=== PATIENT | female | born 1935 | race Caucasian/White ===

== ENCOUNTER 2019-07-23 00:21 | Emergency (ER) | payer OTHER, BC ==
[2019-07-23] MEDS ORDERED: propofoL 200 MG/20 ML VIAL IV ONE (01:04)
[2019-07-23] MEDS ORDERED: NA CHLORIDE 0.9% 1,000 ML ONE (01:12)
[2019-07-23 01:18] LABS: Absolute Lymphocytes (CBC) 1.3 K/uL (0.7-4.9); Basophils % 0.6 % (0-1.3); Hematocrit 33.4 % (36.0-45.0); Lymphocytes % 16.8 % (15.3-44.8); MPV 8.1 fL (7.6-11.3); RBC Red Blood Cell Count 3.34 M/uL (3.86-4.86)
[2019-07-23 01:28] LABS: Albumin 3.5 g/dL (3.4-5.0); Bilirubin Total 0.3 mg/dL (0.2-1.0); Potassium 3.5 mmol/L (3.5-5.1); Protein, Total 7.5 g/dL (6.4-8.2)
--- NOTE | 2019-07-23 01:45 | EDPHYS ---
Physician Documentation [facility] Name: Denia Leslie Age: 83 yrs Sex: Female : 1935 Arrival Date: 07/23/2019 Time: 00:24 Bed 5 Private MD: ED Physician Seymour Franco HPI: 07/22 01:57 This 83 yrs old Female presents to ER via EMS with complaints of Hip Pain. tw4 01:57 The patient or guardian reports decreased range of motion, deformity, an injury, pain, tw4 possible dislocation. that occurred at home, sustained from sitting down, the left lower extremity is shortened, left leg is externally rotated, The patient is not able to ambulate. Patient is not able to bear weight. There is no radiation of the patient's discomfort. The patient was discovered one hour after the incident. The complaints affect the left upper thigh. Onset: The symptoms/episode began/occurred today. Modifying factors: The symptoms are alleviated by remaining still, the symptoms are aggravated by any movement. Severity of symptoms: At their worst the symptoms were moderate. The patient has not experienced similar symptoms in the past. Historical: - Allergies: 00:35 hydrocodone; ea - Home Meds: 00:35 levothyroxine 50 mcg tab 1 tab once daily [Active]; pantoprazole 40 mg oral TbEC 1 tab ea once daily [Active]; lisinopril 10 mg Oral tab 1 tab once daily [Active]; diclofenac sodium 75 mg oral TbEC 1 tab 2 times per day [Active]; tramadol 50 mg Oral tab 1 tab as needed [Active]; - PMHx: 00:35 breast cancer; Hypertension; ea - PSHx: 00:35 Right lumpectomy; Neck surgery; Hysterectomy; ea - Immunization history:: Adult Immunizations up to date. - Social history:: Smoking status: unknown. ROS: 01:57 Constitutional: Negative for fever, chills, and weight loss, Eyes: Negative for injury, tw4 pain, redness, and discharge, Cardiovascular: Negative for chest pain, palpitations, and edema, Respiratory: Negative for shortness of breath, cough, wheezing, and pleuritic chest pain, Abdomen/GI: Negative for abdominal pain, nausea, vomiting, diarrhea, and constipation, Back: Negative for injury and pain, Skin: Negative for injury, rash, and discoloration, Neuro: Negative for headache, weakness, numbness, tingling, and seizure. 01:57 MS/extremity: Positive for injury or acute deformity, decreased range of motion, swelling, tenderness. Exam: 01:57 Constitutional: This is a well developed, well nourished patient who is awake, alert, tw4 and in no acute distress. Head/Face: Normocephalic, atraumatic. Chest/axilla: Normal chest wall appearance and motion. Nontender with no deformity. No lesions are appreciated. Cardiovascular: Regular rate and rhythm with a normal S1 and S2. No gallops, murmurs, or rubs. Normal PMI, no JVD. No pulse deficits. Respiratory: Lungs have equal breath sounds bilaterally, clear to auscultation and percussion. No rales, rhonchi or wheezes noted. No increased work of breathing, no retractions or nasal flaring. Abdomen/GI: Soft, non-tender, with normal bowel sounds. No distension or tympany. No guarding or rebound. No evidence of tenderness throughout. Skin: Warm, dry with normal turgor. Normal color with no rashes, no lesions, and no evidence of cellulitis. Neuro: Awake and alert, GCS 15, oriented to person, place, time, and situation. Cranial nerves II-XII grossly intact. Motor strength 5/5 in all extremities. Sensory grossly intact. Cerebellar exam normal. Normal gait. 01:57 Musculoskeletal/extremity: Extremities: noted in the left upper thigh: decreased ROM, deformity. Vital Signs: 00:26 BP 167 / 92; Pulse 76; Resp 20; Temp 97.8; Pulse Ox 98% ; ea 01:30 BP 112 / 83; Pulse 68; Resp 18; Pulse Ox 97% on R/A; ea 03:16 BP 142 / 70; Pulse 67; Resp 17 S; Pulse Ox 97% on R/A; jd3 Procedures: 03:14 Reduction: of the left hip, using traction, manipulation, flexion, Patient tolerated tw4 well. not successful . Joint Treatment:. Moderate sedation: Pre-procedure assessment: the patient has been NPO an unknown amount of time prior to arrival, ASA physical classification: I - healthy, no underlying organic disease, Airway assessment: able to hyperextend neck, able to maintain airway, can open mouth without difficulty, Mallampati classification of tongue size: I - faucial pillars, soft palate, and uvula can be fully visualized, Monitoring during procedure: desk monitor, continuous pulse oximetry, nurse at bedside at all times, Medications employed: propofol. MDM: 00:27 Patient medically screened. tw4 03:14 Differential diagnosis: hip fracture, intertrochanteric fracture, femoral neck tw4 fracture, femoral shaft fracture, strain, hip dislocation. Data reviewed: vital signs, nurses notes. Data interpreted: Pulse oximetry: Interpretation: normal. Counseling: I had a detailed discussion with the patient and/or guardian regarding: the historical points, exam findings, and any diagnostic results supporting the discharge/admit diagnosis, radiology results. Medication response: Fentanyl. Response to treatment: the patient's symptoms have markedly improved after treatment, and as a result, I will admit patient. ED course: D/W orthopedics at [facility] regarding patients condition and need for higher level of care. Dr Johnson agrees to accept patient for transfer. 07/22 00:47 Order name: CBC with Diff; Complete Time: 01:53 07/22 01:53 Interpretation: Normal except: RBC 3.34; HGB 11.2; HCT 33.4. 07/22 00:47 Order name: CMP; Complete Time: 01:54 07/22 01:54 Interpretation: Normal except: NA 131; CL 96; GFR 68. 07/22 00:28 Order name: Hip Left 1 View XRAY tw4 Administered Medications: 01:20 Drug: Propofol 100 mg Route: IVP; Site: left wrist; jd3 01:46 Follow up: Response: No adverse reaction ea 02:10 Drug: fentaNYL (PF) 50 mcg {Note: RASS 1.} Route: IVP; Site: left forearm; ea 02:50 Follow up: Response: No adverse reaction; Pain is decreased; RASS: Alert and Calm (0) ea 03:23 Drug: fentaNYL (PF) 25 mcg {Note: RASS 1.} Route: IVP; Site: left wrist; ea 03:26 Follow up: Response: Medication administered at discharge. ea Disposition: 07/23/19 01:45 Transfer ordered to [facility]. Diagnosis is Posterior dislocation of left hip. - Reason for transfer: Higher level of care. - Accepting physician is Dr Johnson. - Condition is Stable. - Problem is new. - Symptoms have improved. Signatures: Dispatcher [employer] EDBertrand John, RN Keena Cadet RN Davidson Everett ea, RN RN jd3 Wadley, Terrence, MD MD tw4 Corrections: (The following items were deleted from the chart) 01:57 01:45 07/23/2019 01:45 Transfer ordered to [facility]. tw4 Diagnosis is Posterior dislocation of left hip. Reason for transfer: Higher level of care. Accepting physician is Dr Major. Condition is Stable. Problem is new. Symptoms have improved. tw4 03:24 01:57 07/23/2019 01:45 Transfer ordered to [facility]. sg Diagnosis is Posterior dislocation of left hip. Reason for transfer: Higher level of care. Accepting physician is Dr Johnson. Condition is Stable. Problem is new. Symptoms have improved. tw4
--- NOTE | 2019-07-23 01:45 | ER ---
Nurse's Notes [facility] Name: Denia Leslie Age: 83 yrs Sex: Female : 1935 Arrival Date: 07/23/2019 Time: 00:24 Bed 5 Private MD: Diagnosis: Posterior dislocation of left hip Presentation: 07/22 00:26 Chief complaint: EMS states: Report pt was complaining of left leg pain that started ea this AM, reports the pain got worse throughout the day until she couldn't walk on it anymore. Pt and family denies trauma or fall, reports pt drank 6 beers. Coronavirus screen: Proceed with normal triage. Ebola Screen: No symptoms or risks identified at this time. Initial Sepsis Screen: Does the patient meet any 2 criteria? No. Patient's initial sepsis screen is negative. Does the patient have a suspected source of infection? No. Patient's initial sepsis screen is negative. Risk Assessment: Do you want to hurt yourself or someone else? Patient reports no desire to harm self or others. Onset of symptoms was July 23, 2019. 00:26 Method Of Arrival: EMS: [facility] ea 00:26 Acuity: EROS 3 ea Triage Assessment: 00:37 General: Appears in no apparent distress. Behavior is calm, cooperative, appropriate ea for age. Pain: Complains of pain in left hip. Historical: - Allergies: 00:35 hydrocodone; ea - Home Meds: 00:35 levothyroxine 50 mcg tab 1 tab once daily [Active]; pantoprazole 40 mg oral TbEC 1 tab ea once daily [Active]; lisinopril 10 mg Oral tab 1 tab once daily [Active]; diclofenac sodium 75 mg oral TbEC 1 tab 2 times per day [Active]; tramadol 50 mg Oral tab 1 tab as needed [Active]; - PMHx: 00:35 breast cancer; Hypertension; ea - PSHx: 00:35 Right lumpectomy; Neck surgery; Hysterectomy; ea - Immunization history:: Adult Immunizations up to date. - Social history:: Smoking status: unknown. Screenin:28 Abuse screen: Denies threats or abuse. Nutritional screening: No deficits noted. ea Tuberculosis screening: No symptoms or risk factors identified. Fall Risk None identified. Assessment: 00:35 General: Appears uncomfortable, Behavior is appropriate for age. Pain: Complains of ea pain in left hip. Neuro: Level of Consciousness is awake, alert, obeys commands, Oriented to person, place, time, situation. Cardiovascular: Patient's skin is warm and dry. Respiratory: Airway is patent Respiratory effort is even, unlabored, Respiratory pattern is regular, symmetrical. Derm: Skin is pink, warm \T\ dry. Musculoskeletal: Swelling present in left hip Reports pain in left hip. 00:38 Reassessment: , Son (Fidel) [phone]. ea 00:45 Reassessment: POA notified of conscious sedation for reduction, verbalized the ea understanding of information and agreed to conscious sedation and reduction. 01:43 Reassessment: POA notified of possible transfer. ea 02:53 Reassessment: Report given to Jayleen RN at [facility]. Reassessment: Patient ea and/or family updated on plan of care and expected duration. Pain level reassessed. Patient is alert, oriented x 3, equal unlabored respirations, skin warm/dry/pink. 03:03 Reassessment: (DIDI) notified of need for transfer. Verbalized the understanding ea and agreed of the need to transfer. 03:16 Reassessment: Patient and/or family updated on plan of care and expected duration. Pain jd3 level reassessed. Patient is alert, oriented x 3, equal unlabored respirations, skin warm/dry/pink. report given to EMS. 03:19 Reassessment: Patient and/or family updated on plan of care and expected duration. Pain ea level reassessed. Patient is alert, oriented x 3, equal unlabored respirations, skin warm/dry/pink. [facility] at facility for transfer, report given to EMS. Pt left ED via stretcher per EMS, tolerating well. Vital Signs: 00:26 BP 167 / 92; Pulse 76; Resp 20; Temp 97.8; Pulse Ox 98% ; ea 01:30 BP 112 / 83; Pulse 68; Resp 18; Pulse Ox 97% on R/A; ea 03:16 BP 142 / 70; Pulse 67; Resp 17 S; Pulse Ox 97% on R/A; jd3 ED Course: 00:24 Patient arrived in ED. cl3 00:26 Keena Holt, RN is Primary Nurse. ea 00:27 Seymour Franco MD is Attending Physician. tw4 00:28 Triage completed. ea 00:29 Patient has correct armband on for positive identification. Bed in low position. Call ea light in reach. Side rails up X2. 00:29 Arm band placed on right wrist. Patient placed in an exam room, on a stretcher, on ea pulse oximetry. 00:41 Maintain EMS IV. Dressing intact. Good blood return noted. Site clean \T\ dry. Gauge \T\ ea site: 20G to left AC. 00:50 Hip Left 1 View XRAY In Process Unspecified. EDMS 00:59 Initial lab(s) drawn, by me, sent to lab. jd3 01:39 Assist provider with reduction Set up for procedure. Performed by Seymour Franco MD, ea Patient tolerated well. Attempt in reduction to left hip using manipulation. 03:02 Patient transferred, IV remains in place. ea Administered Medications: 01:20 Drug: Propofol 100 mg Route: IVP; Site: left wrist; jd3 01:46 Follow up: Response: No adverse reaction ea 02:10 Drug: fentaNYL (PF) 50 mcg {Note: RASS 1.} Route: IVP; Site: left forearm; ea 02:50 Follow up: Response: No adverse reaction; Pain is decreased; RASS: Alert and Calm (0) ea 03:23 Drug: fentaNYL (PF) 25 mcg {Note: RASS 1.} Route: IVP; Site: left wrist; ea 03:26 Follow up: Response: Medication administered at discharge. ea Outcome: 01:45 ER care complete, transfer ordered by . tw4 02:56 Instructed on the need for transfer, Demonstrated understanding of instructions. ea 03:02 Transferred by ground EMS to [facility], Transfer form completed. ea 03:02 Condition: stable 03:24 Patient left the ED. sg Signatures: Dispatcher [employer] EDMS Bertrand Breen, Keena Cadet RN, RN Davidson Everett ea, RN RN jd3 Wadley, Terrence, MD MD tw Angela Martin cl3
[2019-07-23] MEDS ORDERED: FENTANYL CITR 100 MCG/2 ML ONE (02:14)
[2019-07-23 03:31] VITALS: TEMP 97.8
[2019-07-23 03:33] VITALS: O2SAT 97
[2019-07-23 03:34] VITALS: BP 142/70
--- NOTE | 2019-07-23 07:40 | RAD REPORT ---
EXAM DESCRIPTION: RAD - Hip Left 1 View - 07/23/2019 12:50 am CLINICAL HISTORY: PAIN, worsening left leg and hip pain COMPARISON: No comparisons FINDINGS: Patient has a left total hip prosthesis. The femoral component has been dislocated from th e acetabular cup and displaced superiorly. No fracture changes seen of the femur or partially imaged left hemipelvis. IMPRESSION: Dislocation of the patient's left hip prosthesis femoral component.
== END 2019-07-23 03:24 | disposition short-term general hospital (02) ==
LOC: ER 00:21
PROC: 0SSBXZZ Reposition Left Hip Joint, External Approach (ICD-10-PCS; principal; 2019-07-23)
DX: S73.015A Posterior dislocation of left hip, initial encounter (principal); X58.XXXA Exposure to other specified factors, initial encounter; Y93.9 Activity, unspecified; Y92.009 Unspecified place in unspecified non-institutional (private) residence as the place of occurrence of the external cause; Z88.6 Allergy status to analgesic agent; Z85.3 Personal history of malignant neoplasm of breast; I10 Essential (primary) hypertension
CPT/HCPCS: 85025; 36415; 80053; 73501; 99285; 27257; J2704; J3010; J7030

== ENCOUNTER 2019-12-12 20:31 | Inpatient (IN) | payer OTHER ==
--- OUTSIDE RECORDS SUMMARY | 2019-12-12 20:34 | XMS REPORT | Clinical Summary ---
:1935 Author Organization [facility] Address [address] [place] [address] Care Team Providers Name Role Phone Unavailable Primary Care Provider Unavailable Allergies Active Allergy Reactions Severity Noted Date Comments Hydrocodone-Acetaminophen Rash Low 07/23/2019 Medications Medication Sig Dispensed Refills Start Date End Date Status levothyroxine Take 50 mcg 0 Acti ve (SYNTHROID, by mouth LEVOTHROID) 50 MCG Every tabletIndications: morning on hypothyroidism an empty stomach. pantoprazole Take 40 mg 0 Active (PROTONIX) 40 MG by mouth tablet daily. lisinopriL Take 10 mg 0 Active (PRINIVIL,ZESTRIL) by mouth 10 MG tablet daily. DICLOFENAC SODIUM Take 75 mg 0 A ctive ORAL by mouth 2 (two) times daily. traMADoL (ULTRAM) Take 1 30 tablet 0 07/27/2019 A ctive 50 mg tablet (50 tabletIndications: mg total) by pain mouth every 8 (eight) hours as needed for Pain. Max Daily Amount: 150 mg traMADoL (ULTRAM) Take 50 mg 0 D iscontinued 50 mg by mouth 0 (Reorder) tabletIndications: every 8 pain (eight) hours as needed for Pain. polyethylene glycol Take 17 g by 170 g 0 07/28/2019 (GLYCOLAX) 17 gram mouth daily 0 packet for 10 days. thiamine 100 MG Take 1 30 tablet 0 07/28/2019 Exp ired tablet tablet (100 0 mg total) by mouth daily for 30 days. ferrous sulfate 325 Take 1 90 tablet 0 07/27/2019 Discontinued (65 FE) MG EC tablet (325 0 tablet mg total) by mouth 3 (three) times daily with meals for 30 days. ferrous sulfate 325 TAKE 1 90 tablet 0 08/25/2019 (65 FE) MG EC TABLET (325 0 tablet MG TOTAL) BY MOUTH 3 (THREE) TIMES DAILY WITH MEALS FOR 30 DAYS. Active Problems Problem Noted Date Posterior dislocation of hip, closed 07/23/2019 Hip dislocation, left 07/23/2019 Encounters Date Type Specialty Care Team Description 08/19/2019 Refill Cardiology Lucien Fitch MD 07/25/2019 Anesthesia Event Vasiliy Valencia MD Narayan, Rakesh, MD 07/25/2019 Surgery Halawi, Skyamamichael CLOSED REDUC TION,HIP Gregory, 07/23/2019 Anesthesia Event Yazan Batista MD 07/23/2019 Surgery Karistinos, CLOSED REDUCTIO N,HIP Anastassios, 07/23/2019 - Hospital Encounter General Internal Johnson, Close d posterior dislocation of left hip, initial encounter ([facility]); 07/27/2019 Medicine Lesly Opal, Hypothyroidism , unspecified type; Fall, initial encounter; Hernan, Alcohol abuse; Patsy Anemia, unspeci fied type; MD Armando Essential hypertension; Little, Iron deficiency anemia, unspecified iron deficiency anemia type; MD Lucien Hypokalemia; Hyponatremia 07/23/2019 Travel after 12/11/2018 Social History Tobacco Use Types Packs/Day Years Used Date Former Smoker 04 02 Smokeless Tobacco: Never Used Alcohol Use Drinks/Week oz/Week Comments Yes Alcohol Habits Answer Date Recorded How often do you have a drink containing 4 or more times a w false pass 07/23/2019 alcohol? How many drinks containing alcohol do you have 1 or 2 07/23/2019 on a typical day when you are drinking? How often do you have six or more drinks on one Not asked occasion? Sex Assigned at Date Recorded Not on file Last Filed Vital Signs Vital Sign Reading Time Taken Comments Blood Pressure 126/61 07/27/2019 12:21 PM CDT Pulse 74 07/27/2019 12:21 PM CDT Temperature 36.6 C (97.8 F) 07/27/2019 12:21 PM CDT Respiratory Rate 18 07/27/2019 12:21 PM CDT Oxygen Saturation 99% 07/27/2019 12:21 PM CDT Inhaled Oxygen Concentration - - Weight 73.5 kg (162 lb 0.6 oz) 07/27/2019 5:00 AM CDT Height 170.2 cm (5' 7") 07/23/2019 8:14 AM CDT Body Mass Index 25.38 07/23/2019 8:14 AM CDT Plan of Treatment Health Maintenance Due Date Last Done Comments PNEUMOCOCCAL 65+ YRS (1 of 1 - [id number]) 2002 MEDICARE ANNUAL WELLNESS (YEAR 2 or FIRST YEAR if no 12/04/2003 IPPE) INFLUENZA VACCINE (#1) 2019 Implants Implanted Type Area Golf Course Superintendent Device Identifier Shelf Model / Expiration Serial / Date Lot Liner G7 Dual Mobility 44mm F [id number] - [id number] TOTAL JOINT Left: BIOMET ORTHO [id number] 02/09/2029 [id number] / Implanted: Qty: 1 on 07/25/2019 by Leida Casper i, MD at [facility] CONSTRUCT Hip / [id number] Acetabular System Liner Left: Polina [id number] 09/01/2023 [id number] / Implanted: Qty: 1 on 07/25/2019 by Leida Casper i, MD at [facility] Hip / [id number] Biomet Femoral Head Type 1 Taper Left: BIOMET [id number] 03/17/2028 [id number] / Implanted: Qty: 1 on 07/25/2019 by Leida Casper i, MD at [facility] Hip / [id number] Explanted Type Area Golf Course Superintendent Device Identifier Shelf Model / Expiration Serial / Date Lot Scr Acet St Tril 6.5x40mm [id number] - [id number] TOTAL JOINT Left: POLINA:POLINA [id number] 02/19/[id number] / Explanted: Qty: 1 on 07/25/2019 by Leida Casper i, MD at [facility] CONSTRUCT Hip US / [id number] Procedures Procedure Name Priority Date/Time Associated Comments Diagnosis CBC (HEMOGRAM ONLY) Routine 07/27/2019 5:24 Resu lts for this AM CDT procedure are i n the results section. MAGNESIUM Routine 07/27/2019 5:24 Results for this AM CDT procedure are i n the results section. BASIC METABOLIC Routine 07/27/2019 5:24 Results for this PANEL (7) AM CDT procedure are i n the results section. CBC (HEMOGRAM ONLY) Routine 07/26/2019 4:13 Resu lts for this AM CDT procedure are i n the results section. MAGNESIUM Routine 07/26/2019 4:13 Results for this AM CDT procedure are i n the results section. BASIC METABOLIC Routine 07/26/2019 4:13 Results for this PANEL (7) AM CDT procedure are i n the results section. XR PELVIS 1 OR 2 STAT 07/25/2019 11:27 Results for this VIEWS AM CDT procedure are i n the results section. TISSUE EXAM AP Routine 07/25/2019 10:39 Results for this AM CDT procedure are i n the results section. SURGICALLY OBTAINED Routine 07/25/2019 9:26 Resu lts for this CULTURE + GRAM AM CDT procedure are in STAIN the results section. FUNGUS CULTURE + Routine 07/25/2019 9:26 Results for this SMEAR AM CDT procedure are i n the results section. ANAEROBIC CULTURE Routine 07/25/2019 9:26 Result s for this AM CDT procedure are i n the results section. AFB CULTURE + SMEAR Routine 07/25/2019 9:26 Resu lts for this (NON-SPUTUM) AM CDT procedure are i n the results section. SURGICALLY OBTAINED Routine 07/25/2019 9:19 Resu lts for this CULTURE + GRAM AM CDT procedure are in STAIN the results section. FUNGUS CULTURE + Routine 07/25/2019 9:19 Results for this SMEAR AM CDT procedure are i n the results section. ANAEROBIC CULTURE Routine 07/25/2019 9:19 Result s for this AM CDT procedure are i n the results section. AFB CULTURE + SMEAR Routine 07/25/2019 9:19 Resu lts for this (NON-SPUTUM) AM CDT procedure are i n the results section. SURGICALLY OBTAINED Routine 07/25/2019 9:16 Resu lts for this CULTURE + GRAM AM CDT procedure are in STAIN the results section. FUNGUS CULTURE + Routine 07/25/2019 9:16 Results for this SMEAR AM CDT procedure are i n the results section. ANAEROBIC CULTURE Routine 07/25/2019 9:16 Result s for this AM CDT procedure are i n the results section. AFB CULTURE + SMEAR Routine 07/25/2019 9:16 Resu lts for this (NON-SPUTUM) AM CDT procedure are i n the results section. PROCEDURE W/ C-ARM 07/25/2019 8:00 Dislocated hip, AM CDT left, sequela Special Needs (REQ:AEAP, PEG BOARD, DIVING BOARD) CLOSED REDUCTION,HIP 07/25/2019 8:00 AM CDT Dislocate d hip, left, sequela Special Needs (REQ:AEAP, PEG BOARD, DIVING BOARD) VITAMIN B12 AND Routine 07/25/2019 5:47 AM Resul ts for this FOLATE CDT procedure are i n the results section. FERRITIN Routine 07/25/2019 5:47 AM Results for this CDT procedure are i n the results section. IRON, TIBC, % SAT. Routine 07/25/2019 5:47 AM Re sults for this (WITHOUT FERRITIN) CDT procedure are in the results section. CBC (HEMOGRAM ONLY) Routine 07/25/2019 5:47 AM R esults for this CDT procedure are i n the results section. MAGNESIUM Routine 07/25/2019 5:47 AM Results for this CDT procedure are i n the results section. BASIC METABOLIC Routine 07/25/2019 5:47 AM Resul ts for this PANEL (7) CDT procedure are i n the results section. POCT-GLUCOSE METER Routine 07/24/2019 9:25 PM Re sults for this CDT procedure are i n the results section. TRANSFUSION SERVICE 07/24/2019 5:51 PM REPORT - SCAN CDT CBC (HEMOGRAM ONLY) Routine 07/24/2019 3:25 AM R esults for this CDT procedure are i n the results section. MAGNESIUM Routine 07/24/2019 3:25 AM Results for this CDT procedure are i n the results section. BASIC METABOLIC Routine 07/24/2019 3:25 AM Resul ts for this PANEL (7) CDT procedure are i n the results section. PREPARE NEEMA 07/23/2019 9:25 PM Results for this LEUKO-REDUCED RBC CDT procedure are in the results section. XR PELVIS 1 OR 2 STAT 07/23/2019 9:23 PM Resu lts for this VIEWS CDT procedure are i n the results section. ABORH, MANUAL STAT 07/23/2019 8:58 PM Results for this CDT procedure are i n the results section. C-REACTIVE PROTEIN NEEMA 07/23/2019 8:58 PM Re sults for this CDT procedure are i n the results section. APTT NEEMA 07/23/2019 8:58 PM Results for this CDT procedure are i n the results section. 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 BASIC METABOLIC Routine 07/23/2019 2:42 PM Resul ts for this PANEL (7) CDT procedure are i n the results section. CBC (HEMOGRAM ONLY) Routine 07/23/2019 2:42 PM R esults for this CDT procedure are i n the results section. XR HIP 2 VIEWS LEFT STAT 07/23/2019 1:15 PM R esults for this CDT procedure are i n the results section. POCT-GLUCOSE METER Routine 07/23/2019 12:29 PM Re sults for this CDT procedure are i n the results section. CT BRAIN WITHOUT IV Routine 07/23/2019 9:20 AM R esults for this CONTRAST CDT procedure are i n the results section. POCT-GLUCOSE METER Routine 07/23/2019 7:38 AM Re sults for this CDT procedure are i n the results section. SARS-COV2/RT-PCR Routine 07/23/2019 6:42 AM Resu lts for this ([facility]) CDT procedure are in the results section. TYPE AND SCREEN, STAT 07/23/2019 6:23 AM Resu lts for this AUTOMATED CDT procedure are i n the results section. T4, FREE Routine 07/23/2019 6:23 AM Results for this CDT procedure are i n the results section. TSH Routine 07/23/2019 6:23 AM Results for this CDT procedure are i n the results section. PROTHROMBIN TIME/INR STAT 07/23/2019 6:23 AM Results for this CDT procedure are i n the results section. after 12/11/2018 Results CBC (Hemogram only) (07/27/2019 5:24 AM CDT)Only the most recent of5 results within the time period is included. Pathologist Sig nature WBC 8.4 3.5 - 10.5 K/L [facility] RBC 2.49 (L) 3.93 - 5.22 M/L [facility] Hemoglobin 8.1 (L) 11.2 - 15.7 GM/DL [facility] Hematocrit 24.9 (L) 34.1 - 44.9 % [facility] MCV 100.0 (H) 79.4 - 94.8 fL [facility] MCH 32.5 (H) 25.6 - 32.2 pg [facility] MCHC 32.5 32.2 - 35.5 GM/DL [facility] RDW 12.8 11.7 - 14.4 % [facility] Platelets 277 150 - 450 K/CU MM [facility] MPV 9.9 9.4 - 12.3 fL [facility] nRBC 0 0 - 0 /100 WBC [facility] Specimen Blood Performing Organization Address City/[facility] Centercode Phone Number [address] [address] CENTER Magnesium (07/27/2019 5:24 AM CDT)Only the most recent of4 resultswithin the time period is included. Pathologist Sig nature Magnesium 1.6 1.6 - 2.6 mg/dL [facility] Specimen Blood Narrative Performed At Planetarium Technician ID - KODI M [facility] ICAL CENTER Performing Organization Address City/[facility]/Zipcode Phone Number [address] [address] CENTER Basic metabolic panel (07/27/2019 5:24 AM CDT)Only the most recent of5 results within the time period is included. Sodium 138 136 - 145 [facility] meq/L [facility] Potassium 3.6 3.5 - 5.1 [facility] meq/L [facility] Chloride 105 98 - 107 meq/L [facility] CO2 26 22 - 29 meq/L [facility] BUN 14 7 - 21 mg/dL [facility] Creatinine 0.80 0.57 - 1.25 [facility] mg/dL [facility] Glucose 102 70 - 105 mg/dL [facility] Calcium 9.2 8.4 - 10.2 [facility] mg/dL [facility] EGFR Comment: INSUFFICIENT [facility] CLINICAL DATA TO [facility] CALCULATE ESTIMATED CENTER GFR. Specimen Blood Narrative Performed At Planetarium Technician ID - KODI Paulson [facility] ICAL CENTER Performing Organization Address City/State/Zipcode Phone Number [place] [phone] [place] [address] CENTER XR pelvis 1 or 2 views (07/25/2019 11:27 AM CDT)Only the most recent of2 results within the time period is included. Specimen Narrative Performed At FINAL REPORT GE [facility] Radiograph of the pelvis Reason for exam: hip fx Comparison: July 23, 2019 Discussion: Status post reduction of previously seen dislocated left hip prosthesis. No acute fracture is identif ied. Soft tissue gas at the lateral aspect of the left hip likely re flects postsurgical change. Signed: Franci Dickson MD Report Verified Date/Time: 07/25/2019 12:00:43 Reading Location: [facility] C013X [facility] Reading Room Procedure Note Interface, External Ris In - 07/25/2019 12:03 PM CDT FINAL REPORT Radiograph of the pelvis Reason for exam: hip fx Comparison: July 23, 2019 Discussion: Status post reduction of previously seen dislocated left hip prosthesis. No acute fracture is identif ied. Soft tissue gas at the lateral aspect of the left hip likely re flects postsurgical change. Signed: Franci Dickson MD Report Verified Date/Time: 07/25/2019 1 2:00:43 Reading Location: [facility] C013X Ortho Con sult Reading Room Performing Organization Address City/State/Zipcode Phone Number GE RIS Tissue Exam (07/25/2019 10:39 AM CDT) Case Report Surgical Pathology Report Case: [id number] [facility] Authorizing Provider: Leida Holt MD Collected: 07/25/2019 10:39 AM [facility] Ordering Location: [facility] PERIOPERATIVE Received: 07/28/2019 08:26 AM [facility] SERVICES Pathologist: Adali Sahu MD Specimen: Explant DIAGNOSIS [facility] Electronically A. HARDWARE, REMOVAL, GROSS EXAMINATION ONLY: [facility] signed by Adelina, - HARDWARE IDENTIFIED (SEE GROSS DESCRIPTION). [facility] MD Adali on Signing Pathologist Direct Phone Line: 07/29/2019 at 1:28 PM CPT Code(s) 27005 [facility] CLINICAL HISTORY Dislocated hip, [facility] left, sequela [facility] [[id number]] MEDICAL CENTER SPECIMEN SOURCE Explant [facility] GROSS DESCRIPTION Received fresh labeled with the patient's name, accession number and "explant" are 2 metallic boyd to boyd-white pieces of orthopedic hardware, which are consistent with a [id number], ranging from [facility] 3.2 to 4.8 cm in greatest dimension. Th e following inscription is identified: [facility] [id number] B STD 40 mm [id number] A gross photograph is taken. No sections are submitted. This case is for gross examination only. RICKY Roberts (ASCP)cm Gross assessment [facility] was performed at [facility] Department of [facility] Pathology, [address] [place] [address], [place] [address], Technical component [facility] was performed at [facility] Department [facility] Pathology, [address] [place] [id number], Professional [facility] component was [facility] performed at Department [facility] Pathology, [address] [place] [id number], Specimen Tissue - Explant Performing Organization Address City/[facility] Centercode Phone Number [address] [address] [place] [employer] culture + smear (non-sputum) (07/25/2019 9:26 AM CDT)Only the most recent of3 resultswithin the time period is included. Pathologist Sig nature Result No acid-fast bacilli [facility] isolated in 42 days [facility] [employer] Smear No acid fast bacilli [facility] seen [facility] Specimen Tissue - Left hip region structure (body structure) Performing Organization Address [facility] Centercode Phone Number [address] [address] [place] Anaerobic culture (07/25/2019 9:26 AM CDT)Only the most recent of3 results within the time period is included. Pathologist Sig nature Result No anaerobes isolated [facility] Specimen Tissue - Left hip region structure (body structure) Performing Organization Address [facility] Centercode Phone Number [address] [address] CENTER Surgically obtained culture + gram stain (07/25/2019 9:26 AM CDT)Only the most recent of3 resultswithin the time period is included. Result No growth [facility] Gram Stain Result <1+ White blood [facility] cells seen [facility] Gram Stain Result No organisms seen [facility] Specimen Tissue - Left hip region structure (body structure) Performing Organization Address [facility] Centercode Phone Number [facility] [address] [place] [address] CENTER Fungus culture + smear (07/25/2019 9:26 AM CDT)Only the most recent of3 resultswithin the time period is included. Pathologist Sig nature Result No fungus isolated [facility] in 28 days [facility] Fungus Smear No fungal elements [facility] seen [facility] Specimen Tissue - Left hip region structure (body structure) Performing Organization Address City/[facility]/Zipcode Phone Number [address] [address] CENTER Vitamin B12 and Folate (07/25/2019 5:47 AM CDT) Pathologist Sig nature Vitamin B12 232 213 - 816 pg/mL [facility] Folate 14.60 >=7.00 ng/mL [facility] Specimen Blood Narrative Performed At Planetarium Technician ID - KODI M [facility] [place] Performing Organization Address [facility] Centercoma Phone Number [address] [address] CENTER Iron, TIBC, % sat. (without ferritin) (07/25/2019 5:47 AM CDT) Pathologist Sig nature Iron 12.0 (L) 40.0 - 160.0 [facility] ug/dL [facility] TIBC 348 250 - 450 ug/dL [facility] Iron % Saturation 3 (L) 20 - 55 % [facility] Specimen Blood Narrative Performed At Planetarium Technician ID - KODI M [facility] Performing Organization Address [facility]/Zipcode Phone Number [address] [address] CENTER Ferritin (07/25/2019 5:47 AM CDT) Pathologist Sig nature Ferritin 92.77 5.00 - 275.00 ng/mL [facility] Specimen Blood Narrative Performed At Planetarium Technician ID - KODI Paulson [facility]AL [facility] Performing Organization Address City/[facility]/Zipcode Phone Number [address] [phone] [place] POC-Glucose meter (07/24/2019 9:25 PM CDT)Only the most recent of3 results within the time period is included. POC-Glucose Meter 90Comment: : 70 - 110 mg/dL [facility] TESTED AT [address], [address]: Planetarium Technician/Technic marilu ID = [id number] for ALFREDO NOLASCO Specimen Blood Performing Organization Address [facility] Phone Number [address] [phone] [place] TRANSFUSION SERVICE REPORT - SCAN (07/24/2019 5:51 PM CDT) Narrative Performed At This result has an attachment that is no t available. Prepare Leuko-Red RBC (07/23/2019 9:25 PM CDT) Pathologist Sig nature CROSSMATCH COMPATIBLE SAFETRACE TX Unit ABO O Pos SAFETRACE TX UNIT NUMBER [id number] SAFETRACE TX Status READY SAFETRACE TX Blood Bank Product RED BLOOD CELLS SAFETRACE TX PRODUCT CODE [id number] SAFETRACE TX CROSSMATCH COMPATIBLE SAFETRACE TX Unit ABO O Pos SAFETRACE TX UNIT NUMBER [id number] SAFETRACE TX Status READY SAFETRACE TX Blood Bank Product RED BLOOD CELLS SAFETRACE TX PRODUCT CODE [id number] SAFETRACE TX Specimen Other Performing Organization Address City/[facility] Centercode Phone Number SAFETRACE TX ABORH, manual (07/23/2019 8:58 PM CDT) Pathologist Sig nature Rh Factor POS [facility] [place] ABO Grouping O [facility] [place] Specimen Blood Performing Organization Address City/[facility]/Zipcode Phone Number [address] [phone] C-Reactive Protein (07/23/2019 8:58 PM CDT) Pathologist Sig nature CRP 3.78 (H) 0.00 - 0.50 mg/dL [facility] Specimen Blood Narrative Performed At Planetarium Technician ID - BS [facility] Performing Organization Address City/[facility] Phone Number [facility] [address] [place] [address] CENTER aPTT (07/23/2019 8:58 PM CDT) Pathologist Sig nature PTT 31.6 22.5 - 36.0 seconds [facility] Specimen Blood Performing Organization Address [facility] Phone Number [address] [address] [place] ECG 12 lead (07/23/2019 2:49 PM CDT) Specimen Narrative Performed At Ventricular Rate 68 BPM GE MUSE Atrial Rate 68 BPM P-R Interval 172 ms QRS Duration 90 ms Q-T Interval 416 ms QTC Calculation(Bazett) 442 ms P Burton 50 degrees R Burton 47 degrees T Burton 65 degrees Normal sinus rhythm Normal ECG No previous ECGs available Confirmed by Rut BENITEZ MICHAEL ([id number]) on 0 7:34:14 AM Procedure Note Interface, External Ris In - 07/24/2019 7:34 AM CDT Ventricular Rate 68 BPM Atrial Rate 68 BPM P-R Interval 172 ms QRS Duration 90 ms Q-T Interval 416 ms QTC Calculation(Bazett) 442 ms P Burton 50 degrees R Burton 47 degrees T Burton 65 degrees Normal sinus rhythm Normal ECG No previous ECGs available Confirmed by Rut BENITEZ MICHAEL ([id number]) on 07/24/2019 7:34:14 AM Performing Organization Address City/[facility] Phone Number GE MUSE XR hip 2 views left (07/23/2019 1:15 PM CDT) Specimen Narrative Performed At FINAL REPORT GE RIS RAD, HIP, 2 VIEWS, LEFT INDICATION: fall, hip pain COMPARISON: None TECHNIQUE: Single AP view of the help FINDINGS/IMPRESSION: Status post total hip arthroplasty. The femoral component is dislocated from the acetabular component and is superiorly displaced. Signed: Ravinder Ramsey MD Report Verified Date/Time: 07/23/2019 13:22:40 Reading Location: [facility] Reading Room Procedure Note Interface, External Ris In - 07/23/2019 2:41 PM CDT FINAL REPORT RAD, HIP, 2 VIEWS, LEFT INDICATION: fall, hip pain COMPARISON: None TECHNIQUE: Single AP view of the help FINDINGS/IMPRESSION: Status post total hip arthroplasty. The femoral component is dislocated from the acetabular component and is superiorly displaced. Signed: Ravinder Ramsey MD Report Verified Date/Time: 07/23/2019 1 3:22:40 Reading Location: [facility] y Reading Room Performing Organization Address City/State/Zipcode Phone Number [email or web address] CT brain without IV contrast (07/23/2019 9:20 AM CDT) Specimen Narrative Performed At FINAL REPORT [email or web address] CT Head without contrast CLINICAL HISTORY: fall TECHNIQUE: Contiguous axial images throu gh the head without contrast. This exam was performed according to the departmental dose optimization program which includes auto mated exposure control, adjustment of the mA and/or kV according to the patient size, and/or use of an iterative reconstruction techn ique. COMPARISON: None FINDINGS: There is no evidence of skull fracture o r intracranial hemorrhage. There is periventricular and subcortical white matter hypodensity which is nonspecific but compatible with chronic microvascular ischemic change. There are atherosclerot ic calcifications of the intracranial circulation. There is gener alized parenchymal volume loss without hydrocephalus, midline shif t, or apparent mass effect. There are no extra-axial fluid collectio ns. The paranasal sinuses are well-aerated. IMPRESSION: No evidence of skull fracture or intracr anial hemorrhage. Signed: Xiomy Munoz MD Report Verified Date/Time: 07/23/2019 09:31:21 Reading Location: [facility] [id number] [facility] Room Procedure Note Interface, External Ris In - 07/23/2019 9:33 AM CDT FINAL REPORT CT Head without contrast CLINICAL HISTORY: fall TECHNIQUE: Contiguous axial images throu gh the head without contrast. This exam was performed according to the departmental dose optimization program which includes auto mated exposure control, adjustment of the mA and/or kV according to the patient size, and/or use of an iterative reconstruction techn ique. COMPARISON: None FINDINGS: There is no evidence of skull fracture o r intracranial hemorrhage. There is periventricular and subcortical white matter hypodensity which is nonspecific but compatible with chronic microvascular ischemic change. There are atherosclerot ic calcifications of the intracranial circulation. There is gener alized parenchymal volume loss without hydrocephalus, midline shif t, or apparent mass effect. There are no extra-axial fluid collectio ns. The paranasal sinuses are well-aerated. IMPRESSION: No evidence of skull fracture or intracr anial hemorrhage. Signed: Xiomy Munoz MD Report Verified Date/Time: 07/23/2019 0 9:31:21 Reading Location: [address] Performing Organization Address City/[facility]/Zipcode Phone Number GE RIS SARS-CoV2/RT-PCR (Asymptomatic ONLY) (07/23/2019 6:42 AM CDT) SARS-COV2/RT-PCR Negative Not Detected, [facility] Negative NON-INTERFACED REFERENCE LABS SARS-COV-2 CPL [facility] PERFORMING LAB NON-INTERFACED REFERENCE LABS Specimen Other - Nasopharyngeal wall structure (b sofy structure) Narrative Performed At This result has an attachment that is no t available. Performing Organization Address City/[facility]/Zipcode Phone Number [facility] NON-INTERFACED REFERENCE LABS Type and screen, automated (07/23/2019 6:23 AM CDT) Pathologist Sig nature ABO/RH AUTOMATED O POSITIVE PENDING SALE TO [facility] (BEAK[facility]) [facility] Ab Scrn NEGATIVE [facility] Specimen Blood - Entire left upper arm (body stru cture) Performing Organization Address City/[facility]/Zipcode Phone Number [address] [address] Prothrombin time/INR (07/23/2019 6:23 AM CDT) Pathologist Sig nature Protime 13.3 11.9 - 14.2 seconds [facility] INR 1.0 <=5.9 [facility] Specimen Blood - Entire left upper arm (body stru cture) Narrative Performed At Effective 07/30/2018: PT Reference Range [facility] Change New: 11.9-14.2 Previous: 11.7-14.7 RECOMMENDED COUMADIN/WARFARIN INR THERAPY RANGES STANDARD DOSE: 2.0-3.0 Includes: PROPHYLAXIS for venous thrombosis, systemic embolization; TREATMENT for venous thrombosis and/or pulmonary embolus. HIGH RISK: Target INR is 2.5-3.5 for patients wiht mechanical heart valves. Performing Organization Address City/State/Zipcode Phone Number [address] [address] CENTER TSH (07/23/2019 6:23 AM CDT) Pathologist Sig nature TSH 4.520 0.350 - 4.940 uIU/mL [facility] Specimen Blood - Entire left upper arm (body stru cture) Narrative Performed At Planetarium Technician ID - P[facility] L [facility] Performing Organization Address City/State/[facility] Phone Number [address] [address] CENTER T4, free (07/23/2019 6:23 AM CDT) Pathologist Sig nature Free T4 0.91 0.70 - 1.48 ng/dL [facility] Specimen Blood - Entire left upper arm (body stru cture) Narrative Performed At Planetarium Technician ID - PIAYA L [facility] Performing Organization Address City/State/Zipcode Phone Number [address] [address] CENTER after 12/11/2018 Insurance Payer Benefit Plan Subscriber ID Effective Phone Address Typ e / Group Dates MEDICARE MEDICARE A B [id number] 2002-Pres Medicare ent BLUE BCBS PPO POS [id number] 2016-Prese [phone] [address] PPO CROSS/BLUE EPO CHOICE nt 12 [id number] [place] [address] CDC REVIEW CDC REVIEW [id number] 2019-Pres [place] [address]
--- OUTSIDE RECORDS SUMMARY | 2019-12-12 20:36 | XMS REPORT | Summary of Care ---
:1935 Author Organization [facility] Address [address] [place] [address] Care Team Providers Name Role Phone Roby Huitron Primary Care Provider Reason for Referral (Routine) Status Reason Specialty Diagnoses / Referred By Referred To Procedures Contact Contact Pending Location Physical Diagnoses Dislocation of left hip, subsequent encounter Vladimir Marti Review Preference Therapy Procedures CONSULT/REFERRAL PHYSICAL THERAPY S, PAC [address] [place] [address] (Routine) Status Reason Specialty Diagnoses / Referred By Referred To Procedures Contact Contact New Request ORT-ORTHOPAEDIC Diagnoses Dislocation of left hip, subsequent encounter Vladimir Marti S, SURGERY Procedures Discharge Follow-Up: Specialty Service ORT-ORTHOPAEDIC SURGERY; 2 Weeks PAC [address] [place] [address] (Routine) Status Reason Specialty Diagnoses / Referred By Referred To Procedures Contact Contact New Request Diagnostic Diagnoses Dislocation of left hip, subsequent encounter Vu Peguero Radiology Procedures FL TIME OR (NON-REPORTABLE) MD Jas [address] [place] [address] Radiology Services (STAT) Status Reason Specialty Diagnoses / Referred By Referred To Procedures Contact Contact New Request Diagnostic Diagnoses Pain of left hip joint Mnaish, K Radiology Procedures XR HIPS 2 VW LEFT Courtney, PAC [address] [facility] [address] [place] [address] Reason for Visit Reason Comments Hip Pain Auth/Cert Status Reason Specialty Diagnoses / Referred By Referred To Procedures Contact Contact Emergency Medicine Diagnoses Left Hip Dislocation [facility] Emergency Dept [address] [place] [address] Fax: Encounter Details Date Type Department Care Team Description 09/14/2019 - Emergency [facility] Medicine Surgery Margo Hammond, PAC [address] [address] Hip dislocation, left 09/15/2019 Unit Vu Peguero MD [address] [place] [phone] [place] [address] Allergies No Known Allergiesdocumented as of this encounter (statuses as of 09/15/2019) Medications Medication Sig Dispensed Refills Start Date End Date Status anastrozole 1 mg Take 1 mg by 0 08/14/2017 Active tablet mouth daily. LISINOPRIL ORAL Take by 0 Acti ve mouth. levothyroxine sodium Take by 0 Active (LEVOTHYROXINE ORAL) mouth. acetaminophen-codein Take 1 tablet 40 tablet 0 09/15/2019 Active e (TYLENOL-CODEINE by mouth #3) 300-30 mg every 4 tabletIndications: (four) hours acute pain as needed for Pain (scale 4-6) or Pain (scale 7-10). Indications: acute pain acetaminophen-codein Take 1 tablet 40 tablet 0 09/10/201709/01 Discontinued e (TYLENOL-CODEINE by mouth #3) 300-30 mg tablet every 4 (four) hours as needed for Pain (scale 4-6) or Pain (scale 7-10). 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 20 years ago (199 8) Alcohol Use Drinks/Week oz/Week Comments Yes Social Drinker Sex Assigned at Date Recorded Not on file Job Start Date Occupation Industry Not on file Not on file Not on file Travel History Travel Start Travel End No recent travel history available. COVID-19 Exposure Response Date Recorded In the last month, have you been in contact with No / Unsure 09/14/2019 1:21 PM CDT someone who was confirmed or suspected to have Coronavirus / COVID-19? documented as of this encounter Last Filed Vital Signs Vital Sign Reading Time Taken Comments Blood Pressure 115/49 09/15/2019 4:13 PM CDT Pulse 72 09/15/2019 4:13 PM CDT Temperature 36.8 C (98.2 F) 09/15/2019 4:13 PM CDT Respiratory Rate 20 09/15/2019 4:13 PM CDT Oxygen Saturation 94% 09/15/2019 4:13 PM CDT Inhaled Oxygen Concentration - - Weight 69 kg (152 lb 1.6 oz) 09/15/2019 4:20 AM CDT Height 170.2 cm (5' 7") 09/14/2019 7:35 PM CDT Body Mass Index 23.82 09/14/2019 7:35 PM CDT documented in this encounter Discharge Instructions AttachmentsThe following attachments cannot be sent through Care Everywhere. Dislocation After Hip Replacement, Reduced (Maltese)RICE (Maltese)Managing Post- Op Pain at Home (Maltese)documented in this encounter Progress Notes Cece Bernal, PT - 09/15/2019 2:08 PM CDT09/15/2019 Physical Therapy Progress Note: Discharge Recommendations: Therapy Needs and Potential: decline in gait and/or balance, decreased strength and decreased range of motion Challenges to Home Transition: increased risk of falls Equipment recommendations: rolling walker PAIN: -Pain Description: aching -Pain Location: left leg -Pain rating before treatment: 4, After treatment: 4 -Pain Management: Patient denies need for pain meds PRECAUTIONS: Weight Bearing Precaution: WBAT, Left, LE General Precautions: PPE used:Gloves and Surgical mask, Fall Bracing/Cast present or required:MENG ordered hip abduction brace and waiting for brace prior to discharge. S: Patient agreeable to working with PT. Pt reports she is okay, she just left the restroom and is ready to go home. O: Patient met in bathroom. Pt using the restroom. . Patient seen for the following: Bed mobility: Scooting in supine: Modified independent Sit to supine: Modified independent Repositioned patient to head of bed: SBA/Setup Transfers: Sit to stand: SBA/Setup using Rolling Walker Stand to sit: SBA/Setup using Rolling Walker Static/dynamic standing balance: Good Verbal cueing provided for correct hand placement and correct use of AD Gait: Assisted patient with ambulation as follows: 150 feet using Rolling Walker and SBA/Setup. Therapeutic exercise: instructed patient in the following: quad sets, glut sets After session, patient Semi reclined in bed, SCD sleeves on and machine turned on and call kaur provided. RN made aware of status A: Patient tolerated session well. Pt performing functional tasks safely and with good balance. Pt progressing well. . P: PT will - advance as able to tolerate. Total Timed Tx Codes in Minutes: 15 Min Total Treatment Time in Minutes: 15 Min Cece Pressley, PT [place] PT License [id number] [facility] Rehabilitation Services Department (phone) (fax) Shon Singer RN - 09/15/2019 11:37 AM CDTClinicals faxed over to Luis Fernando [facility] P: [phone], F: [phone], awaiting signed hip abduction DME order. Shon Singer RN, BSN [facility] Java Developer Analyst O [phone] Shreya Baron LBSW - 09/15/2019 11:32 AM CDTSubjective Patient ID: Denia Leslie is a 83 year old female. Care Management Social Functional Assessment Patient Name: Denia Leslie Age: [age] year old Sex: female Patient's Previous Admission Date at [facility]: 09/09/2017 Current diagnosis and co-morbidities: Left Hip Dislocation Readmission Questions: Was patient discharged from any acute care hospital within the last 30 days: No Social Functional Assessment: Primary language spoken/preferred: Maltese Mental Status: Alert & Oriented to Person,Place & Time Information given by: Self Patient's support system: Spouse;Child Name and number of support system: Kolton Leslie, and Adriano Davis, son [phone] 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 MPOA: No Living Arrangement: Home Address of living arrangement : [address] [place] [address] Persons living in home: Self;Spouse Barriers to returning home: None Baseline functional status- ambulation: Independent Functional status-baseline personal care: Independent Baseline functional status- driving: Independent Baseline functional status- grocery shopping: Independent Functional status-baseline housekeeping: Independent Functional status-baseline meal prep: Independent Current functional status same as prior: Yes Do you have a PCP?: Yes Name of PCP: Roby Huitron [facility] Agency: No Provider Services: No DME Company: No Equipment: None Hemodialysis: No Community resources utilized: None Funding Resources: Medicare A & B;Supplement/Secondary Prescription coverage plan: Medicare Part D Pharmacy where meds are filled: Other Other pharmacy: [facility] Anticipated services prior to disharge: Continue Medical Eval Expected mode of discharge transportation: Same as support system Additional Recommendations for DC: Medical clearance; will arrange for left hip abduction brace through [employer] DME Additional info required for discharge planning: Pending medical evaluation Recommended discharge plan: Home;DME Referral SFA Complete: Social Functional Assessment complete: Yes Alcohol Use Screening (AUDIT-C) How often do you have a drink containing alcohol?: Never SCORE: 0 Did patient elect to have resources provided: No Role of Care Management explained. Any issues or concerns with obtaining/affording your medications at home: no. 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 Review of Systems Objective Physical Exam Assessment/Plan Home with . Will arrange for left hip abduction brace. NAIMA Fan Diversional Therapist - Care Management [facility] [phone] [email or web address] Vladimir Jolley PAC - 09/15/2019 10:55 AM CDT Orthopedic Surgery Post Operative Note Date of Service: 09/15/2019 Procedure: Patient Active Problem List Diagnosis '[id number]-vxj-jptww' with signs of malnutrition Arthritis of left hip Hip dislocation, left Failure of left total hip arthroplasty with dislocation of hip, subsequent encounter Post-operative Day: 1 Patient is pain is well controlled. Patient ambulates with Standard Walker, Rolling Walker . Range of motion is unchanged. Vitals: BP (!) 146/63 | Pulse 68 | Temp 36.2 C (97.2 F) (Temporal Artery) | Resp 18 | Ht 1.702 m (5'7") | Wt 69 kg (152 lb 1.6 oz) | SpO2 98% | BMI 23.82 kg/m Wound status: clean, dry and intact Neovascular status: neurovascularly intact Labs: CBC BMP PT/INR WBC (10*3/L) Date Value 09/14/2019 9.60 NA (mmol/L) Date Value 09/14/2019 127 (L) No results found for: PT RBC (10*6/L) Date Value 09/14/2019 3.40 (L) K (mmol/L) Date Value 09/14/2019 4.2 INR (no units) Date Value 09/02/2017 0.9 PLT (10*3/L) Date Value 09/14/2019 380 (H) CALCIUM (mg/dL) Date Value 09/14/2019 10.3 HGB (g/dL) Date Value 09/14/2019 11.2 (L) CL (mmol/L) Date Value 09/14/2019 93 (L) aPTT HCT (%) Date Value 09/14/2019 32.7 (L) BUN (mg/dL) Date Value 09/14/2019 7 APTT Patient (Seconds) Date Value 09/02/2017 26 CREATININE (mg/dL) Date Value 09/14/2019 0.65 Assessment and Plan: Denia Leslie is a 83 year old female with PMH as listed above, admitted to the hospital on 09/14/2019 with: Active Problems: Hip dislocation, left (09/14/2019) POA: Yes Assessment: Post-closed reduction left hip postop day one doing well ambulates with PT without difficulty Plan: Once she has a hip abduction brace she can have her drain discontinued her dressings changed and discharged home. She will need to wear the hip abduction brace continuously documented in this encounter Plan of Treatment Health Maintenance Due Date Last Done Comments DTaP,Tdap,and Td Vaccines (1 - Tdap) 1946 Depression Screening 1949 Zoster Recombinant Vaccine (SHINGRIX) (1 of 2) 12/10/1987 Medicare Wellness Visit 2002 Osteoporosis Screening 2002 PNEUMOCOCCAL VACCINES 65+ (1 of 2 - PCV13) 2002 INFLUENZA VACCINE (#1) 2019 documented as of this encounter Implants Implanted Type Area Paving Supervisor Device Shelf Model / Identifier Expiration Serial / Lot Date Acetabular Shell Cementless 3 Hole 56mm Miguelina Porocoat Plasma Coated G7 Biomet Ref#[id number] HIP Left: Hip Biomet 06/18/2027 [id number] / Implanted: Qty: 1 on 09/09/2017 by Vu Burr MD at [facility] [id number] / [id number] Acetabular Liner Neutral Size F 40mm Miguelina Arcomxl High Wall G7 Biomet Ref#[id number] HIP Left: Hip Biomet 02/12/2021 [id number] / Implanted: Qty: 1 on 09/09/2017 by Vu Burr MD at [facility] [id number] / [id number] Femoral Head Cementless 40mm Miguelina Standar 0mml Neck [place] Chromium Biomet Ref#[id number] Head Left: Hip Biomet 03/28/2027 [id number] / Implanted: Qty: 1 on 09/09/2017 by Vu Burr MD at [facility] [id number] / [id number] Screw, Garima Bone 6.5x25 Self-Tap #[id number] - [id number] S CREW Left: Hip Garima 07/02/2027 [id number] / Implanted: Qty: 1 on 09/09/2017 by Vu Burr MD at [facility] [id number] / [id number] Screw, Garima Bone 6.5x20 Self-Tap #[id number] [00-6250- 065-20] SCREW Left: Hip Garima 07/02/2027 / Implanted: Qty: 1 on 09/09/2017 by Vu Burr MD at [facility] [id number] / [id number] Acetabular Shell Cementless 3 Hole 56mm Miguelina Porocoat Plasma Coated G7 Biomet Ref#[id number] SCREW Left: Hip Garima 07/02/2027 [id number] / Implanted: Qty: 1 on 09/09/2017 by Vu Burr MD at [facility] 0 / [id number] Screw, Garima Bone 6.5x20 Self-Tap #[id number] [00-6250- 065-20] SCREW Left: Hip Garima 07/02/2027 / Implanted: Qty: 1 on 09/09/2017 by Vu Burr MD at [facility] 0 / [id number] Stem Femoral Cementless Porous Plasma Coated Stem Biomet Ref #[id number] Stem Left: Hip Biomet 07/27/2027 [id number] / Implanted: Qty: 1 on 09/09/2017 by Vu Burr MD at [facility] [id number] / [id number] documented as of this encounter Procedures Procedure Name Priority Date/Time Associated Comments Diagnosis FL TIME OR Routine 09/14/2019 6:22 Dislocation of Results f or this (NON-REPORTABLE) PM CDT left hip, procedure a re in subsequent the results encounter section. OPEN REDUCTION HIP Level 1 A 09/14/2019 4:44 same, see (within 2 PM CDT providers post op hours) note COVID-19 (ID NOW STAT 09/14/2019 3:05 Dislocation of Resul ts for this RAPID TESTING) PM CDT left hip, initial procedur e are in encounter the results section. CBC WITH STAT 09/14/2019 2:01 Pain of left hip Results for this DIFFERENTIAL PM CDT joint procedure are i n the results section. CBC WITH Routine 09/14/2019 2:01 Pain of left hip Results for this DIFFERENTIAL PM CDT joint procedure are i n the results section. COMP. METABOLIC STAT 09/14/2019 2:01 Pain of left hip Resu lts for this PANEL (49228) PM CDT joint procedure are in the results section. XR HIPS 2 VW LEFT STAT 09/14/2019 1:38 Pain of left hip Re sults for this PM CDT joint procedure are i n the results section. documented in this encounter Results FL TIME OR (NON-REPORTABLE) (09/14/2019 6:22 PM CDT) Specimen Narrative Performed At These images do not require a Radiology diagnostic rep ort. PACS Performing Organization Address [facility] Phone Number PACS COVID-19 (ID NOW RAPID TESTING) (09/14/2019 3:05 PM CDT) SARS-CoV-2 Rapid ID Not Detected Not Detected [facility] Specimen Swab - NASOPHARYNGEAL SWAB Narrative Performed At ID NOW COVID-19 Assay is an isothermal nucleic [facility] acid amplification test intended for the qualitative detection of nucleic acid from SARS-CoV-2 viral RNA in nasopharyngeal (USED EQUIPMENT SALES REPRESENTATIVE) specimens. It is used under Emergency Use Authorization (EUA) by FDA. The limit of detection (LOD) of the assay is 125 Genome Equivalents/mL. A positive result is indicative of the presence of SARS-CoV-2 RNA. Clinical correlation with patient history and other diagnostic information is necessary to determine patient infection status. A negative (Not Detected) result does not preclude SARS-CoV-2 infection. In patients with clinical symptoms and other tests that are consistent with SARS-CoV-2 infection, negative results should be treated as presumptive negative and a new specimen should be tested with alternative PCR molecular test. Invalid: Please collect a new specimen for repeat patient testing if clinically indicated. Performing Organization Address City/[facility]/Zipcode Phone Number [facility] CLIA: [id number], [address] [place], [place] [address] CBC WITH DIFFERENTIAL (09/14/2019 2:01 PM CDT) Pathologist Sig nature WBC 9.60 4.30 - 11.10 [facility] 10*3/L [facility] RBC 3.40 (L) 3.93 - 5.25 [facility] 10*6/L [facility]ITAL [facility] HGB 11.2 (L) 11.6 - 15.0 [facility] g/dL [facility] HCT 32.7 (L) 35.7 - 45.2 % [facility] MCV 96.2 (H) 80.6 - 95.5 fL [facility] MCH 32.9 (H) 25.9 - 32.8 pg [facility] MCHC 34.3 31.6 - 35.1 [facility] g/dL [facility] RDW-SD 47.2 39.0 - 49.9 fL [facility] RDW-CV 13.2 12.0 - 15.5 % [facility] PLT 380 (H) 166 - 358 [facility] 10*3/L [facility] MPV 9.2 (L) 9.5 - 12.9 fL [facility] NRBC/100 WBC 0.0 0.0 - 10.0 /100 [facility] WBCs [facility] NRBC x10^3 <0.01 10*3/L [facility] GRAN MAT (NEUT) % 78.2 % [facility] IMM GRAN % 0.50 % [facility] LYMPH % 12.0 % [facility] MONO % 8.3 % [facility] EOS % 0.5 % [facility] BASO % 0.5 % [facility] GRAN MAT x10^3(ANC) 7.50 (H) 1.88 - 7.09 [facility] 10*3/uL HOSPITAL [facility] IMM GRAN x10^3 0.05 0.00 - 0.06 [facility] 10*3/uL [facility]ITAL [facility] LYMPH x10^3 1.15 (L) 1.32 - 3.29 [facility] 10*3/uL [facility] MONO x10^3 0.80 0.33 - 0.92 [facility] 10*3/uL H[facility]ITAL [facility] EOS x10^3 0.05 0.03 - 0.39 [facility] 10*3/uL [facility] BASO x10^3 0.05 0.01 - 0.07 [facility] 10*3/uL [facility] Specimen Blood - VENOUS Performing Organization Address City/State/Zipcode Phone Number [facility] CLIA: [id number], [address] [place] [address] COMP. METABOLIC PANEL ([id number]) (09/14/2019 2:01 PM CDT) [facility] NA 127 (L) 135 - 145 [facility] mmol/L [facility] K 4.2 3.5 - 5.0 [facility] mmol/L [facility] CL 93 (L) 98 - 108 mmol/L [facility] CO2 TOTAL 21 (L) 23 - 31 mmol/L [facility] AGAP 13 2 - 16 [facility] BUN 7 7 - 23 mg/dL [facility] GLUCOSE 94 70 - 110 mg/dL [facility] CREATININE 0.65 0.50 - 1.04 [facility] mg/dL [facility] TOTAL BILI 0.4 0.1 - 1.1 mg/dL [facility] CALCIUM 10.3 8.6 - 10.6 [facility] mg/dL [facility] T PROTEIN 8.0 6.3 - 8.2 g/dL [facility] ALBUMIN 4.8 3.5 - 5.0 g/dL [facility] ALK PHOS 96 34 - 122 U/L [facility] ALTv 14 5 - 35 U/L [facility] AST(SGOT) 31 13 - 40 U/L [facility] eGFR Calculation 87.5 mL/min/1.73m2 [facility] (Non-[facility] LABORATORY Liberian) eGFR Calculation 106.0 mL/min/1.73m2 [facility] () [facility] Specimen Blood - VENOUS Narrative Performed At Association of Glomerular Filtration Rate (GFR) [facility] and Staging of Kidney Disease* + + +- + | GFR (mL/min/1.73 m2) | With Kidney Damage | Without Kidney Damage + + +- + | >90 | Stage one | Normal + + +- + | 60-89 | Stage two | Decreased GFR + + +- + | 30-59 | Stage three | Stage three + + +- + | 15-29 | Stage four | Stage four + + +- + | <15 (or dialysis) | Stage five | Stage five + + +- + *Each stage assumes the associated GFR level has been in effect for at least three months. Stages 1 to 5, with or without kidney disease, indicate chronic kidney disease. Notes: Determination of stages one and two (with eGFR >59mL/min/1.73 m2) requires estimation of kidney damage for at least three months as defined by structural or functional abnormalities of the kidney, manifested by either: Pathological abnormalities or Markers of kidney damage (including abnormalities in the composition of the blood or urine or abnormalities in imaging tests). Performing Organization Address City/State/Zipcode Phone Number [facility] CLIA: [id number], [address] [place], [place] [address] XR HIPS 2 VW LEFT (09/14/2019 1:38 PM CDT) Specimen Impressions Performed At PACS/VR/DOSE Dislocation of the left hip arthroplasty . Narrative Performed At EXAM: PACS/VR/DOSE XR HIPS 2 VW LEFT HISTORY: pain, deformity COMPARISON: 08/10/2019 FINDINGS: Dislocation of the left hip arthroplasty is seen with superolateral displacement of the femur. Soft tissue swelling is pre sent about the hip. Procedure Note [facility], Radiant Results Inft User - 2019 1:43 PM CDT EXAM: XR HIPS 2 VW LEFT HISTORY: pain, deformity COMPARISON: 08/10/2019 FINDINGS: Dislocation of the left hip arthroplasty is seen with superolateral displacement of the femur. Soft tissue s welling is present about the hip. IMPRESSION Dislocation of the left hip arthroplasty . Performing Organization Address City/State/Zipcode Phone Number PACS/VR/DOSE documented in this encounter Visit Diagnoses Diagnosis Dislocation of left hip, initial encount er - Primary Pain of left hip joint Dislocation of left hip, subsequent enco unter Failure of left total hip arthroplasty w ith dislocation of hip, subsequent encounter documented in this encounter Administered Medications Medication Order MAR Action Action Date Dose Rate Site docusate (COLACE) capsule 100 mg Given 09/15/2019 8:14 AM CDT 100 mg 100 mg, Oral, Q12H, First dose on Sat09/14/19 at 2000, Until Discontinued, Routine Given 09/14/2019 8:55 PM CDT 100 mg enoxaparin (LOVENOX) injection 30 mg Given 09/15/2019 5:22 PM CDT 30 mg Abdo men-SC 30 mg, Subcutaneous, Q12H, First dose on Sat09/15/19 at 1400, Until Discontinued, Routine HYDROcodone-acetaminophen (NORCO) 10-325 Given 09/15/2019 5 :22 PM CDT 1 tablet mg tablet 1 tablet 1 tablet, Oral, Q4HPRN, Starting Sat09/14/19 at 2024, Until Discontinued, Routine, Pain (scale 4-6) Given 09/14/2019 8:55 PM CDT 1 tablet lisinopril (PRINIVIL,ZESTRIL) tablet 10 mg Given 09/15/2019 8:13 AM CDT 10 mg 10 mg, Oral, DAILY, First dose on Sat09/15/19 at 0900, Until Discontinued Medication Order MAR Action Action Date Dose Rate Site ceFAZolin (ANCEF) 1 g in NaCl 0.9% Given 09/15/2019 12:46 AM CDT 1 g (NS) 50 mL MINI-BAG 1 g, IV Piggyback, Q8H ABX, 2 doses, First dose on Sat09/14/19 at 1715, Last dose on Sat09/15/19 at 0115, 50 mL, Reason for Anti-Infective: Surgical Prophylaxis, Surgical Prophylaxis: Orthopaedic, Duration of therapy: within 24 hours of surgery HYDROmorphone (DILAUDID) injection 0.2 m g Given 09/14/2019 7:08 PM CDT 0.2 mg 0.2 mg, Slow IV Push, Q5MIN PRN, 10 doses, Starting Sat09/14/19 at 1858, Until Sat09/14/19 at 1938, Routine, Pain (scale 7-10), PACU, Use approved by (Faculty): PACU USE -ANESTHESIA SERVICE-HYDROMORPHONE INJECTIONS Given 09/14/2019 7:03 PM CDT 0.2 mg morpHINE injection 4 mg Given 09/14/2019 2:02 PM CDT 4 mg 4 mg, Slow IV Push, ONCE, 1 dose, Sat09/14/19 at 1430, STAT ondansetron (ZOFRAN (PF)) injection 4 mg Given 09/14/2019 2:02 PM CDT 4 mg 4 mg, Slow IV Push, ONCE, 1 dose, 09/14/19 at 1430, NEEMA documented in this encounter Additional Health Concerns Infection Onset Date Last Indicated Resolved Time COVID-19 Rule Out 09/14/2019 09/14/2019 09/14/2019 3: 44 PM CDT documented as of this encounter Insurance Payer Benefit Plan / Subscriber ID Effective Phone Address T ype Group Dates MEDICARE MEDICARE PART A xxxxxxxxxxx 2002-Pre [phone] [address] X Medicare & B sent [id number] RICKY KIMBLE [phone] BCBS OF BCBS [id number] 2016-Pres [phone] [facility] ent [phone] [place] [address] documented as of this encounter
--- OUTSIDE RECORDS SUMMARY | 2019-12-12 20:36 | XMS REPORT | Summary of Care ---
:1935 Author Organization [facility] Address [address] [place] [id number] Care Team Providers Name Role Phone Roby Huitron Primary Care Provider Reason for Visit Reason Comments Notification The patient's wanted to notify Dr. Peguero that the patient has been taken to [facility] by ambula nce for a fall. Last time he stated he should have been notified be fore they took her all the way to [place]. Encounter Details Date Type Department Care Team Description 09/14/2019 Telephone [facility] Orthopaedic Vu Peguero otification (The Surgery- Radha Mark MD patient's wanted [address], [address] to notify Dr[address] Peguero [address] [place] the [place] [address] [place], [place] been taken to [facility] by [phone] ambulance for a fall. [phone] Last time he stated he [phone] should have bee n (Fax) notified before they took her all th e way to [place]. ) Allergies No Known Allergiesdocumented as of this encounter (statuses as of 09/14/2019) Medications Medication Sig Dispensed Refills Start Date End Date Status anastrozole 1 mg tablet Take 1 mg by 0 08/14/2017 Active mouth daily. LISINOPRIL ORAL Take by mouth. 0 Active levothyroxine sodium Take by mouth. 0 Active (LEVOTHYROXINE ORAL) acetaminophen-codeine Take 1 tablet by 40 tablet 0 09/10/2017 Active (TYLENOL-CODEINE #3) mouth every 4 300-30 mg tablet (four) hours as needed for Pain (scale 4-6) or Pain (scale 7-10). documented as of this encounter (statuses as of 09/14/2019) Active Problems Problem Noted Date 'mnunx-fdd-alnmu' infant with signs of malnutrit ion 09/09/2017 Arthritis of left hip 09/09/2017 documented as of this encounter (statuses as of 09/14/2019) Social History Tobacco Use Types Packs/Day Years [...] of this encounter Last Filed Vital Signs Not on filedocumented in this encounter Plan of Treatment Health Maintenance Due Date Last Done Comments DTaP,Tdap,and Td Vaccines (1 - Tdap) 1946 Depression Screening 1949 Zoster Recombinant Vaccine (SHINGRIX) (1 of 2) 12/10/1987 Medicare Wellness Visit 2002 Osteoporosis Screening 2002 PNEUMOCOCCAL VACCINES 65+ (1 of 2 - PCV13) 2002 INFLUENZA VACCINE (#1) 2019 documented as of this encounter Implants Implanted Type Area Diagnostic Assistant Device Shelf Model / Identifier Expiration Serial / Lot Date Acetabular Shell Cementless 3 Hole 56mm Miguelina Porocoat Plasma Coated G7 Biomet Ref#[id number] HIP Left: Hip Biomet 06/18/2027 [id number] / Implanted: Qty: 1 on 09/09/2017 by Vu Burr MD at [facility] 6 [id number] / [id number] Acetabular Liner Neutral Size F 40mm Miguelina Arcomxl High Wall G7 [employer]omet Ref#[id number] HIP Left: Hip Biomet 02/12/2021 [id number] / Implanted: Qty: 1 on 09/09/2017 by Vu Burr MD at [facility] 3 [id number] / [id number] Femoral Head Cementless 40mm Miguelina Standar 0mml Neck [place] [employer] Ref#[id number] Head Left: Hip Biomet 03/28/2027 [id number] / Implanted: Qty: 1 on 09/09/2017 by Vu Burr MD at [facility] 9 [id number] / [id number] Screw, Garima Bone 6.5x25 Self-Tap #[phone] - [id number] S CREW Left: Hip Garima 07/02/[id number]- / Implanted: Qty: 1 on 09/09/2017 by Vu Burr MD at [facility] 6 [id number] / [id number] Screw, Garima Bone 6.5x20 Self-Tap #[phone] [] SCREW Left: Hip Garima 07/02/2027 / Implanted: Qty: 1 on 09/09/2017 by Vu Burr MD at [facility] 6 [id number] / [id number] Acetabular Shell Cementless 3 Hole 56mm Miguelina Porocoat Plasma Coated G7 Biomet Ref#[id number] SCREW Left: Hip Garima 07/02/2027 [id number] / Implanted: Qty: 1 on 09/09/2017 by Vu Burr MD at [facility] 0 [id number] Screw, Garima Bone 6.5x20 Self-Tap #[phone] [] SCREW Left: Hip Garima 07/02/2027 / Implanted: Qty: 1 on 09/09/2017 by Vu Burr MD at [facility] 0 / [id number] Stem Femoral Cementless Porous Plasma Coated Stem Biomet Ref #[id number] Stem Left: Hip Biomet 07/27/2027 [id number] / Implanted: Qty: 1 on 09/09/2017 by Vu Burr MD at [facility] 6 [id number] / [id number] documented as of this encounter Results Not on filedocumented in this encounter Insurance Payer Benefit Plan / Subscriber ID Effective Phone Address T e Group Dates MEDICARE MEDICARE PART A xxxxxxxxxxx 2002-Pre [phone] [address] [place] X Medicare & B sent [phone] [id number] [place] KIMBLE [phone] BCBS OF BCBS [id number] 2016-Pres [phone] [facility] [employer] ent [phone] [place] [address] documented as of this encounter
--- OUTSIDE RECORDS SUMMARY | 2019-12-12 20:36 | XMS REPORT | Continuity of Care Document ---
:1935 Author Organization [facility] t Address [address] [place] [address] Care Team Providers Name Role Phone Zane Stone Attending Clinician Little MCKENZIE Attending Clinician KAYLA JOHNSON Attending Clinician Unavailable Alex MCKENZIE, Kayla Attending Clinician Hernan MCKENZIE, Armando Attending Clinician Annie MCKENZIE, [facility] Attending Clinician Irwin MCKENZIE Attending Clinician Sami MCKENZIE, Gregory Attending Clinician Lynne MCKENZIE Attending Clinician Albert MCKENZIE Attending Clinician KAYLA JOHNSON Admitting Clinician Unavailable Payers Payer Name Policy Type Policy Effective Date Expiration Date Sour ce Number MEDICAREMEDICARE A [id number] TAINA Bermudez [id number] 2002- 00:00:00 - Medical PresentMedicare Center BLUE CROSS/BLUE [id number] 2016 TAINA Vergara SHIELDBCBS PPO POS EPO 0 00:00:00 - Medical [id number]/ nter [id number], [place] [address]MXF [facility] REVIEWCDC [id number] [address] [facility] [id number] 00:00:00 - [place] [address] Problems Condition Condition Condition Status Onset Resolution Last Treating Co mments Source Name Details Category Date Date Treatment Clinician Date 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[facility]loc[facility] 07-22 Camilla kes - n of hip, n of hip, 00:00: Medi brunilda closed closed 00 Center Hip Hip Disease Active [facility] disloc[facility] 07-22 Camilla kes - n, left n, left 00:00: Medical 00 Center Allergies, Adverse Reactions, Alerts Allergy Allergy Status Severity Reaction(s) Onset Inactive Treating Comm ents Source Name Type Date Date Clinician Hydrocod Drug Active Rash [facility] one-Acet Allergy 07-22 [facility] - aminophe 00:00: Medical n 00 Center Social History Social Habit Start Date Stop Date Quantity Comments Source History [facility] - Alcohol Binge Medical Lucy [facility] Sex Assigned At [facility] Cigarettes smoked 2019-07-28 2019-07-[address] [facility] - current (pack per 00:00:00 00:00:00 Medical Center day) - Reported Cigarette 2019-07-28 2019-07-[address] [facility] - pack-years 00:00:00 00:00:00 [facility] Tobacco use and 2019-07-28 2019-07-28 Never used [facility] kes - exposure 00:00:00 00:00:00 [facility] Alcohol intake 2019-07-28 2019-07-28 [facility]er [facility] - 00:[facility]00 00:00:00 of alcohol [facility] (finding) History [facility] 2019-07-23 2019-07-[address] [facility] - Alcohol Frequency 00:00:00 00:00:00 Medical Center History [facility] 2019-07-23 2019-07-[address] [facility] - Alcohol Std Drinks 00:00:00 00:00:00 Medica l [place] Smoking Status Start Date Stop Date Source Former smoker 2019-07-28 00:00:00 2019-07-28 00:00:[address] [facility] Medications Ordered Filled Start Stop Current Ordering Indication Dosage Frequency Signature Comments Components Source Medication Medication Date Date Medication? Clinician (SIG) Name Name ferrous 2019-2019- No 325mg TAKE [address] [facility] sulfate 325 08-24- TABLET [facility] - (65 FE) MG 00:00: 23:59 (325 MG Med ical EC tablet 00 :00 TOTAL) BY Cente r MOUTH 3 (THREE) TIMES DAILY WITH MEALS FOR 30 DAYS. thiamine 2019-2019- No 100mg QD Take 1 [facility] 100 MG - 06-25 tablet [facility] - tablet 00:00: 23:59 (100 mg Medical 00 :00 total) by Center mouth daily for 30 days. polyethylen 2019-2019- No 17g QD Take [address] e glycol - 06-05 by mouth [facility] - (GLYCOLAX) 00:00: 23:59 daily for M edical 17 gram 00 :00 10 days. Center packet levothyroxi 0 Yes hypothyroid 50ug Take [address] [facility] ne 5-25 ism mcg by [facility] - (SYNTHROID, 14:10: mouth Medic al LEVOTHROID) 05 Every Center 50 MCG morning on tablet an empty stomach. pantoprazol 2019-0 Yes 40mg QD Take [address] e 5-25 by mouth [facility] - (PROTONIX) 14:10: daily. Medic al 40 MG 05 Center tablet lisinopriL 2019-0 Yes 10mg QD Take [address] (PRINIVIL,Z 5-25 by mouth Luke s - ESTRIL) 10 14:10: daily. Medic al MG tablet 05 Center DICLOFENAC 2019-0 Yes 75mg Q.5D Take [address] SODIUM ORAL 5-25 by mouth 2 Camilla kes - 14:10: (two) Medical 05 times Center daily. traMADoL 2020- No pain 50mg Take [address] (ULTRAM) 50 5-25 05-25 by mouth Little es - mg tablet 13:23: 00:00 every 8 Medi brunilda 54 :00 (eight) Center hours as needed for Pain. traMADoL 2019-0 Yes pain 50mg Take [address] [facility] (ULTRAM) 50 5-25 tablet (50 Camilla kes - mg tablet 00:00: mg total) Med ical 00 by mouth Center every 8 (eight) hours as needed for Pain. Max Daily Amount: 150 mg ferrous 325mg Take 1 [facility] sulfate 325 07-26 tablet [facility] - (65 FE) MG 00:00: 00:00 (325 mg Med ical EC tablet 00 :00 total) by Cente r mouth 3 (three) times daily with meals for 30 days. Vital Signs Vital Name Observation Time Observation Value Comments Source Systolic blood 2019-07-27 12:21:00 126 mm[Hg] [facility] Diastolic blood 2019-07-27 12:21:00 61 mm[Hg] [facility] Heart rate 2019-07-27 12:21:00 74 /min [facility] Body temperature 2019-07-27 12:21:00 36.56 Meagan [facility] Respiratory rate 2019-07-27 12:21:00 18 /min [facility] Oxygen saturation in 2019-07-27 12:21:00 99 /min [facility] Arterial blood by Medical Ce nter Pulse oximetry Body weight 2019-07-27 05:00:00 73.5 kg [facility] BMI 2019-07-27 05:00:00 25.38 kg/m2 [facility] Body height 2019-07-23 08:14:00 170.2 cm [facility] Procedures Procedure Date / Time Performed Performing Clinician [facility] kota BASIC METABOLIC PANEL 2019-07-27 05:24:00 Kailash Carbone [address] MAGNESIUM 2019-07-27 05:24:00 Kailash Carbone [facility] CBC (HEMOGRAM ONLY) 2019-07-27 05:24:00 Kailash Carbone [facility] BASIC METABOLIC PANEL 2019-07-26 04:13:00 Kailash Carbone [place] [phone]) [facility] MAGNESIUM 2019-07-26 04:13:00 Kailash Carbone [facility] CBC (HEMOGRAM ONLY) 2019-07-26 04:13:00 Kailash Carbone [facility] XR PELVIS 1 OR 2 VIEWS 2019-07-25 11:27:00 [facility] 2019-07-25 10:39:00 [facility] AFB CULTURE + SMEAR 2019-07-25 09:26:[address] [facility] (NON-SPUTUM) [facility] ANAEROBIC CULTURE 2019-07-25 09:26:22 [facility] FUNGUS [facility] + SMEAR 2019-07-25 09:26:22 Leida Gallardo [facility] SURGICALLY OBTAINED 2019-07-25 09:26:22 Leida Gallardo [facility] - CULTURE + GRAM STAIN Medical Lucy ter AFB CULTURE + SMEAR 2019-07-25 09:19:[address] [facility] (NON-SPUTUM) [facility] ANAEROBIC CULTURE 2019-07-25 09:19:42 [facility] FUNGUS CULTURE + SMEAR 2019-07-25 09:19:42 Leida Gallardo [facility] SURGICALLY OBTAINED 2019-07-25 09:19:42 Leida Gallardo [facility] - CULTURE + GRAM STAIN Medical [facility] ter AFB CULTURE + SMEAR 2019-07-25 09:16:[address] [facility] (NON-SPUTUM) [facility] ANAEROBIC CULTURE 2019-07-25 09:16:36 [facility] FUN[facility]US [facility] + SMEAR 2019-07-25 09:16:36 Leida Gallardo [facility] SURGICALLY OBTAINED 2019-07-25 09:16:36 Leida Gallardo [facility] - CULTURE + GRAM STAIN Medical Lucy ter CLOSED REDUCTION,HIP 2019-07-25 08:00:00 Leida Gallardo [facility] PROCEDURE W/ C-ARM 2019-07-25 08:00:00 Leida Gallardo [facility] BASIC METABOLIC PANEL 2019-07-25 05:47:00 Kailash Carbone [facility] (7) [facility] MAGNESIUM 2019-07-25 05:47:00 Kailash Carbone [facility] CBC (HEMOGRAM ONLY) 2019-07-25 05:47:00 Kailash Carbone [facility] IRON, TIBC, % SAT. 2019-07-25 05:47:00 [facility]WITHOUT FERRITIN[facility] 2019-07-25 05:47:00 [facility] VITAMIN B12 AND FOLATE 2019-07-25 05:47:00 [facility] POCT-GLUCOSE METER 2019-07-24 21:25:00 [facility] TRANSFUSION SERVICE 2019-07-24 17:51:01 ProviderKeisha [facility] REPORT - SCAN Scanning [facility] BASIC METABOLIC PANEL 2019-07-24 03:25:00 Kailash Carbone [facility] (7) [facility] MAGNESIUM 2019-07-24 03:25:00 Kailash Carbone [facility] CBC (HEMOGRAM ONLY) 2019-07-24 03:25:00 Kailash Carbone [facility] PREPARE LEUKO-REDUCED 2019-07-23 21:25:00 Jerad Mercado [facility] RBC [facility] XR PELVIS 1 OR 2 VIEWS 2019-07-23 21:23:00 Jerad Mercado [facility] APTT 2019-07-23 20:58:00 Jerad Mercado [facility] C-REACTIVE PROTEIN 2019-07-23 20:58:00 Jerad Mercado [facility] ABORH, MANUAL 2019-07-23 20:58:00 Esme Ramey [facility] CLOSED REDUCTION,HIP 2019-07-23 17:49:00 Shantelle Price [facility] ECG 12-LEAD 2019-07-23 14:49:30 Patsy Becerra [facility] CBC (HEMOGRAM ONLY) 2019-07-23 14:42:00 [facility]OLIC PANEL 2019-07-23 14:42:00 [facility] ([facility] XR HIP 2 VIEWS LEFT 2019-07-23 13:15:00 Shantelle Price [facility] POCT-GLUCOSE METER 2019-07-23 12:29:[address] HernanJimbodustin [facility] BRAIN WITHOUT IV 2019-07-23 09:20:00 Lesly Johnson [facility] POCT-GLUCOSE METER 2019-07-23 07:38:00 Lesly Johnson [facility] SARS-COV2/RT-PCR ([facility] 2019-07-23 06:42:[address] [facility] - & REF LABS) [facility] PROTHROMBIN TIME/INR 2019-07-23 06:23:00 Kailash Carbone [facility] TSH 2019-07-23 06:23:00 Kailash Carbone [facility] T4, FREE 2019-07-23 06:23:00 Kailash Carbone [facility] TYPE AND SCREEN, 2019-07-23 06:23:[address] [facility] Plan of Care Planned Activity Planned Date Details Comments Source Future Scheduled 2019-11-03 INFLUENZA VACCINE (#1) [facility] - Test 00:00:00 [code = INFLUENZA Medical Ce nter VACCINE (#1)] Future Scheduled 2003-12-04 MEDICARE ANNUAL [facility] - Test 00:00:00 WELLNESS (YEAR 2 or Medical Center FIRST YEAR if no IPPE) [code = MEDICARE ANNUAL WELLNESS (YEAR 2 or FIRST YEAR if no IPPE)] Future Scheduled 2002 PNEUMOCOCCAL 65+ YRS [facility] - Test 00:00:00 (1 of 1 - Medical [place] [id number] PCV13) [code = PNEUMOCOCCAL 65+ YRS (1 of 1 - [id number] PCV13)] Encounters Start End Encounter Admission Attending Care Care Encounter Source Date/Time Date/Time Type Type Clinicians Facility Department ID 2019-10-20 2019-10-20 Office IDALIA Marti [id number] 19 13:07:51 14:06:26 Visit [facility] [id number] Surgical [id number] Specialti [id number] [address] Results Test Description Test Time Test Comments Results Result Comments Source AFB culture + smear (non-sputum) 2019-09-08 08:30:00 Test Item Value Reference Range Interpretation Comme nts Result (test code = 6463-4) No acid-fast bacilli isolated in 42 day s AFB Smear (test code = 63954-2) No acid fast bacilli seen [facility]-SPUTUM)2019-09-08 08:30:00 Test Item Value Reference Range Interpretation Comments CULTURE (BEAKER) (test No acid-fast bacilli code = 1095) isolated in 42 days AFB SMEAR (BEAKER) No acid fast bacilli (test code = 994) seen AFB CULTURE + SMEAR (NON-SPUTUM)2019-09-08 08:30:00 Test Item Value Reference Range Interpretation Comments CULTURE (BEAKER) (test No acid-fast bacilli code = 1095) isolated in 42 days AFB SMEAR (BEAKER) No acid fast bacilli (test code = 994) seen AFB CULTURE + SMEAR (NON-SPUTUM)2019-09-08 08:30:00 Test Item Value Reference Range Interpretation Comments CULTURE (BEAKER) (test No acid-fast bacilli code = 1095) isolated in 42 days AFB SMEAR (BEAKER) No acid fast bacilli (test code = 994) seen Fungus culture + [id number] 16:37:00 Test Item Value Reference Range Interpretation Comments Result (test code = No fungus isolated in 6463-4) 28 days Fungus Smear (test No fungal elements seen code = 1406) [facility] [id number] 16:37:00 Test Item Value Reference Range Interpretation Comments CULTURE (BEAKER) (test No fungus isolated in code = 1095) 28 days FUNGUS SMEAR (BEAKER) No fungal elements seen (test code = 1406) FUNGUS CULTURE + [id number] 16:37:00 Test Item Value Reference Range Interpretation Comments CULTURE (BEAKER) (test No fungus isolated in code = 1095) 28 days FUNGUS SMEAR (BEAKER) No fungal elements seen (test code = 1406) FUNGUS CULTURE + [id number] 16:37:00 Test Item Value Reference Range Interpretation Comments CULTURE (BEAKER) (test No fungus isolated in code = 1095) 28 days FUNGUS SMEAR (BEAKER) No fungal elements seen (test code = 1406) Anaerobic [id number] 17:20:00 Test Item Value Reference Range Interpretation Comments Result (test code = No anaerobes isolated 6463-4) [facility] [id number] 17:20:00 Test Item Value Reference Range Interpretation Comments CULTURE (BEAKER) (test No anaerobes isolated code = 1095) ANAEROBIC [id number] 17:20:00 Test Item Value Reference Range Interpretation Comments CULTURE (BEAKER) (test No anaerobes isolated code = 1095) ANAEROBIC [id number] 17:20:00 Test Item Value Reference Range Interpretation Comments CULTURE (BEAKER) (test No anaerobes isolated code = 1095) Tissue [id number] 13:28:00 Test Item Value Reference Range Interpretation Comments Case Report (test code Surgical Pathology = 104) Report Case: [id number] Authorizing Provider: Leida Gallardo MD Collected: 07/25/2019 10:39 AM Ordering Location: [facility] Received: 07/28/2019 08:26 AM SERVICES Pathologist: Adali Sahu MD Specimen: Explant DIAGNOSIS (test code = t9medZNoDPHgp4ncTDWyrIH 3220) uZzEwMzNcZnRuYmpcdWMxIH fgmmPfYLyzr2GmP8RqPhPzS FxhbnNpXGRlZmxhbmcxMDMz IFD0bbHzULJtWTfjLNCbQBw eVw7juJQvdXgwDpZgPGEjt4 ejvcYUquetgDf6l1dlLSVzY iA6xNEbDGdhS2ejulPwnMTl LKShYTl1zF24BFWfbB0jdTL sIDtccmVkMFxncmVlbjBcYm g1GWKqB1tiXLKzZBScO4VqG M3rEREaDeh9LZZ3HMN7dFew b6W7aYRhbKGriAyhGhScRrR fXEIFt8GlEGm6hPkxL4PuGA DnFoL3rPFuEKSxPWftMEMkM OSrcvE0dD17HBjzfuD0bRCz p6Kzn09fi872cT3etMDqXNL 8GUViWUQlnSQtUCSlGZE9LD YenIYzY9l0PsVzaDFyA0P0Q dRseGCnS1S7RlXwpHUiO4J2 XdPqaEHxDXLmtUFyKi8kzEL qdKUezc5cof99JNV3f7KhsL ezVHB8RLT3MgSsEq2elXAzL WIpGO4xSjUfgKKfKBUvgn90 hKjwKWjpvfQklF0qCxXjBCO zwNCiUGBrQC2sxFJzGDWhbL 5ucmxjXHBnYnJkcmhlYWRcc ErbflDbKq7lkZzcAUY0DErz C8ngmN8lSeV2DFyjX6sssF4 ePRx4JKlywCD4NLFskS6oDV 9afriax3dzWqQlSM9hmsttl 7xhZwAzLC9dfpq7h8msMtMq VS1fdgehl7cqAqLrCWcsKYT ophyoHRZcp8VdorrhZWSoy7 VrN2HreSajG40erXkuV69vY SDjfPlwoQ4gsLwsuY5eKvVn ZnMyMFxxbFxwbGFpblxmMFx mczIwXHBsYWluXGYwXGZzMj EweJSvTOVcbxThgKbhkX1gU jBcZnMyMFxwbGFpblxmMVxm czIwIEEuIEhBUkRXQVJFLCB FUU3RPxZPGYFFBx6GPyYTJF OYJF9FIYiTAaFSJywPWhpdF OTlnMfaoJerdV5hOcNuIzSz MFxwbGFpblxmMVxmczIwICA wJO9pSLCYNGdYPtNrHLXNTf ONJfkDVKUzZ8JVTIzQG4UAO EIVD1CVRTYTPY8PWD6grCgt bW3oWuChInErKBhoUTA2j4a ydGYxXHNzdGUxODAwMFxhbn EtSTYiWayjmjvaAHClIII7l fVpUBVgIIwuPWMmPDugZb8k hFOdhZouEfPtTZDxl1emllY CobreiDf9t4ggSTJdSuR3pT CuBNtxB1bbhbHvbEOaYXVkF Wv1iJ54HFEwfL4goUOfLJez rhCoOfB0MBmkJNOfVyS3ZTF vbWLkZLBrG7yeBQZlCLwmBI FoONoytGMcOIM8jGzgf3W5j GVzaGVldHtcZjBcZnMyMiBO j0QlLNo9iTvcV8EwTTDsWkY 1bHQgUGFyYWdyYXBoIEZvbn O4jD20FApggnX7qCPwb1Wli 38uk019hK0scJRvJJR8XGAf NYUpfLSyAZFoZQW7IHTvhQG zU2vnNQTvFH5crzjuNChwUW riWKObhOB6TRLoaKHcC7KyW XZcUQbaDNTwrxv8XyUiMt7o qIFfbRtsZBllr4yuk4mvdIZ fLli3IPKjBqNqGdqdDOwml2 Enn4eoAJGjnv7yFER9dMYqc Vlyp7I4rEJaVZUxoMBjOUEz UZ9jgNGrPCWyjU4bcesxXDC nYnJkcmhlYWRccGdicmRyZm 0jeDivGSZ8IBgxP6ovbP3dP mN2BIcfS7cnpB2uULk7BKfy SQTdeKK5ynT1QITqoYRzF9A jsG1dPTUcHL2ibut2p7unQT I1BRvmLEXkTaA4paO8ZGYco JEtQSDtzDmsXNitf860RBK0 NmCkAXKau5BrK0CizVfdM78 hwWlbV70cEFYsnZlqfZ5kwB bncZ7oShKsUmBlLIgneGryI N1aXAJwU0ptvPSoLFDvKBVw S2nuUhTzuL7jnDynTEwegcB aDRYnKyp3FHKwaGVgLACzCt o9OBHmYUWlI93owaqhCIY6f F3yf9gqi9SuHJamHVG4FOCr a76yIVggvjV5WTxuSh40NXh qTHQ8EKpbABC2tD== CPT Code(s) (test code v7hzsIWzCFCehZMqCmPfQBY = 3357) tTIHii3dkQDYnxTRrYbLeQt NcZnRuYmpcdWMxXGRlZmYwe 2uhe905uZJiv8bkLNZvFoK2 nLVeHDWoyPWcT741m4vre4u zuwPjqWW9HUMoGCI0DAqppe ChswV2QEzvaUTyHzA5OUzme bWyDDpfsvAkzvNiJah5WJUl K790TQX1fPyua5thKPO2CWT rUBTiLwFaVn4veWZxM591DT QdYMEIOFVjwFt3BKMcykYxg gYjkDGUq513P907y3brJSOd paGoiYaNyfirk3acI823HWL hcGVydzEyMjQwXHBhcGVyaD Z3TRIfAV8pboamVqPxXV9iy bfjYsBbCA8mcmv9HlDvIF0u cmdiNzIwXGhlYWRlcnkwXGZ ej7RyqrnmIF0yK0Sfk6Y8yM 9maXRcZGVmdGFiNzIwXGZvc g8rsQKhDOxdq1RcMHE4tiZ3 eADhgUEmUFKjNB40Vtatj7E oCzkgBLM8VBUtuaOcn8Pab7 laZrDrtxDbY2cdR5NdWFZnF SLmSFRqFhPixdHnl9Pfm2Pd bYVvrSe9l4ybYGSbLGTrgIc dy2byRQC3OTXvN2D9qKByd2 zwEWzwKUKeoXO3akmwRNsdV TMrohT0fteeKQvmONTnmYH1 gflbWDtrEJKyXqF3dbqpSQz mJOFnTTY1NHsuw343GBW0WG xzYmtwYWdlXHBnbmNvbnRcc GduZGVjXHBsYWluXHBsYWlu XGYwXGZzMjRccWxccGxhaW5 xPwMrJoErRBkrEX8oMXCwH8 cncVPkZHHeNQEdC3zaOaIqd B0xjSssKKmsorWhSTt1YvOt XHBhcn0= CLINICAL HISTORY (test e5vraTTtMFInbNQiPbAnONA code = 3356) kXKKey2kaFTYjgRAwIpWuOx NcZnRuYmpcdWMxXGRlZmYwe 0pwv650jRHbc9ajNMGlFlR9 aMAwXCYgkZPrG955TUFxATz rw2wnf4DzMPVsfHXkh5O2KV BAbwnblHh8tOylZ41dd5T6Q gyvD0fdVWCxBOGiB2WgQE7d LDBqOix7SSZ3LQO7XOHdFPD hP1EdYF0rEDZqsJIzNCr8x0 jysYfeBEZnHVY8v8joYMkfp hOkHJ4pfa5mwWx4l6sxzmYa YRGlTZPdvDSZKDUbS7ShaCy kRt1giFu5fFkdAklnLLU1Dn u4RU9ysk77kpw1bBrkLQKxs jgdSqF9SSxxCCHkjsaeVJz3 MFxtYXJnbDcyMFxtYXJncjc yMFxtYXJndDcyMFxtYXJnYj lcZVlsUUGwSOK6PAnsq676W DX6BOvci2nju1pzoREfMyk1 TICfBjYiOlhiZVmsl1Wdx6d aNGXfhv4pYKS1eHLdnOpxd4 T1pYJqWHMqaDOuipOoNPPkQ jJ6YZyvVW6kdg65YXNnFNN8 dq9fxKBgzNbwftRwkWBtEBo sL7GfBMXyg205NYHpF9GcGE Gfm3C3zpDvGyChYEXoqYR3n kG2REIfCEi9rPPzxhB6kpOh oTZdW6lthD33UsBnkYYvF3B nsR87BpSrrQQmS6QinJ10No MzmKHxP1MabC06MpKzpSMdY EXivKDjBr2ogKWatNQxm5Hi iDRuFAsvF69cs033IJQhusC uB1sbfSUiamwkfJGcjytlIQ ggdmR3QNe0pfEbxdnpqZghr GFpblxmMVxmczIwXGxhbmcx FJBtFSgzO1pmNjQbBLBpiSo pOZtky5BsSJAcHGToCsXcCW yhkJ8qFQMtTDPjvWIuQTvmW pWlHVUzeWXvwPClY7Z1Iw8e MDVTXVxwYXJ9 SPECIMEN SOURCE (test h5oqkITpUPPdsSWvEnSjKXH code = 3377) qTVKkh5dcLVFavGGdKbIdQw NcZnRuYmpcdWMxXGRlZmYwe 3yno015rZPxr8unMTUhMlJ7 eDZjCCEvyGEkF012w9yss7k jjsCdcYY8IWUwGZQ6SIjgvp MmtxF4PPjyuNMwGgO0UEspl tTlVWxbapQrhsVkLff5QSWp Y970BZY1wOqjb0jfKVZ0HZS vSUEyWqObZd4efXNrO105LH TuWWWTQRSqeZa5FOSftaIyt nObsSXCk603K335z9zrSWKh jjShpGsMjpxym2tkL031KLB hcGVydzEyMjQwXHBhcGVyaD T9YJQjYG5crispPbKlIO7xv ixsEfZhVW5ppzt7ZoJnWG1s cmdiNzIwXGhlYWRlcnkwXGZ ir0TfxpfkJT7sW9Jzw1E3iJ 9maXRcZGVmdGFiNzIwXGZvc j1uqLRxXCsit3VlLWO3cnV9 wDLfaFHrNPMoHU28Wkkwc2I dJwyaQPR2MLYrjqTvq5Ixw5 bhCrYiwnNqX0xwA4WmFLOdF AUcXATpJtVpxwDxi4Vrb3Gl lAGnjYi8y7ybKZBzHSStaIp gl6xmCUE3BWWtP5T1vWUdk5 xzRMorXZBfnWS4lgbtVYzmA HFavpM8rvtoURtqVNIdyTY6 olqtMHvlSXVyYbH7aiubSOq qWOYiSSP2JKrcm360IMO7DH xzYmtwYWdlXHBnbmNvbnRcc GduZGVjXHBsYWluXHBsYWlu XGYwXGZzMjRccWxccGxhaW5 qYbOmOoXgYCnwUE7tRHIlR4 apkGMoHEXxPZGdX9ymRgBbr Y0ouRrsEVuqexUfZZT3bXlp bnRccGFyfQ== GROSS DESCRIPTION v6ytoRDgPHAuaLLeXrOfXTD (test code = 3366) bLCAeb3xeNTQouPFpEwMnUd NcZnRuYmpcdWMxXGRlZmYwe 4ogu425fIXvz6xaPGCbUvT7 gJRtWEWbkBDmX939t1dwg9b kqtRzxZS8MKWeNOT1SOscbg EhthU3YYzowIKxQsU4FIudk lVkSGdcwbTacrFkFms7OJWl O937JGR8oJevv5prDYZ8BIM rOBDbNfHdNq7ggFYhI442GW ByPNERBSSjuHd4VUTpahNmz qGwwKDLv628N804r2ehBZMg qcOutJkQkqiwu4ooP993HAX hcGVydzEyMjQwXHBhcGVyaD U1SQTuUT3kqjgiRzYmPV5kk lwoNzUsVL1bcrk7KzZrZP3l cmdiNzIwXGhlYWRlcnkwXGZ gn3HdbtdaPK2iX8Nyq1A9vM 9maXRcZGVmdGFiNzIwXGZvc v5brLJhVRhnk1XkARO2wjJ8 zWMavRHhEMSqDE24Cqmzq6O fEjyzZJS9ZLFiicIot2Aso2 nnMvVffiOdP7neK0BmTOZoL WZkDJZhItKlvnOru6Buu2Dh uGVxnPt4k2tgEGDyYBWalVi sg3bsGFH7ZYBqR2L4jHOag2 gvABcqSRParKU5yoagUNuzO SSnrnF2nlyjVXagMXKgnLZ4 tqqiMSaeNTRiDsB1lfuwHLj bVGPxDRI0WFdci016ZAS1QO xzYmtwYWdlXHBnbmNvbnRcc GduZGVjXHBsYWluXHBsYWlu XGYwXGZzMjRccWxccGxhaW5 lNkSdMiJwFDbfRP3yTKJkU7 qqoOUkJXViCQWrN8jhZjHfi S8tlCyjQCzdmiOqMFVyH6Si dmVkIGZyZXNoIGxhYmVsZWQ eo1f3iEN7oDDelNL1fAEliW ymFU0olFVoARQlH9Yhe1acz hWghI5qMWZiXI9wLYPfsZHx VS57PsGrseHmRoSdKITssJq yLlTptuQ0GZGmXXnqFDmwt3 uulRNdzDmdS6BcSR4nTZ4yg GhvcGVkaWMgaGFyZHdhcmUs UYsigPWaINSqMSHuv26lhQA 5RA15PXzndLazPMYgPCyoFE EfMN3do0ZsNJEgFEKfmkela btmZsCtvRTrEfHrrZ8pXP17 FHJiBKkwBKecVDL4HDH2OFT tyAHoi7kavn3qYAQjWGLhi2 ztc5mzakjczQ3wO3XlxGDve 24gaXMgaWRlbnRpZmllZDpc tCByRZTphpOHRhc2PFA3C5i sCMCiRzJZMMChKNEzjF6mJB IzMDMwXHBhclxwYXIgQSBnc p5wudTodV03g5ypCNUjKAqq MBEah9QpOpOkQf4jm5JzwSc rraAcOBFkCBM6Se1ooCJgVP 8vXJHmqJBqZ1ZzPTMkyoLlo 1SiH0Xru7XpZKnyvRbdONWd k44bs92qsC4qhTDyLRHtfpG ImBmarhUEccp2BXbbUQSvYM NTYNtLV5VOJTVqHQVmpp6= Gross assessment was [facility] performed at ([facility], code = 2777) Department of Pathology, [address] [place] [id number], Technical component [facility] was performed at ([facility], code = 2778) Department of Pathology, [address] [place] [id number], Professional component [facility] was performed at ([facility], code = 2779) Department of Pathology, [address] [place] [id number], [facility] [id number] 13:28:00Surgical Pathology Report Case: [id number] Authorizing Provider: Leida Gallardo MD Collected: 07/25/2019 10:39 AM Ordering Location: [facility] Received: 07/28/2019 08:26 AM SERVICES Pathologist: Adali Sahu MD Specimen: Explant A. HARDWARE, REMOVAL, GROSS EXAMINATION ONLY: - HARDWARE IDENTIFIED (SEE GROSS DESCRIPTION). Signing Pathologist Direct Phone Line: [phone] signed by Adali Sahu MD on 07/29/2019 at 1:28 [id number] hip, left, sequela [[id number]]ExplantReceived fresh labeled with the patient's name, accession number and "explant" are 2 metallic boyd to boyd-white pieces of orthopedic hardware, which are consistent with a oizy-qie-vjsmqy, ranging from 3.2 to 4.8 cm in greatest dimension. The following inscription is identified:[id number] STD 40 mm [id number] gross photograph is taken. No sections are submitted. This case is for gross examination only.RICKY Roberts ([facility], Department of Pathology, [address] [place] [id number], [facility], [facility] of Pathology, [address] [place] [id number], [facility], [facility], [address] [place] [address], Ozzpcumfjx obtained culture + gram [id number] 13:35:00 Test Item Value Reference Range Interpretation Comments Result (test code = 6463-4) No growth Gram Stain Result (test No organisms seen code = 1123) [facility] GRAM [id number] 13:35:00 Test Item Value Reference Range Interpretation Comments CULTURE (BEAKER) (test No growth code = 1095) GRAM STAIN RESULT <1+ White blood cells (BEAKER) (test code = seen 1123) GRAM STAIN RESULT No organisms seen (BEAKER) (test code = 98935) SURGICALLY OBTAINED CULTURE + GRAM [id number] 11:36:00 Test Item Value Reference Range Interpretation Comments CULTURE (BEAKER) (test code No growth = 1095) GRAM STAIN RESULT (BEAKER) 1+ WBCs (test code = 1123) GRAM STAIN RESULT (BEAKER) No organisms seen (test code = 24129) SURGICALLY OBTAINED CULTURE + GRAM [id number] 11:36:00 Test Item Value Reference Range Interpretation Comments CULTURE (BEAKER) (test code No growth = 1095) GRAM STAIN RESULT (BEAKER) 3+ WBCs (test code = 1123) GRAM STAIN RESULT (BEAKER) No organisms seen (test code = 49765) Basic metabolic [id number] 07:22:00 Test Item Value Reference Range Interpretation Comments Sodium (test code 138 meq/L 136-145 = 2951-2) Potassium (test 3.6 meq/L 3.5-5.1 code = 2823-3) Chloride (test 105 meq/L 98-107 code = 2075-0) CO2 (test code = 26 meq/L -2027-) BUN (test code = 14 mg/dL 7- 3094-0) Creatinine (test 0.80 mg/dL 0.57-1.25 code = 2160-0) Glucose (test code 102 mg/dL 70-105 = 2345-7) Calcium (test code 9.2 mg/dL 8.4-10.2 = 99055-6) EGFR (test code = [place] [address]-8) CLINICAL DATA T O CALCULATE ESTIM ATED GFR. OREN (test code = Envelope Adjuster ID - OREN) KODI Paulson [facility] [id number] 07:22:00 Test Item Value Reference Range Interpretation Comments SODIUM (BEAKER) (test 138 meq/L 136-145 code = 381) POTASSIUM (BEAKER) 3.6 meq/L 3.5-5.1 (test code = 379) CHLORIDE (BEAKER) 105 meq/L 98-107 (test code = 382) CO2 (BEAKER) (test 26 meq/L 22-29 code = 355) BLOOD UREA NITROGEN 14 mg/dL 7-21 (BEAKER) (test code = 354) CREATININE (BEAKER) 0.80 mg/dL 0.57-1.25 (test code = 358) GLUCOSE RANDOM 102 mg/dL 70-105 (BEAKER) (test code = 652) CALCIUM (BEAKER) 9.2 mg/dL 8.4-10.2 (test code = 697) EGFR (BEAKER) (test INSUFFIC IENT CLINICAL code = 1092) DATA TO CALCULA TE ESTIMATED GFR. Envelope Adjuster ID - KODI [id number] 06:54:00 Test Item Value Reference Range Interpretation Comments Magnesium (test code = 1.6 mg/dL 1.6-2.6 41672-9) OREN (test code = OREN) Envelope Adjuster ID - KODI M Lab Interpretation (test Normal code = 06232-3) [facility] 06:54:00 Test Item Value Reference Range Interpretation Comments MAGNESIUM (BEAKER) (test code = 1.6 mg/dL 1.6-2.6 627) Envelope Adjuster ID - KODI MCBC (Hemogram only)2019-07-27 06:22:00 Test Item Value Reference Range Interpretation Comments WBC (test code = 6690-2) 8.4 3.5- 10.5 K/L RBC (test code = 789-8) 2.49 3.93- 5.22 M/L L MCHC (test code = 786-4) 32.5 32.2- 35.5 GM/DL L Hematocrit (test code = 4544-3) 24.9 % 34.1-44.9 L MCV (test code = 787-2) 100.0 fL 79.4-94.8 H MCH (test code = 785-6) 32.5 pg 25.6-32.2 H RDW (test code = 788-0) 12.8 % 11.7-14.4 Platelets (test code = 777-3) 277 150- 450 K/CU MM MPV (test code = 55828-0) 9.9 fL 9.4-12.3 nRBC (test code = 413) 0 0- 0 /100 WBC Lab Interpretation (test code = Abnormal 67485-9) [facility] (HEMOGRAM ONLY)2019-07-27 06:22:00 Test Item Value Reference Range Interpretation Comments WHITE BLOOD CELL COUNT (BEAKER) 8.4 K/ L 3.5-10.5 (test code = 775) RED BLOOD CELL COUNT (BEAKER) 2.49 M/ L 3.93-5.22 L (test code = 761) HEMOGLOBIN (BEAKER) (test code = 8.1 GM/DL 11.2-15.7 L 410) HEMATOCRIT (BEAKER) (test code = 24.9 % 34.1-44.9 L 411) MEAN CORPUSCULAR VOLUME (BEAKER) 100.0 fL 79.4-94.8 H (test code = 753) MEAN CORPUSCULAR HEMOGLOBIN 32.5 pg 25.6-32.2 H (BEAKER) (test code = 751) MEAN CORPUSCULAR HEMOGLOBIN CONC 32.5 GM/DL 32.2-35.5 (BEAKER) (test code = 752) RED CELL DISTRIBUTION WIDTH 12.8 % 11.7-14.4 (BEAKER) (test code = 412) PLATELET COUNT (BEAKER) (test 277 K/CU MM 150-450 code = 756) MEAN PLATELET VOLUME (BEAKER) 9.9 fL 9.4-12.3 (test code = 754) NUCLEATED RED BLOOD CELLS 0 /100 WBC 0-0 (BEAKER) (test code = 413) BASIC METABOLIC [id number] 05:47:00 Test Item Value Reference Range Interpretation Comments SODIUM (BEAKER) (test 132 meq/L 136-145 L code = 381) POTASSIUM (BEAKER) 4.6 meq/L 3.5-5.1 (test code = 379) CHLORIDE (BEAKER) 101 meq/L 98-107 (test code = 382) CO2 (BEAKER) (test 24 meq/L 22-29 code = 355) BLOOD UREA NITROGEN 17 mg/dL 7-21 (BEAKER) (test code = 354) CREATININE (BEAKER) 0.94 mg/dL 0.57-1.25 (test code = 358) GLUCOSE RANDOM 123 mg/dL 70-105 H (BEAKER) (test code = 652) CALCIUM (BEAKER) 9.3 mg/dL 8.4-10.2 (test code = 697) EGFR (BEAKER) (test INSUFFIC IENT CLINICAL code = 1092) DATA TO CALCULA TE ESTIMATED GFR. Envelope Adjuster ID - KODI [id number] 05:42:00 Test Item Value Reference Range Interpretation Comments MAGNESIUM (BEAKER) (test code = 1.7 mg/dL 1.6-2.6 627) Envelope Adjuster ID - KODI [facility] (HEMOGRAM ONLY)2019-07-26 05:16:00 Test Item Value Reference Range Interpretation Comments WHITE BLOOD CELL COUNT (BEAKER) 13.6 K/ L 3.5-10.5 H (test code = 775) RED BLOOD CELL COUNT (BEAKER) 2.64 M/ L 3.93-5.22 L (test code = 761) HEMOGLOBIN (BEAKER) (test code = 8.9 GM/DL 11.2-15.7 L 410) HEMATOCRIT (BEAKER) (test code = 27.0 % 34.1-44.9 L 411) MEAN CORPUSCULAR VOLUME (BEAKER) 102.3 fL 79.4-94.8 H (test code = 753) MEAN CORPUSCULAR HEMOGLOBIN 33.7 pg 25.6-32.2 H (BEAKER) (test code = 751) MEAN CORPUSCULAR HEMOGLOBIN CONC 33.0 GM/DL 32.2-35.5 (BEAKER) (test code = 752) RED CELL DISTRIBUTION WIDTH 13.0 % 11.7-14.4 (BEAKER) (test code = 412) PLATELET COUNT (BEAKER) (test 235 K/CU MM 150-450 code = 756) MEAN PLATELET VOLUME (BEAKER) 10.5 fL 9.4-12.3 (test code = 754) NUCLEATED RED BLOOD CELLS 0 /100 WBC 0-0 (BEAKER) (test code = 413) RAD, PELVIS, 1 OR 2 [id number] 12:00:00Reason for exam:->hip fxFINAL REPORT Radiograph of the pelvis Reason for exam: hip fx Comparison: July 23, 2019 Discussion: Status post reduction of previously seen dislocated left hip prosthesis. No acute fracture is identified. Soft tissue gas at the lateral aspect of the left hip likely reflects postsurgical change. Signed: Franci Dickson Verified Date/Time: 07/25/2019 12:00:43 Reading Location: [facility] C013X Ortho Consult Reading Room XR pelvis 1 or 2 [id number] 12:00:00Interface, External Ris In - 07/25/2019 12:03 PM CDTFINAL REPORT Radiograph of the pelvis Reason for exam: hip fx Comparison: July 23, 2019 Discussion: Status post reduction ofpreviously seen dislocated left hip prosthesis. No acute fracture is identified. Soft tissue gas at the lateral aspect of the left hip likely reflects postsurgical change. Signed: Franci Dickson Verified Date/Time: 07/25/2019 12:00:43 Reading Location: [facility] C013X Ortho Consult Reading Room [facility] HospitalFerritin2020-05-23 07:26:00 Test Item Value Reference Range Interpretation Comments Ferritin (test code = 92.77 ng/mL 5-275 2276-4) OREN (test code = OREN) Envelope Adjuster ID - KODI M Lab Interpretation (test Normal code = 03182-9) [facility] HospitalVitamin B12 and [id number] 07:26:00 Test Item Value Reference Range Interpretation Comments Vitamin B12 (test code = 232 pg/mL 292-314 5449-9) Folate (test code = 14.60 ng/mL >=7.00 2284-8) OREN (test code = OREN) Envelope Adjuster ID - KODI M Lab Interpretation (test Normal code = 84080-9) [facility] HospitalFERRITIN2020-05-23 07:26:00 Test Item Value Reference Range Interpretation Comments FERRITIN (BEAKER) (test code = 92.77 ng/mL 5.00-275.00 361) Envelope Adjuster ID - KODI MVITAMIN B12 AND [id number] 07:26:00 Test Item Value Reference Range Interpretation Comments VITAMIN B12 (BEAKER) (test code = 232 pg/mL 213-816 774) FOLATE (BEAKER) (test code = 362) 14.60 ng/mL >=7.00 Envelope Adjuster ID - KODI MBASIC METABOLIC [id number] 07:08:00 Test Item Value Reference Range Interpretation Comments SODIUM (BEAKER) (test 134 meq/L 136-145 L code = 381) POTASSIUM (BEAKER) 3.4 meq/L 3.5-5.1 L (test code = 379) CHLORIDE (BEAKER) 105 meq/L 98-107 (test code = 382) CO2 (BEAKER) (test 21 meq/L 22-29 L code = 355) BLOOD UREA NITROGEN 8 mg/dL 7-21 (BEAKER) (test code = 354) CREATININE (BEAKER) 0.68 mg/dL 0.57-1.25 (test code = 358) GLUCOSE RANDOM 86 mg/dL 70-105 (BEAKER) (test code = 652) CALCIUM (BEAKER) 8.2 mg/dL 8.4-10.2 L (test code = 697) EGFR (BEAKER) (test INSUFFIC IENT CLINICAL code = 1092) DATA TO CALCULA TE ESTIMATED GFR. Envelope Adjuster ID - KODI [id number] 07:07:00 Test Item Value Reference Range Interpretation Comments MAGNESIUM (BEAKER) (test code = 1.5 mg/dL 1.6-2.6 L 627) Envelope Adjuster ID Rico KODI Ida, TIBC, % sat. (without ferritin)2019-07-25 06:50:00 Test Item Value Reference Range Interpretation Comments Iron (test code = 2498-4) 12.0 ug/dL 40-160 L TIBC (test code = 2500-7) 348 ug/dL 250-450 Iron % Saturation (test 3 % 20-55 L code = 2502-3) OREN (test code = OREN) Envelope Adjuster ID - KODI M Lab Interpretation (test Abnormal code = 92846-9) [facility], TIBC, % SAT. (WITHOUT FERRITIN)2019-07-25 06:50:00 Test Item Value Reference Range Interpretation Comments IRON (BEAKER) (test code = 547) 12.0 ug/dL 40.0-160.0 L TOTAL IRON BINDING CAPACITY 348 ug/dL 250-450 (BEAKER) (test code = 769) IRON % SATURATION (2) (BEAKER) 3 % 20-55 L (test code = 2590) Envelope Adjuster ID - KODI [facility] (HEMOGRAM ONLY)2019-07-25 06:29:00 Test Item Value Reference Range Interpretation Comments WHITE BLOOD CELL COUNT (BEAKER) 10.0 K/ L 3.5-10.5 (test code = 775) RED BLOOD CELL COUNT (BEAKER) 2.72 M/ L 3.93-5.22 L (test code = 761) HEMOGLOBIN (BEAKER) (test code = 9.0 GM/DL 11.2-15.7 L 410) HEMATOCRIT (BEAKER) (test code = 27.4 % 34.1-44.9 L 411) MEAN CORPUSCULAR VOLUME (BEAKER) 100.7 fL 79.4-94.8 H (test code = 753) MEAN CORPUSCULAR HEMOGLOBIN 33.1 pg 25.6-32.2 H (BEAKER) (test code = 751) MEAN CORPUSCULAR HEMOGLOBIN CONC 32.8 GM/DL 32.2-35.5 (BEAKER) (test code = 752) RED CELL DISTRIBUTION WIDTH 13.0 % 11.7-14.4 (BEAKER) (test code = 412) PLATELET COUNT (BEAKER) (test 215 K/CU MM 150-450 code = 756) MEAN PLATELET VOLUME (BEAKER) 10.2 fL 9.4-12.3 (test code = 754) NUCLEATED RED BLOOD CELLS 0 /100 WBC 0-0 (BEAKER) (test code = 413) POC-Glucose [id number] 21:36:00 Test Item Value Reference Range Interpretation Comments POC-Glucose Meter (test 90 mg/dL 70-110 : TE STED AT [facility] code = 1538) [address] [facility], [address] 30: Envelope Adjuster/Techni mona ID = [id number] for NOLASCO, ALFREDO Lab Interpretation (test Normal code = 68665-2) [facility] HospitalPOCT[facility]GLUCOSE [id number] 21:36:00 Test Item Value Reference Range Interpretation Comments POC-GLUCOSE METER 90 mg/dL 70-110 : TESTED A T [facility] [address] (BEAKER) (test code = [facility], 1538) [address]: Envelope Adjuster/Techni mona ID = [id number] for ALFREDO GAONA SARS-CoV2/RT-PCR (Asymptomatic ONLY)2019-07-24 08:01:00 Test Item Value Reference Range Interpretation Comments SARS-COV2/RT-PCR (test code = Negative Not Detected, Negative 67888-1) SARS-COV-2 PERFORMING LAB CPL (test code = 48466-2) [facility] HospitalECG 12 [id number] 07:34:16Interface, External Ris In - 07/24/2019 7:34 AM CDTVentricular Rate 68 BPMAtrial Rate 68 BPMP-R Interval 172 msQRS Duration 90 msQ-T Interval 416 msQTC Calculation(Bazett) 442 msP [place] 50 degreesR [place] 47 degreesT [place] 65 degreesNormal sinus rhythmNormal ECGNo previous ECGs availableConfirmed by Rut BENITEZ MICHAEL (150) on 07/24/2019 7:34:14 [facility] [id number] 04:09:00 Test Item Value Reference Range Interpretation Comments SODIUM (BEAKER) (test 130 meq/L 136-145 L code = 381) POTASSIUM (BEAKER) 4.0 meq/L 3.5-5.1 (test code = 379) CHLORIDE (BEAKER) 98 meq/L 98-107 (test code = 382) CO2 (BEAKER) (test 26 meq/L 22-29 code = 355) BLOOD UREA NITROGEN 10 mg/dL 7-21 (BEAKER) (test code = 354) CREATININE (BEAKER) 0.79 mg/dL 0.57-1.25 (test code = 358) GLUCOSE RANDOM 107 mg/dL 70-105 H (BEAKER) (test code = 652) CALCIUM (BEAKER) 9.1 mg/dL 8.4-10.2 (test code = 697) EGFR (BEAKER) (test INSUFFIC IENT CLINICAL code = 1092) DATA TO CALCULA TE ESTIMATED GFR. Envelope Adjuster MARLINE MARIEE [id number] 04:03:00 Test Item Value Reference Range Interpretation Comments MAGNESIUM (BEAKER) (test code = 1.7 mg/dL 1.6-2.6 627) Envelope Adjuster MARLINE MARIEE [facility] (HEMOGRAM ONLY)2019-07-24 03:46:00 Test Item Value Reference Range Interpretation Comments WHITE BLOOD CELL COUNT (BEAKER) 9.1 K/ L 3.5-10.5 (test code = 775) RED BLOOD CELL COUNT (BEAKER) 2.86 M/ L 3.93-5.22 L (test code = 761) HEMOGLOBIN (BEAKER) (test code = 9.6 GM/DL 11.2-15.7 L 410) HEMATOCRIT (BEAKER) (test code = 28.1 % 34.1-44.9 L 411) MEAN CORPUSCULAR VOLUME (BEAKER) 98.3 fL 79.4-94.8 H (test code = 753) MEAN CORPUSCULAR HEMOGLOBIN 33.6 pg 25.6-32.2 H (BEAKER) (test code = 751) MEAN CORPUSCULAR HEMOGLOBIN CONC 34.2 GM/DL 32.2-35.5 (BEAKER) (test code = 752) RED CELL DISTRIBUTION WIDTH 12.8 % 11.7-14.4 (BEAKER) (test code = 412) PLATELET COUNT (BEAKER) (test 221 K/CU MM 150-450 code = 756) MEAN PLATELET VOLUME (BEAKER) 9.8 fL 9.4-12.3 (test code = 754) NUCLEATED RED BLOOD CELLS 0 /100 WBC 0-0 (BEAKER) (test code = 413) RAD, PELVIS, 1 OR 2 [id number] 22:22:00Reason for exam:->Please repeat AP pelvis and perform cross table lateral of left hip (previous lateral was not sufficient)FINAL REPORT TECHNIQUE: Frontal and lateral views of the pelvis. INDICATION: Please repeat AP pelvis and perform cross table lateral of left hip (previous lateral was not sufficient). COMPARISON: None. IMPRESSION:Suboptimal crosstable lateral view limits examination. Within this constraint, there is dislocation of the left hip arthroplasty with the femoral component displaced superiorly and likely slightly posteriorly relative to the acetabular component. Otherwise, no acute osseous fracture. Soft tissues are unremarkable. Signed: Kathryn Grace MDReport Verified Date/Time: 07/23/2019 22:22:26 C-Reactive [id number] 21:33:00 Test Item Value Reference Range Interpretation Comments CRP (test code = 676) 3.78 mg/dL 0-0.5 H OREN (test code = OREN) Envelope Adjuster ID - BS Lab Interpretation (test Abnormal code = 45331-2) [facility] HospitalC-REACTIVE [id number] 21:33:00 Test Item Value Reference Range Interpretation Comments C-REACTIVE PROTEIN (BEAKER) (test 3.78 mg/dL 0.00-0.50 H code = 676) Envelope Adjuster ID - [id number] 21:28:00 Test Item Value Reference Range Interpretation Comments PTT (test code = 24694-8) 31.6 22.5- 36.0 seconds Lab Interpretation (test code = Normal 01217-1) [facility] HospitalAPTT2020-05-21 21:28:00 Test Item Value Reference Range Interpretation Comments PARTIAL THROMBOPLASTIN TIME 31.6 seconds 22.5-36.0 (BEAKER) (test code = 760) Prepare Leuko-Red [id number] 21:25:00 Test Item Value Reference Range Interpretation Comments CROSSMATCH (test code = 2264) COMPATIBLE Unit ABO (test code = O Pos 2158940) UNIT NUMBER (test code = [id number] 934-0) Status (test code = 5280866) READY Blood Bank Product (test code RED BLOOD CELLS = 2263) PRODUCT CODE (test code = X3768S43 933-2) [facility] HospitalABORH, [id number] 21:22:00 Test Item Value Reference Range Interpretation Comments Rh Factor (test code = 2589) POS ABO Grouping (test code = 2588) O [facility] HospitalBASIC METABOLIC [id number] 15:26:00 Test Item Value Reference Range Interpretation Comments SODIUM (BEAKER) (test 127 meq/L 136-145 L code = 381) POTASSIUM (BEAKER) 3.9 meq/L 3.5-5.1 (test code = 379) CHLORIDE (BEAKER) 95 meq/L 98-107 L (test code = 382) CO2 (BEAKER) (test 25 meq/L 22-29 code = 355) BLOOD UREA NITROGEN 8 mg/dL 7-21 (BEAKER) (test code = 354) CREATININE (BEAKER) 0.73 mg/dL 0.57-1.25 (test code = 358) GLUCOSE RANDOM 104 mg/dL 70-105 (BEAKER) (test code = 652) CALCIUM (BEAKER) 8.9 mg/dL 8.4-10.2 (test code = 697) EGFR (BEAKER) (test INSUFFIC IENT CLINICAL code = 1092) DATA TO CALCULA TE ESTIMATED GFR. Envelope Adjuster ID - NTPCBC (HEMOGRAM ONLY)2019-07-23 14:56:00 Test Item Value Reference Range Interpretation Comments WHITE BLOOD CELL COUNT (BEAKER) 8.9 K/ L 3.5-10.5 (test code = 775) RED BLOOD CELL COUNT (BEAKER) 3.06 M/ L 3.93-5.22 L (test code = 761) HEMOGLOBIN (BEAKER) (test code = 10.3 GM/DL 11.2-15.7 L 410) HEMATOCRIT (BEAKER) (test code = 29.5 % 34.1-44.9 L 411) MEAN CORPUSCULAR VOLUME (BEAKER) 96.4 fL 79.4-94.8 H (test code = 753) MEAN CORPUSCULAR HEMOGLOBIN 33.7 pg 25.6-32.2 H (BEAKER) (test code = 751) MEAN CORPUSCULAR HEMOGLOBIN CONC 34.9 GM/DL 32.2-35.5 (BEAKER) (test code = 752) RED CELL DISTRIBUTION WIDTH 12.6 % 11.7-14.4 (BEAKER) (test code = 412) PLATELET COUNT (BEAKER) (test 223 K/CU MM 150-450 code = 756) MEAN PLATELET VOLUME (BEAKER) 9.6 fL 9.4-12.3 (test code = 754) NUCLEATED RED BLOOD CELLS 0 /100 WBC 0-0 (BEAKER) (test code = 413) RAD, HIP, 2 VIEWS, [id number] 13:22:00Reason for exam:->fall, hip pain FINAL REPORT RAD, HIP, 2 VIEWS, LEFT INDICATION: fall, hip pain COMPARISON: None TECHNIQUE: Single AP view of the help FINDINGS/IMPRESSION:Status post total hip arthroplasty. Thefemoral component is dislocated from the acetabular component and is superiorly displaced. Signed: Ravinder Phillips Verified Date/Time: 07/23/2019 13:22:40 Reading Location: [facility] Radiology Reading Room XR hip 2 views [id number] 13:22:00Interface, External Ris In - 07/23/2019 2:41 PM CDTFINAL REPORT RAD, HIP, 2 VIEWS, LEFT INDICATION: fall, hip pain COMPARISON: None TECHNIQUE: Single AP view of the help FINDINGS/IMPRESSION:Status post total hip arthroplasty. The femoral component is dislocated from the acetabular component and is superiorly displaced. Signed: Ravinder Ramsey Verified Date/Time: 07/23/2019 13:22:40 Reading Location: [facility] Radiology Reading Room [facility] [id number] 12:40:00 Test Item Value Reference Range Interpretation Comments POC-GLUCOSE METER 117 mg/dL 70-110 H : TESTED A T [facility] [address] ([facility]) (test code = [facility], 1538) [address]: Envelope Adjuster/Techni mona ID = [id number] for JUSTICE ROPER CT, BRAIN, WITHOUT [id number] 09:31:00FINAL REPORT CT Head without contrast CLINICAL HISTORY: fall TECHNIQUE: Contiguous axial images through the head without contrast. This exam was performed according to the departmental dose optimization program which includes automated exposure control, adjustment of the mA and/or kV according to the patient size, and/or use of an iterative reconstruction technique. COMPARISON:None FINDINGS: There is no evidence of skull fracture or intracranial hemorrhage. There is periventricular and subcortical white matter hypodensity which is nonspecific but compatible with chronic microvascular ischemic change. There are atherosclerotic calcifications of the intracranial circulation. There is generalized parenchymal volume loss without hydrocephalus, midline shift, or apparent mass effect. There are no extra-axial fluid collections. The paranasal sinuses are well-aerated. IMPRESSION: No evidence of skull fracture or intracranial hemorrhage. Signed: Xiomy Munoz Verified Date/Time: 07/23/2019 09:31:21 Reading Location: [address] Neuro Reading Room [facility] brain without IV [id number] 09:31:00Interface, External Ris In - 07/23/2019 9:[address] Head without contrast CLINICAL HISTORY: fall TECHNIQUE: Contiguous axial images through the head without contrast. This exam was performed according to the departmental dose optimization program which includes automated exposure control, adjustment of the mA and/or kV according to the patient size, and/or use of an iterative reconstruction technique. COMPARISON: None FINDINGS: There is no evidence of skull fracture or intracranial hemorrhage. There is periventricular and subcortical white matter hypodensity which is nonspecific but compatible with chronic microvascular ischemic change. There are atherosclerotic calcifications of the intracranial circulation. There is generalized parenchymal volume loss without hydrocephalus, midline shift, or apparent mass effect. There are no extra-axial fluid collections. The paranasal sinuses are well-aerated. IMPRESSION: No evidence of skull fracture or intracranial hemorrhage. Signed: Xiomy Munoz MDReport Verified Date/Time: 07/23/2019 09:31:21 Reading Location: [address] Neuro Reading [facility]PO[facility] [id number] 07:48:00 Test Item Value Reference Range Interpretation Comments POC-GLUCOSE METER 102 mg/dL 70-110 : TESTED A T [facility] [address] (BEAKER) (test code = [facility], 1538) [address]: Envelope Adjuster/Techni mona ID = [id number] for JUSTICE ROPER T4, [id number] 07:43:00 Test Item Value Reference Range Interpretation Comments Free T4 (test code = 0.91 ng/dL 0.7-1.48 3024-7) OREN (test code = OREN) Envelope Adjuster ID - PIAYA L Lab Interpretation (test Normal code = 32574-5) [facility] HospitalTSH2020-[facility] 07:43:00 Test Item Value Reference Range Interpretation Comments TSH (test code = 4.520 0.350- 4.940 uIU/mL 96489-2) OREN (test code = OREN) Envelope Adjuster ID Rico VASQUEZ L Lab Interpretation (test Normal code = 52222-5) [facility] HospitalT4, [id number] 07:43:00 Test Item Value Reference Range Interpretation Comments FREE T4 (BEAKER) (test code = 655) 0.91 ng/dL 0.70-1.48 Envelope Adjuster ID Rico VASQUEZ [id number] 07:43:00 Test Item Value Reference Range Interpretation Comments THYROID STIMULATING HORMONE 4.520 uIU/mL 0.350-4.940 (BEAKER) (test code = 772) Envelope Adjuster ID Rico VASQUEZ LType and screen, [id number] 07:13:00 Test Item Value Reference Range Interpretation Comments ABO/RH AUTOMATED (BEAKER) (test O POSITIVE code = 2260) Ab Scrn (test code = 890-4) NEGATIVE [facility] HospitalProthrombin time/[id number] 07:06:00 Test Item Value Reference Range Interpretation Comments Protime (test code = 13.3 11.9- 14.2 5902-2) seconds INR (test code = 1.0 <=5.9 6301-6) OREN (test code = OREN) Effective 07/30/2018: PT Reference Range ChangeNew: 11.9-14.2 Previous: 11.7-14.7 RECOMMENDED COUMADIN/WARFARIN INR THERAPY RANGESSTANDARD DOSE: 2.0-3.0 Includes: PROPHYLAXIS for venous thrombosis, systemic embolization; TREATMENT for venous thrombosis and/or pulmonary embolus.HIGH RISK: Target INR is 2.5-3.5 for patients wiht mechanical heart valves. Lab Interpretation Normal (test code = 67536-1) [facility] HospitalPROTHROMBIN TIME/[id number] 07:06:00 Test Item Value Reference Range Interpretation Comments PROTIME (BEAKER) (test code = 13.3 seconds 11.9-14.2 759) INR (BEAKER) (test code = 370) 1.0 <=5.9 Effective 07/30/2018: PT Reference Range ChangeNew: 11.9-14.2 Previous: 11.7- 14.7RECOMMENDED COUMADIN/WARFARIN INR THERAPY RANGESSTANDARD DOSE: 2.0-3.0 Includes: PROPHYLAXIS for venous thrombosis, systemic embolization; TREATMENT for venous thrombosis and/or pulmonary embolus.HIGH RISK: Target INR is2.5-3.5 for patients wiht mechanical heart valves.
--- OUTSIDE RECORDS SUMMARY | 2019-12-12 20:37 | XMS REPORT | Summary of Care ---
:1935 Author Organization [facility] - Health Address [address] [place] [address] Care Team Providers Name Role Phone Pcp, Patient Does Not Have A Primary Care Provider +[id number] 0-0000 Encounter Details Date Type Department Care Team Description 09/28/2019 Orders Only [facility] Doctor Unassigned, No [address] [facility] Name [address] [phone] [place] [address] Allergies No Known Allergiesdocumented as of this encounter (statuses as of 09/28/2019) Medications Medication Sig Dispensed Refills Start Date End Date Status anastrozole 1 mg tablet Take 1 mg by 0 08/14/2017 Active mouth daily. LISINOPRIL ORAL Take by mouth. 0 Active levothyroxine sodium Take by mouth. 0 Active (LEVOTHYROXINE ORAL) acetaminophen-codeine Take 1 tablet by 40 tablet 0 09/15/2019 Active (TYLENOL-CODEINE #3) mouth every 4 300-30 mg (four) hours as tabletIndications: acute needed for Pain pain (scale 4-6) or Pain (scale 7-10). 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, subsequent 09/14/2019 encounter 'tbpql-atw-kurpy' with signs of malnutrit ion 09/09/2017 Arthritis of left hip 09/09/2017 documented as of this encounter (statuses as of 09/28/2019) Social History Tobacco Use Types Packs/Day Years [...] filedocumented in this encounter Plan of Treatment Date Type Specialty Care Team Description 09/28/2019 Office Visit Orthopedic Surgery Vladimir Marti, MUNIR [address] [phone] 09/28/2019 Appointment Radiology Vu Peguero MD [address], [place] [phone] Health Maintenance Due Date Last Done Comments DTaP,Tdap,and Td Vaccines (1 - Tdap) 1946 Depression Screening 1949 Zoster Recombinant Vaccine (SHINGRIX) (1 of 2) 12/10/1987 Medicare Wellness Visit 2002 Osteoporosis Screening 2002 PNEUMOCOCCAL VACCINES 65+ (1 of 2 - PCV13) 2002 INFLUENZA VACCINE (#1) 2019 documented as of this encounter Implants Implanted Type Area 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 [employer] Device Shelf Model / Identifier Expiration Serial / Lot Date Acetabular Shell Cementless 3 Hole 56mm Miguelina Porocoat Plasma Coated G7 Biomet Ref#[id number] HIP Left: Hip Biomet 06/18/2027 [id number] / Implanted: Qty: 1 on 09/09/2017 by Vu Burr MD at [facility] 6 [id number] / [id number] Acetabular Liner Neutral Size F 40mm Miguelina Arcomxl High Wall G7 Biomet Ref#[id number] HIP Left: Hip Biomet 02/12/2021 [id number] / Implanted: Qty: 1 on 09/09/2017 by Vu Burr MD at [facility] 3 [id number] / [id number] Femoral Head Cementless 40mm Miguelina Standar 0mml Neck [place] Chromium Biomet Ref#[id number] Head Left: Hip Biomet 03/28/2027 [id number] / Implanted: Qty: 1 on 09/09/2017 by Vu Burr MD at [facility] 9 [id number] / [id number] Screw, Garima Bone 6.5x25 Self-Tap #[phone] - [id number] S CREW Left: Hip Garima 07/02/202731-0250-808-25 / Implanted: Qty: 1 on 09/09/2017 by Vu Burr MD at [facility] 6 [id number] / [id number] Screw, Garima Bone 6.5x20 Self-Tap #[phone] [] SCREW Left: Hip Garima 07/02/2027 / Implanted: Qty: 1 on 09/09/2017 by Vu Burr MD at [facility] 6 [id number] / [id number] Acetabular Shell Cementless 3 Hole 56mm Miguelina Porocoat Plasma Coated G7 Biomet Ref#[id number] SCREW Left: Hip Garima 07/02/2027 [id number] / Implanted: Qty: 1 on 09/09/2017 by Vu Burr MD at [facility] 0 / [id number] Screw, Garima Bone 6.5x20 Self-Tap #[phone] [625 0607-21] SCREW Left: Hip Garima 07/02/2027 / Implanted: Qty: 1 on 09/09/2017 by Vu Burr MD at [facility] 0 / [id number] Stem Femoral Cementless Porous Plasma Coated Stem Biomet Ref #[id number] Stem Left: Hip Biomet 07/27/2027 [id number] / Implanted: Qty: 1 on 09/09/2017 by Vu Burr MD at [facility] 6 [id number] / [id number] documented as of this encounter Procedures Procedure Name Priority Date/Time Associated Diagnosis Comme nts ASSIGNMENT OF BENEFITS Routine 09/28/2019 3:30 PM CDT documented in this encounter Results Not on filedocumented in this encounter Insurance Payer Benefit Plan / Subscriber ID Effective Phone Address T e Group Dates MEDICARE MEDICARE PART A xxxxxxxxxxx 2002-Pre [phone] P. O. DELIA X Medicare & B sent [phone] [place] [phone] BCBS OF BCBS [id number] 2016-Pres [phone] O [facility] [employer] ent [phone] [place] [address] documented as of this encounter
--- OUTSIDE RECORDS SUMMARY | 2019-12-12 20:37 | XMS REPORT | Summary of Care ---
:1935 Author Organization [facility] - [address] [address] Care Team Providers Name Role Phone Roby Huitron Primary Care Provider Reason for Visit Reason Comments Transition Of Care Encounter Details Date Type Department Care Team Description 09/16/2019 Transition of Care [facility] Laura Abraham RN Transition Of Care [facility]- [address] [place] [phone] Allergies No Known Allergiesdocumented as of this encounter (statuses as of 09/16/2019) Medications Medication Sig Dispensed Refills Start Date [...] as of this encounter (statuses as of 09/16/2019) Active Problems Problem Noted Date Hip dislocation, left 09/14/2019 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, subsequent 09/14/2019 encounter 'uiyfd-erj-vrvyw' infant with signs of malnutrit ion 09/09/2017 Arthritis of left hip 09/09/2017 documented as of this encounter (statuses as of 09/16/2019) Social History Tobacco Use Types Packs/Day Years [...] of this encounter Implants Implanted Type Area Inductor Tester Device Shelf Model / Identifier Expiration Serial / Lot Date Acetabular Shell Cementless 3 Hole 56mm Miguelina Porocoat Plasma Coated G7 Biomet Ref#[id number] HIP Left: Hip Biomet 06/18/2027 [id number] / Implanted: Qty: 1 on 09/09/2017 by Vu Burr MD at [facility] 6 [id number] / [id number] Acetabular Liner Neutral Size F 40mm Miguelina Arcomxl High Wall G7 Biomet Ref#[id number] HIP Left: Hip Biomet 02/12/2021 [id number] / Implanted: Qty: 1 on 09/09/2017 by Vu Burr MD at [facility] 3 [id number] / [id number] Femoral Head Cementless 40mm Miguelina Standar 0mml Neck [place] Chromium Biomet Ref#[id number] Head Left: Hip Biomet 03/28/2027 [id number] / Implanted: Qty: 1 on 09/09/2017 by Vu Burr MD at [facility] 9 [id number] / [id number] Screw, Garima Bone 6.5x25 Self-Tap #[phone] - [id number] S CREW Left: Hip Garima 07/02/202734-3387-160-25 / Implanted: Qty: 1 on 09/09/2017 by Vu Burr MD at [facility] 6 [id number] / [id number] Screw, Garima Bone 6.5x20 Self-Tap #[phone] [] SCREW Left: Hip Garima 07/02/2027 / Implanted: Qty: 1 on 09/09/2017 by Vu Burr MD at [facility] 6 [id number] / [id number] Acetabular Shell Cementless 3 Hole 56mm Miguelina Porocoat Plasma Coated G7 Biomet Ref#[id number] SCREW Left: Hip Garima 07/02/2027 [id number] / Implanted: Qty: 1 on 09/09/2017 by Vu Burr MD at [facility] 0 / [id number] Screw, Garima Bone 6.5x20 Self-Tap #[phone] [ [phone]] SCREW Left: Hip Garima 07/02/2027 / Implanted: Qty: 1 on 09/09/2017 by Vu Burr MD at [facility] 0 / [id number] Stem Femoral Cementless Porous Plasma Coated Stem Biomet Ref #[id number] Stem Left: Hip Biomet 07/27/2027 [id number] / Implanted: Qty: 1 on 09/09/2017 by Vu Burr MD at [facility] 6 [id number] / [id number] documented as of this encounter Results Not on filedocumented in this encounter Insurance Payer Benefit Plan / Subscriber ID Effective Phone Address T [facility] Group Dates MEDICARE MEDICARE PART A xxxxxxxxxxx 2002-Pre [phone] P. [address]. DELIA X Medicare & B sent [id number] [place] [id number] BCBS OF BCBS [id number] 2016-Pres [phone] [facility] ent [phone] [place] [address] documented as of this encounter
--- OUTSIDE RECORDS SUMMARY | 2019-12-12 20:37 | XMS REPORT | Summary of Care ---
:1935 Author Organization [facility] - [facility] Address [address] [place] [address] Care Team Providers Name Role Phone Pcp, Patient Does Not Have A Primary Care Provider +1-000-00 0-0000 Reason for Visit Reason Comments POST-OP Hip Pain 07/11 Auth/Cert Status Reason Specialty Diagnoses / Procedures Referred By C ontact Referred To Contact Radiology Ad[facility] X-Ray [address] [place] [address] Phone: Fax: Encounter Details Date Type Department Care Team Description 09/28/[address] [facility] Orthopaedic Vladimir Marti D islocation of left Surgery- [place] PAC hip, subsequent [facility], [address] encounter (Primary Dx) [address] [place] [address] [place], [place] [phone] Allergies No Known Allergiesdocumented as of this [...] dislocatio n of hip, subsequent 09/14/2019 encounter 'stgnc-wlf-qdtiy' infant with signs of malnutrit ion 09/09/2017 [...] been in contact with No / Unsure 09/28/2019 4:08 PM CDT someone who was confirmed or suspected to have Coronavirus / COVID-19? documented as of this encounter Last Filed Vital Signs Vital Sign Reading Time Taken Comments Blood Pressure 158/68 09/28/2019 4:10 PM CDT Pulse 72 09/28/2019 4:10 PM CDT Temperature - - Respiratory Rate 18 09/28/2019 4:10 PM CDT Oxygen Saturation - - Inhaled Oxygen Concentration - - Weight - - Height - - Body Mass Index - - documented in this encounter Progress Notes Vladimir Marti S, PAC - 09/28/2019 4:00 PM CDT Cc: Chief Complaint Patient presents with POST-OP Hip Pain 07/11 Denia Leslie is a 83 year old female. Status post open reduction of left total hip replacement 2 weeks postop today, he does have an abduction brace it was quite difficult for her to wear she is not wearing it today At the time of surgery her hip was quite stable and difficult to reduce. Allergies Denia has No Known Allergies. Medications Outpatient Medications Prior to Visit Medication Sig Dispense Refill acetaminophen-codeine (TYLENOL-CODEINE #3) 300-30 mg tablet Take 1 tablet by mouth every 4 (four) hours as needed for Pain (scale 4-6) or Pain (scale 7-10). Indications: acute pain 40 tablet 0 levothyroxine sodium (LEVOTHYROXINE ORAL) Take by mouth. LISINOPRIL ORAL Take by mouth. anastrozole 1 mg tablet Take 1 mg by mouth daily. No facility-administered medications prior to visit. Histories Past Medical History: Diagnosis Date History of breast cancer Hypertension H/O Past Surgical History: Procedure Laterality Date BREAST SURGERY Bilateral Breast biopsies, lumpectomy HYSTERECTOMY OPEN REDUCTION HIP (SHX) Left 09/14/2019 Surgeon: Vu Peguero MD; Location: [facility] [place] SPINE SURGERY Back surgery TOTAL HIP ARTHROPLASTY Left 09/09/2017 Surgeon: Vu Peguero MD; Location: [facility] Social History Socioeconomic History Marital status: Spouse name: Not on file Number of children: Not on file Years of education: Not on file Highest education level: Not on file Occupational History Not on file Social Needs Financial resource strain: Not on file Food insecurity: Worry: Not on file Inability: Not on file Transportation needs: Medical: Not on file Non-medical: Not on file Tobacco Use Smoking status: Former Smoker Packs/day: 0.50 Years: 30.00 Pack years: 15.00 Smokeless tobacco: Never Used Tobacco comment: Quit approx. 20 years ago (1997) Substance and Sexual Activity Alcohol use: Yes Comment: Social Drinker Drug use: No Sexual activity: Not on file Lifestyle Physical activity: Days per week: Not on file Minutes per session: Not on file Stress: Not on file Relationships Social connections: Talks on phone: Not on file Gets together: Not on file Attends voodoo service: Not on file Active member of club or organization: Not on file Attends meetings of clubs or organizations: Not on file Relationship status: Not on file Intimate partner violence: Fear of current or ex partner: Not on file Emotionally abused: Not on file Physically abused: Not on file Forced sexual activity: Not on file Other Topics Concern Not on file Social History Narrative Not on file Family History Problem Relation Age of Onset Cancer Mother Cancer Father Cancer Sister Review of Systems Constitutional: Negative. HENT: Negative. Eyes: Negative. Respiratory: Negative. Breasts: Negative. Cardiovascular: Negative. Gastrointestinal: Negative. Genitourinary: Negative. Musculoskeletal: Negative. Skin: Negative. Neurological: Negative. Psychiatric/Behavioral: Negative. Endocrine: Endocrine negative Vital Signs There were no vitals taken for this visit. Physical Exam Wound is well approximated there is no erythema edema or ecchymosis there is no drainage X-rays reviewed status post total hip replacement implants in good alignment Assessment/Plan 1. Dislocation of left hip, subsequent encounter 2 weeks status post left hip dislocation of open reduction she was given a hip abduction brace it was difficult for her to wear she made it about 3 days with the brace on. When she dislocated her hip she had tripped over her little dog. We do recommend that she wear the hip abduction brace for the next 3 months day and night. Follow-up as needed. documented in this encounter Plan of Treatment Health Maintenance Due Date Last Done Comments DTaP,Tdap,and Td Vaccines (1 - Tdap) 1948 Depression Screening 1949 Zoster Recombinant Vaccine (SHINGRIX) (1 of 2) 12/10/1987 Medicare Wellness Visit 2002 Osteoporosis Screening 2002 PNEUMOCOCCAL VACCINES 65+ (1 of 2 - PCV13) 2002 INFLUENZA VACCINE (#1) 2019 documented as of this encounter Implants Implanted Type Area Lean Sensei Device Shelf Model / Identifier Expiration Serial / Lot Date Acetabular Shell Cementless 3 Hole 56mm Miguelina Porocoat Plasma Coated G7 Biomet Ref#[id number] HIP Left: Hip Biomet 06/18/2027 [id number] / Implanted: Qty: 1 on 09/09/2017 by Vu Burr MD at [facility] 6 [id number] / [id number] Acetabular Liner Neutral Size F 40mm Miguelina Arcomxl High Wall G7 Biomet Ref#[id number] HIP Left: Hip Biomet 02/12/2021 [id number] / Implanted: Qty: 1 on 09/09/2017 by Vu Burr MD at [facility] 3 [id number] / [id number] Femoral Head Cementless 40mm Miguelina Standar 0mml Neck [place] Chromium Biomet Ref#[id number] Head Left: Hip Biomet 03/28/2027 [id number] / Implanted: Qty: 1 on 09/09/2017 by Vu Burr MD at [facility] 9 [id number] / [id number] Screw, Garima Bone 6.5x25 Self-Tap #[phone] - [id number] S CREW Left: Hip Garima 07/02/202710-2254-539-25 / Implanted: Qty: 1 on 09/09/2017 by Vu Burr MD at [facility] 6 [id number] / [id number] Screw, Garima Bone 6.5x20 Self-Tap #[phone] [625- 0620] SCREW Left: Hip Garima 07/02/2027 / Implanted: Qty: 1 on 09/09/2017 by Vu Burr MD at [facility] 6 [id number] / [id number] Acetabular Shell Cementless 3 Hole 56mm Miguelina Porocoat Plasma Coated G7 Biomet Ref#[id number] SCREW Left: Hip Garima 07/02/2027 [id number] / Implanted: Qty: 1 on 09/09/2017 by Vu Burr MD at [facility] 0 / [id number] Screw, Garima Bone 6.5x20 Self-Tap #[phone] [625- [phone]] SCREW Left: Hip Garima 07/02/2027 / Implanted: Qty: 1 on 09/09/2017 by Vu Burr MD at [facility] 0 / [id number] Stem Femoral Cementless Porous Plasma Coated Stem Biomet Ref #[id number] Stem Left: Hip Biomet 07/27/2027 [id number] / Implanted: Qty: 1 on 09/09/2017 by Vu Burr MD at [facility] 6 [id number] / [id number] documented as of this encounter Results Not on filedocumented in this encounter Visit Diagnoses Diagnosis Dislocation of left hip, subsequent enco unter - Primary documented in this encounter Insurance Payer Benefit Plan / Subscriber ID Effective Phone Address T ype Group Dates MEDICARE MEDICARE PART A xxxxxxxxxxx 2002-Pre [phone] [address]. [address]. DEL[place] X Medicare & B sent [phone] [id number] [place] [phone] BCBS OF BCBS [id number] 2016-Pres [phone] [address] [facility] ent [phone] [place] [address] documented as of this encounter
--- OUTSIDE RECORDS SUMMARY | 2019-12-12 20:37 | XMS REPORT | Summary of Care ---
:1935 Author Organization [facility] Address [address] [place] [address] Care Team Providers Name Role Phone Pcp, Patient Does Not Have A Primary Care Provider +1-000-00 0-0000 Reason for Visit Reason Comments POST-OP Hip Pain 07/11 Auth/Cert Status Reason Specialty Diagnoses / Procedures Referred By C ontact Referred To Contact Radiology [facility] X-Ray [address] [place] [address] Phone: Fax: Encounter Details Date Type Department Care Team Description 09/28/2019 Office Visit [facility] Orthopaedic Vladimir Marti D islocation of left Surgery- [place] PAC hip, subsequent [facility], [address] encounter (Primary Dx) [address] [place] [address] [place], [place] [phone] Allergies No Known Allergiesdocumented as of this [...] dislocatio n of hip, subsequent 09/14/2019 encounter 'ocigk-cfx-pwjae' infant with signs of malnutrit ion 09/09/2017 [...] Left 09/14/2019 Surgeon: Vu Peguero MD; Location: [facility] SPINE SURGERY Back surgery TOTAL HIP ARTHROPLASTY Left 09/09/2017 Surgeon: Vu Peguero MD; Location: [facility] Social History Socioeconomic History Marital status: Spouse [...] file Gets together: Not on file Attends christian service: Not on file Active member of [...] of this encounter Implants Implanted Type Area Customer Service Representative Teller Device Shelf Model / Identifier Expiration Serial / Lot Date Acetabular Shell Cementless 3 Hole 56mm Miguelina Porocoat Plasma Coated G7 Biomet Ref#[id number] HIP Left: Hip Biomet 06/18/2027 [id number] / Implanted: Qty: 1 on 09/09/2017 by Vu Burr MD at [facility] 6 [id number] / [id number] Acetabular Liner Neutral Size F 40mm Miguelina Arcomxl High Wall G7 Biomet Ref#[id number] HIP Left: Hip Biomet 02/12/2021 [id number] / Implanted: Qty: 1 on 09/09/2017 by Vu Burr MD at [facility] 3 [id number] / [id number] Femoral Head Cementless 40mm Miguelina Standar 0mml Neck [place] Chromium Biomet Ref#[id number] Head Left: Hip Biomet 03/28/2027 [id number] / Implanted: Qty: 1 on 09/09/2017 by Vu Burr MD at [facility] 9 [id number] / [id number] Screw, Garima Bone 6.5x25 Self-Tap #[phone] - [id number] S CREW Left: Hip Garima 07/02/202752-3153-295-25 / Implanted: Qty: 1 on 09/09/2017 by Vu Burr MD at [facility] 6 [id number] / [id number] Screw, Garima Bone 6.5x20 Self-Tap #[phone] [625- 0620] SCREW Left: Hip Garima 07/02/2027 / Implanted: Qty: 1 on 09/09/2017 by Vu Burr MD at [facility] 6 [id number] / [id number] Acetabular Shell Cementless 3 Hole 56mm Miguelina Porocoat Plasma Coated G7 Biomet Ref#[id number] SCREW Left: Hip Garima 07/02/2027 [id number] / Implanted: Qty: 1 on 09/09/2017 by Vu Burr MD at [facility] 0 / [id number] Screw, Garima Bone 6.5x20 Self-Tap #[phone] [625- 06520] SCREW Left: Hip Garima 07/02/2027 / Implanted: Qty: 1 on 09/09/2017 by Vu Burr MD at [facility] 0 / [id number] Stem Femoral Cementless Porous Plasma Coated Stem Biomet Ref #[id number] Stem Left: Hip Biomet 07/27/2027 [id number] / Implanted: Qty: 1 on 09/09/2017 by Vu Burr MD at [facility] 6 [id number] / [id number] documented as of this encounter Results Not on filedocumented in this encounter Visit Diagnoses Diagnosis Dislocation of left hip, subsequent enco unter - Primary documented in this encounter Insurance Payer Benefit Plan / Subscriber ID Effective Phone Address T ype Group Dates MEDICARE MEDICARE PART A xxxxxxxxxxx 2002-Pre [phone] P. O. DELIA X Medicare & B sent [phone] [id number] [place] [phone] BCBS OF BCBS [id number] 2016-Pres [phone] [address] [facility] ent [phone] [place] [address] documented as of this encounter
--- OUTSIDE RECORDS SUMMARY | 2019-12-12 20:37 | XMS REPORT | Summary of Care ---
:1935 Author Organization [facility] Address [address] [place] [address] Care Team Providers Name Role Phone Roby Huitron Primary Care Provider Reason for Referral Radiology Services (Routine) Status Reason Specialty Diagnoses / Referred By Referred To Procedures Contact Contact New Request Diagnostic Diagnoses Primary osteoarthritis of left hip Sudhir, Radiology Procedures XR HIPS 2 VW LEFT Vu Mark MD [address] [place] [address] Reason for Visit Reason Comments Orders Left Hip XRay order Encounter Details Date Type Department Care Team Description 09/28/2019 Telephone [facility] Orthopaedic Vu Peguero (Left Hip XRay Surgery- Radha Mark MD order) [address] [facility], [address] [place] [address] [place] [address] [place], [place] [phone] Allergies No Known Allergiesdocumented as of this [...] dislocatio n of hip, subsequent 09/14/2019 encounter 'ytvcj-qvm-ckmdl' with signs of malnutrit ion 09/09/2017 Arthritis [...] Description 09/28/2019 Office Visit Orthopedic Surgery Vladimir Marti S, PAC [address] [place] [address] [phone] Name Type Priority Associated Diagnoses Order S chedule XR HIPS 2 VW LEFT IMAGING Routine Primary osteoarthritis of Expected: 09/28/2019, left hip Expires: 2020 Health Maintenance Due Date Last Done Comments DTaP,Tdap,and Td Vaccines (1 - Tdap) 1948 Depression Screening 1949 Zoster Recombinant Vaccine (SHINGRIX) (1 of 2) 12/10/1987 Medicare Wellness Visit 2002 Osteoporosis Screening 2002 PNEUMOCOCCAL VACCINES 65+ (1 of 2 - PCV13) 2002 INFLUENZA VACCINE (#1) 2019 documented as of this encounter Implants Implanted Type Area Corporate Development Intern Device Shelf Model / Identifier Expiration Serial / Lot Date Acetabular Shell Cementless 3 Hole 56mm Miguelina Porocoat Plasma Coated G7 Biomet Ref#[id number] HIP Left: Hip Biomet 06/18/2027 [id number] / Implanted: Qty: 1 on 09/09/2017 by Vu Burr MD at [facility] 6 [id number] / [id number] Acetabular Liner Neutral Size F 40mm Miguelina Arcomxl High Wall G7 Biomet Ref#[id number] HIP Left: Hip Biomet 02/12/2021 [id number] / Implanted: Qty: 1 on 09/09/2017 by Vu Burr MD at [facility] 3 [id number] / [id number] Femoral Head Cementless 40mm Miguelina Standar 0mml Neck [place] Chromium Biomet Ref#[id number] Head Left: Hip Biomet 03/28/2027 [id number] / Implanted: Qty: 1 on 09/09/2017 by Vu Burr MD at [facility] 9 [id number] / [id number] Screw, Garima Bone 6.5x25 Self-Tap #[phone] - [id number] S CREW Left: Hip Garima 07/02/202766-5529-393-25 / Implanted: Qty: 1 on 09/09/2017 by Vu Burr MD at [facility] 6 [id number] / [id number] Screw, Garima Bone 6.5x20 Self-Tap #[phone] [00-6250- 065-20] SCREW Left: Hip Garima 07/02/2027 / Implanted: Qty: 1 on 09/09/2017 by Vu Burr MD at [facility] 6 [id number] / [id number] Acetabular Shell Cementless 3 Hole 56mm Miguelina Porocoat Plasma Coated G7 Biomet Ref#[id number] SCREW Left: Hip Garima 07/02/2027 [id number] / Implanted: Qty: 1 on 09/09/2017 by Vu Burr MD at [facility] 0 / [id number] Screw, Garima Bone 6.5x20 Self-Tap #[phone] [00-6250- 065-20] SCREW Left: Hip Garima 07/02/2027 / Implanted: Qty: 1 on 09/09/2017 by Vu Burr MD at [facility] 0 / [id number] Stem Femoral Cementless Porous Plasma Coated Stem Biomet Ref #[id number] Stem Left: Hip Biomet 07/27/2027 [id number] / Implanted: Qty: 1 on 09/09/2017 by Vu Burr MD at [facility] 6 [id number] / [id number] documented as of this encounter Results Not on filedocumented in this encounter Visit Diagnoses Diagnosis Primary osteoarthritis of left hip - Arlet valentine Primary localized osteoarthrosis, pelvic region and thigh documented in this encounter Insurance Payer Benefit Plan / Subscriber ID Effective Phone Address T [facility] Group Dates MEDICARE MEDICARE PART A xxxxxxxxxxx 2002-Pre [phone] [address] DELIA X Medicare & B sent [phone] [place] [address] BCBS OF BCBS [id number] 2016-Pres [phone] [address] [facility] ent [phone] [place] [address] documented as of this encounter
--- OUTSIDE RECORDS SUMMARY | 2019-12-12 20:38 | XMS REPORT | Summary of Care ---
:1935 Author Organization [facility] Address [address] [place] [address] Care Team Providers Name Role Phone Pcp, Patient Does Not Have A Primary Care Provider +1-000-00 0-0000 Reason for Referral Radiology Services (Routine) Status Reason Specialty Diagnoses / Referred By Referred To Procedures Contact Contact New Request Diagnostic Diagnoses Primary osteoarthritis of left hip Sudhir, Radiology Procedures XR HIPS 2 VW LEFT Vu Mark MD [address] [place] [address] [place] [address] Reason for Visit Auth/Cert Status Reason Specialty Diagnoses / Procedures Referred By Evangelist baez Referred To Contact Radiology Ad[facility] X-Ray [address] [place] [address] Phone: Fax: Encounter Details Date Type Department Care Team Description 09/28/2019 Hospital Encounter [facility] Peugero Arrived [place] [facility] [address] [facility] [address] [place] [address] [address] [phone] [place] [address] Allergies No Known Allergiesdocumented as of this encounter (statuses as of 09/29/2019) Medications Medication Sig Dispensed Refills Start Date [...] as of this encounter (statuses as of 09/29/2019) Active Problems Problem Noted Date Hip dislocation, left 09/14/2019 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, subsequent 09/14/2019 encounter 'sburp-wjg-avwva' with signs of malnutrit ion 09/09/2017 Arthritis of left hip 09/09/2017 documented as of this encounter (statuses as of 09/29/2019) Social History Tobacco Use Types Packs/Day Years [...] filedocumented in this encounter Plan of Treatment Name Type Priority Associated Diagnoses Date/Ti me XR HIPS 2 VW LEFT IMAGING Routine Primary osteoarthritis of 09/28/2019 3:53 PM left hip CDT Name Type Priority Associated Diagnoses Order S chedule XR HIPS 2 VW LEFT IMAGING Routine Primary osteoarthritis of 1 Occurrences starting left hip 09/28/2019 unti l 09/28/2019 Health Maintenance Due Date Last Done Comments DTaP,Tdap,and Td Vaccines (1 - Tdap) 1948 Depression Screening 1949 Zoster Recombinant Vaccine (SHINGRIX) (1 of 2) 12/10/1987 Medicare Wellness Visit 2002 Osteoporosis Screening 2002 PNEUMOCOCCAL VACCINES 65+ (1 of 2 - PCV13) 2002 INFLUENZA VACCINE (#1) 2019 documented as of this encounter Implants Implanted Type Area Virtual Assistant For Advertisers Device Shelf Model / Identifier Expiration Serial / Lot Date Acetabular Shell Cementless 3 Hole 56mm Miguelina Porocoat Plasma Coated G7 Biomet Ref#[id number] HIP Left: Hip Biomet 06/18/2027 [id number] / Implanted: Qty: 1 on 09/09/2017 by Vu Burr MD at [facility] 6 [id number] / [id number] Acetabular Liner Neutral Size F 40mm Miguelina Arcomxl High Wall G7 Biomet Ref#[id number] HIP Left: Hip Biomet 02/12/2021 [id number] / Implanted: Qty: 1 on 09/09/2017 by Vu Burr MD at [facility] 3 [id number] / [id number] Femoral Head Cementless 40mm Miguelina Standar 0mml Neck [place] Chromium Biomet Ref#[id number] Head Left: Hip Biomet 03/28/2027 [id number] / Implanted: Qty: 1 on 09/09/2017 by Vu Burr MD at [facility] 9 [id number] / [id number] Screw, Garima Bone 6.5x25 Self-Tap #[phone] - [id number] S CREW Left: Hip Garima 07/02/202735-9625-118-25 / Implanted: Qty: 1 on 09/09/2017 by Vu Burr MD at [facility] 6 [id number] / [id number] Screw, Garima Bone 6.5x20 Self-Tap #[phone] [00-6250- 065-20] SCREW Left: Hip Garima 07/02/2027 / Implanted: Qty: 1 on 09/09/2017 by Vu Burr MD at [facility] 6 [id number] / [id number] Acetabular Shell Cementless 3 Hole 56mm Miguelina Porocoat Plasma Coated G7 Biomet Ref#[id number] SCREW Left: Hip Garima 07/02/2027 [id number] / Implanted: Qty: 1 on 09/09/2017 by Vu Burr MD at [facility] 0 / [id number] Screw, Garima Bone 6.5x20 Self-Tap #[phone] [00-6250- 065-20] SCREW Left: Hip Garima 07/02/2027 / Implanted: Qty: 1 on 09/09/2017 by Vu Burr MD at [facility] 0 / [id number] Stem Femoral Cementless Porous Plasma Coated Stem Biomet Ref #[id number] Stem Left: Hip Biomet 07/27/2027 [id number] / Implanted: Qty: 1 on 09/09/2017 by Vu Burr MD at [facility] 6 [id number] / [id number] documented as of this encounter Results Not on filedocumented in this encounter Visit Diagnoses Diagnosis Primary osteoarthritis of left hip Primary localized osteoarthrosis, pelvic region and thigh documented in this encounter Insurance Payer Benefit Plan / Subscriber ID Effective Phone Address T ype Group Dates MEDICARE MEDICARE PART A xxxxxxxxxxx 2002-Pre [phone] [address] DELIA X Medicare & B sent [phone] [place] K[place] [address] BCBS OF BCBS [id number] 2016-Pres [phone] [address] [facility] ent [phone] [place] [address] documented as of this encounter
--- OUTSIDE RECORDS SUMMARY | 2019-12-12 20:38 | XMS REPORT | Summary of Care ---
:1935 Author Organization [facility] Address [address] [place] [address] Care Team Providers Name Role Phone Pcp, Patient Does Not Have A Primary Care Provider +1-000-00 0-0000 Reason for Visit Reason Comments Follow-up Left Hip Dislocation - Wound Draining Encounter Details Date Type Department Care Team Description 10/20/2019 Office Visit [facility] Orthopaedic Vladimir Marti D islocation of left Surgery- [place] PAC hip, subsequent 7 [facility], [address] encounter (Primary Dx) [address] [place] [address] [place], [place] [phone] Allergies No Known Allergiesdocumented as of this encounter (statuses as of 10/22/2019) Medications Medication Sig Dispensed Refills Start Date [...] as of this encounter (statuses as of 10/22/2019) Active Problems Problem Noted Date Hip dislocation, left 09/14/2019 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 20 years ago (199 8) Alcohol Use Drinks/Week oz/Week Comments Yes Social Drinker Sex Assigned at Date Recorded Not on file COVID-19 Exposure Response Date Recorded In the last month, have you been in contact with No / Unsure 10/20/2019 1:08 PM CDT someone who was confirmed or suspected to have Coronavirus / COVID-19? documented as of this encounter Last Filed Vital Signs Vital Sign Reading Time Taken Comments Blood Pressure 158/79 10/20/2019 1:17 PM CDT Pulse 85 10/20/2019 1:17 PM CDT Temperature - - Respiratory Rate - - Oxygen Saturation - - Inhaled Oxygen Concentration - - Weight 63.5 kg (140 lb) 10/20/2019 1:17 PM CDT Height 170.2 cm (5' 7") 10/20/2019 1:17 PM CDT Body Mass Index 21.93 10/20/2019 1:17 PM CDT documented in this encounter Progress Notes Vladimir Marti, PAC - 10/20/2019 1:00 PM CDT Cc: Chief Complaint Patient presents with Follow-up Left Hip Dislocation - Wound Draining Denia Leslie is a 83 year old female. Follow-up status post open reduction of left hip dislocation they noticed a small drainage on the distal portion of the wound and wanted to get that checked. Allergies Denia has No Known Allergies. Medications [...] Left 09/14/2019 Surgeon: Vu Peguero MD; [place] [facility] [place] Back surgery TOTAL HIP ARTHROPLASTY Left 09/09/2017 Surgeon: Vu Peguero MD; [place] [facility] [place] Social History Socioeconomic History Marital status: Spouse name: Not on file Number of children: Not on file Years of education: Not on file Highest education level: Not on file Occupational History Not on file Social Needs Financial resource strain: Not on file Food insecurity Worry: Not on file Inability: Not on file Transportation needs Medical: Not on file Non-medical: Not on file Tobacco Use Smoking status: Former Smoker Packs/day: 0.50 Years: 30.00 Pack years: 15.00 Smokeless tobacco: Never Used Tobacco comment: Quit approx. 20 years ago (1997) Substance and Sexual Activity Alcohol use: Yes Comment: Social Drinker Drug use: No Sexual activity: Not on file Lifestyle Physical activity Days per week: Not on file Minutes per session: Not on file Stress: Not on file Relationships Social connections Talks on phone: Not on file Gets together: Not on file Attends roman catholic service: Not on file Active member of club or organization: Not on file Attends meetings of clubs or organizations: Not on file Relationship status: Not on file Intimate partner violence Fear of current or ex partner: Not [...] Cardiovascular: Negative. Gastrointestinal: Negative. Genitourinary: Negative. Musculoskeletal: Positive for gait problem. Skin: Positive for wound. Psychiatric/Behavioral: Negative. Endocrine: Endocrine negative Vital Signs BP (!) 158/79 | Pulse 85 | Ht 67" (170.2 cm) | Wt 63.5 kg (140 lb) | BMI 21.93 kg/m Physical Exam Musculoskeletal: Comments: Physical Exam Constitutional: oriented to person, place, and time. appears well-developed and well-nourished. HENT: Head: Normocephalic and atraumatic. Right Ear: External ear normal. Left Ear: External ear normal. Eyes: Conjunctivae are normal. Neck: Normal range of motion. No strabismus Neck supple. Cardiovascular: Normal rate and regular rhythm. Pulmonary/Chest: Normal respiratory rate equal chest rise and fall in no apparent distress Abdominal: Abdomen nondistended nontender Neurological: alert and oriented to person, place, and time. No asymmetry Skin: Skin is warm and dry. Psychiatric: normal mood and affect. behavior is normal. Judgment and thought content normal. Nursing note and vitals reviewed. Left hip at the distal tip of her wound there is a small 1-2 mm opening there is no drainage visiblecurrently but she has some drainage on her pants and they've noticed some clear drainage. Assessment/Plan Status post left hip dislocation open reduction She has a very small opening on the distal portion of her wound with a clear drainage they should wash this with plain soap and water and keep it covered with a bandage until it no longer drains if this is continuing to drain and 2 weeks she will follow-up for reevaluation. documented in this encounter Plan of Treatment Health Maintenance Due Date Last Done Comments DTaP,Tdap,and Td Vaccines (1 - Tdap) 1956 Zoster Recombinant Vaccine (SHINGRIX) (1 of 2) 12/10/1987 Medicare Wellness Visit 2002 Osteoporosis Screening 2002 PNEUMOCOCCAL VACCINES 65+ (1 of 1 - PPSV23) 2002 INFLUENZA VACCINE (#1) 2019 Depression Screening 10/19/2020 10/20/2019 documented as of this encounter Implants Implanted Type Area Health Insurance Agent Device Shelf Model / Identifier Expiration Serial / Lot Date Acetabular Shell Cementless 3 Hole 56mm Miguelina Porocoat Plasma Coated G7 Biomet Ref#[id number] HIP Left: Hip Biomet 06/18/2027 [id number] / Implanted: Qty: 1 on 09/09/2017 by Vu Burr MD at [facility] 6 [id number] / [id number] Acetabular Liner Neutral Size F 40mm Miguelina Arcomxl High Wall G7 Biomet Ref#[id number] HIP Left: Hip Biomet 02/12/2021 [id number] / Implanted: Qty: 1 on 09/09/2017 by Vu Burr MD at [facility] 3 [id number] / [id number] Femoral Head Cementless 40mm Miguelina Standar 0mml Neck [place] Chromium Biomet Ref#[id number] Head Left: Hip Biomet 03/28/2027 [id number] / Implanted: Qty: 1 on 09/09/2017 by Vu Burr MD at [facility] 9 [id number] / [id number] Screw, Garima Bone 6.5x25 Self-Tap #[phone] - [id number] S CREW Left: Hip Garima 07/02/202710-6690-499-25 / Implanted: Qty: 1 on 09/09/2017 by Vu Burr MD at [facility] 6 [id number] / [id number] Screw, Garima Bone 6.5x20 Self-Tap #[phone] [] SCREW Left: Hip Garima 07/02/2027 / Implanted: Qty: 1 on 09/09/2017 by Vu Burr MD at [facility] 6 [id number] / [id number] Acetabular Shell Cementless 3 Hole 56mm Miguelina Porocoat Plasma Coated G7 Biomet Ref#[id number] SCREW Left: Hip Garima 07/02/2027 [id number] / Implanted: Qty: 1 on 09/09/2017 by Vu Burr MD at [facility] 0 [id number] Screw, Garima Bone 6.5x20 Self-Tap #[phone] [] SCREW Left: Hip Garima 07/02/2027 / Implanted: Qty: 1 on 09/09/2017 by Vu Burr MD at [facility] 0 [id number] Stem Femoral Cementless Porous Plasma Coated Stem Biomet Ref #[id number] Stem Left: Hip Biomet 07/27/2027 [id number] / Implanted: Qty: 1 on 09/09/2017 by Vu Burr MD at [facility] 6 [id number] / [id number] documented as of this encounter Results Not on filedocumented in this encounter Visit Diagnoses Diagnosis Dislocation of left hip, subsequent enco unter - Primary documented in this encounter Insurance Payer Benefit Plan / Subscriber ID Effective Phone Address T ype Group Dates MEDICARE MEDICARE PART A [id number] 2002-Pre [phone] [address] DELIA X Medicare & B sent [id number] RICKY KIMBLE [phone] BCBS OF BCBS [id number] 2016-Pres [phone] [address] [facility] TRADITIONAL ent [phone] [place] [address] documented as of this encounter
--- OUTSIDE RECORDS SUMMARY | 2019-12-12 20:38 | XMS REPORT | Summary of Care ---
:1935 Author Organization [facility] Address [address] [place] [address] Care Team Providers Name Role Phone Pcp, Patient Does Not Have A Primary Care Provider +1-000-00 0-0000 Reason for Visit Reason Comments Follow-up Left Hip Dislocation - Wound Draining Encounter Details Date Type Department Care Team Description 10/20/2019 Office Visit [facility] Orthopaedic Vladimir Marti D islocation of left Surgery- [place] PAC hip, subsequent 7 [facility], [address] encounter (Primary Dx) [place] [address] [place], [place] [phone] Allergies No Known Allergiesdocumented as of this [...] dislocatio n of hip, subsequent 09/14/2019 encounter 'vpvub-lal-lhaaq' infant with signs of malnutrit ion 09/09/2017 [...] Left 09/14/2019 Surgeon: Vu Peguero MD; Location: [facility] SPINE SURGERY Back surgery TOTAL HIP ARTHROPLASTY Left 09/09/2017 Surgeon: Vu Peguero MD; Location: [facility] Social History Socioeconomic History Marital status: Spouse [...] of this encounter Implants Implanted Type Area Engraver Tire Mold Device Shelf Model / Identifier Expiration Serial / Lot Date Acetabular Shell Cementless 3 Hole 56mm Miguelina Porocoat Plasma Coated G7 Biomet Ref#[id number] HIP Left: Hip Biomet 06/18/2027 [id number] / Implanted: Qty: 1 on 09/09/2017 by Vu Burr MD at [facility] 6 [id number] / [id number] Acetabular Liner Neutral Size F 40mm Miguelina Arcomxl High Wall G7 Biomet Ref#[id number] HIP Left: Hip Biomet 02/12/2021 [id number] / Implanted: Qty: 1 on 09/09/2017 by Vu Burr MD at [facility] 3 [id number] / [id number] Femoral Head Cementless 40mm Miguelina Standar 0mml Neck [place] Chromium Biomet Ref#[id number] Head Left: Hip Biomet 03/28/2027 [id number] / Implanted: Qty: 1 on 09/09/2017 by Vu Burr MD at [facility] 9 [id number] / [id number] Screw, Garima Bone 6.5x25 Self-Tap #[phone] - [id number] S CREW Left: Hip Garima 07/02/202747-8383-458-25 / Implanted: Qty: 1 on 09/09/2017 by Vu Burr MD at [facility] 6 [id number] / [id number] Screw, Garima Bone 6.5x20 Self-Tap #[phone] [] SCREW Left: Hip Garima 07/02/2027 / Implanted: Qty: 1 on 09/09/2017 by Vu Burr MD at [facility] 6 [id number] / [id number] Acetabular Shell Cementless 3 Hole 56mm Miguelina Porocoat Plasma Coated G7 Biomet Ref#[id number] SCREW Left: Hip Garima 07/02/2027 [id number] / Implanted: Qty: 1 on 09/09/2017 by Vu Burr MD at [facility] 0 [id number] Screw, Garima Bone 6.5x20 Self-Tap #[phone] [] SCREW Left: Hip Garima 07/02/2027 / Implanted: Qty: 1 on 09/09/2017 by Vu Burr MD at [facility] 0 [id number] Stem Femoral Cementless Porous Plasma Coated Stem Biomet Ref #[id number] Stem Left: Hip Biomet 07/27/2027 [id number] / Implanted: Qty: 1 on 09/09/2017 by Vu Burr MD at [facility] 6 [id number] / [id number] documented as of this encounter Results Not on filedocumented in this encounter Visit Diagnoses Diagnosis Dislocation of left hip, subsequent enco unter - Primary documented in this encounter Insurance Payer Benefit Plan / Subscriber ID Effective Phone Address T ype Group Dates MEDICARE MEDICARE PART A [id number] 2002-Pre [phone] [address] DELIA X Medicare & B sent [phone] [place] [phone] BCBS OF BCBS [id number] 2016-Pres [phone] [address] [facility] TRADITIONAL ent [phone] [place] [address] documented as of this encounter
[2019-12-12 20:59] LABS: Absolute Lymphocytes (CBC) 1.7 K/uL (0.7-4.9); Basophils % 0.8 % (0-1.3); Lymphocytes % 18.9 % (15.3-44.8); RBC Red Blood Cell Count 2.93 M/uL (3.86-4.86)
[2019-12-12 21:11] LABS: ALT/SGPT 15 U/L (12-78); AST/SGOT 15 U/L (15-37); Albumin 2.6 g/dL (3.4-5.0); Alkaline Phosphatase 83 U/L (45-117); BUN Blood Urea Nitrogen 5 mg/dL (7-18); Bicarbonate 23 mmol/L (21-32); Bilirubin Direct < 0.1 mg/dL (0-0.2); Bilirubin Total 0.2 mg/dL (0.2-1.0); Glucose Level 90 mg/dL (74-106); Lipase 235 U/L (73-393); Potassium 3.6 mmol/L (3.5-5.1); Protein, Total 7.6 g/dL (6.4-8.2); Sodium Level 130 mmol/L (136-145)
[2019-12-12] MEDS ORDERED: NA CHLORIDE 0.9% 1,000 ML ONE (21:33)
--- NOTE | 2019-12-12 21:51 | ER ---
Nurse's Notes [facility] Name: Denia Leslie Age: 84 yrs Sex: Female : 1935 Arrival Date: 12/12/2019 Time: 20:32 Bed 4 Private MD: Diagnosis: Dislocation of internal left hip prosthesis Presentation: 12/11 20:36 Chief complaint: EMS states: PT was at home and went to sit down on her couch, when she jb4 did, she spontaneously dislocated her left hip. It has happened 3 times before. Coronavirus screen: Client denies travel out of the [place] in the last 14 days. At this time, the client does not indicate any symptoms associated with coronavirus-19. Ebola Screen: No symptoms or risks identified at this time. Initial Sepsis Screen: Does the patient meet any 2 criteria? No. Patient's initial sepsis screen is negative. Does the patient have a suspected source of infection? No. Patient's initial sepsis screen is negative. Risk Assessment: Do you want to hurt yourself or someone else? Patient reports no desire to harm self or others. Onset of symptoms was December 12, 2019. Transition of care: patient was not received from another setting of care. 20:36 Method Of Arrival: EMS: [facility] jb4 20:36 Acuity: EROS 3 jb4 Historical: - Allergies: 20:30 HYDROCODONE; jb4 - Home Meds: 20:30 diclofenac sodium 75 mg Oral TbEC 1 tab 2 times per day [Active]; levothyroxine 50 mcg jb4 tab 1 tab once daily [Active]; lisinopril 10 mg Oral tab 1 tab once daily [Active]; pantoprazole 40 mg Oral TbEC 1 tab once daily [Active]; tramadol 50 mg Oral tab 1 tab as needed [Active]; - PMHx: 20:30 Hypertension; breast cancer; jb4 - PSHx: 20:30 Right lumpectomy; Neck surgery; Hysterectomy; jb4 - Immunization history:: Adult Immunizations up to date. - Social history:: Smoking status: Patient denies any tobacco usage or history of. Patient uses alcohol, patient/guardian reports recent binge of alcohol consumption. Patient/guardian denies using street drugs. Screenin:30 Abuse screen: Denies threats or abuse. Nutritional screening: No deficits noted. jb4 Tuberculosis screening: No symptoms or risk factors identified. Fall Risk IV access (20 points). Mental Status- Oriented to own ability (0 pts). Total Ruth Fall Scale indicates No Risk (0-24 pts). Assessment: 20:30 General: Appears in no apparent distress. comfortable, Behavior is calm, cooperative, jb4 appropriate for age. Pain: Denies pain. Neuro: Level of Consciousness is awake, alert, obeys commands, Oriented to person, place, time, situation. Cardiovascular: Patient's skin is warm and dry. Respiratory: Airway is patent Respiratory effort is even, unlabored, Respiratory pattern is regular, symmetrical. GI: No signs and/or symptoms were reported involving the gastrointestinal system. : No signs and/or symptoms were reported regarding the genitourinary system. EENT: No signs and/or symptoms were reported regarding the EENT system. Derm: Skin is intact, Skin is pink, warm \T\ dry. Musculoskeletal: Circulation, motion, and sensation intact. Range of motion:. 21:30 Reassessment: Patient appears in no apparent distress at this time. Patient and/or jb4 family updated on plan of care and expected duration. Pain level reassessed. Patient is alert, oriented x 3, equal unlabored respirations, skin warm/dry/pink. Patient denies pain at this time. 22:39 Reassessment: Patient appears in no apparent distress at this time. Patient and/or jb4 family updated on plan of care and expected duration. Pain level reassessed. Patient is alert, oriented x 3, equal unlabored respirations, skin warm/dry/pink. Received verbal order from Admitting provider to run EKG prior to admission. 23:30 Reassessment: Patient appears in no apparent distress at this time. Patient and/or jb4 family updated on plan of care and expected duration. Pain level reassessed. Patient is alert, oriented x 3, equal unlabored respirations, skin warm/dry/pink. 23:55 Reassessment: Attempted to call report. Asked to wait for call back as nurse is in Pt's jb4 room. 12/12 00:00 Reassessment: Patient appears in no apparent distress at this time. Patient and/or jb4 family updated on plan of care and expected duration. Pain level reassessed. Patient is alert, oriented x 3, equal unlabored respirations, skin warm/dry/pink. report called to SUPRIYA Carlos. Vital Signs: 12/11 20:36 BP 110 / 49; Pulse 98; Resp 18; Temp 98.6(TE); Pulse Ox 98% on R/A; Weight 63.5 kg (R); jb4 Height 5 ft. 7 in. (170.18 cm); Pain 0/10; 22:00 BP 119 / 72; Pulse 78; Resp 16; Pulse Ox 100% on R/A; Pain 0/10; jb4 23:00 BP 128 / 58; Pulse 79; Resp 16; Pulse Ox 99% on R/A; jb4 12/12 00:00 BP 110 / 96; Pulse 83; Resp 16; Pulse Ox 100% on R/A; jb4 12/11 20:36 Body Mass Index 21.93 (63.50 kg, 170.18 cm) jb4 ED Course: 12/11 20:30 Arm band placed on right wrist. jb4 20:30 Patient has correct armband on for positive identification. Bed in low position. Call jb4 light in reach. Side rails up X 1. gambling monitor on. Pulse ox on. NIBP on. 20:30 Maintain EMS IV. Dressing intact. Good blood return noted. Site clean \T\ dry. Gauge \T\ georg[place] 4 site: 20g R wrist. 20:32 Patient arrived in ED. ag3 20:32 Seymour Franco MD is Attending Physician. tw4 20:36 Cody Salinas, SUPRIYA is Primary Nurse. jb4 20:40 Triage completed. jb4 21:08 Hip Left 2 View XRAY In Process Unspecified. EDMS 21:50 Clarence Daily MD is Hospitalizing Provider. tw4 12/12 00:15 Chavez cath inserted, using sterile technique, 16 Fr., by wa, balloon inflated, to tl1 gravity drainage. 00:16 No provider procedures requiring assistance completed. Patient admitted, IV remains in jb4 place. Administered Medications: No medications were administered Outcome: 12/11 21:50 Decision to Hospitalize by Provider. tw4 12/12 00:16 Admitted to Med/surg accompanied by nurse, via stretcher, room 201, with chart, Report jb4 called to SUPRIYA Carlos Condition: stable Discharge instructions given to patient, Instructed on the need for admit, Demonstrated understanding of instructions. 00:21 Patient left the ED. jb4 Signatures: Dispatcher [employer] EDMS Rajani Lincoln RN RN tl1 Cody Salinas RN RN jb4 Seymour Franco MD MD tw4 Starla Singer ag3 Corrections: (The following items were deleted from the chart) 12/11 22:12 21:30 BP 119 / 72; Pulse 78bpm; Resp 16bpm; Pulse Ox 100% RA; Pain 0/10; jb4 jb4 12/12 00:19 12/11 22:39 Reassessment: Patient appears in no apparent distress at this time. Patient jb4 and/or family updated on plan of care and expected duration. Pain level reassessed. Patient is alert, oriented x 3, equal unlabored respirations, skin warm/dry/pink. jb4 12/12 00:19 12/11 23:30 Reassessment: Patient appears in no apparent distress at this time. Patient jb4 and/or family updated on plan of care and expected duration. Pain level reassessed. Patient is alert, oriented x 3, equal unlabored respirations, skin warm/dry/pink. received verbal order from admitting physician to run and EKG prior to transfer to new room. jb4
--- NOTE | 2019-12-12 21:51 | EDPHYS ---
Physician Documentation [facility] Name: Denia Leslie Age: 84 yrs Sex: Female : 1935 Arrival Date: 12/12/2019 Time: 20:32 Bed 4 Private MD: ED Physician Seymour Franco HPI: 12/11 20:37 This 84 yrs old Female presents to ER via Unassigned with complaints of Hip tw4 Pain. 20:37 The patient or guardian reports decreased range of motion, deformity, pain, possible tw4 dislocation. that occurred at home. The complaints affect the left hip. Onset: The symptoms/episode began/occurred today. Modifying factors: The symptoms are alleviated by remaining still, the symptoms are aggravated by any movement. Associated signs and symptoms: Loss of consciousness: the patient experienced no loss of consciousness, Pertinent positives: None. Pertinent negatives: None. Severity of symptoms: At their worst the symptoms were moderate, in the emergency department the symptoms are unchanged. The patient has experienced similar episodes in the past, a few times. The patient has not recently seen a physician. pt admits to moderate alcohol use tonight [employer]. Historical: - Allergies: 20:30 HYDROCODONE; jb4 - Home Meds: 20:30 diclofenac sodium 75 mg Oral TbEC 1 tab 2 times per day [Active]; levothyroxine 50 mcg jb4 tab 1 tab once daily [Active]; lisinopril 10 mg Oral tab 1 tab once daily [Active]; pantoprazole 40 mg Oral TbEC 1 tab once daily [Active]; tramadol 50 mg Oral tab 1 tab as needed [Active]; - PMHx: 20:30 Hypertension; breast cancer; jb4 - PSHx: 20:30 Right lumpectomy; Neck surgery; Hysterectomy; jb4 - Immunization history:: Adult Immunizations up to date. - Social history:: Smoking status: Patient denies any tobacco usage or history of. Patient uses alcohol, patient/guardian reports recent binge of alcohol consumption. Patient/guardian denies using street drugs. ROS: 12/12 00:26 Constitutional: Negative for fever, chills, and weight loss, Eyes: Negative for injury, tw4 pain, redness, and discharge, Cardiovascular: Negative for chest pain, palpitations, and edema, Respiratory: Negative for shortness of breath, cough, wheezing, and pleuritic chest pain, Abdomen/GI: Negative for abdominal pain, nausea, vomiting, diarrhea, and constipation, Back: Negative for injury and pain, Skin: Negative for injury, rash, and discoloration, Neuro: Negative for headache, weakness, numbness, tingling, and seizure, Psych: Negative for depression, anxiety, suicide ideation, homicidal ideation, and hallucinations. MS/extremity: Positive for injury or acute deformity, decreased range of motion, deformity, pain. Exam: 12/11 20:56 Constitutional: This is a well developed, well nourished patient who is awake, alert, tw4 and in no acute distress. Head/Face: Normocephalic, atraumatic. Chest/axilla: Normal chest wall appearance and motion. Nontender with no deformity. No lesions are appreciated. Cardiovascular: Regular rate and rhythm with a normal S1 and S2. No gallops, murmurs, or rubs. Normal PMI, no JVD. No pulse deficits. Respiratory: Lungs have equal breath sounds bilaterally, clear to auscultation and percussion. No rales, rhonchi or wheezes noted. No increased work of breathing, no retractions or nasal flaring. Abdomen/GI: Soft, non-tender, with normal bowel sounds. No distension or tympany. No guarding or rebound. No evidence of tenderness throughout. Vital Signs: 20:36 BP 110 / 49; Pulse 98; Resp 18; Temp 98.6(TE); Pulse Ox 98% on R/A; Weight 63.5 kg (R); jb4 Height 5 ft. 7 in. (170.18 cm); Pain 0/10; 22:00 BP 119 / 72; Pulse 78; Resp 16; Pulse Ox 100% on R/A; Pain 0/10; jb4 23:00 BP 128 / 58; Pulse 79; Resp 16; Pulse Ox 99% on R/A; jb4 12/12 00:00 BP 110 / 96; Pulse 83; Resp 16; Pulse Ox 100% on R/A; jb4 12/11 20:36 Body Mass Index 21.93 (63.50 kg, 170.18 cm) jb4 MDM: 12/11 20:32 Patient medically screened. tw4 21:49 Data reviewed: vital signs, nurses notes, lab test result(s), CBC, electrolytes, tw4 hepatic panel, radiologic studies, plain films. Data interpreted: Pulse oximetry: Interpretation: normal. Physician consultation: Clarence Daily MD was contacted at 21:45, regarding admission, to the medical/surgical unit. and will see patient in inpatient room, would like consultation with D/W Dr Giordano will take pt to the ED in the am. 12/12 00:26 Differential diagnosis: hip fracture, intertrochanteric fracture, femoral neck tw4 fracture, femoral shaft fracture. Test interpretation: by ED physician or midlevel provider: plain radiologic studies. Counseling: I had a detailed discussion with the patient and/or guardian regarding: the historical points, exam findings, and any diagnostic results supporting the discharge/admit diagnosis, radiology results, the need for further work-up and treatment in the hospital. 12/11 20:33 Order name: Basic Metabolic Panel; Complete Time: 21:48 tw4 12/11 21:48 Interpretation: Normal except: NA 130; CL 97; BUN 5. tw4 12/11 20:33 Order name: CBC with Diff; Complete Time: 21:48 tw4 12/11 21:48 Interpretation: Normal except: RBC 2.93; HGB 9.3; HCT 27.0; MCV 92.3; PLT 589. tw4 12/11 20:33 Order name: Hepatic Function; Complete Time: 21:48 tw4 12/11 21:48 Interpretation: Normal except: ALB 2.6; A/G 0.5; GLOB 5.0. tw4 12/11 20:33 Order name: Lipase; Complete Time: 21:48 tw4 12/11 21:48 Interpretation: Within normal limits: LIP 235. 12/11 20:33 Order name: PT-INR; Complete Time: 21:48 tw4 12/11 21:48 Interpretation: Normal except: PT 11.8. 4 12/11 20:33 Order name: Ptt, Activated; Complete Time: 21:48 tw4 12/11 21:48 Interpretation: Within normal limits: PTT 30.3. tw4 12/11 20:33 Order name: Hip Left 2 View XRAY; Complete Time: 23:29 tw4 12/11 23:29 Interpretation: Abnormal. 12/11 22:03 Order name: CONS Pharmacy Consult EDWY 12/11 22:03 Order name: CONS Physician Consult EDMS 12/11 22:03 Order name: CONS Physician Consult EDMS 12/11 22:03 Order name: CBC with Automated Diff EDMS 12/11 22:03 Order name: CBC with Automated Diff EDMS 12/11 22:03 Order name: Comprehensive Metabolic Panel EDMS 12/11 22:03 Order name: Comprehensive Metabolic Panel EDW[place] 12/11 20:33 Order name: IV Saline Lock; Complete Time: 20:46 tw4 12/11 20:33 Order name: Labs collected and sent; Complete Time: 20:48 tw4 12/11 22:03 Order name: Physical Therapy Consult EDMS 12/11 22:03 Order name: NPO EDMS 12/12 00:14 Order name: Chavez; Complete Time: 00:15 tl1 EC:28 Rate is 76 beats/min. Rhythm is regular. QRS [place] is Normal. HI interval is normal. QRS tw4 interval is normal. QT interval is normal. No Q waves. T waves are Flattened in lead aVL. No ST changes noted. Clinical impression: NSR w/ Non-specific ST/T Changes. Interpreted by me. Reviewed by me. Administered Medications: No medications were administered Disposition: 12/12/19 21:50 Hospitalization ordered by Clarence Daily for Inpatient Admission. Preliminary diagnosis is Dislocation of internal left hip prosthesis. - Bed requested for Telemetry/MedSurg (Inpatient). - Status is Inpatient Admission. jb4 - Condition is Stable. - Problem is new. - Symptoms are unchanged. Signatures: Dispatcher [employer] [facility] Rajani Lincoln RN RN tl1 Cody Salinas RN RN jb4 Seymour Franco MD MD tw4 Corrections: (The following items were deleted from the chart) 12/11 22:37 21:50 Hospitalization Ordered by Clarence Daily MD for Inpatient Admission. Preliminary tl1 diagnosis is Dislocation of internal left hip prosthesis. Bed requested for Telemetry/MedSurg (Inpatient). Status is Inpatient Admission. Condition is Stable. Problem is new. Symptoms are unchanged. tw4 12/12 00:21 12/11 22:37 12/12/2019 21:50 Hospitalization Ordered by Clarence Daily MD for Inpatient jb4 Admission. Preliminary diagnosis is Dislocation of internal left hip prosthesis. Bed requested for Telemetry/MedSurg (Inpatient). Status is Inpatient Admission. Condition is Stable. Problem is new. Symptoms are unchanged. tl1
[2019-12-12] MEDS ORDERED: ALBUTEROL 2.5 MG/3 ML NEB SOL NEB PRN (21:55)
[2019-12-12] MEDS ORDERED: ONDANSETRON 4 MG/2 ML VIAL IV PRN (21:55)
[2019-12-12] MEDS ORDERED: LORazepam 2 MG/ML VIAL IV PRN (21:55)
[2019-12-12] MEDS ORDERED: FLUMAZENIL 0.1 MG/ML (5 mL VIAL) IV PRN (21:55)
[2019-12-12] MEDS ORDERED: ACETAMINOPHEN 500 MG TAB PO PRN (21:55)
--- NOTE | 2019-12-12 22:09 | P.HP ---
Certification for Inpatient With expected LOS: >2 Midnights Patient will require the following post-hospital care: Home Health Services Practitioner: I am a practitioner with admitting privileges, knowledge of patient current condition, hospital course, and medical plan of care. Services: Services provided to patient in accordance with Admission requirements found in Title 42 Section 412.3 of the Code of Federal Regulations Patient History Date of Service: 12/12/19 Reason for admission: fall with right hip pain History of Present Illness: 84-year-old female past medical history of hypertension on lisinopril, chronic hyponatremia typically ranged 131-133 sodium, chronic alcohol use, previous hip replacement s/p left hip ORIF x2 ,; admitted post fall with left hip pain after an episdoe of hevay drinking today . She is unable to tell volume of alcohol consumed but spouse at bedside describe patient have been drinking from 12noon to 6 pm and had slipped on the floor before getting up and ambulating then later complaining of hip pain . on arrival at ER, Noted on imaging to have dislocation of the right hip prosthesis. Patient also noted to have heavy alcohol intoxication. She is currently awake and oriendted . Orthopedic evaluation has been done and planned for surgery in a.m.. Internal Medicine/hospitalist core consulted for admission. Allergies hydrocodone Allergy (Mild, Verified 02/16/17 04:59) Itching No Known Allergies Allergy (Uncoded 02/16/17 05:26) Unknown Home Medications: Multivitamin [Daily Multivitamin] 1 each PO DAILY 02/18/13 Pantoprazole [Protonix Tab*] 40 mg PO BID #60 tab 02/19/13 traMADol HCL [Ultram*] 50 mg PO TID PRN #90 tab 02/19/13 Diclofenac Na [Voltaren D.r*] 75 mg PO DAILY 09/06/16 Levothyroxine [Synthroid*] 50 mcg PO [id number] 09/06/16 lisinopriL [Prinivil*] 10 mg PO [id number] 09/06/16 Ascorbate Calcium [Vitamin C] 500 mg PO DAILY 02/16/17 Vitamin E 1 pill PO DAILY 02/16/17 levoFLOXacin [Levaquin] 750 mg PO DAILY #14 tab 02/19/17 - Past Medical/Surgical History Diabetic: No -: COPD -: History of Tobacco abuse -: GERD -: Cristóbal's Esophagus -: Murmur -: History of Gallstones -: Post surgical Menopause -: Breast Cancer -: Hypertention -: tonsillectomy -: hysterectomy -: back sx -: Right Lumpectomy Psychosocial/ Personal History: Not obtained. - Family History Father -: Cancer Mother -: Lung disease - Social History Alcohol use: Yes CD- Drugs: No Caffeine use: Yes Review of Systems General: Unremarkable Eyes: Unremarkable ENT: Unremarkable Respiratory: Unremarkable Cardiovascular: Unremarkable Gastrointestinal: Unremarkable Genitourinary: Unremarkable Musculoskeletal: Leg Pain Integumentary: Unremarkable Neurological: Other (poor memory recall ) Physical Examination - Physical Exam General: Alert, Oriented x3, Cooperative, Other (poor recall ) HEENT: Atraumatic, Normocephalic, PERRLA Neck: Supple, 2+ carotid pulse no bruit, JVD not distended Respiratory: Clear to auscultation bilaterally, Normal air movement Cardiovascular: No edema, Normal pulses, Regular rate/rhythm, Normal S1 S2 Gastrointestinal: Normal bowel sounds, Soft and benign, Non-distended Musculoskeletal: Erythema, Tenderness (over left hip scar area ) Neurological: Normal speech, Normal strength at 5/5 x4 extr, Normal tone - Studies Laboratory Data (last 24 hrs) 12/12/19 20:47: PT 11.8, INR 1.00, APTT 30.3 12/12/19 20:47: WBC 8.8, Hgb 9.3 L, Hct 27.0 L, Plt Count 589 H 12/12/19 20:47: Sodium 130 L, Potassium 3.6, BUN 5 L, Creatinine 0.58, Glucose 90, Total Bilirubin 0.2, AST 15, ALT 15, Alkaline Phosphatase 83, Lipase 235 Imagings Data: Hip Xray - left hip dislocation EKG-pending Assessment and Plan - Problems (Diagnosis) (1) Hyponatremia Onset Date: 02/18/17 Current Visit: No Status: Acute (2) Atrial fibrillation Current Visit: No Status: Chronic Qualifiers: (3) Breast cancer Onset Date: 02/18/17 Current Visit: No Status: Chronic Qualifiers: (4) Hypertension Onset Date: 02/18/17 Current Visit: No Status: Chronic Qualifiers: (5) Hypothyroidism Onset Date: 02/18/17 Current Visit: No Status: Chronic Qualifiers: - Advance Directives Does patient have a Living Will: Yes Does patient have a Durable POA for Healthcare: Yes Physician Review: Patient Assessed, Agree with Above Assessment and Plan Physician Review Additional Text: # Right hip dislocation-follow up plan for surgery in a.m. -keep NPO tonight -will do gentle IV hydration -place Chavez catheter. -surgical/orthopedic consult with Dr. thierry marie done S the -follow EKG- if normal , will clear for surgery - no need for CXR now #Hyponatremia-may be due to heavy alcohol intake -will do renal consult -start isotonic fluid with D5 NS #Hypertension-controlled, hold lisinopril for now given hyponatremia #DVT prophylaxis-hold systemic heparin for now since plan for surgery in a.m. -do SCDs -Can resume anticoagulation post surgery # Anemia - may be due to iron def /alcohol use -monitor post surgery -may need PRBC post surgery if < 8 #Advanced directive-place full code for now #Disposition-may need SNF, consult PT next NS hypothyroidism-resume Synthroid, follow tsh Time Spent Managing Pts Care (In Minutes): 65
--- NOTE | 2019-12-12 22:23 | RAD REPORT ---
EXAM DESCRIPTION: RAD - Hip Left 2 View - 12/12/2019 9:08 pm CLINICAL HISTORY: Left hip pain FINDINGS: Left femoral prosthesis is dislocated superolaterally No fracture is seen
[2019-12-13] MEDS: D5 0.9 NS 1,000 ML IV SCH ×4 (00:55→21:32)
[2019-12-13 01:16] VITALS: BMI 20.7
[2019-12-13] MEDS: MORPHINE 2 MG/ML SYR IV PRN ×2 (01:41→05:52)
[2019-12-13 05:58] LABS: Basophils % 0.5 % (0-1.3); Hematocrit 27.8 % (36.0-45.0); Lymphocytes % 11.2 % (15.3-44.8); MPV 7.2 fL (7.6-11.3); RBC Red Blood Cell Count 2.98 M/uL (3.86-4.86)
[2019-12-13 06:25] LABS: ALT/SGPT 13 U/L (12-78); Albumin 2.5 g/dL (3.4-5.0); Alkaline Phosphatase 87 U/L (45-117); BUN Blood Urea Nitrogen 5 mg/dL (7-18); Bicarbonate 26 mmol/L (21-32); Bilirubin Total 0.1 mg/dL (0.2-1.0); Glucose Level 99 mg/dL (74-106); Protein, Total 7.8 g/dL (6.4-8.2); Sodium Level 137 mmol/L (136-145)
[2019-12-13 06:47] LABS: AST/SGOT 17 U/L (15-37); Potassium 4.1 mmol/L (3.5-5.1)
[2019-12-13] MEDS ORDERED: FOLIC ACID 1 MG, MULTIVITAMINS INJ 10 ML, THIAMINE HCL 100 MG in NA CHLORIDE 0.9% 1,000 ML IV SCH (09:00)
[2019-12-13] MEDS ORDERED: INFLUENZA VACCINE (for 3y+) 0.5 ML DOSE IMVAC ONE (10:00)
[2019-12-13] MEDS ORDERED: Ringers Lactate 1,000 ML IV ONE (11:08)
[2019-12-13] MEDS ORDERED: CEFAZOLIN/SWI 1gm 0 GM/0 ML SYR ONE (11:32)
[2019-12-13] MEDS ORDERED: FENTANYL CITR 100 MCG/2 ML ONE (11:40)
[2019-12-13] MEDS ORDERED: ROCURONIUM 50 MG/5 ML VIAL IV ONE (11:40)
[2019-12-13] MEDS ORDERED: propofoL 200 MG/20 ML VIAL IV ONE (11:40)
[2019-12-13] MEDS ORDERED: TRANEXAMIC ACID 1,000 MG in NA CHLORIDE 0.9% 50 ML IV ONE ×4 (12:00)
--- NOTE | 2019-12-13 12:38 | RAD REPORT ---
EXAM DESCRIPTION: RAD - Hip Left 1 View - 12/13/2019 12:20 pm CLINICAL HISTORY: post opleft hip femoral component dislocation with closed reduction COMPARISON: Hip Left 2 View dated 12/12/2019 FINDINGS: Single supine view is obtained following closed reduction maneuvers. The femoral head has been reduced back to the acetabular component. Alignment and position are now normal. No fracture of the bony pelvis. Femoral component and proximal femur show no suspicious finding. IMPRESSION: Successful closed reduction of femoral component dislocation. Implant is in good position.
--- NOTE | 2019-12-13 13:12 | P.PN ---
Subjective Date of Service: 12/13/19 Patient was taken to the operating room. Injury was able to get reduced. Will get physical therapy or nursing staff and will try to ambulate patient. Patient is weight-bearing as tolerated at this time. Hopefully patient can do well with this and we can set up outpatient follow with Orthopedic. Anticipate discharge home tomorrow morning. Review of Systems 10-point ROS is otherwise unremarkable Physical Examination - Vital Signs Temperature: 96.4 F Blood Pressure: 137/58 Pulse: 82 Respirations: 16 Pulse Ox (%): 97 - Physical Exam General: Alert, In no apparent distress, Oriented x3 Respiratory: Clear to auscultation bilaterally, Normal air movement Cardiovascular: Regular rate/rhythm, Normal S1 S2, No murmurs Gastrointestinal: Normal bowel sounds, Soft and benign, Non-distended, No tende rness Musculoskeletal: No clubbing, Tenderness Neurological: Normal speech, Normal tone, Normal affect Lymphatics: No axilla or inguinal lymphadenopathy - Studies Laboratory Data (last 24 hrs) 12/12/19 20:47: PT 11.8, INR 1.00, APTT 30.3 12/12/19 20:47: WBC 8.8, Hgb 9.3 L, Hct 27.0 L, Plt Count 589 H 12/12/19 20:47: Sodium 130 L, Potassium 3.6, BUN 5 L, Creatinine 0.58, Glucose 90, Total Bilirubin 0.2, AST 15, ALT 15, Alkaline Phosphatase 83, Lipase 235 Medications List Reviewed: Yes Assessment & Plan - Problems (Diagnosis) (1) Posterior dislocation of hip, closed Current Visit: Yes Status: Acute (2) Atrial fibrillation Current Visit: No Status: Chronic Qualifiers: (3) Breast cancer Onset Date: 02/18/17 Current Visit: No Status: Chronic Qualifiers: (4) COPD (chronic obstructive pulmonary disease) Onset Date: 02/18/17 Current Visit: No Status: Chronic Qualifiers: COPD type: chronic bronchitis (5) GERD (gastroesophageal reflux disease) Onset Date: 02/18/17 Current Visit: No Status: Chronic Qualifiers: Esophagitis presence: esophagitis presence not specified Qualified Code(s): K21.9 - Gastro-esophageal reflux disease without esophagitis (6) Hypertension Onset Date: 02/18/17 Current Visit: No Status: Chronic Qualifiers: (7) Hypothyroidism Onset Date: 02/18/17 Current Visit: No Status: Chronic Qualifiers: - Plan Patient is clinically doing well with no new complaints. Spoke with orthopedic and patient is weightbearing as tolerated. Will get nurse's medical records assistant ambulating as physical therapy has left. If unable to and will get physical therapy in the morning. Anticipate discharge home in the morning. Patient has history of alcohol use and will monitor her for withdrawal symptoms as well. Discharge Plan: Home Plan to discharge in: Greater than 2 days - Advance Directives Does patient have a Living Will: No Does patient have a Durable POA for Healthcare: Yes - Code Status/Comfort Care Code Status Assessed: Yes Code Status: Full Code Physician Review: Patient Assessed, Agree with Above Assessment and Plan Critical Care: No Time Spent Managing PTS Care (In Minutes): 35
--- NOTE | 2019-12-13 13:14 | OP ---
Date of Procedure: 12/13/2019 Surgeon: Bertrand Giordano MD Preoperative Diagnosis: Dislocated left hip arthroplasty. Postoperative Diagnosis: Dislocated left hip arthroplasty. Procedure: Left hip arthroplasty, closed reduction under anesthesia. Estimated Blood Loss: 0 cc. Complications: No complications. Indications For Operation: Ms. Leslie is an 84-year-old female who is a patient of Dr. Vu beatty, who is unfortunately out of town, who arrived yesterday evening with a dislocated left hip arth roplasty. I discussed her care with Dr. Peguero as well as the patient and family. At this time, t he plan is for an open or closed reduction of the left total hip arthroplasty. Risks, benefits, and alternatives were discussed with the patient. They state they understand things as presented and agr eed to proceed. Description Of Procedure: The patient was taken to the operating room and placed in supine position. General anesthesia was obtained by staff. Following this, C-arm was brought in and x-ray was done, which demonstrated a dislocated total hip. It is unsure whether or not this is anterior or posterio r actually because of the more or less direct superior presentation. She is held in internal rotatio n, however, which is a little more indicative of posterior dislocation and it is fairly far lateral, which also supports this. Direct actual distraction along with gentle internal, external rotation al lows this to purge, however, does not elicit a reduction. Following this, pressure was placed on the left pelvis while traction was pulled approximately 45-60 degrees with gentle internal, external rot ation with a very satisfying field. C-arm was brought in and AP as well as 45 degree views demonstra saud concentric location of the hip. The patient was then awakened and taken to recovery room in good condition. There were no complications. SE/MODL Voice ID: [id number] Report ID: [id number]
--- NOTE | 2019-12-13 13:50 | RAD REPORT ---
EXAM DESCRIPTION: RAD - Hip In Or - 12/13/2019 1:34 pm FINDINGS: There were 9 portable C-arm views obtained during a fluoroscopic assisted left hip implant adduction. No suspicious or unexpected findings. Fluoro time was 0.3 minutes with a 2.47 mGy cumulative dose.
--- NOTE | 2019-12-13 13:52 | CON ---
Date of Consultation: 12/13/2019 History Of Present Illness: This is my first time seeing this patient to my knowledge. She is an 84 -year-old female who has had a left total hip arthroplasty done by Dr. Vu Peguero. Speaking with the family, they said this was done earlier this year. She unfortunately had a dislocation, which s he says was treated at an outside facility via an open reduction. She then had another dislocation, which she says was treated Hospital and she believes it was Dr. Peguero. Now she has a t hird dislocation and I see her now. I have also spoken with Dr. Peguero regarding this. He is out of town and unable to make it back here for her care. I am on-call and discussed with him the possib le plans. He says that this will be extremely difficult to reduce closed and most likely would requi re an open reduction. I asked him whether or not a revision to a different set of implants would be helpful. He said that he is very likely to plan on that. However, does not think it needs to be don e at this time, simply needs to be relocated. If it does appear to hold its position for some months and would be able to revisit that if needed with under more controlled circumstances. This was defi nitely understood. On physical examination, she does have some redness around her incision. However , there is no fluctuance. She does not have a fever, any sign of infection. There is definitely no open wound or drainage. Her white count is normal. Family says that it has been red like this for s ome time, definitely not indurated and no sign of overt infection other than some rather well demarca saud redness, I have not seen in the past. Did not know her baseline. She is quite fair. Physical Examination: Musculoskeletal: All of her long bones and joints are palpated without pain or crepitation with the exception of her left hip, which is painful with any movement or manipulation. Assessment: The patient is now with a third dislocation. Plan is for operative closed reduction tiffany soo open reduction simple reduction. I am going to have the equipment company here with i mplants in case there is some problem with the implants themselves. After opening it and going for t he open reduction, we would definitely not like to see any damage to the liner. If there was, we cou ld replace that with a new fresh liner but we will definitely prefer that. This was discu ssed with the patient and she states she understands things as presented and Dr. Peguero knows these plans as well. CRISTIAN Voice ID: [id number] Report ID: [id number]
[2019-12-13 14:51] LABS: Urine Appearance CLEAR; Urine Bilirubin NEGATIVE (NEG); Urine Blood NEGATIVE (NEG); Urine Color YELLOW; Urine Glucose NEGATIVE (NEG); Urine Protein NEGATIVE (NEG); Urine Specific Gravity <=1.005 (1.005-1.030); Urine Urobilinogen 0.2 mg/dL (0.2-1.0)
[2019-12-13 14:54] LABS: UR PROTEIN 5 mg/dL (<11.9)
[2019-12-13 15:28] LABS: Urine Microscopic Reflex ORDER UMIC
[2019-12-13 15:35] LABS: UR CREAT < 13.0 mg/dL (20-320)
[2019-12-13 15:42] LABS: Urine Bacteria <20 /HPF (<20); Urine Culture Reflex Order NOT NEEDED; Urine RBC <5 /HPF (NONE SEEN)
[2019-12-14 04:49] LABS: Albumin 2.2 g/dL (3.4-5.0); BUN Blood Urea Nitrogen 5 mg/dL (7-18); Bicarbonate 27 mmol/L (21-32); Glucose Level 118 mg/dL (74-106); Phosphorus 3.3 mg/dL (2.5-4.9); Potassium 3.9 mmol/L (3.5-5.1); Sodium Level 135 mmol/L (136-145)
--- NOTE | 2019-12-14 06:55 | P.DS ---
Admission Date: 12/12/19 Discharge Date: 12/14/19 Primary Care Provider: none Disposition: ROUTINE DISCHARGE Discharge Condition: GOOD Reason for Admission: fall with right hip pain Consultations: Orthopedics-Dr. Giordano Procedures: Xray: CLINICAL HISTORY: Left hip pain FINDINGS: Left femoral prosthesis is dislocated superolaterally No fracture is seen Surgery: Date of Procedure: 12/13/2019 Surgeon: Bertrand Giordano MD Preoperative Diagnosis: Dislocated left hip arthroplasty. Postoperative Diagnosis: Dislocated left hip arthroplasty. Procedure: Left hip arthroplasty, closed reduction under anesthesia. Estimated Blood Loss: 0 cc. Complications: No complications. Follow up Xray: COMPARISON: Hip Left 2 View dated 12/12/2019 FINDINGS: Single supine view is obtained following closed reduction maneuvers. The femoral head has been reduced back to the acetabular component. Alignment and position are now normal. No fracture of the bony pelvis. Femoral component and proximal femur show no suspicious finding. IMPRESSION: Successful closed reduction of femoral component dislocation. Implant is in good position. Medical Problem List: Fall leading to left posterior dislocation of hip status post left hip arthroplasty, close reduction under anesthesia Hyponatremia related to alcohol use Hypertension Hypothyroidism Anemia of chronic disease GERD Alcohol use Brief History of Present Illness: 84-year-old female past medical history of hypertension on lisinopril, chronic hyponatremia typically ranged 131-133 sodium, chronic alcohol use, previous hip replacement s/p left hip ORIF x2 admitted post fall with left hip pain after an episode of heavy alcohol drinking. She apparently slipped on the floor before getting out. She reported pain to the left hip upon ambulating. Patient was sent to the ER. Patient found to have dislocation of the left hip prosthesis. Patient admitted for further evaluation and treatment. Hospital Course: Patient presented after a fall with left hip pain. Patient found to have left posterior dislocation of the hip. Patient was seen and evaluated by orthopedics. Orthopedics recommended intervention for close reduction. Intervention was performed. No evidence of fracture. Left hip was reduced. Patient tolerated procedure well. Patient now with knee immobilizer. Patient able to bear weight as tolerated. At discharge patient will continue with knee immobilizer. Patient will continue with physical therapy recommendations. At discharge patient will follow up with orthopedics within 1 week to follow up this hospitalization and to further her care. Patient was found to be hyponatremic. This is likely related to her alcohol use. Patient admits to alcohol use. Alcohol cessation education provided. Patient given IV fluids. Sodium back to her baseline. At discharge she will continue with alcohol cessation. The patient will continue with thiamine 100 mg daily. Patient with hypertension. Patient may continue with lisinopril 10 mg daily. At discharge recommend to maintain blood pressure less 150/80. Further adjustment can be done by her PCP. Patient may also continue with aspirin 81 mg daily. Patient with GERD. At discharge patient will continue with Protonix 40 mg daily. Patient may follow up with GI as an outpatient to further address. Patient with hypothyroidism. Tsh within normal range. At discharge patient will continue with Synthroid 50 mcg daily. This can be further monitored and addressed by her PCP. Patient with anemia of chronic disease. Iron and B12 levels obtain. At discharge patient will continue with multi vitamin and thiamine daily. Recommend to recheck CBC in 4 weeks to monitor progress. Patient would benefit with GI evaluation for endoscopy and colonoscopy as an outpatient to further address. Vital Signs/Physical Exam: Temp Pulse Resp BP Pulse Ox 97.9 F 84 16 140/66 98 12/14/19 04:00 12/14/19 04:00 12/14/19 04:00 12/14/19 04:00 12/14/19 04:00 General: Alert, In no apparent distress, Oriented x3, Cooperative HEENT: Atraumatic Neck: Supple Respiratory: Clear to auscultation bilaterally, Normal air movement Cardiovascular: Normal pulses, Regular rate/rhythm Gastrointestinal: Normal bowel sounds, Soft and benign, Non-distended, No tenderness, No masses, No rebound, No guarding Musculoskeletal: No erythema, No tenderness, No warmth, Other (Left lower extremity with knee immobilizer.) Neurological: Normal speech, Normal strength at 5/5 x4 extr, Normal tone, Normal affect Laboratory Data at Discharge: WBC 8.7 K/uL (4.3-10.9) 12/13/19 05:38 Hgb 9.5 g/dL (12.0-15.0) L 12/13/19 05:38 Hct 27.8 % (36.0-45.0) L 12/13/19 05:38 Plt Count 584 K/uL (152-406) H 12/13/19 05:38 PT 11.8 SECONDS (9.5-12.5) 12/12/19 20:47 INR 1.00 12/12/19 20:47 APTT 30.3 SECONDS (24.3-36.9) 12/12/19 20:47 Sodium 135 mmol/L (136-145) L 12/14/19 04:09 Potassium 3.9 mmol/L (3.5-5.1) 12/14/19 04:09 BUN 5 mg/dL (7-18) L 12/14/19 04:09 Creatinine 0.59 mg/dL (0.55-1.3) 12/14/19 04:09 Glucose 118 mg/dL (74-106) H 12/14/19 04:09 Phosphorus 3.3 mg/dL (2.5-4.9) 12/14/19 04:09 Total Bilirubin 0.1 mg/dL (0.2-1.0) L 12/13/19 05:38 AST 17 U/L (15-37) 12/13/19 05:38 ALT 13 U/L (12-78) 12/13/19 05:38 Alkaline Phosphatase 87 U/L (45-117) 12/13/19 05:38 Lipase 235 U/L (73-393) 12/12/19 20:47 Home Medications: Multivitamin [Daily Multivitamin] 1 each PO DAILY 02/18/13 Levothyroxine [Synthroid*] 50 mcg PO [id number] 09/06/16 lisinopriL [Prinivil*] 10 mg PO [id number] 09/06/16 Ascorbate Calcium [Vitamin C] 500 mg PO DAILY 02/16/17 Vitamin E 1 pill PO DAILY 02/16/17 Pantoprazole [Protonix Tab*] 40 mg PO DAILY 12/13/19 Aspirin [Aspirin EC 81 MG] 81 mg PO DAILY #90 tablet. 12/14/19 Thiamine HCl 100 mg PO DAILY #90 tablet 12/14/19 New Medications: Aspirin [Aspirin EC 81 MG] 81 mg PO DAILY #90 tablet. Thiamine HCl 100 mg PO DAILY #90 tablet Patient Discharge Instructions: 1. Patient be given a list of PCPs in the area to establish care and to follow this hospitalization. 2. Patient presented after a fall with left hip pain. Patient found to have left posterior dislocation of the hip. Patient was seen and evaluated by orthopedics. Orthopedics recommended intervention for close reduction. Intervention was performed. No evidence of fracture. Left hip was reduced. Patient tolerated procedure well. Patient now with knee immobilizer. Patient able to bear weight as tolerated. At discharge patient will continue with knee immobilizer. Patient will continue with physical therapy recommendations. At discharge patient will follow up with orthopedics within 1 week to follow up this hospitalization and to further her care. 3. Patient was found to be hyponatremic. This is likely related to her alcohol use. Patient admits to alcohol use. Alcohol cessation education provided. Patient given IV fluids. Sodium back to her baseline. At discharge she will continue with alcohol cessation. The patient will continue with thiamine 100 mg daily. 4. Patient with hypertension. Patient may continue with lisinopril 10 mg daily. At discharge recommend to maintain blood pressure less 150/80. Further adjustment can be done by her PCP. Patient may also continue with aspirin 81 mg daily. 5. Patient with GERD. At discharge patient will continue with Protonix 40 mg daily. Patient may follow up with GI as an outpatient to further address. 6. Patient with hypothyroidism. Tsh within normal range. At discharge patient will continue with Synthroid 50 mcg daily. This can be further monitored and addressed by her PCP. 7. Patient with anemia of chronic disease. Iron and B12 levels obtain. At discharge patient will continue with multi vitamin and thiamine daily. Recommend to recheck CBC in 4 weeks to monitor progress. Patient would benefit with GI evaluation for endoscopy and colonoscopy as an outpatient to further address. Diet: AHA Activity: Fall precautions Time spent managing pt's care (in minutes): 55
--- NOTE | 2019-12-14 07:44 | EKG ---
Test Date: 2019-12-12 Test Time: 23:25:12 Grain Inspector: TRISTIAN MEASUREMENT RESULTS: Intervals: Rate: 76 GA: 142 QRSD: 88 QT: 370 QTc: 416 [place]: P: 10 GA: 142 QRS: 9 T: 55 INTERPRETIVE STATEMENTS: Normal sinus rhythm Possible Anterior infarct, age undetermined Abnormal ECG Compared to ECG 02/17/2017 10:18:27 Myocardial infarct finding now present Electronically Signed On 12-14-19 07:43:03 CDT by Steve Pritchett
[2019-12-14] MEDS ORDERED: VITAMIN E 400 IU CAP PO SCH (09:00)
[2019-12-14] MEDS ORDERED: MULTIVITAMIN TAB PO SCH (09:00)
[2019-12-14] MEDS ORDERED: PANTOPRAZOLE 40MG TABLET PO SCH (09:00)
[2019-12-14] MEDS ORDERED: ASCORBIC ACID 500 MG TABLET PO SCH (09:00)
[2019-12-14] MEDS ORDERED: MULTIVIT W/ MINERAL TAB ONE (09:06)
[2019-12-14] MEDS ORDERED: VITAMIN E 400 IU CAP ONE (09:07)
[2019-12-14] MEDS ORDERED: PANTOPRAZOLE 40MG TABLET PO ONE (09:07)
[2019-12-14] MEDS ORDERED: ASCORBIC ACID 500 MG TABLET ONE (09:07)
[2019-12-14 09:37] VITALS: O2SAT 97
[2019-12-14] MEDS ORDERED: MULTIVITAMIN TAB PO ONE (09:56)
[2019-12-14 12:08] VITALS: BP 148/67; TEMP 98.7
--- NOTE | 2019-12-14 22:14 | CON ---
History Of Present Illness: The patient is an 84-year-old female with past medical history of hypertension, on lisinopril; chronic hyponatremia, sodium level is usually over 130, ranging from 131 to 133. The patient has chronic alcoholism, previous history of replacement, status post ORIF. The patient was admitted on December 11 for status post fall and Orthopedic consult is requested. On arrival to emergency room, the patient had workup done, which showed dislocation of the right hip pr osthesis. The patient also noted to have heavy alcohol intoxication at that time. Nephrology consul tation was requested for hyponatremia. The patient was taking Voltaren prior to this admission as we ll as levofloxacin, lisinopril, multivitamin, Protonix, and vitamin C. Review of Systems: General: The patient denies fever or chills. Eyes: Denies vision changes. Ears, Nose, Mouth, and Throat: Denies sore throat or earache. Respiratory: Denies PND or orthopnea. Cardiovascular: Denies chest pain or palpitation. GI: Denies nausea or vomiting. : Denies dysuria or hematuria. All other systems reviewed and all are negative. Past Medical History: COPD, history of tobacco abuse, GERD, Tello's esophagus, heart murmur, histo ry of gallstones, breast cancer, hypertension, tonsillectomy, back surgery, lumpectomy. Social History: Alcohol use. Denies tobacco or drugs. Physical Examination: General: The patient is lethargic. Eyes: Anicteric sclerae. EOMI. Ears, Nose, Mouth, and Throat: Oral mucosa moist. No pallor. Neck: Supple. No bruits. Lungs: Diminished breath sounds at bases. Heart: S1, S2. Abdomen: Soft, benign. Extremities: Minimal edema in both ankles. Laboratory Data: Sodium 130, potassium 3.6, BUN 5, creatinine 0.5, glucose 98, bilirubin 0.2, lipase 235. Impression And Plan: 1.Hyponatremia, hypoosmolar. The patient will continue p.o. fluid restriction. The patient may alexsander efit from sodium chloride tablets. Re-evaluate sodium level. Check TSH. 2.The patient has history of hypothyroidism. Adjust replacement as needed. 3.Hypertension. Avoid HCTZ due to the fact that it may accelerate hyponatremia. 4.Hypertension. Continue blood pressure medication. EB/MODL Voice ID: [id number] Report ID: [id number]
[2019-12-15] MEDS ORDERED: lisinopriL 10 MG TAB PO SCH (06:00)
[2019-12-15] MEDS ORDERED: LEVOTHYROXINE SOD 0.05 MG TABLET PO SCH (06:00)
== END 2019-12-14 13:41 | disposition home or self-care (01) | DRG 560 ==
LOC: ER 20:31 → ERHOLD 23:20 → 2ND 23:58
PROVIDERS: ADMIT Internal Medicine; ATTEND Family Medicine
PROC: 0SWBXJZ Revision of Synthetic Substitute in Left Hip Joint, External Approach (ICD-10-PCS; principal; 2019-12-13 11:00)
DX: T84.021A Dislocation of internal left hip prosthesis, initial encounter (principal); E87.1 Hypo-osmolality and hyponatremia; I48.20 Chronic atrial fibrillation, unspecified; E03.9 Hypothyroidism, unspecified; K21.9 Gastro-esophageal reflux disease without esophagitis; J42 Unspecified chronic bronchitis; F10.129 Alcohol abuse with intoxication, unspecified; D63.8 Anemia in other chronic diseases classified elsewhere; I10 Essential (primary) hypertension; W01.0XXA Fall on same level from slipping, tripping and stumbling without subsequent striking against object, initial encounter; Z88.5 Allergy status to narcotic agent; Z79.890 Hormone replacement therapy; Z85.3 Personal history of malignant neoplasm of breast; Z79.899 Other long term (current) drug therapy; Z90.710 Acquired absence of both cervix and uterus; Z20.828 Contact with and (suspected) exposure to other viral communicable diseases
CPT/HCPCS: 36415; 51702; 73530; 80048; 80053; 80069; 80076; 81003; 81015; 82533; 82570; 82607; 82728; 83540; 83690; 83930; 83935; 84132; 84156; 84300; 84443; 84466; 85025; 85610; 85730; 90471; 93005; 97110; 97116; 97161; 97530; 99285; J0690; J2270; J2704; J3010; J3411; J7030; J7042; J7120; Q2035; U0003

== ENCOUNTER 2021-05-16 13:46 | Inpatient (IN) | payer OTHER ==
--- OUTSIDE RECORDS SUMMARY | 2021-05-16 13:57 | XMS REPORT | Continuity of Care Document ---
:1935 Author Organization [facility] t Address [facility] [address] [place] [address] Care Team Providers Name Role Phone Evangelist BRADLEY Primary Care Physician Unavailable Jas ROLAND Attending Clinician Unavailable KAYLA LOERA Attending Clinician Unavailable Lucio AMARAL S Attending Clinician Zane VALDES Attending Clinician Unavailable Lorene MOORE Attending Clinician Unavailable Pob, Lab Main Attending Clinician Unavailable Asuncion MCKENZIE, L Attending Clinician Doctor Unassigned, Name Attending Clinician Unavailable Maximino DUNLAP Attending Clinician Margo Rivas MD Attending Clinician Only, Test Attending Clinician Unavailable Glenny EPPS Attending Clinician Unavailable Courtney Prater Attending Clinician Jas ROLAND Admitting Clinician Unavailable KAYLA LOERA Admitting Clinician Unavailable Jas Roland MD Admitting Clinician Payers Payer Name Policy Type Policy Number Effective Date Expiration Date S divya MEDICARE PART A \\T\\ [id number] 2002 B 00:00:00 BCBS TRADITIONAL [id number] 2016 00:00:00 MEDICARE A B [id number] 2002 00:00:00 BCBS PPO POS EPO [id number] 2016 CHOICE 00:00:00 Problems Condition Condition Condition Status Onset Resolution Last Treating Co mments Source Name Details Category Date Date Treatment Clinician Date S/P S/P Disease Active Univers revision revision 2-22 ity of of total of total 00:00: [place] hip hip 00 Medical Branch Dislocatio Dislocatio Disease Active Overview : Univers n of left n of left 2-04 Formattin i ty of hip, hip, 00:00: g of this [place] subsequent subsequent 00 note Me dical encounter encounter might be Br anch different from the original. Added automatic ally from request for surgery [id number] Postoperat Postoperat Disease Active 2019-03 U nivers shira wound shira wound 03-12 ity of abscess abscess 00:00: [place] 00 Medical Branch Dislocatio Dislocatio Disease Active 2019-03 Overview : Univers n of left n of left 0-21 Formattin i ty of hip, hip, 00:00: g of this [place] sequela sequela 00 note Medical might be Branch different from the original. 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 00 Me dical ty with ty with Branch dislocatio dislocatio n of hip, n of hip, subsequent subsequent encounter encounter 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[facility] - n of hip, n of hip, 00:00: Medi brunilda closed closed 00 Center Hip Hip Disease Active [facility]loc[facility] - n, left n, left 00:00: Medical 00 Center 'light-for 'light-for Disease Active U nivers -dates' -dates' 09-09 ity of infant 00:00: [place] with signs with signs 00 Me dical of of Branch malnutriti malnutriti on on Arthritis Arthritis Disease Active Uni vers of left of left 09-09 ity of hip hip 00:00: [place] 00 Medical Branch Allergies, Adverse Reactions, Alerts Allergy Allergy Status Severity Reaction(s) Onset Inactive Treating Comm ents Source Name Type Date Date Clinician HYDROCOD Allergy Active Low Rash 2020-[address] [facility] 5[facility] AMINOPHE 00:00: Medical N 00 [place] Hydrocod Drug Active Rash 2020-[address] [facility] [address] one-Acet Allergy 5-21 [facility] - aminophe 00:00: Medical n 00 Center HYDROCOD DRUG Active Low Rash 2020-0 Univers ONE-ACET 5-21 ity of AMINOPHE 00:00: [address] NO KNOWN Drug Active Univers ALLERGIE Class ity of S [facility] Social History Social Habit Start Date Stop Date Quantity Comments Source Exposure to Not sure University of SARS-CoV-2 (event) [facility] History SDOH [facility] - Alcohol Binge Medical [facility] History SDOH [facility] - Alcohol Comment Medical C enter Alcohol intake 2019-07-28 2019-07-28 [facility]00 of alcohol [facility] (finding) Cigarettes smoked 2019-07-23 2019-07-[address] [facility] - current (pack per 00:00:00 00:00:00 Medical Center day) - Reported Cigarette 2019-07-23 2019-07-[address] [facility] - pack-years 00:00:00 00:00:00 [facility] Center Tobacco use and 2019-07-23 2019-07-[address] [facility] - exposure 00:00:00 00:00:00 Medical Center History SDOH 2019-07-23 2019-07-[address] [facility] - Alcohol Frequency 00:00:00 00:00:00 Medical Center History SDOH 2019-07-23 2019-07-[address] [facility] - Alcohol Std Drinks 00:00[facility]00 [facility] Tobacco Comment 2017-09-06 2017-09-06 Quit approx. 20 Univ ersity of 00:00:00 00:00:00 years ago (1997) [facility] Sex Assigned At [address] [facility] - 00:00:00 00:[facility]:00 [facility] Center Smoking Status Start Date Stop Date Source Former smoker 2017-09-06 00:00:00 2017-09-06 00:00:00 [facility] [place] [facility] Medications Ordered Filled Start Stop Current Ordering Indication Dosage Frequency Signature Comments Components Source Medication Medication Date Date Medication? Clinician (SIG) Name Name DOXYCYCLINE 2020-1 Yes [id number] 100mg TAKE 1 Univers HYCLATE 100 0-20 CAPSULE BY it y of mg capsule 00:00: MOUTH [place] 00 EVERY 12 Medical (TWELVE) Branch HOURS. doxycycline 2020-0 Yes [id number] 100mg Take 1 Univers hyclate 100 6-16 capsule by it y of mg capsule 00:00: mouth [place] 00 every 12 Medical (twelve) Branch hours. doxycycline 2020-0 Yes [id number] 100mg Take 1 Univers hyclate 100 6-16 capsule by it y of mg capsule 00:00: mouth [place] 00 every 12 Medical (twelve) Branch hours. doxycycline 2020-0 Yes [id number] 100mg Take 1 Univers hyclate 100 6-16 capsule by it y of mg capsule 00:00: mouth [place] 00 every 12 Medical (twelve) Branch hours. doxycycline 2020-0 Yes [id number] 100mg Take 1 Univers hyclate 100 6-16 capsule by it y of mg capsule 00:00: mouth [place] 00 every 12 Medical (twelve) Branch hours. doxycycline 2020-0 Yes [id number] 100mg Take 1 Univers hyclate 100 6-16 capsule by it y of mg capsule 00:00: mouth [place] 00 every 12 Medical (twelve) Branch hours. doxycycline 2020-0 Yes [id number] 100mg Take 1 Univers hyclate 100 6-16 capsule by it y of mg capsule 00:00: mouth [place] 00 every 12 Medical (twelve) Branch hours. doxycycline 2020-2020- No [id number] 100mg Take 1 Univers hyclate 100 6-16 10-20 capsule by i ty of mg capsule 00:00: 00:00 mouth [place] 00 :00 every 12 Medical (twelve) Branch hours. clindamycin 2020-2020- No [id number] 300mg Take 2 Univers 150 mg 4-27 05-08 6 capsules ity of capsule 00:00: 04:59 by mouth 4 [place] as 00 :00 (four) Medical times Branch daily for 10 days. clindamycin 2020-2020- No [id number] 300mg Take 2 Univers 150 mg 4-27 05-08 6 capsules ity of capsule 00:00: 04:59 by mouth 4 [place] 00 :00 (four) Medical times Branch daily for 10 days. clindamycin 2020- No [id number] 300mg Take 2 Univers 150 mg 06-13-23 6 capsules ity of capsule 00:00: 04:59 by mouth 4 [place] 00 :00 (four) Medical times Branch daily for 10 days. clindamycin 2020- No [id number] 300mg Take 2 Univers 150 mg 06-13-23 6 capsules ity of capsule 00:00: 04:59 by mouth 4 [place] as 00 :00 (four) Medical times Branch daily for 10 days. clindamycin 2020- No [id number] 300mg Take 2 Univers 150 mg 06-13-23 6 capsules ity of capsule 00:00: 04:59 by mouth 4 [place] 00 :00 (four) Medical times Branch daily for 10 days. clindamycin 2020- No [id number] 300mg Take 2 Univers 150 mg 06-13-23 6 capsules ity of capsule 00:00: 04:59 by mouth 4 [place] 00 :00 (four) Medical times Branch daily for 10 days. clindamycin 2020- No [id number] 300mg Take 2 Univers 150 mg 4-08 05-17 capsules ity of capsule 00:00: 04:59 by mouth 4 [place] 00 :00 (four) Medical times Branch daily for 10 days. clindamycin 2020- No [id number] 300mg Take 2 Univers 150 mg 06-07-17 capsules ity of capsule 00:00: 04:59 by mouth 4 [place] 00 :00 (four) Medical times Branch daily for 10 days. clindamycin 2020- No [id number] 300mg Take 2 Univers 150 mg - 04-17 capsules ity of capsule 00:00: 04:59 by mouth 4 [place] as 00 :00 (four) Medical times Branch daily for 10 days. clindamycin 2020- No [id number] 300mg Take 2 Univers 150 mg 4- 04-17 capsules ity of capsule 00:00: 04:59 by mouth 4 [place] as 00 :00 (four) Medical times Branch daily for 10 days. clindamycin 2020- No [id number] 300mg Take 2 Univers 150 mg 4- 04-17 capsules ity of capsule 00:00: 04:59 by mouth 4 [place] as 00 :00 (four) Medical times Branch daily for 10 days. clindamycin 2020- No [id number] 300mg Take 2 Univers 150 mg 4- 04-17 capsules ity of capsule 00:00: 04:59 by mouth 4 [place] as 00 :00 (four) Medical times Branch daily for 10 days. clindamycin 2020- No [id number] 300mg Take 2 Univers 150 mg 06-07 04-17 capsules ity of capsule 00:00: 04:59 by mouth 4 [place] as 00 :00 (four) Medical times Branch daily for 10 days. levothyroxi Yes Take by Un gris ne sodium 2-23 mouth. ity of (LEVOTHYROX 20:09: [place] INE ORAL) [address] [place] [id number] pantoprazol Yes 40mg Take 40 mg Univers e 40 mg EC 2-23 by mouth. ity of tablet 20:09: [address] LISINOPRIL Yes Take by Uni vers ORAL 2-23 mouth. ity of 20:09: [address] levothyroxi Yes Take by Un gris ne sodium 2-23 mouth. ity of (LEVOTHYROX 20:09: [place] INE ORAL) [address] [place] [id number] pantoprazol Yes 40mg Take 40 mg Univers e 40 mg EC 2-23 by mouth. ity of tablet 20:09: [address] LISINOPRIL Yes Take by Uni vers ORAL 2-23 mouth. ity of 20:09: [address] levothyroxi Yes Take by Un gris ne sodium 2-23 mouth. ity of (LEVOTHYROX 20:09: [place] INE ORAL) [address] [place] [id number] pantoprazol 0 Yes 40mg Take 40 mg Univers e 40 mg EC 2-23 by mouth. ity of tablet 20:09: [address] LISINOPRIL Yes Take by Uni vers ORAL 2-23 mouth. ity of 20:09: [address] levothyroxi Yes Take by Un gris ne sodium 2-23 mouth. ity of (LEVOTHYROX 20:09: [place] INE ORAL) Medical Branch pantoprazol Yes 40mg Take 40 mg Univers e 40 mg EC 2-23 by mouth. ity of tablet 20:09: [address] Branch LISINOPRIL Yes Take by Uni vers ORAL 2-23 mouth. ity of 20:09: [address] Branch levothyroxi Yes Take by Un gris ne sodium 2-23 mouth. ity of (LEVOTHYROX 20:09: [place] INE ORAL) Medical Branch pantoprazol Yes 40mg Take 40 mg Univers e 40 mg EC 2-23 by mouth. ity of tablet 20:09: [address] Branch LISINOPRIL Yes Take by Uni vers ORAL 2-23 mouth. ity of 20:09: [address] levothyroxi Yes Take by Un gris ne sodium 2-23 mouth. ity of (LEVOTHYROX 20:09: [place] INE ORAL) Medical Branch pantoprazol Yes 40mg Take 40 mg Univers e 40 mg EC 2-23 by mouth. ity of tablet 20:09: [address] Branch LISINOPRIL Yes Take by Uni vers ORAL 2-23 mouth. ity of 20:09: [address] levothyroxi Yes Take by Un gris ne sodium 2-23 mouth. ity of (LEVOTHYROX 20:09: [place] INE ORAL) Medical Branch pantoprazol Yes 40mg Take 40 mg Univers e 40 mg EC 2-23 by mouth. ity of tablet 20:09: [address] Branch LISINOPRIL Yes Take by Uni vers ORAL 2-23 mouth. ity of 20:09: [address] Branch levothyroxi Yes Take by Un gris ne sodium 2-23 mouth. ity of (LEVOTHYROX 20:09: [place] INE ORAL) Medical Branch pantoprazol Yes 40mg Take 40 mg Univers e 40 mg EC 2-23 by mouth. ity of tablet 20:09: [address] Branch LISINOPRIL Yes Take by Uni vers ORAL 2-23 mouth. ity of 20:09: [place] 49 Medical Branch levothyroxi 0 Yes Take by Un gris ne sodium 2-23 mouth. ity of (LEVOTHYROX 20:09: [place] INE ORAL) Medical Branch pantoprazol 0 Yes 40mg Take 40 mg Univers e 40 mg EC 2-23 by mouth. ity of tablet 20:09: [address] Branch LISINOPRIL Yes Take by Uni vers ORAL 2-23 mouth. ity of 20:09: [place] [address] Medical Branch levothyroxi 0 Yes Take by Un gris ne sodium 2-23 mouth. ity of (LEVOTHYROX 20:09: [place] INE ORAL) Medical Branch pantoprazol Yes 40mg Take 40 mg Univers e 40 mg EC 2-23 by mouth. ity of tablet 20:09: [address] Branch LISINOPRIL Yes Take by Uni vers ORAL 2-23 mouth. ity of 20:09: [address] levothyroxi Yes Take by Un gris ne sodium 2-23 mouth. ity of (LEVOTHYROX 20:09: [place] INE ORAL) Medical Branch pantoprazol Yes 40mg Take 40 mg Univers e 40 mg EC 2-23 by mouth. ity of tablet 20:09: [place] [address] Medical Branch LISINOPRIL Yes Take by Uni vers ORAL 2-23 mouth. ity of 20:09: [address] Branch levothyroxi 0 Yes Take by Un gris ne sodium 2-23 mouth. ity of (LEVOTHYROX 20:09: [place] INE ORAL) Medical Branch pantoprazol Yes 40mg Take 40 mg Univers e 40 mg EC 2-23 by mouth. ity of tablet 20:09: [place] [address] Medical Branch LISINOPRIL 0 Yes Take by Uni vers ORAL 2-23 mouth. ity of 20:09: [place] [address] Medical Branch levothyroxi 0 Yes Take by Un gris ne sodium 2-23 mouth. ity of (LEVOTHYROX 20:09: [place] INE ORAL) Medical Branch pantoprazol 0 Yes 40mg Take 40 mg Univers e 40 mg EC 2-23 by mouth. ity of tablet 20:09: [address] Branch LISINOPRIL Yes Take by Uni vers ORAL 2-23 mouth. ity of 20:09: [place] [address] Medical Branch levothyroxi Yes Take by Un gris ne sodium 2-23 mouth. ity of (LEVOTHYROX 20:09: [place] INE ORAL) Medical Branch pantoprazol Yes 40mg Take 40 mg Univers e 40 mg EC 2-23 by mouth. ity of tablet 20:09: [place] [address] Medical Branch LISINOPRIL Yes Take by Uni vers ORAL 2-23 mouth. ity of 20:09: [place] [address] Medical Branch levothyroxi Yes Take by Un gris ne sodium 2-23 mouth. ity of (LEVOTHYROX 20:09: [place] INE ORAL) Medical Branch pantoprazol Yes 40mg Take 40 mg Univers e 40 mg EC 2-23 by mouth. ity of tablet 20:09: [address] Branch LISINOPRIL Yes Take by Uni vers ORAL 2-23 mouth. ity of 20:09: [place] [address] Medical Branch levothyroxi Yes Take by Un gris ne sodium 2-23 mouth. ity of (LEVOTHYROX 20:09: [place] INE ORAL) Medical Branch pantoprazol Yes 40mg Take 40 mg Univers e 40 mg EC 2-23 by mouth. ity of tablet 20:09: [place] [address] Medical Branch LISINOPRIL Yes Take by Uni vers ORAL 2-23 mouth. ity of 20:09: [place] [address] Medical Branch levothyroxi Yes Take by Un gris ne sodium 2-23 mouth. ity of (LEVOTHYROX 20:09: [place] INE ORAL) Medical Branch pantoprazol Yes 40mg Take 40 mg Univers e 40 mg EC 2-23 by mouth. ity of tablet 20:09: [place] [address] Medical Branch LISINOPRIL Yes Take by Uni vers ORAL 2-23 mouth. ity of 20:09: [place] [address] Medical Branch levothyroxi Yes Take by Un gris ne sodium 2-23 mouth. ity of (LEVOTHYROX 20:09: [place] INE ORAL) Medical Branch pantoprazol Yes 40mg Take 40 mg Univers e 40 mg EC 2-23 by mouth. ity of tablet 20:09: [address] Branch LISINOPRIL Yes Take by Uni vers ORAL 2-23 mouth. ity of 20:09: [address] Branch levothyroxi Yes Take by Un gris ne sodium 2-23 mouth. ity of (LEVOTHYROX 20:09: [place] INE ORAL) [address] [place] [address] Branch pantoprazol Yes 40mg Take 40 mg Univers e 40 mg EC 2-23 by mouth. ity of tablet 20:09: [address] Branch LISINOPRIL Yes Take by Uni vers ORAL 2-23 mouth. ity of 20:09: [address] levothyroxi Yes Take by Un gris ne sodium 2-23 mouth. ity of (LEVOTHYROX 20:09: [place] INE ORAL) [address] [place] [address] Branch pantoprazol Yes 40mg Take 40 mg Univers e 40 mg EC 2-23 by mouth. ity of tablet 20:09: [address] LISINOPRIL Yes Take by Uni vers ORAL 2-23 mouth. ity of 20:09: [address] levothyroxi Yes Take by Un gris ne sodium 2-23 mouth. ity of (LEVOTHYROX 20:09: [place] INE ORAL) [address] [place] [address] Branch pantoprazol Yes 40mg Take 40 mg Univers e 40 mg EC 2-23 by mouth. ity of tablet 20:09: [address] LISINOPRIL Yes Take by Uni vers ORAL 2-23 mouth. ity of 20:09: [address] levothyroxi Yes Take by Un gris ne sodium 2-23 mouth. ity of (LEVOTHYROX 20:09: [place] INE ORAL) Medical Branch pantoprazol Yes 40mg Take 40 mg Univers e 40 mg EC 2-23 by mouth. ity of tablet 20:09: [address] LISINOPRIL Yes Take by Uni vers ORAL 2-23 mouth. ity of 20:09: [address] levothyroxi Yes Take by Un gris ne sodium 2-23 mouth. ity of (LEVOTHYROX 20:09: [place] INE ORAL) [address] [place] [address] Branch pantoprazol Yes 40mg Take 40 mg Univers e 40 mg EC -23 by mouth. ity of tablet 20:09: [address] Branch LISINOPRIL Yes Take by Uni vers ORAL -23 mouth. ity of 20:09: [address] Branch levothyroxi Yes Take by Un gris ne sodium 04-26 mouth. ity of (LEVOTHYROX 20:09: [place] INE ORAL) [address] [place] [address] Branch pantoprazol Yes 40mg Take 40 mg Univers e 40 mg EC 23 by mouth. ity of tablet 20:09: [address] LISINOPRIL Yes Take by Uni vers ORAL 04-26 mouth. ity of 20:09: [address] levothyroxi Yes Take by Un gris ne sodium - mouth. ity of (LEVOTHYROX 20:09: [place] INE ORAL) [address] [place] [address] pantoprazol Yes 40mg Take 40 mg Univers e 40 mg EC - by mouth. ity of tablet 20:09: [address] LISINOPRIL Yes Take by Uni vers ORAL - mouth. ity of 20:09: [address] DICLOFENAC 2020- No 75mg Take 75 mg Univers SODIUM ORAL 04-26 by mouth. it y of 18:19: 00:00 [place] 26 :00 [facility] Branch LISINOPRIL Yes Take by Uni vers ORAL 04-26 mouth. ity of 14:09: [address] levothyroxi Yes Take by Un gris ne sodium - mouth. ity of (LEVOTHYROX 14:09: [place] INE ORAL) [address] [place] [address] Branch pantoprazol Yes 40mg Take 40 mg Univers e 40 mg EC -23 by mouth. ity of tablet 14:09: [address] enoxaparin 2020- No 30mg 30 mg, Univ ers (LOVENOX) 04-26 Subcutaneo ity of injection 14:00: 13:59 [place], Q12H, [place] 30 mg 00 :00 4 doses, Medical First dose Branch on Sat04/26/20 at 0800, Last dose on Sat04/27/20 at 2000, Routine vancomycin 2020- No 1000mg 1,000 mg, Univers (VANCOCIN) 04-26 IV ity of 1,000 mg in 02:00: 02:31 [place]gy[place], [place] NaCl 0.9% 00 :00 ONCE, 1 Medical (NS) 250 mL dose, Mon [facility] VIAL-MATE 04/25/20 at IV 2000, 250 piggyback mL
Reas on for Anti-Infec tive: Surgical Prophylaxi s
Surgi brunilda Prophylaxi s: Orthopaedi c
Durat ion of therapy: within 24 hours of surgery acetaminoph Yes 4647 1{tbl} Take 1 Un gris en-codeine 2-23 tablet by ity of (TYLENOL-CO 00:00: mouth [place] DEINE #3) 00 every 4 Medical 300-30 mg (four) Branch tablet hours as needed for Pain (scale 4-6) or Pain (scale 7-10). Indication s: acute pain acetaminoph Yes 4647 1{tbl} Take 1 Un gris en-codeine 2-23 tablet by ity of (TYLENOL-CO 00:00: mouth [place] DEINE #3) 00 every 4 Medical 300-30 mg (four) Branch tablet hours as needed for Pain (scale 4-6) or Pain (scale 7-10). Indication s: acute pain acetaminoph 0 Yes 4647 1{tbl} Take 1 Un gris en-codeine 2-23 tablet by ity of (TYLENOL-CO 00:00: mouth [place] DEINE #3) 00 every 4 Medical 300-30 mg (four) Branch tablet hours as needed for Pain (scale 4-6) or Pain (scale 7-10). Indication s: acute pain acetaminoph 0 Yes 4647 1{tbl} Take 1 Un gris en-codeine 2-23 tablet by ity of (TYLENOL-CO 00:00: mouth [place] DEINE #3) 00 every 4 Medical 300-30 mg (four) Branch tablet hours as needed for Pain (scale 4-6) or Pain (scale 7-10). Indication s: acute pain acetaminoph 2021-0 Yes 4647 1{tbl} Take 1 Un gris en-codeine 2-23 tablet by ity of (TYLENOL-CO 00:00: mouth [place] DEINE #3) 00 every 4 Medical 300-30 mg (four) Branch tablet hours as needed for Pain (scale 4-6) or Pain (scale 7-10). Indication s: acute pain acetaminoph 2021-0 Yes 4647 1{tbl} Take 1 Un gris en-codeine 2-23 tablet by ity of (TYLENOL-CO 00:00: mouth [place] DEINE #3) 00 every 4 Medical 300-30 mg (four) Branch tablet hours as needed for Pain (scale 4-6) or Pain (scale 7-10). Indication s: acute pain acetaminoph 2021-0 Yes 4647 1{tbl} Take 1 Un gris en-codeine 2-23 tablet by ity of (TYLENOL-CO 00:00: mouth [place] DEINE #3) 00 every 4 Medical 300-30 mg (four) Branch tablet hours as needed for Pain (scale 4-6) or Pain (scale 7-10). Indication s: acute pain acetaminoph 2021-0 Yes 4647 1{tbl} Take 1 Un gris en-codeine 2-23 tablet by ity of (TYLENOL-CO 00:00: mouth [place] DEINE #3) 00 every 4 Medical 300-30 mg (four) Branch tablet hours as needed for Pain (scale 4-6) or Pain (scale 7-10). Indication s: acute pain acetaminoph 2021-0 Yes 4647 1{tbl} Take 1 Un gris en-codeine 2-23 tablet by ity of (TYLENOL-CO 00:00: mouth [place] DEINE #3) 00 every 4 Medical 300-30 mg (four) Branch tablet hours as needed for Pain (scale 4-6) or Pain (scale 7-10). Indication s: acute pain acetaminoph 2021-0 Yes 4647 1{tbl} Take 1 Un gris en-codeine 2-23 tablet by ity of (TYLENOL-CO 00:00: mouth [place] DEINE #3) 00 every 4 Medical 300-30 mg (four) Branch tablet hours as needed for Pain (scale 4-6) or Pain (scale 7-10). Indication s: acute pain acetaminoph 2021-0 Yes 4647 1{tbl} Take 1 Un gris en-codeine 2-23 tablet by ity of (TYLENOL-CO 00:00: mouth [place] DEINE #3) 00 every 4 Medical 300-30 mg (four) Branch tablet hours as needed for Pain (scale 4-6) or Pain (scale 7-10). Indication s: acute pain acetaminoph 2021-0 Yes 4647 1{tbl} Take 1 Un gris en-codeine 2-23 tablet by ity of (TYLENOL-CO 00:00: mouth [place] DEINE #3) 00 every 4 Medical 300-30 mg (four) Branch tablet hours as needed for Pain (scale 4-6) or Pain (scale 7-10). Indication s: acute pain acetaminoph 2021-0 Yes 4647 1{tbl} Take 1 Un gris en-codeine 2-23 tablet by ity of (TYLENOL-CO 00:00: mouth [place] DEINE #3) 00 every 4 Medical 300-30 mg (four) Branch tablet hours as needed for Pain (scale 4-6) or Pain (scale 7-10). Indication s: acute pain acetaminoph 2021-0 Yes 4647 1{tbl} Take 1 Un gris en-codeine 2-23 tablet by ity of (TYLENOL-CO 00:00: mouth [place] DEINE #3) 00 every 4 Medical 300-30 mg (four) Branch tablet hours as needed for Pain (scale 4-6) or Pain (scale 7-10). Indication s: acute pain acetaminoph 2021-0 Yes 4647 1{tbl} Take 1 Un gris en-codeine 2-23 tablet by ity of (TYLENOL-CO 00:00: mouth [place] DEINE #3) 00 every 4 Medical 300-30 mg (four) Branch tablet hours as needed for Pain (scale 4-6) or Pain (scale 7-10). Indication s: acute pain acetaminoph 2021-0 Yes 4647 1{tbl} Take 1 Un gris en-codeine 2-23 tablet by ity of (TYLENOL-CO 00:00: mouth [place] DEINE #3) 00 every 4 Medical 300-30 mg (four) Branch tablet hours as needed for Pain (scale 4-6) or Pain (scale 7-10). Indication s: acute pain acetaminoph 2021-0 Yes 4647 1{tbl} Take 1 Un gris en-codeine 2-23 tablet by ity of (TYLENOL-CO 00:00: mouth [place] DEINE #3) 00 every 4 Medical 300-30 mg (four) Branch tablet hours as needed for Pain (scale 4-6) or Pain (scale 7-10). Indication s: acute pain acetaminoph 2021-0 Yes 4647 1{tbl} Take 1 Un gris en-codeine 2-23 tablet by ity of (TYLENOL-CO 00:00: mouth [place] DEINE #3) 00 every 4 Medical 300-30 mg (four) Branch tablet hours as needed for Pain (scale 4-6) or Pain (scale 7-10). Indication s: acute pain acetaminoph 2021-0 Yes 4647 1{tbl} Take 1 Un gris en-codeine 2-23 tablet by ity of (TYLENOL-CO 00:00: mouth [place] DEINE #3) 00 every 4 Medical 300-30 mg (four) Branch tablet hours as needed for Pain (scale 4-6) or Pain (scale 7-10). Indication s: acute pain acetaminoph 2021-0 Yes 4647 1{tbl} Take 1 Un gris en-codeine 2-23 tablet by ity of (TYLENOL-CO 00:00: mouth [place] DEINE #3) 00 every 4 Medical 300-30 mg (four) Branch tablet hours as needed for Pain (scale 4-6) or Pain (scale 7-10). Indication s: acute pain acetaminoph 2021-0 Yes 4647 1{tbl} Take 1 Un gris en-codeine 2-23 tablet by ity of (TYLENOL-CO 00:00: mouth [place] DEINE #3) 00 every 4 Medical 300-30 mg (four) Branch tablet hours as needed for Pain (scale 4-6) or Pain (scale 7-10). Indication s: acute pain acetaminoph 2021-0 Yes 4647 1{tbl} Take 1 Un gris en-codeine 2-23 tablet by ity of (TYLENOL-CO 00:00: mouth [place] DEINE #3) 00 every 4 Medical 300-30 mg (four) Branch tablet hours as needed for Pain (scale 4-6) or Pain (scale 7-10). Indication s: acute pain acetaminoph 2020-0 Yes 4647 1{tbl} Take 1 Un gris en-codeine 2-23 tablet by ity of (TYLENOL-CO 00:00: mouth [place] DEINE #3) 00 every 4 Medical 300-30 mg (four) Branch tablet hours as needed for Pain (scale 4-6) or Pain (scale 7-10). Indication s: acute pain acetaminoph 2020-0 Yes 4647 1{tbl} Take 1 Un gris en-codeine 2-23 tablet by ity of (TYLENOL-CO 00:00: mouth [place] DEINE #3) 00 every 4 Medical 300-30 mg (four) Branch tablet hours as needed for Pain (scale 4-6) or Pain (scale 7-10). Indication s: acute pain acetaminoph 2020-0 Yes 4647 1{tbl} Take 1 Un gris en-codeine 2-23 tablet by ity of (TYLENOL-CO 00:00: mouth [place] DEINE #3) 00 every 4 Medical 300-30 mg (four) Branch tablet hours as needed for Pain (scale 4-6) or Pain (scale 7-10). Indication s: acute pain acetaminoph 2020-0 Yes 4647 1{tbl} Take 1 Un gris en-codeine 2-23 tablet by ity of (TYLENOL-CO 00:00: mouth [place] DEINE #3) 00 every 4 Medical 300-30 mg (four) Branch tablet hours as needed for Pain (scale 4-6) or Pain (scale 7-10). Indication s: acute pain rivaroxaban 2020-0 2020- No 1480 10mg Take 1 Uni vers (XARELTO) 2-23 03-24 tablet by ity of tablet 00:00: 04:59 mouth [place] 00 :00 daily for Medical 28 days. Branch Indication s: deep vein thrombosis prevention in hip surgery rivaroxaban 2020-2020- No 1480 10mg Take 1 Uni vers (XARELTO) 2-23 03-24 tablet by ity of tablet 00:00: 04:59 mouth [place] 00 :00 daily for Medical 28 days. Branch Indication s: deep vein thrombosis prevention in hip surgery rivaroxaban 2020- No 1480 10mg Take 1 Uni vers (XARELTO) 04-26 tablet by ity of tablet 00:00: 04:59 mouth [place] 00 :00 daily for Medical 28 days. Branch Indication s: deep vein thrombosis prevention in hip surgery rivaroxaban 2020- No 1480 10mg Take 1 Uni vers (XARELTO) 04-26 tablet by ity of tablet 00:00: 04:59 mouth [place] 00 :00 daily for Medical 28 days. Branch Indication s: deep vein thrombosis prevention in hip surgery rivaroxaban 2020- No 1480 10mg Take 1 Uni vers (XARELTO) 04-26 tablet by ity of tablet 00:00: 04:59 mouth [place] 00 :00 daily for Medical 28 days. Branch Indication s: deep vein thrombosis prevention in hip surgery rivaroxaban 2020- No 1480 10mg Take 1 Uni vers (XARELTO) 04-26 tablet by ity of tablet 00:00: 04:59 mouth [place] 00 :00 daily for Medical 28 days. Branch Indication s: deep vein thrombosis prevention in hip surgery naloxone Yes .2mg 0.2 mg, Univer s (NARCAN) 04-25 Intramuscu ity o f injection 18:10: lar, [place] 0.2 mg 04 Q3HPRN, Medical Starting Branch [facility] 04/25/20 at 1210, Until Discontinu ed, Routine, Itching diphenhydrA Yes 25mg 25 mg, Univ ers MINE 04-25 Oral, ity of (BENADRYL) 18:10: Q4HPRN, [place] tablet 25 04 Starting Medica l mg [facility] 04/25/20 at 1210, Until Discontinu ed, Routine, Itching naloxone No .4mg 0.4 mg, Unive rs (NARCAN) 04-25 Slow IV ity of injection 18:10: 16:02 [place], PRN [place] 0.4 mg 04 :22 - SEE Medical INSTRUCTIO Branch , Starting [facility] 04/25/20 at 1210, Until Sat04/27/20 at 1002, Routine, Analgesia Recovery lactated Yes 1000mL at 75 Univer s ringers IV 2-22 mL/hr, ity of infusion 16:00: 1,000 mL, [place] 1,000 mL 00 IV Medical Infusion, Branch CONTINUOUS , Starting Sat04/25/20 at 1000, Until Discontinu ed, Routine, PACU thiamine Yes 100mg 100 mg, Unive rs (VITAMIN - Oral, ity of B1) tablet 15:00: DAILY, [place] 100 mg 00 First dose Medical on Sat [place] 04/25/20 at 0900, Until Discontinu ed, Routine pantoprazol Yes 40mg 40 mg, Univ ers e 04-25 Oral, ity of (PROTONIX) 15:00: DAILY, [place] EC tablet 00 First dose Medi brunilda 40 mg on [facility] 04/25/20 at 0900, Until Discontinu ed, Routine lisinopriL Yes 10mg 10 mg, Unive rs (PRINIVIL,Z 04-25 Oral, ity of ESTRIL) 15:00: DAILY, [place] tablet 10 00 First dose Medi brunilda mg on [facility] 04/25/20 at 0900, Until Discontinu ed anastrozole Yes 1mg 1 mg, Unive rs (ARIMIDEX) 04-25 Oral, ity of tablet 1 mg 15:00: DAILY, [place] 00 First dose Medical on [facility] 04/25/20 at 0900, Until Discontinu ed, Routine sugammadex 0 2020- No ONCE INTRA Univers (BRIDION) 04-25 PROCEDURE, ity of injection 14:56: 15:14 Starting [place] 00 :23 [facility] 04/25/20 at Branch 0856, Until Sat04/25/20 at 0914, Routine, Intra-op sugammadex 2020-0 2020- No ONCE INTRA Univers (BRIDION) 04-25 PROCEDURE, ity of injection 14:56: 15:14 Starting [place] 00 :23 [facility] 04/25/20 at Branch 0856, Until Sat04/25/20 at 0914, Routine, Intra-op morpHINE 30 2020-0 Yes Univer s mg/30 mL 04-25 ity of (fixed 14:53: [place] dose) PHY THERAPIST 22 Medical injection Branch ondansetron 2020- No ONCE INTRA Univers (ZOFRAN 04-25 PROCEDURE, ity o f (PF)) 14:43: 15:14 Starting [place] injection 00 :23 Mon Medical 04/25/20 at Branch 0843, Until Sat04/25/20 at 0914, Routine, Intra-op ondansetron 2020- No ONCE INTRA Univers (ZOFRAN 04-25 PROCEDURE, ity o f (PF)) 14:43: 15:14 Starting [place] injection 00 :23 Mon Medical 04/25/20 at Branch 0843, Until Sat04/25/20 at 0914, Routine, Intra-op PHENYLephri 2020- No ONCE INTRA Univers ne 1000 04-25 PROCEDURE, ity o f mcg/10 mL 14:08: 15:14 Starting [place] in 0.9% 00 :23 Mon Medical NaCl 04/25/20 at Branch syringe 0808, Until Sat04/25/20 at 0914, Routine, Intra-op PHENYLephri 2020- No ONCE INTRA Univers ne 1000 04-25 PROCEDURE, ity o f mcg/10 mL 14:08: 15:14 Starting [place] in 0.9% 00 :23 Mon Medical NaCl 04/25/20 at Branch syringe 0808, Until Sat04/25/20 at 0914, Routine, Intra-op docusate Yes 100mg 100 mg, Unive rs (COLACE) 04-25 Oral, ity of capsule 100 14:00: Q12H, [place] mg 00 First dose Medical on Sat [place] 04/25/20 at 0800, Until Discontinu ed, Routine vancomycin 2020- No 1000mg 1,000 mg, Univers 1000 mg in 04-25 IV ity of NS 200 mL 14:00: 13:59 [place]gyback, [place] RTU IV 00 :00 Q12H ABX, Medical Piggyback 2 doses, Branch 1,000 mg First dose on Sat04/25/20 at 0800, Last dose on Sat04/25/20 at 2000
Re ason for Anti-Infec tive: Surgical Prophylaxi s
Surgi brunilda Prophylaxi s: Orthopaedi c
Durat ion of therapy: within 24 hours of surgery vancomycin 1000mg 1,000 mg, Univers 1000 mg in 04-25 IV ity of NS 200 mL 14:00: 13:59 [place], [place] RTU IV 00 :00 Q12H ABX, Medical Piggyback 2 doses, Branch 1,000 mg First dose on Sat04/25/20 at 0800, Last dose on Sat04/25/20 at 2000
Re ason for Anti-Infec tive: Surgical Prophylaxi s
Surgi brunilda Prophylaxi s: Orthopaedi c
Durat ion of therapy: within 24 hours of surgery LISINOPRIL Yes Take by Uni vers ORAL - mouth. ity of 13:55: [address] levothyroxi Yes Take by Un gris ne sodium 04-25 mouth. ity of (LEVOTHYROX 13:55: [place] INE ORAL) [address] [place] [id number] DICLOFENAC Yes 75mg Take 75 mg U nivers SODIUM ORAL 04-25 by mouth. ity of 13:55: [address] pantoprazol Yes 40mg Take 40 mg Univers e 40 mg EC 04-25 by mouth. ity of tablet 13:55: [address] LISINOPRIL Yes Take by Uni vers ORAL - mouth. ity of 13:55: [address] levothyroxi Yes Take by Un gris ne sodium - mouth. ity of (LEVOTHYROX 13:55: [place] INE ORAL) [address] [place] [id number] DICLOFENAC Yes 75mg Take 75 mg U nivers SODIUM ORAL 04-25 by mouth. ity of 13:55: [address] pantoprazol Yes 40mg Take 40 mg Univers e 40 mg EC 04-25 by mouth. ity of tablet 13:55: [address] naloxone Yes .4mg 0.4 mg, Univer s (NARCAN) 04-25 Slow IV ity of injection 13:53: Push, [place] 0.4 mg 19 SEE-INSTRU Medical CTIONS, Branch Starting Sat21 at 0753, Until Discontinu ed, Routine FENTanyl PF 2020- No ONCE INTRA Univers (SUBLIMAZE 04-25 PROCEDURE, it y of (PF)) 13:47: 15:14 Starting [place] injection 00 :23 [facility] 04/25/20 at Branch [facility], Until Sat04/25/20 at 0914, Routine, Intra-op FENTanyl PF 2020- No ONCE INTRA Univers (SUBLIMAZE 04-25 PROCEDURE, it y of (PF)) 13:47: 15:14 Starting [place] injection 00 :23 [facility] Medical 04/25/20 at Branch [facility], Until Sat04/25/20 at 0914, Routine, Intra-op rocuronium 2020- No ONCE INTRA Univers (ZEMURON) 04-25 PROCEDURE, ity of injection 13:44: 15:14 Starting [place] 00 :23 [facility] 04/25/20 at [place] [address], Until Sat04/25/20 at 0914, Routine, Intra-op rocuronium 2020- No ONCE INTRA Univers (ZEMURON) 04-25 PROCEDURE, ity of injection 13:44: 15:14 Starting [place] 00 :23 [facility] 04/25/20 at Branch [facility], Until Sat04/25/20 at 0914, Routine, Intra-op propofoL IV 2020- No ONCE INTRA Univers infusion 04-25 PROCEDURE, ity of 13:43: 15:14 Starting [place] 00 :23 [facility] 04/25/20 at [place] [address], Until Sat04/25/20 at 0914, Routine, Intra-op lidocaine 2020- No ONCE INTRA U nivers 1% 04-25 PROCEDURE, ity of (XYLOCAINE) 13:43: 15:14 Starting [place] 100 mg/10 00 :23 [facility] Medical mL (1 %) 04/25/20 at [facility] injection 0743, Until Sat04/25/20 at 0914, Routine, Intra-op propofoL IV 2020- No ONCE INTRA Univers infusion 04-25 PROCEDURE, ity of 13:43: 15:14 Starting [place] 00 :23 [facility] 04/25/20 at Branch 0743, Until Sat04/25/20 at 0914, Routine, Intra-op lidocaine 2020- No ONCE INTRA U nivers 1% 04-25 PROCEDURE, ity of (XYLOCAINE) 13:43: 15:14 Starting [place] 100 mg/10 00 :23 Mon Medical mL (1 %) 04/25/20 at [facility] injection 0743, Until Sat04/25/20 at 0914, Routine, Intra-op morpHINE PF 2020- No ONCE INTRA Univers (DURAMORPH- 04-25 PROCEDURE, i ty of PF) 13:34: 15:14 Starting [place] injection 00 :23 Mon Medical 04/25/20 at Branch 0734, Until Sat04/25/20 at 0914, Routine, Intra-op morpHINE PF 2020- No ONCE INTRA Univers (DURAMORPH- 04-25 PROCEDURE, i ty of PF) 13:34: 15:14 Starting [place] injection 00 :23 Mon Medical 04/25/20 at Branch 0734, Until 04/25/20 at 0914, Routine, Intra-op bupivacaine 2020- No ONCE INTRA Univers -dextrose-w 04-25 PROCEDURE, i ty of ater-pf 13:24: 16:09 Starting [place] (MARCAINE 00 :27 Mon Medical SPINAL 04/25/20 at Branch (PF)) 0.75 0724, % (7.5 Until Mon mg/mL) 04/25/20 at injection 1009, Routine, Intra-op bupivacaine 2020- No ONCE INTRA Univers -dextrose-w 04-25 PROCEDURE, i ty of ater-pf 13:24: 16:09 Starting [place] (MARCAINE 00 :27 Mon Medical SPINAL 04/25/20 at [place] (PF)) 0.75 0724, % (7.5 Until Mon mg/mL) 04/25/20 at injection 1009, Routine, Intra-op lactated 2020- No CONTINUOUS Un gris ringers IV 04-25 PRN, ity of infusion 13:13: 15:19 [place] 00 :05 Mon Medical 04/25/20 at Branch 0713, Until 04/25/20 at 0919, Routine, Intra-op lactated 2020- No CONTINUOUS Un gris ringers IV 04-25 PRN, ity of infusion 13:13: 15:19 [place] 00 :05 [facility] Medical 04/25/20 at Branch 0713, Until 04/25/20 at 0919, Routine, Intra-op tranexamic Yes 635mg 635 mg, IV Univers acid 04-25 Piggyback, ity of (CYKLOKAPRO 13:09: INTRA-PROC [place] N) 635 mg 16 EDURE Medical in NaCl ONCE, Branch 0.9% (NS) Starting 250 mL Mon piggyback 04/25/20 at 0709, Until Discontinu ed, 250 mL, Intra-op tranexamic Yes 635mg 635 mg, IV Univers acid 04-25 Piggyback, ity of (CYKLOKAPRO 13:09: INTRA-PROC [place] N) 635 mg 16 EDURE Medical in NaCl ONCE, Branch 0.9% (NS) Starting 250 mL Mon piggyback 04/25/20 at 0709, Until Discontinu ed, 250 mL, Intra-op ceFAZolin 2020- No 2000mg 2 g (2,000 Univers in dextrose 04-25 mg), IV ity of (iso-os) 12:45: 13:55 [place], [place] (ANCEF) 2 00 :00 ONCE, 1 Medical gram/100 mL dose, [facility] Piggyback 2 04/25/20 at g 0645, 100 mL, DSU Pre-op
Reason for Anti-Infec tive: Surgical Prophylaxi s
Surgi brunilda Prophylaxi s: Orthopaedi c
Durat ion of therapy: within 24 hours of surgery ceFAZolin 2020- No 2000mg 2 g (2,000 Univers in dextrose 04-25-22 mg), IV ity of (iso-os) 12:45: 13:55 [place] (ANCEF) 2 00 :00 ONCE, 1 Medical gram/100 mL dose, [facility] Piggyback 2 04/25/20 at g 0645, 100 mL, DSU Pre-op
Reason for Anti-Infec tive: Surgical Prophylaxi s
Surgi brunilda Prophylaxi s: Orthopaedi c
Durat ion of therapy: within 24 hours of surgery gabapentin No 300mg 300 mg, Un gris (NEURONTIN) 04-25 Oral, ity of capsule 300 12:45: 13:18 ONCE, 1 [place] mg 00 :00 dose, Mon Medical 04/25/20 at Branch [facility], Routine, DSU Pre-op celecoxib 2020- No 400mg 400 mg, Uni vers (CELEBREX) 04-25 Oral, ity of capsule 400 12:45: 13:18 ONCE, 1 [place] mg 00 :00 dose, [facility] Medical 04/25/20 at Branch [facility], Routine, DSU Pre-op lactated No 1000mL at 42 Unive rs ringers IV 04-25 mL/hr, ity of infusion 12:45: 13:07 1,000 mL, [place] 1,000 mL 00 :00 IV Medical Infusion, [place] ONCE, 1 dose, 04/25/20 at [facility], Routine, DSU Pre-op LISINOPRIL Yes Take by Uni vers ORAL 2-19 mouth. ity of 23:59: [address] levothyroxi Yes Take by Un gris ne sodium -19 mouth. ity of (LEVOTHYROX 23:59: [address] DICLOFENAC Yes 75mg Take 75 mg U nivers SODIUM ORAL - by mouth. ity of 23:59: [address] pantoprazol Yes 40mg Take 40 mg Univers e 40 mg EC 04-22 by mouth. ity of tablet 23:59: [address] clindamycin 2019-03- No [id number] 300mg Take 2 Univers 150 mg 03-22-30 capsules ity of capsule 00:00: 05:59 by mouth 4 [place] 00 :00 (four) Medical times [place] daily for 10 days. clindamycin 2019-03- No [id number] 300mg Take 2 Univers 150 mg 03-22-30 capsules ity of capsule 00:00: 05:59 by mouth 4 [place] 00 :00 (four) Medical times Branch daily for 10 days. LISINOPRIL 2019-03 Yes Take by Uni vers ORAL 1-12 mouth. ity of 22:21: [place] [facility] Branch levothyroxi 2019-03 Yes Take by Un gris ne sodium 1-12 mouth. ity of (LEVOTHYROX 22:21: [place] INE ORAL) [facility] Branch DICLOFENAC 2019-03 Yes 75mg Take 75 mg U nivers SODIUM ORAL 1-12 by mouth. ity of 22:21: [address] Branch pantoprazol 2019-03 Yes 40mg Take 40 mg Univers e 40 mg EC 1-12 by mouth. ity of tablet 22:21: [address] Branch LISINOPRIL 2019-03 Yes Take by Uni vers ORAL 1-12 mouth. ity of 22:21: [place] [facility] Branch levothyroxi 2019-03 Yes Take by Un gris ne sodium 1-12 mouth. ity of (LEVOTHYROX 22:21: [place] INE ORAL) [facility] Branch DICLOFENAC 2019-03 Yes 75mg Take 75 mg U nivers SODIUM ORAL 1-12 by mouth. ity of 22:21: [address] Branch pantoprazol 2019-03 Yes 40mg Take 40 mg Univers e 40 mg EC 1-12 by mouth. ity of tablet 22:21: [address] Branch LISINOPRIL 2019-03 Yes Take by Uni vers ORAL 1-12 mouth. ity of 22:21: [address] Branch levothyroxi 2019-03 Yes Take by Un gris ne sodium 1-12 mouth. ity of (LEVOTHYROX 22:21: [place] INE ORAL) [facility] Branch DICLOFENAC 2019-03 Yes 75mg Take 75 mg U nivers SODIUM ORAL 1-12 by mouth. ity of 22:21: [address] Branch pantoprazol 2019-03 Yes 40mg Take 40 mg Univers e 40 mg EC 1-12 by mouth. ity of tablet 22:21: [address] Branch LISINOPRIL 2019-03 Yes Take by Uni vers ORAL 1-12 mouth. ity of 22:21: [address] Branch levothyroxi 2019-03 Yes Take by Un gris ne sodium 1-12 mouth. ity of (LEVOTHYROX 22:21: [place] INE ORAL) [facility] Branch DICLOFENAC 2019-03 Yes 75mg Take 75 mg U nivers SODIUM ORAL 1-12 by mouth. ity of 22:21: [place] [facility] Branch pantoprazol 2019-03 Yes 40mg Take 40 mg Univers e 40 mg EC 1-12 by mouth. ity of tablet 22:21: [place] [facility] Branch LISINOPRIL 2019-03 Yes Take by Uni vers ORAL 1-12 mouth. ity of 22:21: [place] [facility] Branch levothyroxi 2019-03 Yes Take by Un gris ne sodium 1-12 mouth. ity of (LEVOTHYROX 22:21: [place] INE ORAL) [facility] Branch DICLOFENAC 2019-03 Yes 75mg Take 75 mg U nivers SODIUM ORAL 1-12 by mouth. ity of 22:: [place] [facility] pantoprazol 2019-03 Yes 40mg Take 40 mg Univers e 40 mg EC 1-12 by mouth. ity of tablet 22:21: [place] [facility] LISINOPRIL 2019-03 Yes Take by Uni vers ORAL 1-12 mouth. ity of 22:: [address] levothyroxi 2019-03 Yes Take by Un gris ne sodium 1-12 mouth. ity of (LEVOTHYROX 22:21: [place] INE ORAL) [facility] Branch DICLOFENAC 2019-03 Yes 75mg Take 75 mg U nivers SODIUM ORAL 1-12 by mouth. ity of 22:: [address] pantoprazol 2019-03 Yes 40mg Take 40 mg Univers e 40 mg EC 1-12 by mouth. ity of tablet 22:21: [place] [facility] LISINOPRIL 2019-03 Yes Take by Uni vers ORAL 1-12 mouth. ity of 22:: [address] levothyroxi 2019-03 Yes Take by Un gris ne sodium 1-12 mouth. ity of (LEVOTHYROX 22:21: [place] INE ORAL) [facility] Branch DICLOFENAC 2019-03 Yes 75mg Take 75 mg U nivers SODIUM ORAL 1-12 by mouth. ity of 22:: [address] pantoprazol 2019-03 Yes 40mg Take 40 mg Univers e 40 mg EC 1-12 by mouth. ity of tablet 22:21: [address] LISINOPRIL 2019-03 Yes Take by Uni vers ORAL 1-12 mouth. ity of 22:21: [address] levothyroxi 2020-1 Yes Take by Un gris ne sodium 1-12 mouth. ity of (LEVOTHYROX 22:21: [place] INE ORAL) [facility] DICLOFENAC 2019-03 Yes 75mg Take 75 mg U nivers SODIUM ORAL 1-12 by mouth. ity of 22:21: [place] [facility] pantoprazol 2019-03 Yes 40mg Take 40 mg Univers e 40 mg EC 1-12 by mouth. ity of tablet 22:21: [place] [facility] LISINOPRIL 2019-03 Yes Take by Uni vers ORAL 1-12 mouth. ity of 22:21: [place] [facility] levothyroxi 2019-03 Yes Take by Un gris ne sodium 1-12 mouth. ity of (LEVOTHYROX 22:21: [place] INE ORAL) [facility] DICLOFENAC 2019-03 Yes 75mg Take 75 mg U nivers SODIUM ORAL 1-12 by mouth. ity of 22:: [place] [facility] pantoprazol 2019-03 Yes 40mg Take 40 mg Univers e 40 mg EC 1-12 by mouth. ity of tablet 22:21: [place] [facility] LISINOPRIL 2019-03 Yes Take by Uni vers ORAL 1-12 mouth. ity of 22:21: [place] [facility] levothyroxi 2019-03 Yes Take by Un gris ne sodium 1-12 mouth. ity of (LEVOTHYROX 22:21: [place] INE ORAL) [facility] DICLOFENAC 2019-03 Yes 75mg Take 75 mg U nivers SODIUM ORAL 1-12 by mouth. ity of 22:: [place] [facility] pantoprazol 2019-03 Yes 40mg Take 40 mg Univers e 40 mg EC 1-12 by mouth. ity of tablet 22:21: [place] [facility] LISINOPRIL 2019-03 Yes Take by Uni vers ORAL 1-12 mouth. ity of 22:: [address] levothyroxi 2019-03 Yes Take by Un gris ne sodium 1-12 mouth. ity of (LEVOTHYROX 22:21: [place] INE ORAL) [facility] DICLOFENAC 2019-03 Yes 75mg Take 75 mg U nivers SODIUM ORAL 1-12 by mouth. ity of 22:21: [address] pantoprazol 2019-03 Yes 40mg Take 40 mg Univers e 40 mg EC 1-12 by mouth. ity of tablet 22:21: [address] LISINOPRIL 2019-03 Yes Take by Uni vers ORAL 1-12 mouth. ity of 22:21: [place] [facility] Branch levothyroxi 2019-03 Yes Take by Un gris ne sodium 1-12 mouth. ity of (LEVOTHYROX 22:21: [place] INE ORAL) [facility] Branch DICLOFENAC 2019-03 Yes 75mg Take 75 mg U nivers SODIUM ORAL 1-12 by mouth. ity of 22:21: [place] [facility] Branch pantoprazol 2019-03 Yes 40mg Take 40 mg Univers e 40 mg EC 1-12 by mouth. ity of tablet 22:21: [place] [facility] Branch LISINOPRIL 2019-03 Yes Take by Uni vers ORAL 1-12 mouth. ity of 22:21: [place] [facility] Branch levothyroxi 2019-03 Yes Take by Un gris ne sodium 1-12 mouth. ity of (LEVOTHYROX 22:21: [place] INE ORAL) [facility] Branch DICLOFENAC 2019-03 Yes 75mg Take 75 mg U nivers SODIUM ORAL 1-12 by mouth. ity of 22:21: [address] pantoprazol 2019-03 Yes 40mg Take 40 mg Univers e 40 mg EC 1-12 by mouth. ity of tablet 22:21: [place] [facility] LISINOPRIL 2019-03 Yes Take by Uni vers ORAL 1-12 mouth. ity of 22:21: [address] levothyroxi 2019-03 Yes Take by Un gris ne sodium 1-12 mouth. ity of (LEVOTHYROX 22:21: [place] INE ORAL) [facility] Branch DICLOFENAC 2019-03 Yes 75mg Take 75 mg U nivers SODIUM ORAL 1-12 by mouth. ity of 22:21: [address] pantoprazol 2019-03 Yes 40mg Take 40 mg Univers e 40 mg EC 1-12 by mouth. ity of tablet 22:21: [place] [facility] LISINOPRIL 2019-03 Yes Take by Uni vers ORAL 1-12 mouth. ity of 22:21: [address] levothyroxi 2019-03 Yes Take by Un gris ne sodium 1-12 mouth. ity of (LEVOTHYROX 22:21: [place] INE ORAL) [facility] Branch DICLOFENAC 2019-03 Yes 75mg Take 75 mg U nivers SODIUM ORAL 1-12 by mouth. ity of 22:21: [place] 01 Medical Branch pantoprazol 2019-03 Yes 40mg Take 40 mg Univers e 40 mg EC 1-12 by mouth. ity of tablet 22:21: [place] [facility] Branch LISINOPRIL 2019-03 Yes Take by Uni vers ORAL 1-12 mouth. ity of 22:: [place] [facility] levothyroxi 2019-03 Yes Take by Un gris ne sodium 1-12 mouth. ity of (LEVOTHYROX 22:21: [place] INE ORAL) [facility] DICLOFENAC 2019-03 Yes 75mg Take 75 mg U nivers SODIUM ORAL 1-12 by mouth. ity of 22:: [place] [facility] pantoprazol 2019-03 Yes 40mg Take 40 mg Univers e 40 mg EC 1-12 by mouth. ity of tablet 22:21: [place] [facility] LISINOPRIL 2019-03 Yes Take by Uni vers ORAL 1-12 mouth. ity of 22:: [place] [facility] levothyroxi 2019-03 Yes Take by Un gris ne sodium 1-12 mouth. ity of (LEVOTHYROX 22:21: [place] INE ORAL) [facility] DICLOFENAC 2019-03 Yes 75mg Take 75 mg U nivers SODIUM ORAL 1-12 by mouth. ity of 22:: [place] [facility] pantoprazol 2019-03 Yes 40mg Take 40 mg Univers e 40 mg EC 1-12 by mouth. ity of tablet 22:21: [place] [facility] LISINOPRIL 2019-03 Yes Take by Uni vers ORAL 1-12 mouth. ity of 22:: [place] [facility] levothyroxi 2019-03 Yes Take by Un gris ne sodium 1-12 mouth. ity of (LEVOTHYROX 22:21: [place] INE ORAL) [facility] DICLOFENAC 2019-03 Yes 75mg Take 75 mg U nivers SODIUM ORAL 1-12 by mouth. ity of 22:: [place] [facility] pantoprazol 2019-03 Yes 40mg Take 40 mg Univers e 40 mg EC 1-12 by mouth. ity of tablet 22:21: [place] [facility] LISINOPRIL 2019-03 Yes Take by Uni vers ORAL 1-12 mouth. ity of 22:: [place] [facility] levothyroxi 2019-03 Yes Take by Un gris ne sodium 1-12 mouth. ity of (LEVOTHYROX 22:21: [place] INE ORAL) [address] [place] [address] DICLOFENAC 2019-03 Yes 75mg Take 75 mg U nivers SODIUM ORAL 1-12 by mouth. ity of 22:21: [address] Branch pantoprazol 2019-03 Yes 40mg Take 40 mg Univers e 40 mg EC 12 by mouth. ity of tablet 22:21: [address] LISINOPRIL 2019-03 Yes Take by Uni vers ORAL -12 mouth. ity of 22:: [address] Branch levothyroxi 2019-03 Yes Take by Un gris ne sodium -12 mouth. ity of (LEVOTHYROX 22:21: [place] INE ORAL) [facility] DICLOFENAC 2019-03 Yes 75mg Take 75 mg U nivers SODIUM ORAL 1-12 by mouth. ity of 22:: [address] pantoprazol 2019-03 Yes 40mg Take 40 mg Univers e 40 mg EC 12 by mouth. ity of tablet 22:21: [address] sulfamethox 2019-03 Yes 1{tbl} 1 tablet, Univers azole-trime 12 Oral, BID, it y of thoprim 17:15: [place] (BACTRIM 00 on [facility] Medical DS) [id number] 01/14/20 Bran ch mg per at 1115, tablet 1 Until tablet Discontinu ed, NEEMA
Re ason for Anti-Infec tive: Empiric Therapy for Suspected Infection< br>Empiric Therapy Site: Skin / Soft tissue
Duration of therapy: 72 hours aspirin 2019-03- No 325mg 325 mg, Unive rs E.C. 03-15 Oral, ity of (ECOTRIN) 15:00: 14:59 DAILY, [place] tablet 325 00 :00 doses, Medical mg First dose Branch (after last modificati on) on [place] 01/14/20 at 0900, Last dose on Sat03/04/20 at 0900, Routine traMADoL 2019-03 Yes 50mg 50 mg, Univers (ULTRAM) 12 Oral, ity of tablet 50 01:07: Q8HPRN, [place] mg 39 Starting Medical Wed Branch 01/13/20 at 1907, Until Discontinu ed, Routine, Pain (scale 1-3) clindamycin 2019-03 2020- No [id number] 300mg Take 2 Univers 150 mg 1-12 11-12 capsules ity of capsule 00:00: 00:00 by mouth 4 [place] 00 :00 (four) Medical times Branch daily for 10 days. lactated 2019-03 2020- No 1000mL at 75 Un[facility] rs ringers IV 1-11 11-12 mL/hr, ity of infusion 22:45: 17:00 1,000 mL, Antoine as 1,000 mL 00 :17 IV Medical Infusion, Branch CONTINUOUS , Starting 01/13/20 at 1645, Until [place]ie 01/14/20 at 1100, Routine, PACU melatonin 2019-03 Yes 3mg 3 mg, [facility] (MELATIN) 1-11 Oral, ity of tablet 3 mg 05:58: QHSPRN, [place] as 41 Starting Medical Tue Branch 01/12/20 at 2358, Until Discontinu ed, Routine, Insomnia acidophilus 2019-03 Yes [id number] 1g Take 1 [facility] 100 million 1-11 tablet by ity of cell tablet 00:00: mouth 2 [place] 00 (two) Medical times Branch daily. acidophilus 2019-03 Yes [id number] 1g Take 1 [facility] 100 million 1-11 tablet by ity of cell tablet 00:00: mouth 2 [place] 00 (two) Medical times Branch daily. acidophilus 2019-03 Yes [id number] 1g Take 1 [facility] 100 million 1-11 tablet by ity of cell tablet 00:00: mouth 2 [place] 00 (two) Medical times Branch daily. acidophilus 2019-03 Yes [id number] 1g Take 1 [facility] 100 million 1-11 tablet by ity of cell tablet 00:00: mouth 2 [place] 00 (two) Medical times Branch daily. acidophilus 2019-03 Yes [id number] 1g Take 1 [facility] 100 million 1-11 tablet by ity of cell tablet 00:00: mouth 2 [place] 00 (two) Medical times Branch daily. acidophilus 2019- Yes [id number] 1g Take 1 [facility] 100 million 1-11 tablet by ity of cell tablet 00:00: mouth 2 [place] 00 (two) Medical times Branch daily. acidophilus 2019- Yes [id number] 1g Take 1 [facility] 100 million 1-11 tablet by ity of cell tablet 00:00: mouth 2 [place] 00 (two) Medical times Branch daily. acidophilus 2019- Yes [id number] 1g Take 1 [facility] 100 million 1-11 tablet by ity of cell tablet 00:00: mouth 2 [place] 00 (two) Medical times Branch daily. acidophilus 2019- Yes [id number] 1g Take 1 [facility] 100 million 1-11 tablet by ity of cell tablet 00:00: mouth 2 [place] 00 (two) Medical times Branch daily. acidophilus 2019- Yes [id number] 1g Take 1 [facility] 100 million 1-11 tablet by ity of cell tablet 00:00: mouth 2 [place] 00 (two) Medical times Branch daily. acidophilus 2019- Yes [id number] 1g Take 1 [facility] 100 million 1-11 tablet by ity of cell tablet 00:00: mouth 2 [place] 00 (two) Medical times Branch daily. acidophilus 2019- Yes [id number] 1g Take 1 [facility] 100 million 1-11 tablet by ity of cell tablet 00:00: mouth 2 [place] 00 (two) Medical times Branch daily. acidophilus 2019- Yes [id number] 1g Take 1 [facility] 100 million 1-11 tablet by ity of cell tablet 00:00: mouth 2 [place] 00 (two) Medical times Branch daily. acidophilus 2019- Yes [id number] 1g Take 1 [facility] 100 million 1-11 tablet by ity of cell tablet 00:00: mouth 2 [place] 00 (two) Medical times Branch daily. acidophilus 2019- Yes [id number] 1g Take 1 [facility] 100 million 1-11 tablet by ity of cell tablet 00:00: mouth 2 [place] 00 (two) Medical times Branch daily. acidophilus 2019- Yes [id number] 1g Take 1 [facility] 100 million 1-11 tablet by ity of cell tablet 00:00: mouth 2 [place] 00 (two) Medical times Branch daily. acidophilus 2019- Yes [id number] 1g Take 1 [facility] 100 million 1-11 tablet by ity of cell tablet 00:00: mouth 2 [place] 00 (two) Medical times Branch daily. acidophilus 2020-1 Yes [id number] 1g Take 1 [facility] 100 million 1-11 tablet by ity of cell tablet 00:00: mouth 2 [place] 00 (two) Medical times Branch daily. acidophilus 2019-1 Yes [id number] 1g Take 1 [facility] 100 million 1-11 tablet by ity of cell tablet 00:00: mouth 2 [place] 00 (two) Medical times Branch daily. acidophilus 2019-1 Yes [id number] 1g Take 1 [facility] 100 million 1-11 tablet by ity of cell tablet 00:00: mouth 2 [place] 00 (two) Medical times Branch daily. acidophilus 2020- Yes [id number] 1g Take 1 [facility] 100 million 1-11 tablet by ity of cell tablet 00:00: mouth 2 [place] 00 (two) Medical times Branch daily. acidophilus 2020-1 Yes [id number] 1g Take 1 [facility] 100 million 1-11 tablet by ity of cell tablet 00:00: mouth 2 [place] 00 (two) Medical times Branch daily. acidophilus 2019- Yes [id number] 1g Take 1 [facility] 100 million 1-11 tablet by ity of cell tablet 00:00: mouth 2 [place] 00 (two) Medical times Branch daily. acidophilus 2019-1 Yes [id number] 1g Take 1 [facility] 100 million 1-11 tablet by ity of cell tablet 00:00: mouth 2 [place] 00 (two) Medical times Branch daily. acidophilus 2019- Yes [id number] 1g Take 1 [facility] 100 million 1-11 tablet by ity of cell tablet 00:00: mouth 2 [place] 00 (two) Medical times Branch daily. acidophilus 2019-1 Yes [id number] 1g Take 1 [facility] 100 million 1-11 tablet by ity of cell tablet 00:00: mouth 2 [place] 00 (two) Medical times Branch daily. acidophilus 2019-1 Yes [id number] 1g Take 1 [facility] 100 million 1-11 tablet by ity of cell tablet 00:00: mouth 2 [place] 00 (two) Medical times Branch daily. acidophilus 2019-1 Yes [id number] 1g Take 1 [facility] 100 million 1-11 tablet by ity of cell tablet 00:00: mouth 2 [place] 00 (two) Medical times Branch daily. acidophilus 2020-1 Yes [id number] 1g Take 1 [facility] 100 million 1-11 tablet by ity of cell tablet 00:00: mouth 2 [place] 00 (two) Medical times Branch daily. acidophilus 2020-1 Yes [id number] 1g Take 1 [facility] 100 million 1-11 tablet by ity of cell tablet 00:00: mouth 2 [place] 00 (two) Medical times Branch daily. acidophilus 2020-1 Yes [id number] 1g Take 1 [facility] 100 million 1-11 tablet by ity of cell tablet 00:00: mouth 2 [place] 00 (two) Medical times Branch daily. acidophilus 2020-1 Yes [id number] 1g Take 1 [facility] 100 million 1-11 tablet by ity of cell tablet 00:00: mouth 2 [place] 00 (two) Medical times Branch daily. acidophilus 2020-1 Yes [id number] 1g Take 1 [facility] 100 million 1-11 tablet by ity of cell tablet 00:00: mouth 2 [place] 00 (two) Medical times Branch daily. acidophilus 2020-1 Yes [id number] 1g Take 1 [facility] 100 million 1-11 tablet by ity of cell tablet 00:00: mouth 2 [place] 00 (two) Medical times Branch daily. acidophilus 2020-1 Yes [id number] 1g Take 1 [facility] 100 million 1-11 tablet by ity of cell tablet 00:00: mouth 2 [place] 00 (two) Medical times Branch daily. acidophilus 2020-1 Yes [id number] 1g Take 1 [facility] 100 million 1-11 tablet by ity of cell tablet 00:00: mouth 2 [place] 00 (two) Medical times Branch daily. acidophilus 2020-1 Yes [id number] 1g Take 1 [facility] 100 million 1-11 tablet by ity of cell tablet 00:00: mouth 2 [place] 00 (two) Medical times Branch daily. acidophilus 2020-1 Yes [id number] 1g Take 1 [facility] 100 million 1-11 tablet by ity of cell tablet 00:00: mouth 2 [place] 00 (two) Medical times Branch daily. acidophilus 2020-1 Yes [id number] 1g Take 1 [facility] 100 million 1-11 tablet by ity of cell tablet 00:00: mouth 2 [place] 00 (two) Medical times Branch daily. acidophilus 2020-1 Yes [id number] 1g Take 1 [facility] 100 million 1-11 tablet by ity of cell tablet 00:00: mouth 2 [place] 00 (two) Medical times Branch daily. acidophilus 2020-1 Yes [id number] 1g Take 1 [facility] 100 million 1-11 tablet by ity of cell tablet 00:00: mouth 2 [place] 00 (two) Medical times Branch daily. acidophilus 2020-1 Yes [id number] 1g Take 1 [facility] 100 million 1-11 tablet by ity of cell tablet 00:00: mouth 2 [place] 00 (two) Medical times Branch daily. acidophilus 2020-1 Yes [id number] 1g Take 1 [facility] 100 million 1-11 tablet by ity of cell tablet 00:00: mouth 2 [place] 00 (two) Medical times Branch daily. acidophilus 2020-1 Yes [id number] 1g Take 1 [facility] 100 million 1-11 tablet by ity of cell tablet 00:00: mouth 2 [place] 00 (two) Medical times Branch daily. acidophilus 2019- Yes [id number] 1g Take 1 [facility] 100 million 1-11 tablet by ity of cell tablet 00:00: mouth 2 [place] 00 (two) Medical times Branch daily. acidophilus 2019- Yes [id number] 1g Take 1 [facility] 100 million 1-11 tablet by ity of cell tablet 00:00: mouth 2 [place] 00 (two) Medical times Branch daily. acidophilus 2019- Yes [id number] 1g Take 1 [facility] 100 million 1-11 tablet by ity of cell tablet 00:00: mouth 2 [place] 00 (two) Medical times Branch daily. acidophilus 2019- Yes [id number] 1g Take 1 [facility] 100 million 1-11 tablet by ity of cell tablet 00:00: mouth 2 [place] 00 (two) Medical times Branch daily. acidophilus 2019- Yes [id number] 1g Take 1 [facility] 100 million 1-11 tablet by ity of cell tablet 00:00: mouth 2 [place] 00 (two) Medical times Branch daily. acidophilus 2019- Yes [id number] 1g Take 1 [facility] 100 million 1-11 tablet by ity of cell tablet 00:00: mouth 2 [place] 00 (two) Medical times Branch daily. sulfamethox 2019-03 2020- No [id number] 1{tbl} Take 1 [facility] azole-trime 1-11 11-19 tablet by it y of thoprim 00:00: 05:59 mouth 2 [place] 800-160 mg 00 :00 (two) Medical per tablet times Branch daily for 7 days. sulfamethox 2019-03 2020- No [id number] 1{tbl} Take 1 [facility] azole-trime 1-11 11-19 tablet by it y of thoprim 00:00: 05:59 mouth 2 [place] 800-160 mg 00 :00 (two) Medical per tablet times Branch daily for 7 days. sulfamethox 2019-03 2020- No [id number] 1{tbl} Take 1 [facility] azole-trime 1-11 11-19 tablet by it y of thoprim 00:00: 05:59 mouth 2 [place] 800-160 mg 00 :00 (two) Medical per tablet times Branch daily for 7 days. sulfamethox 2019-03- No [id number] 1{tbl} Take 1 [facility] azole-trime 03-14 tablet by it y of thoprim 00:00: 05:59 mouth 2 [place] 800-160 mg 00 :00 (two) Medical per tablet times Branch daily for 7 days. sulfamethox 2019-03 2020- No [id number] 1{tbl} Take 1 [facility] azole-trime 03-14 tablet by it y of thoprim 00:00: 05:59 mouth 2 [place] 800-160 mg 00 :00 (two) Medical per tablet times Branch daily for 7 days. vancomycin 2019-03- No 15mg/kg 1,000 mg Univers (VANCOCIN) 03-13 (rounded ity of 1,000 mg in 18:15: 02:58 from 967.5 [place] NaCl 0.9% 00 :54 mg = 15 Medical (NS) 250 mL mg/kg Branch VIAL-MATE ?64.5 kg), IV IV piggyback Piggyback, Q24H ABX, First dose on 01/12/20 at 1215, Until Discontinu ed, 250 mL
Reas on for Anti-Infec tive: Documented Infection< br>Documen saud Infection Site: Skin / Soft Tissue
Duration of Therapy: 7 days thiamine 2019-03 Yes 100mg 100 mg, Unive rs (VITAMIN 1-10 Oral, ity of B1) tablet 15:00: DAILY, [place] 100 mg 00 First dose Medical on [facility] 01/12/20 at 0900, Until Discontinu ed, Routine pantoprazol 2019-03 Yes 40mg 40 mg, Univ ers e 1-10 Oral, ity of (PROTONIX) 15:00: DAILY, [place] EC tablet 00 First dose Medi brunilda 40 mg on [facility] 01/12/20 at 0900, Until Discontinu ed, Routine anastrozole 2019-03 Yes 1mg 1 mg, Unive rs (ARIMIDEX) 1-10 Oral, ity of tablet 1 mg 15:00: DAILY, [place] 00 First dose Medical on [facility] 01/12/20 at 0900, Until Discontinu ed, Routine levothyroxi 2019-03 Yes 50ug 50 mcg, Uni vers ne 1-10 Oral, ity of (SYNTHROID) 12:00: QAM-0600, [place] tablet 50 00 First dose Medi brunilda mcg on Tu Branch 01/12/20 at 0600, Until Discontinu ed, Routine docusate 2019-03 Yes 100mg 100 mg, Unive rs (COLACE) 110 Oral, ity of capsule 100 02:00: Q12H, [place] mg 00 First dose Medical on [facility] Branch 01/11/20 at 2000, Until Discontinu ed, Routine aspirin 2019-03- No 325mg 325 mg, Unive rs E.C. 03-12 Oral, BID ity of (ECOTRIN) 23:00: 02:58 [place]ALS, 56 [place] tablet 325 00 :57 doses, Medical mg First dose Branch on Sat01/11/20 at 1700, Last dose on Sat02/08/20 at 0800, Routine levothyroxi 2019-03 Yes Take by Un gris ne sodium 03-12 mouth. ity of (LEVOTHYROX 16:58: [place] INE ORAL) [address] [place] [id number] DICLOFENAC 2019-03 Yes 75mg Take 75 mg U nivers SODIUM ORAL 03-12 by mouth. ity of 16:58: [address] LISINOPRIL 2019-03 Yes Take by Uni vers ORAL 03-12 mouth. ity of 15:51: [address] pantoprazol 2019-03 Yes 40mg Take 40 mg Univers e 40 mg EC 03-12 by mouth. ity of tablet 15:51: [address] ondansetron 2019-03 Yes 4mg 4 mg, Slow Univers (ZOFRAN 03-12 IV Push, ity of (PF)) 15:50: Q6HPRN, [place] injection 4 06 Starting Medi brunilda mg [facility] 01/11/20 at 0950, Until Discontinu ed, Routine, Nausea and Vomiting (N/V) oxyCODONE-a 2019-03 2020- No 2{tbl} 2 tablet, Univers cetaminophe 03-12 Oral, ity of n 15:45: 16:03 ONCE, 1 [place] (PERCOCET) 00 :00 dose, Mon Medi brunilda 5-325 mg 01/11/20 at Branc h per tablet 0945, 2 tablet Routine, DSU Pre-op gabapentin 2019-03 2020- No 300mg 300 mg, Un gris (NEURONTIN) 1-09 11-09 Oral, ity of capsule 300 15:45: 16:03 ONCE, 1 [place] mg 00 :00 dose, [facility] Medical 01/11/20 at Branch 0945, Routine, DSU Pre-op celecoxib 2019-03 2020- No 400mg 400 mg, Uni vers (CELEBREX) 03-12 Oral, ity of capsule 400 15:45: 16:03 ONCE, 1 [place] mg 00 :00 dose, [facility] Medical 01/11/20 at Branch 0945, Routine, DSU Pre-op lactated 2019-03 2020- No 1000mL at 42 [facility] [place] rs ringers IV 03-12 mL/hr, ity of infusion 15:45: 15:57 1,000 mL, [place] as 1,000 mL 00 :00 IV Medical Infusion, [place] ONCE, 1 dose, [facility] 01/11/20 at 09, Routine, DSU Pre-op LISINOPRIL 2019-03 Yes Take by Uni vers ORAL 1-05 mouth. ity of 16:36: [address] pantoprazol 2019-03 Yes 40mg Take 40 mg Univers e 40 mg EC 1-05 by mouth. ity of tablet 16:36: [address] LISINOPRIL 2019-03 Yes Take by Uni vers ORAL 1-05 mouth. ity of 16:36: [address] pantoprazol 2019-03 Yes 40mg Take 40 mg Univers e 40 mg EC 1-05 by mouth. ity of tablet 16:36: [address] LISINOPRIL 2019-03 Yes Take by Uni vers ORAL 1-05 mouth. ity of 16:36: [address] pantoprazol 2019-03 Yes 40mg Take 40 mg Univers e 40 mg EC 1-05 by mouth. ity of tablet 16:36: [address] DICLOFENAC 2019-03 Yes 75mg Take 75 mg U nivers SODIUM ORAL 0-20 by mouth. ity of 18:16: [address] pantoprazol 2019-03 Yes 40mg Take 40 mg Univers e 40 mg EC 0-20 by mouth. ity of tablet 18:16: [address] DICLOFENAC 2019-03 Yes 75mg Take 75 mg U nivers SODIUM ORAL 0-20 by mouth. ity of 18:16: [address] pantoprazol 2019-03 Yes 40mg Take 40 mg Univers e 40 mg EC 0-20 by mouth. ity of tablet 18:16: [place] [address] Medical Branch DICLOFENAC 2019-03 Yes 75mg Take 75 mg U nivers SODIUM ORAL 0-20 by mouth. ity of 18:16: [place] [address] Medical Branch pantoprazol 2019-03 Yes 40mg Take 40 mg Univers e 40 mg EC 0-20 by mouth. ity of tablet 18:16: [place] [address] Medical Branch DICLOFENAC 2019-03 Yes 75mg Take 75 mg U nivers SODIUM ORAL 0-20 by mouth. ity of 18:16: [place] [address] Medical Branch pantoprazol 2019-03 Yes 40mg Take 40 mg Univers e 40 mg EC 0-20 by mouth. ity of tablet 18:16: [place] [address] Medical Branch DICLOFENAC 2019-03 Yes 75mg Take 75 mg U nivers SODIUM ORAL 0-20 by mouth. ity of 18:16: [place] [address] Medical Branch DICLOFENAC 2019-03 Yes 75mg Take 75 mg U nivers SODIUM ORAL 0-20 by mouth. ity of 18:16: [place] [address] Medical Branch DICLOFENAC 2019-03 Yes 75mg Take 75 mg U nivers SODIUM ORAL 0-20 by mouth. ity of 18:16: [place] [address] Medical Branch thiamine 2019-03 Yes 100mg Take 100 Univ ers 100 mg 0-12 mg by ity of tablet 00:00: mouth daily. Medical Branch aspirin 81 2019-03 Yes 81mg Take 81 mg U nivers mg EC 0-12 by mouth ity of tablet 00:00: daily. [place] Medical Branch thiamine 2019- Yes 100mg Take 100 Univ ers 100 mg 0-12 mg by ity of tablet 00:00: mouth daily. Medical Branch aspirin 81 2019-03 Yes 81mg Take 81 mg U nivers mg EC 0-12 by mouth ity of tablet 00:00: daily. Medical Branch thiamine 2020- Yes 100mg Take 100 Univ ers 100 mg 0-12 mg by ity of tablet 00:00: mouth daily. Medical Branch aspirin 81 2019- Yes 81mg Take 81 mg U nivers mg EC 0-12 by mouth ity of tablet 00:00: daily. Medical Branch thiamine 2020- Yes 100mg Take 100 Univ ers 100 mg 0-12 mg by ity of tablet 00:00: mouth daily. Medical Branch aspirin 81 2019- Yes 81mg Take 81 mg U nivers mg EC 0-12 by mouth ity of tablet 00:00: daily. Medical Branch thiamine 2020- Yes 100mg Take 100 Univ ers 100 mg 0-12 mg by ity of tablet 00:00: mouth [place] 00 daily. Medical Branch aspirin 81 2020- Yes 81mg Take 81 mg U nivers mg EC 0-12 by mouth ity of tablet 00:00: daily. Medical Branch thiamine 2020- Yes 100mg Take 100 Univ ers 100 mg 0-12 mg by ity of tablet 00:00: mouth [place] 00 daily. Medical Branch aspirin 81 2019- Yes 81mg Take 81 mg U nivers mg EC 0-12 by mouth ity of tablet 00:00: daily. Medical Branch thiamine 2020- Yes 100mg Take 100 Univ ers 100 mg 0-12 mg by ity of tablet 00:00: mouth [place] 00 daily. Medical Branch aspirin 81 2019- Yes 81mg Take 81 mg U nivers mg EC 0-12 by mouth ity of tablet 00:00: daily. Medical Branch thiamine 2020- Yes 100mg Take 100 Univ ers 100 mg 0-12 mg by ity of tablet 00:00: mouth [place] 00 daily. Medical Branch aspirin 81 2019- Yes 81mg Take 81 mg U nivers mg EC 0-12 by mouth ity of tablet 00:00: daily. Medical Branch thiamine 2020- Yes 100mg Take 100 Univ ers 100 mg 0-12 mg by ity of tablet 00:00: mouth [place] 00 daily. Medical Branch aspirin 81 2019- Yes 81mg Take 81 mg U nivers mg EC 0-12 by mouth ity of tablet 00:00: daily. Medical Branch thiamine 2020-1 Yes 100mg Take 100 Univ ers 100 mg 0-12 mg by ity of tablet 00:00: mouth [place] 00 daily. Medical Branch aspirin 81 2020- Yes 81mg Take 81 mg U nivers mg EC 0-12 by mouth ity of tablet 00:00: daily. Medical Branch thiamine 2020-1 Yes 100mg Take 100 Univ ers 100 mg 0-12 mg by ity of tablet 00:00: mouth [place] 00 daily. Medical Branch aspirin 81 2020- Yes 81mg Take 81 mg U nivers mg EC 0-12 by mouth ity of tablet 00:00: daily. Medical Branch thiamine 2020-1 Yes 100mg Take 100 Univ ers 100 mg 0-12 mg by ity of tablet 00:00: mouth [place] 00 daily. Medical Branch aspirin 81 2020- Yes 81mg Take 81 mg U nivers mg EC 0-12 by mouth ity of tablet 00:00: daily. Medical Branch thiamine 2020-1 Yes 100mg Take 100 Univ ers 100 mg 0-12 mg by ity of tablet 00:00: mouth [place] 00 daily. Medical Branch aspirin 81 2020- Yes 81mg Take 81 mg U nivers mg EC 0-12 by mouth ity of tablet 00:00: daily. Medical Branch thiamine 2020- Yes 100mg Take 100 Univ ers 100 mg 0-12 mg by ity of tablet 00:00: mouth [place] 00 daily. Medical Branch aspirin 81 2019- Yes 81mg Take 81 mg U nivers mg EC 0-12 by mouth ity of tablet 00:00: daily. Medical Branch thiamine 2020- Yes 100mg Take 100 Univ ers 100 mg 0-12 mg by ity of tablet 00:00: mouth 00 daily. Medical Branch aspirin 81 2019- Yes 81mg Take 81 mg U nivers mg EC 0-12 by mouth ity of tablet 00:00: daily. Medical Branch thiamine 2020- Yes 100mg Take 100 Univ ers 100 mg 0-12 mg by ity of tablet 00:00: mouth 00 daily. Medical Branch aspirin 81 2020-1 Yes 81mg Take 81 mg U nivers mg EC 0-12 by mouth ity of tablet 00:00: daily. Medical Branch thiamine 2020-1 Yes 100mg Take 100 Univ ers 100 mg 0-12 mg by ity of tablet 00:00: mouth 00 daily. Medical Branch aspirin 81 2020- Yes 81mg Take 81 mg U nivers mg EC 0-12 by mouth ity of tablet 00:00: daily. Medical Branch thiamine 2020-1 Yes 100mg Take 100 Univ ers 100 mg 0-12 mg by ity of tablet 00:00: mouth [place] 00 daily. Medical Branch aspirin 81 2020-1 Yes 81mg Take 81 mg U nivers mg EC 0-12 by mouth ity of tablet 00:00: daily. Medical Branch thiamine 2020-1 Yes 100mg Take 100 Univ ers 100 mg 0-12 mg by ity of tablet 00:00: mouth [place] 00 daily. Medical Branch aspirin 81 2020- Yes 81mg Take 81 mg U nivers mg EC 0-12 by mouth ity of tablet 00:00: daily. Medical Branch thiamine 2020-1 Yes 100mg Take 100 Univ ers 100 mg 0-12 mg by ity of tablet 00:00: mouth [place] 00 daily. Medical Branch aspirin 81 2020- Yes 81mg Take 81 mg U nivers mg EC 0-12 by mouth ity of tablet 00:00: daily. Medical Branch thiamine 2020-1 Yes 100mg Take 100 Univ ers 100 mg 0-12 mg by ity of tablet 00:00: mouth [place] 00 daily. Medical Branch aspirin 81 2020- Yes 81mg Take 81 mg U nivers mg EC 0-12 by mouth ity of tablet 00:00: daily. Medical Branch thiamine 2020-1 Yes 100mg Take 100 Univ ers 100 mg 0-12 mg by ity of tablet 00:00: mouth [place] 00 daily. Medical Branch aspirin 81 2020- Yes 81mg Take 81 mg U nivers mg EC 0-12 by mouth ity of tablet 00:00: daily. Medical Branch thiamine 2020-1 Yes 100mg Take 100 Univ ers 100 mg 0-12 mg by ity of tablet 00:00: mouth [place] daily. Medical Branch aspirin 81 2020-1 Yes 81mg Take 81 mg U nivers mg EC 0-12 by mouth ity of tablet 00:00: daily. Medical Branch thiamine 2020-1 Yes 100mg Take 100 Univ ers 100 mg 0-12 mg by ity of tablet 00:00: mouth daily. Medical Branch aspirin 81 2020- Yes 81mg Take 81 mg U nivers mg EC 0-12 by mouth ity of tablet 00:00: daily. Medical Branch thiamine 2020-1 Yes 100mg Take 100 Univ ers 100 mg 0-12 mg by ity of tablet 00:00: mouth [place] 00 daily. Medical Branch aspirin 81 2020-1 Yes 81mg Take 81 mg U nivers mg EC 0-12 by mouth ity of tablet 00:00: daily. Medical Branch thiamine 2020-1 Yes 100mg Take 100 Univ ers 100 mg 0-12 mg by ity of tablet 00:00: mouth [place] 00 daily. Medical Branch aspirin 81 2020-1 Yes 81mg Take 81 mg U nivers mg EC 0-12 by mouth ity of tablet 00:00: daily. Medical Branch thiamine 2020-1 Yes 100mg Take 100 Univ ers 100 mg 0-12 mg by ity of tablet 00:00: mouth [place] 00 daily. Medical Branch aspirin 81 2020- Yes 81mg Take 81 mg U nivers mg EC 0-12 by mouth ity of tablet 00:00: daily. Medical Branch thiamine 2020- Yes 100mg Take 100 Univ ers 100 mg 0-12 mg by ity of tablet 00:00: mouth [place] 00 daily. Medical Branch aspirin 81 2020- Yes 81mg Take 81 mg U nivers mg EC 0-12 by mouth ity of tablet 00:00: daily. Medical Branch thiamine 2020- Yes 100mg Take 100 Univ ers 100 mg 0-12 mg by ity of tablet 00:00: mouth [place] 00 daily. Medical Branch aspirin 81 2020- Yes 81mg Take 81 mg U nivers mg EC 0-12 by mouth ity of tablet 00:00: daily. Medical Branch thiamine 2020- Yes 100mg Take 100 Univ ers 100 mg 0-12 mg by ity of tablet 00:00: mouth [place] 00 daily. Medical Branch aspirin 81 2020-1 Yes 81mg Take 81 mg U nivers mg EC 0-12 by mouth ity of tablet 00:00: daily. Medical Branch thiamine 2020-1 Yes 100mg Take 100 Univ ers 100 mg 0-12 mg by ity of tablet 00:00: mouth [place] daily. Medical Branch aspirin 81 2020-1 Yes 81mg Take 81 mg U nivers mg EC 0-12 by mouth ity of tablet 00:00: daily. Medical Branch thiamine 2020-1 Yes 100mg Take 100 Univ ers 100 mg 0-12 mg by ity of tablet 00:00: mouth [place] 00 daily. Medical Branch aspirin 81 2020-1 Yes 81mg Take 81 mg U nivers mg EC 0-12 by mouth ity of tablet 00:00: daily. Medical Branch thiamine 2020-1 Yes 100mg Take 100 Univ ers 100 mg 0-12 mg by ity of tablet 00:00: mouth [place] 00 daily. Medical Branch aspirin 81 2020-1 Yes 81mg Take 81 mg U nivers mg EC 0-12 by mouth ity of tablet 00:00: daily. Medical Branch thiamine 2020-1 Yes 100mg Take 100 Univ ers 100 mg 0-12 mg by ity of tablet 00:00: mouth [place] 00 daily. Medical Branch aspirin 81 2020- Yes 81mg Take 81 mg U nivers mg EC 0-12 by mouth ity of tablet 00:00: daily. Medical Branch thiamine 2020- Yes 100mg Take 100 Univ ers 100 mg 0-12 mg by ity of tablet 00:00: mouth [place] 00 daily. Medical Branch aspirin 81 2019- Yes 81mg Take 81 mg U nivers mg EC 0-12 by mouth ity of tablet 00:00: daily. Medical Branch thiamine 2020- Yes 100mg Take 100 Univ ers 100 mg 0-12 mg by ity of tablet 00:00: mouth [place] 00 daily. Medical Branch aspirin 81 2019- Yes 81mg Take 81 mg U nivers mg EC 0-12 by mouth ity of tablet 00:00: daily. Medical Branch thiamine 2020- Yes 100mg Take 100 Univ ers 100 mg 0-12 mg by ity of tablet 00:00: mouth 00 daily. Medical Branch aspirin 81 2019- Yes 81mg Take 81 mg U nivers mg EC 0-12 by mouth ity of tablet 00:00: daily. Medical Branch thiamine 2020- Yes 100mg Take 100 Univ ers 100 mg 0-12 mg by ity of tablet 00:00: mouth [place] 00 daily. Medical Branch aspirin 81 2019- Yes 81mg Take 81 mg U nivers mg EC 0-12 by mouth ity of tablet 00:00: daily. Medical Branch thiamine 2020- Yes 100mg Take 100 Univ ers 100 mg 0-12 mg by ity of tablet 00:00: mouth [place] 00 daily. Medical Branch aspirin 81 2020- Yes 81mg Take 81 mg U nivers mg EC 0-12 by mouth ity of tablet 00:00: daily. Medical Branch thiamine 2020- Yes 100mg Take 100 Univ ers 100 mg 0-12 mg by ity of tablet 00:00: mouth [place] 00 daily. Medical Branch aspirin 81 2020-1 Yes 81mg Take 81 mg U nivers mg EC 0-12 by mouth ity of tablet 00:00: daily. Medical Branch thiamine 2020- Yes 100mg Take 100 Univ ers 100 mg 0-12 mg by ity of tablet 00:00: mouth [place] 00 daily. Medical Branch aspirin 81 2019- Yes 81mg Take 81 mg U nivers mg EC 0-12 by mouth ity of tablet 00:00: daily. [facility] thiamine 2020- Yes 100mg Take 100 [facility] 100 mg 0-12 mg by ity of tablet 00:00: mouth [place] 00 daily. [facility] aspirin 81 2020- Yes 81mg Take 81 mg [facility] nivers mg EC 0-12 by mouth ity of tablet 00:00: daily. [facility] thiamine 2020- Yes 100mg Take 100 [facility] 100 mg 0-12 mg by ity of tablet 00:00: mouth [place] 00 daily. [facility] aspirin 81 2020- Yes 81mg Take 81 mg [facility] nivers mg EC 0-12 by mouth ity of tablet 00:00: daily. [facility] thiamine 2020- Yes 100mg Take 100 [facility] 100 mg 0-12 mg by ity of tablet 00:00: mouth [place] 00 daily. [facility] aspirin 81 2020- Yes 81mg Take 81 mg [facility] nivers mg EC 0-12 by mouth ity of tablet 00:00: daily. [facility] thiamine 2020-1 Yes 100mg Take 100 [facility] 100 mg 0-12 mg by ity of tablet 00:00: mouth [place] 00 daily. [facility] aspirin 81 2020- Yes 81mg Take 81 mg [facility] n[facility] mg EC 0-12 by mouth ity of tablet 00:00: daily. [facility] thiamine 2020-1 Yes 100mg Take 100 [facility] 100 mg 0-12 mg by ity of tablet 00:00: mouth [place] 00 daily. [facility] aspirin 81 2020- Yes 81mg Take 81 mg [facility] nivers mg EC 0-12 by mouth ity of tablet 00:00: daily. [facility] thiamine 2020-1 Yes 100mg Take 100 [facility] 100 mg 0-12 mg by ity of tablet 00:00: mouth [place] 00 daily. [facility] aspirin 81 2020-1 Yes 81mg Take 81 mg [facility] nivers mg EC 0-12 by mouth ity of tablet 00:00: daily. [facility] thiamine 2020-1 Yes 100mg Take 100 [facility] 100 mg 0-12 mg by ity of tablet 00:00: mouth [place] 00 daily. [facility] aspirin 81 2020-1 Yes 81mg Take 81 mg [facility] mg EC 0-12 by mouth ity of tablet 00:00: daily. [facility] thiamine 2020- Yes 100mg Take 100 [facility] 100 mg 0-12 mg by ity of tablet 00:00: mouth [place] 00 daily. [facility] aspirin 81 2020- Yes 81mg Take 81 mg [facility] mg EC 0-12 by mouth ity of tablet 00:00: daily. [facility] thiamine 2020- Yes 100mg Take 100 [facility] 100 mg 0-12 mg by ity of tablet 00:00: mouth [place] 00 daily. [facility] aspirin 81 2020- Yes 81mg Take 81 mg [facility]ivers mg EC 0-12 by mouth ity of tablet 00:00: daily. [facility] thiamine 2020- Yes 100mg Take 100 [facility] 100 mg 0-12 mg by ity of tablet 00:00: mouth [place] 00 daily. [facility] aspirin 81 2020-1 Yes 81mg Take 81 mg [facility] mg EC 0-12 by mouth ity of tablet 00:00: daily. [facility] thiamine 2020- Yes 100mg Take 100 [facility] 100 mg 0-12 mg by ity of tablet 00:00: mouth [place] 00 daily. [facility] aspirin 81 2020- Yes 81mg Take 81 mg [facility] mg EC 0-12 by mouth ity of tablet 00:00: daily. [facility] thiamine 2020-1 Yes 100mg Take 100 [facility] 100 mg 0-12 mg by ity of tablet 00:00: mouth [place] 00 daily. [facility] aspirin 81 2020-1 Yes 81mg Take 81 mg [facility] mg EC 0-12 by mouth ity of tablet 00:00: daily. [facility] thiamine 2020-1 Yes 100mg Take 100 [facility] 100 mg 0-12 mg by ity of tablet 00:00: mouth [place] 00 daily. [facility] aspirin 81 2020-1 Yes 81mg Take 81 mg [facility] mg EC 0-12 by mouth ity of tablet 00:00: daily. [facility] thiamine 2020-1 Yes 100mg Take 100 [facility] 100 mg 0-12 mg by ity of tablet 00:00: mouth [place] 00 daily. [facility] aspirin 81 2020-1 Yes 81mg Take 81 mg [facility]ivers mg EC 0-12 by mouth ity of tablet 00:00: daily. [facility] thiamine 2020-1 Yes 100mg Take 100 [facility] 100 mg 0-12 mg by ity of tablet 00:00: mouth daily. Medical [facility] aspirin 81 2020-1 Yes 81mg Take 81 mg [facility] mg EC 0-12 by mouth ity of tablet 00:00: daily. 00 [facility] Branch thiamine 2020-1 Yes 100mg Take 100 [facility] 100 mg 0-12 mg by ity of tablet 00:00: mouth daily. [facility] aspirin 81 2019-1 Yes 81mg Take 81 mg [facility] mg EC 0-12 by mouth ity of tablet 00:00: daily. [facility] levothyroxi 0 Yes Take by [facility] gr[facility] ne sodium 7-14 mouth. ity of (LEVOTHYROX 23:27: [place] INE ORAL) 37 [facility] Branch levothyroxi 0 Yes Take by [facility] ne sodium 7-14 mouth. ity of (LEVOTHYROX 23:27: [place] INE ORAL) 37 [facility] levothyroxi 0 Yes Take by [facility] ne sodium 7-14 mouth. ity of (LEVOTHYROX 23:27: [place] INE ORAL) 37 [facility] Branch levothyroxi 0 Yes Take by [facility] ne sodium 7-14 mouth. ity of (LEVOTHYROX 23:27: [place] INE ORAL) 37 Medical Branch levothyroxi 0 Yes Take by [facility] gr[facility] ne sodium 7-14 mouth. ity of (LEVOTHYROX 23:27: [place] INE ORAL) 37 [facility] Branch levothyroxi 0 Yes Take by [facility] gr[facility] ne sodium 7-14 mouth. ity of (LEVOTHYROX 23:27: [place] INE ORAL) 37 Medical Branch levothyroxi 2019-0 Yes Take by [facility] ne sodium 7-14 mouth. ity of (LEVOTHYROX 23:27: [place] INE ORAL) 37 [facility] Branch levothyroxi 2019-0 Yes Take by [facility] gr[facility] ne sodium 7-14 mouth. ity of (LEVOTHYROX 23:27: [place] INE ORAL) 37 Medical Branch levothyroxi 2019-0 Yes Take by [facility] gr[facility] ne sodium 7-14 mouth. ity of (LEVOTHYROX 23:27: [place] INE ORAL) 37 [facility] Branch levothyroxi 2019-0 Yes Take by [facility] gr[facility] ne sodium 7-14 mouth. ity of (LEVOTHYROX 23:27: [place] INE ORAL) 37 Medical Branch levothyroxi 2020-0 Yes Take by [facility] ne sodium 7-14 mouth. ity of (LEVOTHYROX 23:27: [place] INE ORAL) 37 Medical Branch levothyroxi 2020-0 Yes Take by [facility] ne sodium 7-14 mouth. ity of (LEVOTHYROX 23:27: [place] INE ORAL) 37 [facility] Branch levothyroxi 2020-0 Yes Take by [facility] ne sodium 7-14 mouth. ity of (LEVOTHYROX 23:27: [place] INE ORAL) 37 [facility] Branch levothyroxi 2020-0 Yes Take by [facility] gr[facility] ne sodium 7-14 mouth. ity of (LEVOTHYROX 23:27: [place] INE ORAL) 37 Medical Branch levothyroxi 2020-0 Yes Take by [facility] gr[facility] ne sodium 7-14 mouth. ity of (LEVOTHYROX 23:27: [place] INE ORAL) 37 [facility] Branch levothyroxi 2019-0 Yes Take by [facility] gr[facility] ne sodium 7-14 mouth. ity of (LEVOTHYROX 23:27: [place] INE ORAL) 37 [facility] Branch levothyroxi 2019-0 Yes Take by [facility] gr[facility] ne sodium 7-14 mouth. ity of (LEVOTHYROX 23:27: [place] INE ORAL) 37 [facility] Branch levothyroxi 2019-0 Yes Take by [facility] gr[facility] ne sodium 7-14 mouth. ity of (LEVOTHYROX 23:27: [place] INE ORAL) 37 Medical Branch levothyroxi 2019-0 Yes Take by [facility] gr[facility] ne sodium 7-14 mouth. ity of (LEVOTHYROX 23:27: [place] INE ORAL) 37 Medical Branch LISINOPRIL 2020-0 Yes Take by Uni vers ORAL 7-14 mouth. ity of 23:27: [place] [address] Medical Branch LISINOPRIL 2020-0 Yes Take by Uni vers ORAL 7-14 mouth. ity of 23:27: [place] [address] Medical Branch LISINOPRIL 2020-0 Yes Take by Uni vers ORAL 7-14 mouth. ity of 23:27: [address] Branch LISINOPRIL 2020-0 Yes Take by Uni vers ORAL 7-14 mouth. ity of 23:27: [address] Branch LISINOPRIL 2020-0 Yes Take by Uni vers ORAL 7-14 mouth. ity of 23:27: [address] Branch LISINOPRIL 2020-0 Yes Take by Uni vers ORAL 7-14 mouth. ity of 23:27: [address] LISINOPRIL 2020-0 Yes Take by Uni vers ORAL 7-14 mouth. ity of 23:27: [address] LISINOPRIL 2020-0 Yes Take by Uni vers ORAL 7-14 mouth. ity of 23:27: [address] LISINOPRIL 2020-0 Yes Take by Uni vers ORAL 7-14 mouth. ity of 23:27: [address] LISINOPRIL 2020-0 Yes Take by Uni vers ORAL 7-14 mouth. ity of 23:27: [address] LISINOPRIL 2020-0 Yes Take by Uni vers ORAL 7-14 mouth. ity of 23:27: [address] LISINOPRIL 2020-0 Yes Take by Uni vers ORAL 7-14 mouth. ity of 23:27: [address] LISINOPRIL 2020-0 Yes Take by Uni vers ORAL 7-14 mouth. ity of 23:27: [address] LISINOPRIL 2020-0 Yes Take by Uni vers ORAL 7-14 mouth. ity of 23:27: [address] LISINOPRIL 2020-0 Yes Take by Uni vers ORAL 7-14 mouth. ity of 23:27: [address] LISINOPRIL 2020-0 Yes Take by Uni vers ORAL 7-14 mouth. ity of 23:27: [address] enoxaparin 2020-0 Yes 30mg 30 mg, Unive rs (LOVENOX) 09-14 Subcutaneo ity of injection 19:00: us, Q12H, [place] as 30 mg 00 First dose Medical on [facility] 09/15/19 at 1400, Until Discontinu ed, Routine lisinopril 2020-0 Yes 10mg 10 mg, Unive rs (PRINIVIL,Z 7-14 Oral, ity of ESTRIL) 14:00: DAILY, [place] tablet 10 00 First dose Medi brunilda mg on [facility] 09/15/19 at 0900, Until Discontinu ed HYDROcodone 2020-0 Yes 1{tbl} 1 tablet, Univers -acetaminop -14 Oral, ity of hen (NORCO) 01:24: Q4HPRN, [place] as 10-325 mg 32 Starting Medica l tablet 1 Sat [place] tablet 09/14/19 at 2023, Until Discontinu ed, Routine, Pain (scale 4-6) docusate 2020-0 Yes 100mg 100 mg, Unive rs (COLACE) 7-14 Oral, ity of capsule 100 01:00: Q12H, [place] mg 00 First dose Medical on Sat Branch 09/14/19 at 2000, Until Discontinu ed, Routine acetaminoph 2020-0 Yes 4647 1{tbl} Take 1 Un gris en-codeine 7-14 tablet by ity of (TYLENOL-CO 00:00: mouth [place] DEINE #3) 00 every 4 Medical 300-30 mg (four) Branch tablet hours as needed for Pain (scale 4-6) or Pain (scale 7-10). Indication s: acute pain acetaminoph 2020-0 Yes 4647 1{tbl} Take 1 Un gris en-codeine 7-14 tablet by ity of (TYLENOL-CO 00:00: mouth [place] DEINE #3) 00 every 4 Medical 300-30 mg (four) Branch tablet hours as needed for Pain (scale 4-6) or Pain (scale 7-10). Indication s: acute pain acetaminoph 2020-0 Yes 4647 1{tbl} Take 1 Un gris en-codeine 7-14 tablet by ity of (TYLENOL-CO 00:00: mouth [place] DEINE #3) 00 every 4 Medical 300-30 mg (four) Branch tablet hours as needed for Pain (scale 4-6) or Pain (scale 7-10). Indication s: acute pain acetaminoph 2020-0 Yes 4647 1{tbl} Take 1 Un gris en-codeine 7-14 tablet by ity of (TYLENOL-CO 00:00: mouth [place] DEINE #3) 00 every 4 Medical 300-30 mg (four) Branch tablet hours as needed for Pain (scale 4-6) or Pain (scale 7-10). Indication s: acute pain acetaminoph 2020-0 Yes 4647 1{tbl} Take 1 Un gris en-codeine 7-14 tablet by ity of (TYLENOL-CO 00:00: mouth [place] DEINE #3) 00 every 4 Medical 300-30 mg (four) Branch tablet hours as needed for Pain (scale 4-6) or Pain (scale 7-10). Indication s: acute pain acetaminoph 2020-0 Yes 4647 1{tbl} Take 1 Un gris en-codeine 7-14 tablet by ity of (TYLENOL-CO 00:00: mouth [place] DEINE #3) 00 every 4 Medical 300-30 mg (four) Branch tablet hours as needed for Pain (scale 4-6) or Pain (scale 7-10). Indication s: acute pain acetaminoph 2020-0 Yes 4647 1{tbl} Take 1 Un gris en-codeine 7-14 tablet by ity of (TYLENOL-CO 00:00: mouth [place] DEINE #3) 00 every 4 Medical 300-30 mg (four) Branch tablet hours as needed for Pain (scale 4-6) or Pain (scale 7-10). Indication s: acute pain acetaminoph 2020-0 Yes 4647 1{tbl} Take 1 Un gris en-codeine 7-14 tablet by ity of (TYLENOL-CO 00:00: mouth [place] DEINE #3) 00 every 4 Medical 300-30 mg (four) Branch tablet hours as needed for Pain (scale 4-6) or Pain (scale 7-10). Indication s: acute pain acetaminoph 2020-0 Yes 4647 1{tbl} Take 1 Un gris en-codeine 7-14 tablet by ity of (TYLENOL-CO 00:00: mouth [place] DEINE #3) 00 every 4 Medical 300-30 mg (four) Branch tablet hours as needed for Pain (scale 4-6) or Pain (scale 7-10). Indication s: acute pain acetaminoph 2020-0 Yes 4647 1{tbl} Take 1 Un gris en-codeine 7-14 tablet by ity of (TYLENOL-CO 00:00: mouth [place] DEINE #3) 00 every 4 Medical 300-30 mg (four) Branch tablet hours as needed for Pain (scale 4-6) or Pain (scale 7-10). Indication s: acute pain acetaminoph 2020-0 Yes 4647 1{tbl} Take 1 Un gris en-codeine 7-14 tablet by ity of (TYLENOL-CO 00:00: mouth [place] DEINE #3) 00 every 4 Medical 300-30 mg (four) Branch tablet hours as needed for Pain (scale 4-6) or Pain (scale 7-10). Indication s: acute pain acetaminoph 2020-0 Yes 4647 1{tbl} Take 1 Un gris en-codeine 7-14 tablet by ity of (TYLENOL-CO 00:00: mouth [place] DEINE #3) 00 every 4 Medical 300-30 mg (four) Branch tablet hours as needed for Pain (scale 4-6) or Pain (scale 7-10). Indication s: acute pain acetaminoph 2020-0 Yes 4647 1{tbl} Take 1 Un gris en-codeine 7-14 tablet by ity of (TYLENOL-CO 00:00: mouth [place] DEINE #3) 00 every 4 Medical 300-30 mg (four) Branch tablet hours as needed for Pain (scale 4-6) or Pain (scale 7-10). Indication s: acute pain acetaminoph 2020-0 Yes 4647 1{tbl} Take 1 Un gris en-codeine 7-14 tablet by ity of (TYLENOL-CO 00:00: mouth [place] DEINE #3) 00 every 4 Medical 300-30 mg (four) Branch tablet hours as needed for Pain (scale 4-6) or Pain (scale 7-10). Indication s: acute pain acetaminoph 2020-0 Yes 4647 1{tbl} Take 1 Un gris en-codeine 7-14 tablet by ity of (TYLENOL-CO 00:00: mouth [place] DEINE #3) 00 every 4 Medical 300-30 mg (four) Branch tablet hours as needed for Pain (scale 4-6) or Pain (scale 7-10). Indication s: acute pain acetaminoph 2020-0 Yes 4647 1{tbl} Take 1 Un gris en-codeine 7-14 tablet by ity of (TYLENOL-CO 00:00: mouth [place] DEINE #3) 00 every 4 Medical 300-30 mg (four) Branch tablet hours as needed for Pain (scale 4-6) or Pain (scale 7-10). Indication s: acute pain acetaminoph 2020-0 Yes 4647 1{tbl} Take 1 Un gris en-codeine 7-14 tablet by ity of (TYLENOL-CO 00:00: mouth [place] DEINE #3) 00 every 4 Medical 300-30 mg (four) Branch tablet hours as needed for Pain (scale 4-6) or Pain (scale 7-10). Indication s: acute pain acetaminoph 2020-0 Yes 4647 1{tbl} Take 1 Un gris en-codeine 7-14 tablet by ity of (TYLENOL-CO 00:00: mouth [place] DEINE #3) 00 every 4 Medical 300-30 mg (four) Branch tablet hours as needed for Pain (scale 4-6) or Pain (scale 7-10). Indication s: acute pain acetaminoph 2020-0 Yes 4647 1{tbl} Take 1 Un gris en-codeine 7-14 tablet by ity of (TYLENOL-CO 00:00: mouth [place] DEINE #3) 00 every 4 Medical 300-30 mg (four) Branch tablet hours as needed for Pain (scale 4-6) or Pain (scale 7-10). Indication s: acute pain acetaminoph 2020-0 Yes 4647 1{tbl} Take 1 Un gris en-codeine 7-14 tablet by ity of (TYLENOL-CO 00:00: mouth [place] DEINE #3) 00 every 4 Medical 300-30 mg (four) Branch tablet hours as needed for Pain (scale 4-6) or Pain (scale 7-10). Indication s: acute pain acetaminoph 2020-0 Yes 4647 1{tbl} Take 1 Un gris en-codeine 7-14 tablet by ity of (TYLENOL-CO 00:00: mouth [place] DEINE #3) 00 every 4 Medical 300-30 mg (four) Branch tablet hours as needed for Pain (scale 4-6) or Pain (scale 7-10). Indication s: acute pain acetaminoph 2020-0 Yes 4647 1{tbl} Take 1 Un gris en-codeine 7-14 tablet by ity of (TYLENOL-CO 00:00: mouth [place] DEINE #3) 00 every 4 Medical 300-30 mg (four) Branch tablet hours as needed for Pain (scale 4-6) or Pain (scale 7-10). Indication s: acute pain acetaminoph 2020-0 Yes 4647 1{tbl} Take 1 Un gris en-codeine 7-14 tablet by ity of (TYLENOL-CO 00:00: mouth [place] DEINE #3) 00 every 4 Medical 300-30 mg (four) Branch tablet hours as needed for Pain (scale 4-6) or Pain (scale 7-10). Indication s: acute pain acetaminoph 2020-0 Yes 4647 1{tbl} Take 1 Un gris en-codeine 7-14 tablet by ity of (TYLENOL-CO 00:00: mouth [place] DEINE #3) 00 every 4 Medical 300-30 mg (four) Branch tablet hours as needed for Pain (scale 4-6) or Pain (scale 7-10). Indication s: acute pain acetaminoph 2020-0 Yes 4647 1{tbl} Take 1 Un gris en-codeine 7-14 tablet by ity of (TYLENOL-CO 00:00: mouth [place] DEINE #3) 00 every 4 Medical 300-30 mg (four) Branch tablet hours as needed for Pain (scale 4-6) or Pain (scale 7-10). Indication s: acute pain acetaminoph 2020-0 Yes 4647 1{tbl} Take 1 Un gris en-codeine 7-14 tablet by ity of (TYLENOL-CO 00:00: mouth [place] DEINE #3) 00 every 4 Medical 300-30 mg (four) Branch tablet hours as needed for Pain (scale 4-6) or Pain (scale 7-10). Indication s: acute pain acetaminoph 2020-0 Yes 4647 1{tbl} Take 1 Un gris en-codeine 7-14 tablet by ity of (TYLENOL-CO 00:00: mouth [place] DEINE #3) 00 every 4 Medical 300-30 mg (four) Branch tablet hours as needed for Pain (scale 4-6) or Pain (scale 7-10). Indication s: acute pain acetaminoph 2020-0 Yes 4647 1{tbl} Take 1 Un gris en-codeine 7-14 tablet by ity of (TYLENOL-CO 00:00: mouth [place] DEINE #3) 00 every 4 Medical 300-30 mg (four) Branch tablet hours as needed for Pain (scale 4-6) or Pain (scale 7-10). Indication s: acute pain acetaminoph 2020-0 Yes 4647 1{tbl} Take 1 Un gris en-codeine 7-14 tablet by ity of (TYLENOL-CO 00:00: mouth [place] DEINE #3) 00 every 4 Medical 300-30 mg (four) Branch tablet hours as needed for Pain (scale 4-6) or Pain (scale 7-10). Indication s: acute pain acetaminoph 2020-0 Yes 4647 1{tbl} Take 1 Un gris en-codeine 7-14 tablet by ity of (TYLENOL-CO 00:00: mouth [place] DEINE #3) 00 every 4 Medical 300-30 mg (four) Branch tablet hours as needed for Pain (scale 4-6) or Pain (scale 7-10). Indication s: acute pain acetaminoph 2020-0 Yes 4647 1{tbl} Take 1 Un gris en-codeine 7-14 tablet by ity of (TYLENOL-CO 00:00: mouth [place] DEINE #3) 00 every 4 Medical 300-30 mg (four) Branch tablet hours as needed for Pain (scale 4-6) or Pain (scale 7-10). Indication s: acute pain acetaminoph 2020-0 Yes 4647 1{tbl} Take 1 Un gris en-codeine 7-14 tablet by ity of (TYLENOL-CO 00:00: mouth [place] DEINE #3) 00 every 4 Medical 300-30 mg (four) Branch tablet hours as needed for Pain (scale 4-6) or Pain (scale 7-10). Indication s: acute pain acetaminoph 2020-0 Yes 4647 1{tbl} Take 1 Un gris en-codeine 7-14 tablet by ity of (TYLENOL-CO 00:00: mouth [place] DEINE #3) 00 every 4 Medical 300-30 mg (four) Branch tablet hours as needed for Pain (scale 4-6) or Pain (scale 7-10). Indication s: acute pain acetaminoph 2020-0 Yes 4647 1{tbl} Take 1 Un gris en-codeine 7-14 tablet by ity of (TYLENOL-CO 00:00: mouth [place] DEINE #3) 00 every 4 Medical 300-30 mg (four) Branch tablet hours as needed for Pain (scale 4-6) or Pain (scale 7-10). Indication s: acute pain acetaminoph 2020-0 Yes 4647 1{tbl} Take 1 Un gris en-codeine 7-14 tablet by ity of (TYLENOL-CO 00:00: mouth [place] DEINE #3) 00 every 4 Medical 300-30 mg (four) Branch tablet hours as needed for Pain (scale 4-6) or Pain (scale 7-10). Indication s: acute pain acetaminoph 2020-0 Yes 4647 1{tbl} Take 1 Un gris en-codeine 7-14 tablet by ity of (TYLENOL-CO 00:00: mouth [place] DEINE #3) 00 every 4 Medical 300-30 mg (four) Branch tablet hours as needed for Pain (scale 4-6) or Pain (scale 7-10). Indication s: acute pain acetaminoph 2020-0 Yes 4647 1{tbl} Take 1 Un gris en-codeine 7-14 tablet by ity of (TYLENOL-CO 00:00: mouth [place] DEINE #3) 00 every 4 Medical 300-30 mg (four) Branch tablet hours as needed for Pain (scale 4-6) or Pain (scale 7-10). Indication s: acute pain acetaminoph 2020-0 Yes 4647 1{tbl} Take 1 Un gris en-codeine 7-14 tablet by ity of (TYLENOL-CO 00:00: mouth [place] DEINE #3) 00 every 4 Medical 300-30 mg (four) Branch tablet hours as needed for Pain (scale 4-6) or Pain (scale 7-10). Indication s: acute pain acetaminoph 2020-0 Yes 4647 1{tbl} Take 1 Un gris en-codeine 7-14 tablet by ity of (TYLENOL-CO 00:00: mouth [place] DEINE #3) 00 every 4 Medical 300-30 mg (four) Branch tablet hours as needed for Pain (scale 4-6) or Pain (scale 7-10). Indication s: acute pain acetaminoph 2020-0 Yes 4647 1{tbl} Take 1 Un gris en-codeine 7-14 tablet by ity of (TYLENOL-CO 00:00: mouth [place] DEINE #3) 00 every 4 Medical 300-30 mg (four) Branch tablet hours as needed for Pain (scale 4-6) or Pain (scale 7-10). Indication s: acute pain acetaminoph 2020-0 Yes 4647 1{tbl} Take 1 Un gris en-codeine 7-14 tablet by ity of (TYLENOL-CO 00:00: mouth [place] DEINE #3) 00 every 4 Medical 300-30 mg (four) Branch tablet hours as needed for Pain (scale 4-6) or Pain (scale 7-10). Indication s: acute pain acetaminoph 2020-0 Yes 4647 1{tbl} Take 1 Un gris en-codeine 7-14 tablet by ity of (TYLENOL-CO 00:00: mouth [place] DEINE #3) 00 every 4 Medical 300-30 mg (four) Branch tablet hours as needed for Pain (scale 4-6) or Pain (scale 7-10). Indication s: acute pain acetaminoph 2020-0 Yes 4647 1{tbl} Take 1 Un gris en-codeine 7-14 tablet by ity of (TYLENOL-CO 00:00: mouth [place] DEINE #3) 00 every 4 Medical 300-30 mg (four) Branch tablet hours as needed for Pain (scale 4-6) or Pain (scale 7-10). Indication s: acute pain acetaminoph 2020-0 2021- No 4647 1{tbl} Take 1 U nivers en-codeine 7-14 02-23 tablet by ity of (TYLENOL-CO 00:00: 00:00 [place] DEINE #3) 00 :00 every 4 Medical 300-30 mg (four) Branch tablet hours as needed for Pain (scale 4-6) or Pain (scale 7-10). Indication s: acute pain HYDROmorpho 2019-0 2020- No .2mg 0.2 mg, Un gris ne 7- 07-14 Slow IV ity of (DILAUDID) 23:58: 00:38 Push, [place] injection 50 :23 Q5MIN PRN, Medi brunilda 0.2 mg 10 doses, Branch Starting Sat09/14/19 at 1858, Until Sat09/14/19 at 1938, Routine, Pain (scale 7-10), PACU
Us e approved by (Faculty): PACU USE -ANESTHESI A SERVICE-HY DROMORPHON E INJECTIONS ondansetron 2019-0 Yes 4mg 4 mg, Slow [facility] (ZOFRAN 7-13 IV Push, ity of (PF)) 22:01: Q6HPRN, [place] injection 4 52 Starting Medi brunilda mg [facility] 09/14/19 at 1701, Until Discontinu ed, Routine, Nausea and Vomiting (N/V) ondansetron 2019-0 2020- No 4mg 4 mg, Slow Univers (ZOFRAN 09-13 IV Push, ity of (PF)) 19:30: 19:02 ONCE, 1 [place] injection 4 00 :00 dose, [facility] Med ical mg 09/14/19 at Branch 1430, NEEMA morpHINE 2019-0 2020- No 4mg 4 mg, Slow Un gris injection 4 09-13 IV Push, ity of mg 19:30: 19:02 ONCE, 1 [place] 00 :00 dose, [facility] 09/14/19 at Branch 1430, STAT LISINOPRIL 2019-0 Yes Take by Uni vers ORAL 6-08 mouth. ity of 18:50: [address] levothyroxi 2020-0 Yes Take by Un gris ne sodium 6-08 mouth. ity of (LEVOTHYROX 18:50: [place] INE ORAL) [address] [place] [address] LISINOPRIL 2020-0 Yes Take by Uni vers ORAL 6-08 mouth. ity of 18:50: [address] levothyroxi 2020-0 Yes Take by Un gris ne sodium 6-08 mouth. ity of (LEVOTHYROX 18:50: [place] INE ORAL) [address] [place] [address] Branch LISINOPRIL 2020-0 Yes Take by Uni vers ORAL 6-08 mouth. ity of 18:50: [address] levothyroxi 2020-0 Yes Take by Un rgis ne sodium 6-08 mouth. ity of (LEVOTHYROX 18:50: [place] INE ORAL) Medical Branch LISINOPRIL 2020-0 Yes Take by Uni vers ORAL 6-08 mouth. ity of 18:50: [address] Branch levothyroxi 2020-0 Yes Take by Un gris ne sodium 6-08 mouth. ity of (LEVOTHYROX 18:50: [place] INE ORAL) [address] [place] [address] levothyroxi 2020-0 Yes hypothyroid 50ug Take [address] [facility] ne 5-25 ism mcg by [facility] - (SYNTHROID, 14:10: mouth Medic al LEVOTHROID) 05 Every Center 50 MCG morning on tablet an empty stomach. pantoprazol 2020-0 Yes 40mg QD Take [address] [facility] 5-25 by mouth [facility] - (PROTONIX) 14:10: daily. Medic al 40 MG 05 Center tablet lisinopriL 2020-0 Yes 10mg QD Take [address] (PRINIVIL,Z 5-25 by mouth [facility] - ESTRIL) 10 14:10: daily. Medic al MG tablet 05 Center DICLOFENAC 2020-0 Yes 75mg Q.5D Take [address] SODIUM ORAL 5-25 by mouth 2 [facility] - 14:10: (two) Medical 05 times Center daily. levothyroxi 2020-0 Yes hypothyroid 50ug Take [address] [facility] [address] ne 5-25 ism mcg by [facility] - (SYNTHROID, 14:10: mouth Medic al LEVOTHROID) 05 Every Center 50 MCG morning on tablet an empty stomach. pantoprazol 2020-0 Yes 40mg QD Take [address] [facility] 5-25 by mouth [facility] - (PROTONIX) 14:10: daily. Medic al 40 MG 05 Center tablet lisinopriL 2020-0 Yes 10mg QD Take [address] (PRINIVIL,Z 5-25 by mouth [facility] - ESTRIL) 10 14:10: daily. Medic al MG tablet 05 Center DICLOFENAC 2020-0 Yes 75mg Q.5D Take [address] SODIUM ORAL 5-25 by mouth 2 [facility] - 14:10: (two) Medical 05 times Center daily. traMADoL 2020-0 Yes pain 50mg Take [address] [facility] (ULTRAM) 50 5-25 tablet (50 [facility] - mg tablet 00:00: mg total) Med ical 00 by mouth Center every 8 (eight) hours as needed for Pain. Max Daily Amount: 150 mg traMADoL 2020-0 Yes pain 50mg Take [address] [facility] (ULTRAM) 50 5-25 tablet (50 [facility] - mg tablet 00:00: mg total) Med ical 00 by mouth Center every 8 (eight) hours as needed for Pain. Max Daily Amount: 150 mg LISINOPRIL 2018-0 Yes Take by Uni vers ORAL 7-30 mouth. ity of 19:27: [place] 59 Medical Branch levothyroxi 2017-0 Yes Take by Un gris ne sodium 7-30 mouth. ity of (LEVOTHYROX 19:27: [place] INE ORAL) 59 Medical Branch acetaminoph 2017-0 Yes 1{tbl} Take 1 Un gr[facility] en-codeine 7-10 tablet by ity of (TYLENOL-CO 00:00: mouth [place] DEINE #3) 00 every 4 Medical 300-30 mg (four) Branch tablet hours as needed for Pain (scale 4-6) or Pain (scale 7-10). acetaminoph Yes 1{tbl} Take 1 [facility] gr[facility] en-codeine 7-10 tablet by ity of (TYLENOL-CO 00:00: mouth [place] DEINE #3) 00 every 4 Medical 300-30 mg (four) Branch tablet hours as needed for Pain (scale 4-6) or Pain (scale 7-10). acetaminoph Yes 1{tbl} Take 1 [facility] en-codeine 7-10 tablet by ity of (TYLENOL-CO 00:00: mouth [place] DEINE #3) 00 every 4 Medical 300-30 mg (four) Branch tablet hours as needed for Pain (scale 4-6) or Pain (scale 7-10). acetaminoph Yes 1{tbl} Take 1 Un gris en-codeine 7-10 tablet by ity of (TYLENOL-CO 00:00: mouth [place] DEINE #3) 00 every 4 Medical 300-30 mg (four) Branch tablet hours as needed for Pain (scale 4-6) or Pain (scale 7-10). acetaminoph Yes 1{tbl} Take 1 Un gris en-codeine 7-10 tablet by ity of (TYLENOL-CO 00:00: mouth [place] DEINE #3) 00 every 4 Medical 300-30 mg (four) Branch tablet hours as needed for Pain (scale 4-6) or Pain (scale 7-10). acetaminoph 2020- No 1{tbl} Take 1 U nivers en-codeine 7-10 07-14 tablet by ity of (TYLENOL-CO [place] :00 every 4 Medical 300-30 mg (four) Branch tablet hours as needed for Pain (scale 4-6) or Pain (scale 7-10). anastrozole 2017- Yes 1mg Take 1 mg U nivers 1 mg tablet 6-13 by mouth ity of 00:00: daily. [facility] anastrozole 2018-0 Yes 1mg Take 1 mg U nivers 1 mg tablet 6-13 by mouth ity of 00:00: daily. [facility] anastrozole 2018-0 Yes 1mg Take 1 mg U nivers 1 mg tablet 6-13 by mouth ity of 00:00: daily. [facility] anastrozole 2018-0 Yes 1mg Take 1 mg U nivers 1 mg tablet 6-13 by mouth ity of 00:00: daily. [facility] anastrozole 2018-0 Yes 1mg Take 1 mg U nivers 1 mg tablet 6-13 by mouth ity of 00:00: daily. [facility] anastrozole 2018-0 Yes 1mg Take 1 mg U nivers 1 mg tablet 6-13 by mouth ity of 00:00: daily. [facility] anastrozole 2018-0 Yes 1mg Take 1 mg U nivers 1 mg tablet 6-13 by mouth ity of 00:00: daily. [facility] anastrozole 2018-0 Yes 1mg Take 1 mg U nivers 1 mg tablet 6-13 by mouth ity of 00:00: daily. [facility] anastrozole 2018-0 Yes 1mg Take 1 mg U nivers 1 mg tablet 6-13 by mouth ity of 00:00: daily. [facility] anastrozole 2018-0 Yes 1mg Take 1 mg U nivers 1 mg tablet 6-13 by mouth ity of 00:00: daily. [facility] anastrozole 2018-0 Yes 1mg Take 1 mg U nivers 1 mg tablet 6-13 by mouth ity of 00:00: daily. [facility] anastrozole 2018-0 Yes 1mg Take 1 mg U nivers 1 mg tablet 6-13 by mouth ity of 00:00: daily. [facility] anastrozole 2018-0 Yes 1mg Take 1 mg U nivers 1 mg tablet 6-13 by mouth ity of 00:00: daily. [facility] anastrozole 2018-0 Yes 1mg Take 1 mg U nivers 1 mg tablet 6-13 by mouth ity of 00:00: daily. [facility] anastrozole 2018-0 Yes 1mg Take 1 mg U nivers 1 mg tablet 6-13 by mouth ity of 00:00: daily. [facility] anastrozole 2018-0 Yes 1mg Take 1 mg U nivers 1 mg tablet 6-13 by mouth ity of 00:00: daily. [facility] anastrozole 2018-0 Yes 1mg Take 1 mg U nivers 1 mg tablet 6-13 by mouth ity of 00:00: daily. [facility] anastrozole 2018-0 Yes 1mg Take 1 mg U nivers 1 mg tablet 6-13 by mouth ity of 00:00: daily. [facility] anastrozole 2018-0 Yes 1mg Take 1 mg U nivers 1 mg tablet 6-13 by mouth ity of 00:00: daily. [facility] anastrozole 2018-0 Yes 1mg Take 1 mg U nivers 1 mg tablet 6-13 by mouth ity of 00:00: daily. [facility] anastrozole 2018-0 Yes 1mg Take 1 mg U nivers 1 mg tablet 6-13 by mouth ity of 00:00: daily. [facility] anastrozole 2018-0 Yes 1mg Take 1 mg U nivers 1 mg tablet 6-13 by mouth ity of 00:00: daily. [facility] anastrozole 2018-0 Yes 1mg Take 1 mg U nivers 1 mg tablet 6-13 by mouth ity of 00:00: daily. [facility] anastrozole 2018-0 Yes 1mg Take 1 mg U nivers 1 mg tablet 6-13 by mouth ity of 00:00: daily. [facility] anastrozole 2018-0 Yes 1mg Take 1 mg U nivers 1 mg tablet 6-13 by mouth ity of 00:00: daily. [facility] anastrozole 2018-0 Yes 1mg Take 1 mg U nivers 1 mg tablet 6-13 by mouth ity of 00:00: daily. [facility] anastrozole 2018-0 Yes 1mg Take 1 mg U nivers 1 mg tablet 6-13 by mouth ity of 00:00: daily. [facility] anastrozole 2018-0 Yes 1mg Take 1 mg U nivers 1 mg tablet 6-13 by mouth ity of 00:00: daily. [facility] anastrozole 2018-0 Yes 1mg Take 1 mg U nivers 1 mg tablet 6-13 by mouth ity of 00:00: daily. [facility] anastrozole 2018-0 Yes 1mg Take 1 mg U nivers 1 mg tablet 6-13 by mouth ity of 00:00: daily. [facility] anastrozole 2018-0 Yes 1mg Take 1 mg U nivers 1 mg tablet 6-13 by mouth ity of 00:00: daily. [facility] anastrozole 2018-0 Yes 1mg Take 1 mg U nivers 1 mg tablet 6-13 by mouth ity of 00:00: daily. [facility] anastrozole 2018-0 Yes 1mg Take 1 mg U nivers 1 mg tablet 6-13 by mouth ity of 00:00: daily. [facility] anastrozole 2018-0 Yes 1mg Take 1 mg U nivers 1 mg tablet 6-13 by mouth ity of 00:00: daily. [facility] anastrozole 2018-0 Yes 1mg Take 1 mg U nivers 1 mg tablet 6-13 by mouth ity of 00:00: daily. [facility] anastrozole 2018-0 Yes 1mg Take 1 mg U nivers 1 mg tablet 6-13 by mouth ity of 00:00: daily. [facility] anastrozole 2018-0 Yes 1mg Take 1 mg U nivers 1 mg tablet 6-13 by mouth ity of 00:00: daily. [facility] anastrozole 2018-0 Yes 1mg Take 1 mg U nivers 1 mg tablet 6-13 by mouth ity of 00:00: daily. [facility] anastrozole 2018-0 Yes 1mg Take 1 mg U nivers 1 mg tablet 6-13 by mouth ity of 00:00: daily. [facility] anastrozole 2018-0 Yes 1mg Take 1 mg U nivers 1 mg tablet 6-13 by mouth ity of 00:00: daily. [facility] anastrozole 2018-0 Yes 1mg Take 1 mg U nivers 1 mg tablet 6-13 by mouth ity of 00:00: daily. [facility] anastrozole 2018-0 Yes 1mg Take 1 mg U nivers 1 mg tablet 6-13 by mouth ity of 00:00: daily. [address] anastrozole 2018-0 Yes 1mg Take 1 mg U nivers 1 mg tablet 6-13 by mouth ity of 00:00: daily. [address] anastrozole 2018-0 Yes 1mg Take 1 mg U nivers 1 mg tablet 6-13 by mouth ity of 00:00: daily. [facility] anastrozole 2018-0 Yes 1mg Take 1 mg U nivers 1 mg tablet 6-13 by mouth ity of 00:00: daily. [facility] anastrozole 2018-0 Yes 1mg Take 1 mg U nivers 1 mg tablet 6-13 by mouth ity of 00:00: daily. [facility] anastrozole 2018-0 Yes 1mg Take 1 mg U nivers 1 mg tablet 6-13 by mouth ity of 00:00: daily. [facility] anastrozole 2018-0 Yes 1mg Take 1 mg U nivers 1 mg tablet 6-13 by mouth ity of 00:00: daily. [facility] anastrozole 2018-0 Yes 1mg Take 1 mg U nivers 1 mg tablet 6-13 by mouth ity of 00:00: daily. [facility] anastrozole 2018-0 Yes 1mg Take 1 mg U nivers 1 mg tablet 6-13 by mouth ity of 00:00: daily. [facility] anastrozole 2018-0 Yes 1mg Take 1 mg U nivers 1 mg tablet 6-13 by mouth ity of 00:00: daily. [facility] anastrozole 2018-0 Yes 1mg Take 1 mg U nivers 1 mg tablet 6-13 by mouth ity of 00:00: daily. [facility] anastrozole 2018-0 Yes 1mg Take 1 mg U nivers 1 mg tablet 6-13 by mouth ity of 00:00: daily. [facility] anastrozole 2018-0 Yes 1mg Take 1 mg U nivers 1 mg tablet 6-13 by mouth ity of 00:00: daily. [facility] anastrozole 2018-0 Yes 1mg Take 1 mg U nivers 1 mg tablet 6-13 by mouth ity of 00:00: daily. [facility] anastrozole 2018-0 Yes 1mg Take 1 mg U nivers 1 mg tablet 6-13 by mouth ity of 00:00: daily. [facility] anastrozole 2018-0 Yes 1mg Take 1 mg U nivers 1 mg tablet 6-13 by mouth ity of 00:00: daily. [facility] anastrozole 2018-0 Yes 1mg Take 1 mg U nivers 1 mg tablet 6-13 by mouth ity of 00:00: daily. [facility] anastrozole 2018-0 Yes 1mg Take 1 mg U nivers 1 mg tablet 6-13 by mouth ity of 00:00: daily. [facility] anastrozole 2018-0 Yes 1mg Take 1 mg U nivers 1 mg tablet 6-13 by mouth ity of 00:00: daily. [facility] anastrozole 2018-0 Yes 1mg Take 1 mg U nivers 1 mg tablet 6-13 by mouth ity of 00:00: daily. [facility] anastrozole 2018-0 Yes 1mg Take 1 mg U nivers 1 mg tablet 6-13 by mouth ity of 00:00: daily. [facility] anastrozole 2018-0 Yes 1mg Take 1 mg U nivers 1 mg tablet 6-13 by mouth ity of 00:00: daily. [facility] anastrozole 2018-0 Yes 1mg Take 1 mg U nivers 1 mg tablet 6-13 by mouth ity of 00:00: daily. [facility] anastrozole 2018-0 Yes 1mg Take 1 mg U nivers 1 mg tablet 6-13 by mouth ity of 00:00: daily. [facility] anastrozole 2018-0 Yes 1mg Take 1 mg U nivers 1 mg tablet 6-13 by mouth ity of 00:00: daily. [facility] anastrozole 2018-0 Yes 1mg Take 1 mg U nivers 1 mg tablet 6-13 by mouth ity of 00:00: daily. [facility] anastrozole 2018-0 Yes 1mg Take 1 mg U nivers 1 mg tablet 6-13 by mouth ity of 00:00: daily. [facility] anastrozole 2018-0 Yes 1mg Take 1 mg U nivers 1 mg tablet 6-13 by mouth ity of 00:00: daily. [facility] anastrozole 2018-0 Yes 1mg Take 1 mg U nivers 1 mg tablet 6-13 by mouth ity of 00:00: daily. [facility] anastrozole 2018-0 Yes 1mg Take 1 mg U nivers 1 mg tablet 6-13 by mouth ity of 00:00: daily. [facility] anastrozole 2018-0 Yes 1mg Take 1 mg U nivers 1 mg tablet 6-13 by mouth ity of 00:00: daily. [facility] anastrozole 2018-0 Yes 1mg Take 1 mg U nivers 1 mg tablet 6-13 by mouth ity of 00:00: daily. [address] anastrozole 2018-0 Yes 1mg Take 1 mg U nivers 1 mg tablet 6-13 by mouth ity of 00:00: daily. [address] Immunizations Ordered Filled Immunization Date Status Comments [facility] e Immunization Name Name SARS-COV-2 COVID-19 2020-07-08 Completed Unive rsity of PFIZER VACCINE 00:00:00 [facility] SARS-COV-2 COVID-19 2020-07-08 Completed Unive rsity of PFIZER VACCINE 00:00:00 [facility] SARS-COV-2 COVID-19 2020-07-08 Completed Unive rsity of PFIZER VACCINE 00:00:00 [facility] SARS-COV-2 COVID-19 2020-07-08 Completed Unive rsity of PFIZER VACCINE 00:00:00 [facility] SARS-COV-2 COVID-19 2020-07-08 Completed Unive rsity of PFIZER VACCINE 00:00:00 [facility] SARS-COV-2 COVID-19 2020-07-08 Completed Unive rsity of PFIZER VACCINE 00:00:00 [facility] SARS-COV-2 COVID-19 2020-07-08 Completed Unive rsity of PFIZER VACCINE 00:00:00 [facility] SARS-COV-2 COVID-19 2020-07-08 Completed Unive rsity of PFIZER VACCINE 00:00:00 [facility] SARS-COV-2 COVID-19 2020-07-08 Completed Unive rsity of PFIZER VACCINE 00:00:00 [facility] SARS-COV-2 COVID-19 2020-06-15 Completed Unive rsity of PFIZER VACCINE 00:00:00 [facility] SARS-COV-2 COVID-19 2020-06-15 Completed Unive rsity of PFIZER VACCINE 00:00:00 [facility] SARS-COV-2 COVID-19 2020-06-15 Completed Unive rsity of PFIZER VACCINE 00:00:00 [facility] SARS-COV-2 COVID-19 2020-06-15 Completed Unive rsity of PFIZER VACCINE 00:00:00 [facility] SARS-COV-2 COVID-19 2020-06-15 Completed Unive rsity of PFIZER VACCINE 00:00:00 [facility] SARS-COV-2 COVID-19 2020-06-15 Completed Unive rsity of PFIZER VACCINE 00:00:00 [facility] SARS-COV-2 COVID-19 2020-06-15 Completed Unive rsity of PFIZER VACCINE 00:00:00 [facility] SARS-COV-2 COVID-19 2020-06-15 Completed Unive rsity of PFIZER VACCINE 00:00:00 [facility] SARS-COV-2 COVID-19 2020-06-15 Completed Unive rsity of PFIZER VACCINE 00:00:00 [facility] SARS-COV-2 COVID-19 2020-06-15 Completed Unive rsity of PFIZER VACCINE 00:00:00 [facility] SARS-COV-2 COVID-19 2020-06-15 Completed Unive rsity of PFIZER VACCINE 00:00:00 [facility] SARS-COV-2 COVID-19 2020-06-15 Completed Unive rsity of PFIZER VACCINE 00:00:00 [facility] SARS-COV-2 COVID-19 2020-06-15 Completed Unive rsity of PFIZER VACCINE 00:00:00 [facility] Vital Signs Vital Name Observation Time Observation Value Comments Source WEIGHT 2019-07-23 00:00:00 73.5 kg HEIGHT 2019-07-23 00:00:00 170.2 cm Systolic blood 2020-09-23 15:17:00 145 mm[Hg] Univer sity of pressure [facility] Diastolic blood 2020-09-23 15:17:00 67 mm[Hg] Unive rsity of pressure [facility] Heart rate 2020-09-23 15:17:00 88 /min [facility] Body height 2020-09-23 15:17:00 170.2 cm [facility] Body weight 2020-09-23 15:17:00 77.111 kg [facility] BMI 2020-09-23 15:17:00 26.63 kg/m2 [facility] Systolic blood 2020-08-24 21:06:00 172 mm[Hg] Univer sity of pressure [place] [facility] Diastolic blood 2020-08-24 21:06:00 70 mm[Hg] Unive rsity of pressure [facility] Heart rate 2020-08-24 21:06:00 73 /min [facility] [place] [facility] Body height 2020-08-24 21:01:00 170.2 cm [facility] [place] [facility] Body weight 2020-08-24 21:01:00 77.111 kg [facility] [place] [facility] BMI 2020-08-24 21:01:00 26.63 kg/m2 [facility] [place] [facility] Systolic blood 2020-08-17 18:37:00 136 mm[Hg] Univer sity of pressure [facility] Diastolic blood 2020-08-17 18:37:00 68 mm[Hg] Unive rsity of pressure [facility] Heart rate 2020-08-17 18:37:00 76 /min [facility] [place] [facility] Body height 2020-08-17 18:33:00 170.2 cm [facility] [place] [facility] Body weight 2020-08-17 18:33:00 77.111 kg [facility] BMI 2020-08-17 18:33:00 26.63 kg/m2 [facility] Systolic blood 2020-08-09 18:02:00 137 mm[Hg] Univer sity of pressure [facility] Diastolic blood 2020-08-09 18:02:00 70 mm[Hg] Unive rsity of pressure [facility] Heart rate 2020-08-09 18:02:00 85 /min [facility] [place] [facility] Body height 2020-08-09 18:02:00 170.2 cm [facility] [place] [facility] Body weight 2020-08-09 18:02:00 77.111 kg [facility] [place] [facility] BMI 2020-08-09 18:02:00 26.63 kg/m2 [facility] [place] [facility] Body height 2020-06-28 18:24:00 170.2 cm [facility] [place] [facility] Body weight 2020-06-28 18:24:00 77.111 kg [facility] [place] [facility] BMI 2020-06-28 18:24:00 26.63 kg/m2 [facility] [place] [facility] Systolic blood 2020-06-20 18:36:00 165 mm[Hg] Univer sity of pressure [facility] Diastolic blood 2020-06-20 18:36:00 73 mm[Hg] Unive rsity of pressure [facility] Heart rate 2020-06-20 18:36:00 70 /min [facility] Body height 2020-06-20 18:32:00 170.2 cm [facility] [place] [facility] Body weight 2020-06-20 18:32:00 77.111 kg [facility] [place] [facility] BMI 2020-06-20 18:32:00 26.63 kg/m2 [facility] [place] [facility] Systolic blood 2020-06-13 19:44:00 137 mm[Hg] Univer sity of pressure [facility] Diastolic blood 2020-06-13 19:44:00 70 mm[Hg] Unive rsity of pressure [facility] Heart rate 2020-06-13 19:44:00 79 /min [facility] Body height 2020-06-13 19:44:00 170.2 cm [facility] [place] [facility] Body weight 2020-06-13 19:44:00 77.111 kg [facility] BMI 2020-06-13 19:44:00 26.63 kg/m2 [facility] [place] [facility] Systolic blood 2020-06-07 20:46:00 153 mm[Hg] Univer sity of pressure [facility] Diastolic blood 2020-06-07 20:46:00 74 mm[Hg] Unive rsity of pressure [facility] Heart rate 2020-06-07 20:41:00 91 /min [facility] [place] [facility] Body height 2020-06-07 20:41:00 170.2 cm [facility] [place] [facility] Body weight 2020-06-07 20:41:00 77.111 kg [facility] [place] [facility] BMI 2020-06-07 20:41:00 26.63 kg/m2 [facility] [place] [facility] Systolic blood 2020-05-09 20:20:00 130 mm[Hg] Univer sity of pressure [facility] Diastolic blood 2020-05-09 20:20:00 72 mm[Hg] Unive rsity of pressure [facility] Body height 2020-05-09 20:07:00 170.2 cm [facility] [place] [facility] Body weight 2020-05-09 20:07:00 63.504 kg [facility] [place] [facility] BMI 2020-05-09 20:07:00 21.93 kg/m2 [facility] [place] [facility] Systolic blood 2020-04-26 16:36:00 105 mm[Hg] Univer sity of pressure [facility] Diastolic blood 2020-04-26 16:36:00 59 mm[Hg] Unive rsity of pressure [facility] Heart rate 2020-04-26 16:36:00 64 /min [facility] [place] [facility] Body temperature 2020-04-26 16:36:00 36.89 [place] [facility] Respiratory rate 2020-04-26 16:36:00 18 /min Univ ersity of [facility] Oxygen saturation in 2020-04-26 16:36:00 98 /min University of Arterial blood by [facility] Pulse oximetry Branch Body height 2020-04-25 19:30:00 170.2 cm [facility] Body weight 2020-04-25 19:30:00 63.504 kg [facility] BMI 2020-04-25 19:30:00 21.93 kg/m2 [facility] Respiratory rate 2020-04-25 15:11:00 17 /min Univ ers[facility] of [facility] Systolic blood 2020-04-13 19:29:00 170 mm[Hg] Univer sity of pressure [facility] Diastolic blood 2020-04-13 19:29:00 75 mm[Hg] Unive rsity of pressure [facility] Heart rate 2020-04-13 19:28:00 64 /min [facility] Body height 2020-04-13 19:28:00 166 cm [facility] Body weight 2020-04-13 19:28:00 61.78 kg [facility] BMI 2020-04-13 19:28:00 22.42 kg/m2 [facility] Systolic blood 2020-04-13 19:29:00 170 mm[Hg] Univer sity of pressure [facility] Diastolic blood 2020-04-13 19:29:00 75 mm[Hg] Unive rsity of pressure [facility] Heart rate 2020-04-13 19:28:00 64 /min [facility] Body height 2020-04-13 19:28:00 166 cm [facility] Body weight 2020-04-13 19:28:00 61.78 kg [facility] BMI 2020-04-13 19:28:00 22.42 kg/m2 [facility] Systolic blood 2020-03-10 16:01:00 141 mm[Hg] Univer sity of pressure [facility] Diastolic blood 2020-03-10 16:01:00 77 mm[Hg] Unive rsity of pressure [facility] Heart rate 2020-03-10 16:01:00 83 /min [facility] Body height 2020-03-10 16:01:00 166 cm [facility] Body weight 2020-03-10 16:01:00 61.689 kg [facility] BMI 2020-03-10 16:01:00 22.39 kg/m2 [facility] Systolic blood 2020-02-18 15:25:00 158 mm[Hg] Univer sity of pressure [facility] Diastolic blood 2020-02-18 15:25:00 74 mm[Hg] Unive rsity of pressure [facility] Heart rate 2020-02-18 15:25:00 84 /min [facility] Body height 2020-02-18 15:20:00 170.2 cm [facility] Body weight 2020-02-18 15:20:00 59.421 kg [facility] BMI 2020-02-18 15:20:00 20.52 kg/m2 [facility] Body height 2020-02-05 15:39:00 170.2 cm [facility] Body weight 2020-02-05 15:39:00 59.421 kg [facility] BMI 2020-02-05 15:39:00 20.52 kg/m2 [facility] Body height 2020-02-01 20:49:00 170.2 cm [facility] [place] [facility] [place] Body weight 2020-02-01 20:49:00 59.421 kg [facility] BMI 2020-02-01 20:49:00 20.52 kg/m2 [facility] Body height 2020-01-21 14:02:00 170.2 cm Universi ty of [facility] Body weight 2020-01-21 14:02:00 59.421 kg [facility] BMI 2020-01-21 14:02:00 20.52 kg/m2 [facility] Systolic blood 2020-01-14 18:04:00 172 mm[Hg] Univer [facility]ity of pressure [facility] Diastolic blood 2020-01-14 18:04:00 79 mm[Hg] Unive rsity of pressure [facility] Heart rate 2020-01-14 18:04:00 70 /min [facility] of [facility] Body temperature 2020-01-14 18:04:00 36.94 [place] [facility] Respiratory rate 2020-01-14 18:04:00 18 /min Univ [facility] of [facility] Oxygen saturation in 2020-01-14 18:04:00 96 /min [facility] of Arterial blood by [facility] Pulse oximetry Branch Body weight 2020-01-14 10:19:00 59.421 kg Universi [facility] of [facility] BMI 2020-01-14 10:19:00 20.52 kg/m2 [facility] of [facility] Body height 2020-01-11 23:49:00 170.2 cm [facility] of [facility] Systolic blood 2020-01-05 19:59:00 130 mm[Hg] Un[facility]ity of pressure [facility] Diastolic blood 2020-01-05 19:59:00 61 mm[Hg] Unive rsity of pressure [facility] Heart rate 2020-01-05 19:59:00 78 /min [facility] of [facility] Body height 2020-01-05 19:59:00 171.5 cm [facility] of [facility] Body weight 2020-01-05 19:59:00 63.957 kg [facility] of [facility] BMI 2020-01-05 19:59:00 21.76 kg/m2 [facility] Systolic blood 2019-12-21 19:32:00 129 mm[Hg] Univer sity of pressure [facility] Diastolic blood 2019-12-21 19:32:00 73 mm[Hg] Unive rsity of pressure [facility] Heart rate 2019-12-21 19:32:00 89 /min [facility] Body height 2019-12-21 19:26:00 171.5 cm [facility] Body weight 2019-12-21 19:26:00 63.504 kg stated [facility] BMI 2019-12-21 19:26:00 21.60 kg/m2 [facility] Systolic blood 2019-10-20 18:17:00 158 mm[Hg] Univer [facility]ity of pressure [facility] Diastolic blood 2019-10-20 18:17:00 79 mm[Hg] Unive rsity of pressure [facility] Heart rate 2019-10-20 18:17:00 85 /min [facility] Body height 2019-10-20 18:17:00 170.2 cm [facility] Body weight 2019-10-20 18:17:00 63.504 kg [facility] BMI 2019-10-20 18:17:00 21.93 kg/m2 [facility] Systolic blood 2019-09-28 21:10:00 158 mm[Hg] Univer [facility]ity of pressure [facility] Diastolic blood 2019-09-28 21:10:00 68 mm[Hg] Unive rsity of pressure [facility] Heart rate 2019-09-28 21:10:00 72 /min [facility] Respiratory rate 2019-09-28 21:10:00 18 /min [facility] Systolic blood 2019-09-15 21:13:00 115 mm[Hg] Univer sity of pressure [facility] Diastolic blood 2019-09-15 21:13:00 49 mm[Hg] Unive rsity of pressure [facility] Heart rate 2019-09-15 21:13:00 72 /min Universi ty of [facility] Body temperature 2019-09-15 21:13:00 36.78 Meagan [facility] Respiratory rate 2019-09-15 21:13:00 20 /min [facility] Oxygen saturation in 2019-09-15 21:13:00 94 /min [facility] blood by [facility] Pulse oximetry Branch Body weight 2019-09-15 09:20:00 68.992 kg [facility] BMI 2019-09-15 09:20:00 23.82 kg/m2 [facility] Body height 2019-09-15 00:35:00 170.2 cm [facility] Systolic blood 2019-08-10 18:57:00 129 mm[Hg] Univer sity of pressure [facility] Diastolic blood 2019-08-10 18:57:00 70 mm[Hg] [facility] Heart rate 2019-08-10 18:57:00 84 /min [facility] Body height 2019-08-10 18:49:00 171.5 cm [facility] Body weight 2019-08-10 18:49:00 63.504 kg stated [facility] BMI 2019-08-10 18:49:00 21.60 kg/m2 [facility] WEIGHT 2019-07-23 00:00:00 73.5 kg HEIGHT 2019-07-23 00:00:00 170.2 cm Procedures Procedure Date / Time Performing Clinician Source Performed ASSIGNMENT OF BENEFITS 2020-06-07 21:59:22 Doctor Unassigned, No [facility] Name [facility] XR HIPS 2 VW LEFT 2020-05-09 20:04:39 Hugo Roland [facility] BASIC METABOLIC PANEL 2020-04-26 10:03:00 Nikolai Valdes [facility] (NA, K, CL, CO2, [facility] GLUCOSE, BUN, CREATININE, CA) CBC WITH DIFF 2020-04-26 10:03:00 Nikolai Valdes [place] [facility] XR HIP 1 VW BILATERAL 2020-04-25 16:34:28 Hugo Roland [facility] INTUBATION 2020-04-25 14:24:[address] [facility] CENTRAL NEURAXIAL BLOCK 2020-04-25 14:06:54 Dash[facility] TOTAL HIP ARTHROPLASTY 2020-04-25 13:23:00 Hugo Roland [facility] REVISION [facility] DAY SURGERY - ADC 2020-04-25 06:01:00 Doctor Unassigned, No [facility] XR CHEST 2 VW 2020-04-22 16:09:19 Hugo Roland [facility] ASSIGNMENT OF BENEFITS 2020-04-22 15:31:30 Doctor Unassigned, No [facility] DSU PRE-OP 2020-04-11 06:01:00 Doctor Unassigned, No [facility] WOUND CLOSURE 2020-01-13 21:38:00 Hugo Roland [facility] CBC WITH DIFF 2020-01-12 09:32:00 Narendra Schuster [place] [facility] ASPIRATE OR ABSCESS 2020-01-11 18:14:00 Hugo Roland Univer [facility] CULTURE(AEROBIC/ANAEROB [facility] IC) INCISION AND DRAINAGE 2020-01-11 17:32:00 Hugo Roland [facility] HIP [facility] HOSPITAL ADMISSION 2020-01-11 06:01:00 Doctor Unassigned, No Uni versity [facility] THYROID STIMULATING 2020-01-07 18:53:00 Narendra Schuster [facility] HORMONE [facility] XR CHEST 2 VW 2020-01-07 18:26:09 Hugo Roland [facility] DSU PRE-OP 2020-01-06 06:01:00 Doctor Unassigned, No [facility] DSU PRE-OP 2020-01-05 06:01:00 Doctor Unassigned, No [facility] DSU PRE-OP 2019-12-21 05:01:00 Doctor Unassigned, No [facility] ASSIGNMENT OF BENEFITS 2019-09-28 20:30:29 Doctor Unassigned, No [facility] FL TIME OR 2019-09-14 23:22:36 Hugo Roland [facility] (NON-REPORTABLE) [facility] OPEN REDUCTION HIP 2019-09-14 21:44:00 Hugo Roland [facility] COVID-19 (ID NOW RAPID 2019-09-14 20:05:00 Manish, K Courtney [facility] TESTING) [facility] [place] COMP. METABOLIC PANEL 2019-09-14 19:01:00 Margo Hammond [facility] ([id number]) [facility] CBC WITH DIFFERENTIAL 2019-09-14 19:01:00 Margo Hammond [facility] XR HIPS 2 VW LEFT 2019-09-14 18:38:51 Margo Hammond [facility] EXTERNAL PROVIDER 2019-08-10 05:01:00 Doctor Unassigned, [facility] RECORDS Name [facility] Plan of Care Planned Activity Planned Date Details Comments Source Future Scheduled 2020-11-02 INFLUENZA VACCINE (#1) [facility] 00:[facility]:00 [code = INFLUENZA Medical Ce nter VACCINE (#1)] Future Scheduled 2020-11-02 INFLUENZA VACCINE (#1) [facility] 00:00:00 [code = INFLUENZA Medical Ce nter VACCINE (#1)] Future Scheduled 2020-03-[address] [facility] 00:00:00 (12+) [code = Medical Center DEPRESSION SCREENING (12+)] Future Scheduled 2020-03-04 FALLS RISK SCREENING [facility] 00:00:00 [code = FALLS RISK Medical C enter SCREENING] Future Scheduled 2020-03-[address] [facility] 00:00:00 (12+) [code = Medical Center DEPRESSION SCREENING (12+)] Future Scheduled 2020-03-04 FALLS RISK SCREENING [facility] 00:00:00 [code = FALLS RISK Medical C enter SCREENING] Future Scheduled 2003-12-[address] [facility] 00:00:00 WELLNESS (YEAR 2 or Medical Center FIRST YEAR if no IPPE) [code = MEDICARE ANNUAL WELLNESS (YEAR 2 or FIRST YEAR if no IPPE)] Future Scheduled 2003-12-[address] [facility] 00:00:00 WELLNESS (YEAR 2 or Medical Center FIRST YEAR if no IPPE) [code = MEDICARE ANNUAL WELLNESS (YEAR 2 or FIRST YEAR if no IPPE)] Future Scheduled 2002 PNEUMOCOCCAL 65+ YRS [facility] 00:00:00 (1 of 1 - Medical Center [id number] PCV13) [code = PNEUMOCOCCAL 65+ YRS (1 of 1 - [id number] PCV13)] Future Scheduled 2002 PNEUMOCOCCAL 65+ YRS [facility] 00:00:00 (1 of 1 - Medical Center [id number] PCV13) [code = PNEUMOCOCCAL 65+ YRS (1 of 1 - [id number] PCV13)] Future Scheduled 1987-12-10 SHINGLES VACCINES ([address] [facility] 00:00:00 of 2) [code = SHINGLES Medic al Center VACCINES (1 of 2)] Future Scheduled 1987-12-10 SHINGLES VACCINES ([address] [facility] 00:00:00 of 2) [code = SHINGLES Medic al Center VACCINES (1 of 2)] Future Scheduled 1956 DTAP/TDAP/TD VACCINES [facility] 00:00:00 (1 - Tdap) [code = Medical C enter DTAP/TDAP/TD VACCINES (1 - Tdap)] Future Scheduled 1956 DTAP/TDAP/TD VACCINES [facility] 00:00:00 (1 - Tdap) [code = Medical C enter DTAP/TDAP/TD VACCINES (1 - Tdap)] Future Scheduled 1949 COVID-19 VACCINE (1) [facility] 00:00:00 [code = COVID-[address] VACCINE (1)] Future Scheduled 1949 COVID-19 VACCINE (1) [facility] 00:00:00 [code = COVID-[address] VACCINE (1)] Encounters Start End Encounter Admission Attending Care Care Encounter Source Date/Time Date/Time Type Type Clinicians Facility Department ID 2020-12-31 Inpatient Parrish ROLAND [facility] [id number] Univers 21:55:21 [facility] 2020-12-31 Inpatient R ASUNCION [facility] [id number] Univers 01:03:35 [facility] 2020-12-30 Emergency [facility] [id number] Univers 06:23:56 [facility] 2019-07-23 Inpatient ER LOER[facility], [facility] Internal [id number] [facility] 2020-12-17 2020-12-17 [facility] 1.2.840.114 [id number] Univers 00:00:00 00:00:00 [facility] 350.1.13.10 it y of Surgical 4.2.7.2.686 Antoine as Specialti [phone] Me dical es [address] [facility] 2020-09-23 2020-09-23 Office [facility] 1.2.840.114 [id number] Univers 10:09:04 10:24:04 Visit [facility] 350.1.13.10 it y of Surgical 4.2.7.2.686 Antoine as Specialti [id number] Wy dical es 198 [facility] 2020-09-23 2020-09-23 Outpatient [facility] [id number] -[id number] Univers 10:15:00 10:15:00 NIKOLAI [id number] [facility] 2020-09-23 2020-09-23 Outpatient Parrish [facility] [id number] Univers 10:15:00 10:15:00 [facility] 2020-08-24 2020-08-24 Office [facility] 1.2.840.114 [id number] Univers 16:01:02 16:16:02 Visit [facility] 350.1.13.10 it y of Surgical 4.2.7.2.686 Antoine as Specialti [id number] Wy dical es [address] [facility] 2020-08-24 2020-08-24 Outpatient Parrish [facility] [id number] Univers 16:15:00 16:15:00 [facility] [id number] 2020-08-24 2020-08-24 Outpatient Parrish [facility] [id number] Univers 16:15:00 16:15:00 [facility] 2020-08-17 2020-08-17 Office [facility] 1.2.840.114 [id number] Univers 13:32:01 13:47:01 Visit [facility] 350.1.13.10 it y of Surgical 4.2.7.2.686 Antoine as Specialti [id number] Me dical es [address] [facility] 2020-08-17 2020-08-17 Outpatient Parrish LUCIO [facility] [id number] -[id number] Univers 13:45:00 13:45:00 NIKOLAI [id number] [facility] 2020-08-17 2020-08-17 Outpatient [facility] [id number] Univers 13:45:00 13:45:00 [facility] 2020-08-09 2020-08-09 [facility] 1.2.840.114 [id number] Univers 13:00:33 13:15:33 Visit [facility] 350.1.13.10 it y of Surgical 4.2.7.2.686 Antoine as Specialti [phone] Wy dical es [address] [facility] 2020-08-09 2020-08-09 Outpatient [facility] [id number] -[id number] Univers 13:15:00 13:15:00 NIKOLAI [id number] [facility] 2020-08-09 2020-08-09 Outpatient Par[facility] [id number] Univers 13:15:00 13:15:00 [facility] 2020-07-08 2020-07-08 Outpatient Parrish [facility] [id number] Univers 14:50:00 14:50:00 QIAN [facility] 2020-06-28 2020-06-28 Office [facility] 1.2.840.114 [id number] Univers 13:23:28 13:38:28 Visit [facility] 350.1.13.10 it y of Surgical 4.2.7.2.686 Antoine as Specialti [id number] Wy dical es [address] [facility] 2020-06-28 2020-06-28 [facility] [id number] -[id number] Univers 13:30:00 13:30:00 NIKOLAI [id number] [facility] 2020-06-28 2020-06-28 Outpatient [facility] [id number] Univers 13:30:00 13:30:00 [facility] 2020-06-20 2020-06-20 Office [facility] 1.2.840.114 [id number] Univers 13:31:38 13:46:38 Visit [facility] 350.1.13.10 it y of Surgical 4.2.7.2.686 Antoine as Specialti [phone] Wy dical es [address] [facility] 2020-06-20 2020-06-20 Outpatient [facility] [id number] -[id number] Univers 13:30:00 13:30:00 NIKOLAI [id number] [facility] 2020-06-20 2020-06-20 Outpatient [facility] [id number] Univers 13:30:00 13:30:00 NIKOLAI [facility] 2020-06-15 2020-06-15 Outpatient R [facility] [id number] Univers 11:20:00 11:20:00 QIAN [facility] 2020-06-13 2020-06-13 Outpatient [facility] [id number] -[id number] Univers 15:00:00 15:00:00 NIKOLAI [id number] [facility] 2020-06-13 2020-06-13 Outpatient [facility] [id number] Univers 15:00:00 15:00:00 [facility] 2020-06-13 2020-06-13 Office [facility] 1.2.840.114 [id number] Univers 14:41:24 14:56:24 Visit [facility] 350.1.13.10 it y of Surgical 4.2.7.2.686 Antoine as Specialti [id number] Me dical es [address] [facility] 2020-06-07 2020-06-07 Fixed Income Manager Alfred, Lyle Lab Main [facility] 1.2.8 40.114 [id number] Univers 17:02:51 17:17:51 Visit Hugo Roland [place] 350.1.13.10 ity [place] [phone] Me dical nal [facility] 2020-06-07 2020-06-07 Outpatient [facility] [id number] Univers 17:00:00 17:00:00 HUGO [facility] 2020-06-07 2020-06-07 Office [facility] 1.2.840.114 [id number] Univers 15:38:44 15:53:44 Visit Nikolai Zane [facility] 350.1.13.10 it y of Surgical 4.2.7.2.686 Antoine as Specialti [id number] Wy dical es 198 [facility] 2020-06-07 2020-06-07 Outpatient Parrish [facility] [id number] Univers 15:45:00 15:45:00 [facility] [id number] [facility] 2020-06-07 2020-06-07 Outpatient Parrish [facility] [id number] Univers 15:45:00 15:45:00 [facility] 2020-06-07 2020-06-07 Orders Doctor CINDY 1.2.840.114 [id number] Univers 00:00:00 00:00:00 Only Unassigned, SHONDA 350.1.13.10 ity of [place] [facility] 4.2.7.2.686 Antoine as [id number] [address] 2020-05-09 2020-05-09 [facility] 1.2.840.114 [id number] Univers 14:04:39 23:59:00 Encounter Hugo Mark [facility] 350.1.13.10 ity of Surgical 4.2.7.2.686 Antoine as Specialti [id number] Wy dical es 809 [facility] 2020-05-09 2020-05-09 Office [facility] 1.2.840.114 [id number] Univers 14:03:00 14:18:00 Visit Nikolai Degroot [facility] 350.1.13.10 it y of Surgical 4.2.7.2.686 Antoine as Specialti [id number] Wy dical es 198 [facility] 2020-05-09 2020-05-09 Outpatient Parrish [facility] [id number] Univers 14:00:00 14:00:00 [facility] 2020-04-25 2020-04-26 [facility] HEATHER Roland 1.2.840.114 [id number] Univers 06:34:00 14:00:00 Encounter Hugo Mark Radha 350.1.13.10 ity of [place] 4.2.7.2.686 [facility] [id number] [facility] 081 Branch 2020-04-25 2020-04-25 Anesthesia Dontae Stanton [facility] 1.2.840.11 [id number] Univers 07:38:00 09:14:00 Dashawn Rivas 350.1.13.10 ity of [place] 4.2.7.2.686 [facility] Surgical [phone] [facility] 020 Branch 2020-04-25 2020-04-25 Orders Doctor CINDY 1.2.840.114 [id number] Univers 00:00:00 00:00:00 Only Unassigned, SHONDA 350.1.13.10 ity of [place] [facility] 4.2.7.2.686 Antoine [id number] [facility] 009 Branch 2020-04-22 2020-04-22 Laboratory Only, [facility] 1.2.840.114 [id number] 09:38:24 09:53:24 Only Test [place] 350.1.13.10 [place] 4.2.7.2.[id number] [facility] 2020-04-22 2020-04-22 Laboratory Only, Adc Test [facility] 1.2.840. 114 [id number] Univers 09:38:24 09:53:24 Only Hugo Roland [place] 350.1.13.10 ity of [place] 4.2.7.2.686 [facility] [phone] [facility] 353 Branch 2020-04-22 2020-04-22 Fixed Income Manager Lyle Simon [facility] 1.2.840.114 [id number] 09:37:29 09:52:29 Visit Lab Main [place] 350.1.13.10 [place] 4.2.7.2.686 Professio [id number] [address] 2020-04-22 2020-04-22 Fixed Income Manager Lyle Simon Lab Main [facility] 1.2.8 40.114 [id number] Univers 09:37:29 09:52:29 Visit Hugo Roland Radha 350.1.13.10 ity [facility] 4.2.7.2.686 [place] [facility] [phone] Wy dical [facility] 2020-04-22 2020-04-22 Outpatient [facility] [id number] -[id number] Univers 09:45:00 09:45:00 [id number] ity [facility] 2020-04-22 2020-04-22 Outpatient [facility] [id number] Univers 09:45:00 09:45:00 [facility] 2020-04-22 2020-04-22 [facility] 1.2.840.114 [id number] Univers 09:35:42 09:35:42 Encounter Hugo Jas [facility]13.10 [facility].2.7.2.686 [facility] [place] [id number] [facility] [address] [place] 2020-04-22 2020-04-22 [facility] 1.2.840.114 [id number] 09:35:42 09:35:42 Encounter Hugo Garcia 350.1.13.10 [place] 4.2.7.2.686 [place] [id number] [id number] 2020-04-22 2020-04-22 Orders Doctor WHITE 1.2.840.114 [id number] Univers 00:00:00 00:00:00 Only Unassigned, SHONDA 350.1.13.10 ity of [place] [facility] 4.2.7.2.686 Antoine as [phone] [facility] 009 Branch 2020-04-22 2020-04-22 Orders Doctor WHITE 1.2.840.114 [id number] 00:00:00 00:00:00 Only Unassigned, SHONDA 350.1.13.10 [place] [facility] 4.2.7.2.686 [id number] 009 2020-04-13 2020-04-13 Office [facility] 1.2.840.114 [id number] Univers 13:20:59 13:35:59 Visit Nikolai Degroot [facility] 350.1.13.10 it y of Surgical 4.2.7.2.686 Antoine as Specialti [id number] Wy dical es [address] [facility] 2020-04-13 2020-04-13 Office [facility] 1.2.840.114 [id number] 13:20:59 13:35:59 Visit Nikolai Degroot [facility] 350.1.13.10 Surgical 4.2.7.2.686 Specialti [phone] es [address] [place] [address] 2020-04-13 2020-04-13 Outpatient Parrish [facility] [id number] -[id number] Univers 13:30:00 13:30:00 NIKOLAI [id number] [facility] 2020-04-13 2020-04-13 Outpatient Parrish [facility] [id number] Univers 13:30:00 13:30:00 [facility] 2020-04-07 2020-04-07 Prep For [facility] 1.2.840.114 [id number] Univers 00:00:00 00:00:00 Surgery Hugo Mark [facility] 350.1.13.10 it y of Surgical 4.2.7.2.686 Antoine as Specialti [phone] Wy dical es 198 [facility] 2020-03-10 2020-03-10 Office [facility] 1.2.203.780 [id number] Univers 09:47:32 10:11:39 Visit Hugo Mark [facility] 350.1.13.10 it y of Surgical 4.2.7.2.686 Antoine as Specialti [id number] Wy dical es 198 [facility] 2020-03-10 2020-03-10 Outpatient [facility] [id number] Univers 09:45:00 09:45:00 HUGO Price107 [facility] 2020-03-10 2020-03-10 Outpatient [facility] [id number] Univers 09:45:00 09:45:00 HUGO [facility] 2020-02-18 2020-02-18 Office [facility] 1.2.920.250 [id number] Univers 09:18:46 09:38:21 Visit Hugo Mark [facility] 350.1.13.10 it y of Surgical 4.2.7.2.686 Antoine as Specialti [id number] Wy dical es 198 [facility] 2020-02-18 2020-02-18 Outpatient R ASUNCION [facility] [id number] Univers 09:30:00 09:30:00 HUGO [id number] ity [facility] 2020-02-18 2020-02-18 Outpatient R ASUNCION [facility] [id number] Univers 09:30:00 09:30:00 HUGO ity [facility] 2020-02-05 2020-02-05 Outpatient R ASUNCION [facility] [id number] Univers 10:45:00 10:45:00 HUGO ity [facility] 2020-02-05 2020-02-05 Outpatient [facility] [id number] Univers 10:45:00 10:45:00 HUGO [facility] 2020-02-05 2020-02-05 Office [facility] 1.2.956.059 [id number] Univers 09:22:48 09:52:52 Visit Hugo Mark [facility] 350.1.13.10 it y of Surgical 4.2.7.2.686 Antoine as Specialti [id number] Wy dical es 198 [facility] 2020-02-01 2020-02-01 Office [facility] 1.2.199.796 [id number] Univers 14:39:28 16:02:28 Visit Hugo Mark [facility] 350.1.13.10 it y of Surgical 4.2.7.2.686 Antoine as Specialti [id number] Wy dical es 198 [facility] 2020-02-01 2020-02-01 Outpatient R ASUNCION [facility] [id number] Univers 14:45:00 14:45:00 HUGO ity [facility] 2020-02-01 2020-02-01 Outpatient R ASUNCION [facility] [id number] Univers 14:45:00 14:45:00 [facility] 2020-01-21 2020-01-21 Outpatient [facility] [id number] Univers 13:45:00 13:45:00 HUGO [id number] ity [facility] 2020-01-21 2020-01-21 Outpatient R ASUNCION [facility] [id number] Univers 13:45:00 13:45:00 HUGO [facility] 2020-01-21 2020-01-21 Office [facility] 1.2.840.114 [id number] Univers 07:56:04 08:11:04 Visit [facility] 350.1.13.10 it y of Surgical 4.2.7.2.686 Antoine as Specialti [id number] Wy dical es 198 [facility] 2020-01-21 2020-01-21 Outpatient [facility] [id number] Univers 08:00:00 08:00:00 [facility]OLAI [facility] 2020-01-18 2020-01-18 Outpatient [facility] [id number] Univers 15:15:00 15:15:00 HUGO [id number] [facility] 2020-01-18 2020-01-18 Outpatient R [facility] [id number] Univers 15:15:00 15:15:00 HUGO [facility] 2020-01-15 2020-01-15 Transition Kia [place] 1.2.840.114 [id number] Univers 00:00:00 00:00:00 [address] [place] [address] 350.1.13.10 it y of [place]2.7.2.686 [place] [id number] [facility] [address] [place] 2020-01-11 2020-01-14 Hospital [facility] 1.2.840.114 [id number] Univers 09:28:00 16:20:00 Encounter Hugo Garcia 350.1.13.10 ity [place].7.2.686 [place] [id number] [facility] [address] [place] 2020-01-11 2020-01-11 Orders Doctor WHITE 1.2.840.114 [id number] Univers 00:00:00 00:00:00 Only Unassigned, SHONDA 350.1.13.10 it[place] [facility] 4.2.7.2.686 Antoine as [id number] [address] 2020-01-07 2020-01-07 Fixed Income Manager Alfred, Adc Lab Main [facility] 1.2.8 40.114 [id number] Univers 11:57:19 12:12:19 Visit Asuncion Hugo Jas Garcia 350.1.13.10 ity of [place]2.7.2.686 [place] [facility] [id number] [address] 2020-01-07 2020-01-07 Laboratory Only, Adc Test [facility] 1.2.840. 114 [id number] Univers 11:51:35 12:06:35 Only AsuncionHiig Jas Garcia 350.1.13.10 ity of [place] [id number] [facility] [phone] [address] 2020-01-07 2020-01-07 Hospital [facility] 1.2.840.114 [id number] Univers 11:15:00 11:58:00 Encounter Hugo Jas Garcia [id number] [place] [id number] [facility] [phone] [facility] [address] 2020-01-07 2020-01-07 Outpatient [facility] [id number] Univers 11:00:00 11:00:00 ity of [facility] 2020-01-07 2020-01-07 [facility] [id number] Univers 11:00:00 11:00:00 HUGO ity [facility] 2020-01-06 2020-01-06 Orders Doctor CINDY 1.2.840.114 [id number] Univers 00:00:00 00:00:00 Only Unassigned, SHONDA 350.1.13.10 ity of [place] [facility] 4.2.7.2.686 Antoine as [phone] [address] 2020-01-05 2020-01-05 Office Lucio [facility] 1.2.840.114 [id number] Univers 13:38:37 13:53:37 Visit Nikolai [employer] 350.1.13.10 it y of Surgical 4.2.7.2.686 Antoine as Specialti [phone] Wy dical es [address] [facility] 2020-01-05 2020-01-05 Outpatient Parrish [facility] [id number] -[id number] Univers 13:45:00 13:45:00 NIKOLAI ity of [facility] 2020-01-05 2020-01-05 Outpatient Parrish [facility] [id number] Univers 13:45:00 13:45:00 NIKOLAI ity [facility] 2020-01-05 2020-01-05 Orders Doctor CINDY 1.2.840.114 [id number] Univers 00:00:00 00:00:00 Only Unassigned, SHONDA 350.1.13.10 ity of [place] [facility] 4.2.7.2.686 Antoien as [phone] [address] 2019-12-22 2019-12-22 Prep [facility] 1.2.840.114 [id number] Univers 00:00:00 00:00:00 Surgery [facility] 350.1.13.10 it y of Surgical 4.2.7.2.686 Antoine as Specialti [phone] Wy dical es [address] [facility] 2019-12-21 2019-12-21 Office [facility] 1.2.351.181 [id number] Univers 14:20:04 15:02:42 Visit [facility] 350.1.13.10 it y of Surgical 4.2.7.2.686 Antoine as Specialti [phone] Wy dical es [address] [facility] 2019-12-21 2019-12-21 Outpatient [facility] [id number] Univers 14:30:00 14:30:00 HUGO [id number] ity [facility] 2019-12-21 2019-12-21 Outpatient R [facility] [id number] Univers 14:30:00 14:30:00 [facility] 2019-12-21 2019-12-21 Orders Doctor CINDY 1.2.840.114 [id number] Univers 00:00:00 00:00:00 Only Unassigned, SHONDA 350.1.13.10 ity of [place] [facility] 4.2.7.2.686 Antoine as [phone] [facility] [address] [place] 2019-10-20 2019-10-20 Office [facility] 1.2.840.114 [id number] Univers 13:07:51 14:06:26 Visit Nikolai [facility] 350.1.13.10 it y of Surgical 4.2.7.2.686 Antoine as Specialti [phone] Wy dical es [address] [facility] 2019-10-20 2019-10-20 Outpatient Parrish [facility] [id number] -[id number] Univers 13:00:00 13:00:00 NIKOLAI [id number] ity [facility] 2019-10-20 2019-10-20 Outpatient Parrish [facility] [id number] Univers 13:00:00 13:00:00 NIKOLAI ity [facility] 2019-09-28 2019-09-28 [facility] 1.2.840.114 [id number] Univers 15:31:00 23:59:00 Encounter Hugo Garcia 350.1.13.10 ity [facility] 4.2.7.2.686 [facility] [phone] [facility] [address] [place] 2019-09-28 2019-09-28 Office [facility] 1.2.840.114 [id number] Univers 15:58:06 16:13:06 Visit Nikolai [facility] 350.1.13.10 it y of Surgical 4.2.7.2.686 Antoine as Specialti [phone] Wy dical es [address] [facility] 2019-09-28 2019-09-28 Outpatient Parrish [facility] [id number] -[id number] Univers 16:00:00 16:00:00 NIKOLAI [id number] ity [facility] 2019-09-28 2019-09-28 Outpatient Parrish [facility] [id number] Univers 16:00:00 16:00:00 NIKOLAI ity [facility] 2019-09-28 2019-09-28 Telephone [facility] 1.2.840.114 [id number] Univers 00:00:00 00:00:00 Hugo Jas [facility] 350.1.13.10 it y of Surgical 4.2.7.2.686 Antoine as Specialti [phone] Me dical es [address] [facility] 2019-09-28 2019-09-28 Orders Doctor CINDY 1.2.840.114 [id number] Univers 00:00:00 00:00:00 Only Unassigned, SHONDA 350.1.13.10 ity of [place] [facility] 4.2.7.2.686 Antoine as [phone] [facility] [address] [place] 2019-09-16 2019-09-16 Transition Kia [place] 1.2.840.114 [id number] Univers 00:00:00 00:00:00 of Care Laura Main 350.1.13.10 it y of [place]2.[place] [phone] [facility] [address] [place] 2019-09-14 2019-09-15 Emergency Margo Hammond [facility] 1.2.840. 114 [id number] Univers 13:26:42 18:26:00 Hugo Roland [place] 350.1.13.10 ity of [place]2.[place] [phone] [facility] [address] [place] 2019-09-14 2019-09-14 Telephone [facility] 1.2.840.114 [id number] Univers 00:00:00 00:00:00 Hugo Mark [facility] 350.1.13.10 it y of Surgical 4.2.7.2.686 Antoine as Specialti [phone] Wy dical es [address] [facility] 2019-09-09 2019-09-09 Outpatient [facility] [id number] Univers 13:00:00 13:00:00 HUGO harris [facility] 2019-09-09 2019-09-09 Outpatient R [facility] [id number] Univers 13:00:00 13:00:00 HUGO harris [facility] 2019-08-10 2019-08-10 Outpatient R [facility] [id number] Univers 13:57:22 23:59:00 HUGO harris [facility] 2019-08-10 2019-08-10 [facility] 1.2.840.114 [id number] Univers 13:57:00 23:59:00 Encounter Hugo Shahid 350.1.13.10 ity of Surgical 4.2.7.2.686 Antoine as Specialti [phone] Wy dical es [address] [facility] 2019-08-10 2019-08-10 Office Asuncion [facility] 1.2.883.699 [id number] Univers 13:43:55 14:30:21 Visit Hugo Shahid 350.1.13.10 it y of Surgical 4.2.7.2.686 Antoine as Specialti [phone] Wy dical es [address] [facility] 2019-08-10 2019-08-10 [facility] [id number] Univers 13:45:00 13:45:00 HUGO [id number] ity of [facility] 2019-08-10 2019-08-10 Orders Doctor CINDY 1.2.840.114 [id number] Univers 00:00:00 00:00:00 Only Unassigned, SHONDA 350.1.13.10 ity of [place] [facility] 4.2.7.2.686 Antoine as [phone] [facility] [address] [place] Results Test Description Test Time Test Comments Results Result Sour e Comments XR HIPS 2 VW LEFT 2020-05-09 That is post Unive rsity of 20:45:16 left total hip [facility] replacement Branch implants in good alignment no signs of fracture BASIC METABOLIC PANEL (NA, K, CL, CO2, GLUCOSE, BUN, 2020-04 12:43:00 CREATININE, CA) Test Item Value Reference Range Interpretation Comme nts NA (test code = 7325045303) 133 mmol/L 135-145 L K (test code = 0918354128) 4.1 mmol/L 3.5-5 CL (test code = 6072442017) 99 mmol/L 98-108 CO2 TOTAL (test code = 3718467791) 29 mmol/L 23-31 AGAP (test code = 8389869081) 2-16 BUN (test code = 5494429790) 16 mg/dL 7-23 GLUCOSE (test code = 0053568192) 100 mg/dL 70-110 CREATININE (test code = 0.73 mg/dL 0.5-1.04 0914177642) CALCIUM (test code = 1575305258) 9.2 mg/dL 8.6-10.6 eGFR Calculation (Non- mL/min/1.73m2 Yemeni) (test code = 0084524406) eGFR Calculation ( mL/min/1.73m2 Yemeni) (test code = 3557485702) OREN (test code = OREN) Association of Glomerular Filtration Rate (GFR) and Staging of Kidney Disease* + +-------- + ------+| GFR (mL/min/1.73 m2) ?| With Kidney Damage ?| ?Without Kidney Damage+ +-- + +| ?>90 ?| ?Stage one ?| ? Normal ?+ +------- + -------+| ?60-89 ?| ?Stage two ?| ? Decreased GFR ? + +-------- + ------+| ?30-59 ?| ?Stage three ?| ? Stage three ? + +-------- + ------+| ?15-29 ?| ?Stage four ? | ? Stage four ?+ +------- + -------+| ?<15 (or dialysis) ? ?| ?Stage five ? | ? Stage five ?+ +------- + -------+ *Each stage assumes the associated GFR level has been in effect for at least three months. ?Stages 1 to 5, with or without kidney disease, indicate chronic kidney disease. Notes: Determination of stages one and two (with eGFR >59mL/min/1.73 m2) requires estimation of kidney damage for at least three months as defined by structural or functional abnormalities of the kidney, manifested by either:Pathological abnormalities or Markers of kidney damage (including abnormalities in the composition of the blood or urine or abnormalities in imaging tests). Lab Interpretation (test code = Abnormal 08879-1) [facility] WITH [id number] 12:32:00 Test Item Value Reference Range Interpretation Comments WBC (test code = See_Comment [Automated 4307-2) message] The sy stem which generated this result transmitted reference range : 4.30 - 11.10 10*3/?L. The reference range was not used to interpret this result as normal/abnormal . RBC (test code = See_Comment L [Automated 625-8) message] The sy stem which generated this result transmitted reference range : 3.93 - 5.25 10*6/?L. The reference range was not used to interpret this result as normal/abnormal . HGB (test code = 8.9 g/dL 11.6-15 L 718-7) HCT (test code = 27.4 % 35.7-45.2 L 4544-3) MCV (test code = 89.5 fL 80.6-95.5 787-2) MCH (test code = 29.1 pg 25.9-32.8 785-6) MCHC (test code = 32.5 g/dL 31.6-35.1 786-4) RDW-SD (test code = 48.5 fL 39-49.9 46967-2) RDW-CV (test code = 14.9 % 12-15.5 788-0) PLT (test code = See_Comment H [Automated 777-3) message] The sy stem which generated this result transmitted reference range : 166 - 358 10*3/ ?L. The reference r lester was not used to interpret this result as normal/abnormal . MPV (test code = 10.0 fL 9.5-12.9 32196-9) NRBC/100 WBC (test See_Comment [Automat ed code = 2879729259) message] The system which generated this result transmitted reference range : 0.0 - 10.0 /100 WBCs. The refer ence range was not u sed to interpret th is result as normal/abnormal . NRBC x10^3 (test code <0.01 See_Comment [Auto mated = 8637128214) message] The s ystem which generated this result transmitted reference range : 10*3/?L. The reference range was not used to interpret this result as normal/abnormal . GRAN MAT (NEUT) % 75.1 % (test code = 770-8) IMM GRAN % (test code 0.40 % = 2215439904) LYMPH % (test code = 10.4 % 736-9) MONO % (test code = 13.5 % 5905-5) EOS % (test code = 0.2 % 713-8) BASO % (test code = 0.4 % 706-2) GRAN MAT x10^3(ANC) 7.71 10*3/uL 1.88-7.09 H (test code = 5424743129) IMM GRAN x10^3 (test 0.04 10*3/uL 0-0.06 code = 7706524746) LYMPH x10^3 (test code 1.07 10*3/uL 1.32-3.29 L = 731-0) MONO x10^3 (test code 1.39 10*3/uL 0.33-0.92 H = 742-7) EOS x10^3 (test code = <0.03 0.03-0.39 L 711-2) BASO x10^3 (test code 0.04 10*3/uL 0.01-0.07 = 704-7) Lab Interpretation Abnormal (test code = 61001-8) [facility] [id number] 01:16:29 Assess left hip prosthesis with anatomic alignment. RL: 5611 END OF REPORT Ordering Physician: HUGO ROLAND Clinical Indication: revisionhip Additional Clinical Information: Comparison: None Technique: AP view of the pelvis Technical Quality: Good Findings: There is a left hip prosthesis. There is anatomic alignment. Nocomplicating process. [facility], Radiant Results Inft User - 04/25/2020 7:17 PM CSTOrdering Physician: HUGO ROLANDClinical Indication: revision hip Additional Clinical Information:Comparison: NoneTechnique: AP view ofthe pelvisTechnical Quality: GoodFindings: There is a left hip prosthesis. There is anatomic alignment. Nocomplicating process.IMPRESSIONAssess left hip prosthesis with anatomic alignment.RL: 5611END OF REPORT UnLake [facility] Medical CenterIntubation2021-02-22 14:24:09Yue Dodge CRNA ? ? 04/25/2020 ?8:24 AMIntubationDate/Time: 04/25/2020 8:24 AMUrgency: elective Airway not difficult General Information and Staff Patient location during procedure: ORResident/PUPIL PERSONNEL WORKER: Yue Dodge CRNAPerformed: resident/PUPIL PERSONNEL WORKER Indications and Patient ConditionIndications for airway management: anesthesiaSpontaneous ventilation: presentSedation level: minimalPreoxygenated:yesPatient position: sniffingMask difficulty assessment: 1 - vent by mask Final Airway DetailsFinal airway type: endotracheal airway Successful airway: ETTCuffed: yes Successful intubation technique: direct laryngoscopyFacilitating devices/methods: intubating styletEndotracheal tube insertion site: oralBlade: MillerBlade size: #2ETT size (mm): 7.0Cormack-Lehane Classification: grade I - full view ofglottisPlacement verified by: chest auscultation and capnometry Cuff volume (mL): 8Measured from: teethETT to teeth (cm): 22Number of attempts at approach: 1 Additional CommentsAtraumatic intubation. Eyes, teeth and lips unchanged.[facility] [id number] 14:24:09Yue Dodge CRNA ? ? 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 Indications and Patient ConditionIndications for airway management: anesthesiaSpontaneous ventilation: presentSedation level: minimalPreoxygenated:yesPatient position: sniffingMask difficulty assessment: 1 - vent by mask Final Airway DetailsFinal airway type: endotracheal airway Successful airway: ETTCuffed: yes Successful intubation technique: direct laryngoscopyFacilitating devices/methods: intubating styletEndotracheal tube insertion site: oralBlade: MillerBlade size: #2ETT size (mm): 7.0Cormack-Lehane Classification: grade I - full view ofglottisPlacement verified by: chest auscultation and capnometry Cuff volume (mL): 8Measured from: teethETT to teeth (cm): 22Number of attempts at approach: 1 Additional CommentsAtraumatic intubation. Eyes, teeth and lips unchanged.[facility] CenterCentral Neuraxial [id number] 14:06:54Dashawn Rivas MD ? ? 04/25/2020 ?8:08 AM Central Neuraxial Block Performed by: Gricel Rivas MDAuthorized by: Dashawn Rivas MD Start Time: ?04/25/2020 7:15 AMReason for Block: ?Post-op pain managementStaff: ?Anesthesiologist: ?Dashawn Rivas MD ?Performed by: ?Anesthesiologist patient identified, IV checked, risks and benefits explained, monitors and equipment checked, timeout performed, ob surgical consent/approval, pre-op evaluation, surgical consent, site marked, anesthesia consent and OB/surgical consent verifiedEpidural: ?Patient Position: ?Sitting ?Prep: Betadine ? ?Monitoring: ?Heart rate, continuous pulse ox and NIBP ?Location: ?Lumbar (1-5) ?Lumbar: ?L2-L3 ?Approach: ?MidlineInjection Technique: ?Single shotNeedle and Epidural Catheter: ?Epidural Kit: ?Makenna Haworth (BD) ?Needle Type: ?Nika ?Needle Length: ?3.5 in (8.89 cm) ?Needle Insertion Depth: ?5 Number of Attempts: 1Test Dose: ?No test dose Assessment: ?Sensory Level: ?Below J20XxcarncsqsLake Granbury Medical CenterCentral Neuraxial [id number] 14:06:54Dashawn Rivas MD ? ? 04/25/2020 ?8:08 AM Central Neuraxial Block Performed by: Gricel Rivas MDAuthorized by: Dashawn Rivas MD Start Time: ?04/25/2020 7:15 AMReason for Block: ?Post-op pain managementStaff: ?Anesthesiologist: ?Dashawn Rivas MD ?Performed by: ?Anesthesiologist patient identified, IV checked, risks and benefits explained, monitors and equipment checked, timeout performed, ob surgical consent/approval, pre-op evaluation, surgical consent, site marked, anesthesia consent and OB/surgical consent verifiedEpidural: ?Patient Position: ?Sitting ?Prep: Betadine ? ?Monitoring: ?Heart rate, continuous pulse ox and NIBP ?Location: ?Lumbar (1-5) ?Lumbar: ?L2-L3 ?Approach:?MidlineInjection Technique: ?Single shotNeedle and Epidural Catheter: ?Epidural Kit: ?Makenna Bhavna (BD) ?Needle Type: ?Nika ?Needle Length: ?3.5 in (8.89 cm) ?Needle Insertion Depth: ?5 Number of Attempts: 1Test Dose: ?No test dose Assessment: ?Sensory Level: ?Below J61TsdrpoyptyLake Granbury Medical CenterXR CHEST 2 VW 2020-04-22 16:18:551. No acute cardiopulmonary disease.2. Increased interstitial lung markings in both lungs most likely representchronic interstitial disease CHEST 2 VIEWS: HISTORY:Preop TECHNIQUE:: ?PA and lateral views of the chest are obtained. COMPARISON: 01/07/2020 FINDINGS: Increased interstitial lung markings areseen more pronounced inthe periphery of the lungs. The heart size and mediastinal silhouette are normal. No pleural effusionor pneumothorax is seen. [facility], Radiant Results Inft User - 04/22/2020 10:20 AM CSTCHEST 2 VIEWS:HISTORY:PreopTECHNIQUE:: PA and lateral views of the chest are obtained.COMPARISON: 01/07/2020FINDINGS: Increased interstitial lung markings are seen more pronounced inthe periphery of the lungs.The heart size and mediastinal silhouette are normal. No pleural effusionor pneumothorax is seen.IMPRESSION1. No acute cardiopulmonary disease.2. Increased interstitial lung markings in both lungs most likely representchronic interstitial diseaseUnLake Granbury Medical CenterCBC WITH [id number] 09:46:00 Test Item Value Reference Range Interpretation Comments WBC (test code = See_Comment [Automated 9190-2) message] The sy stem which generated this result transmitted reference range : 4.30 - 11.10 10*3/?L. The reference range was not used to interpret this result as normal/abnormal . RBC (test code = See_Comment L [Automated 799-8) message] The sy stem which generated this result transmitted reference range : 3.93 - 5.25 10*6/?L. The reference range was not used to interpret this result as normal/abnormal . HGB (test code = 8.5 g/dL 11.6-15 L 718-7) HCT (test code = 26.6 % 35.7-45.2 L 4544-3) MCV (test code = 94.7 fL 80.6-95.5 787-2) MCH (test code = 30.2 pg 25.9-32.8 785-6) MCHC (test code = 32.0 g/dL 31.6-35.1 786-4) RDW-SD (test code = 53.0 fL 39-49.9 H 43515-3) RDW-CV (test code = 15.3 % 12-15.5 788-0) PLT (test code = See_Comment H [Automated 777-3) message] The sy stem which generated this result transmitted reference range : 166 - 358 10*3/ ?L. The reference r lester was not used to interpret this result as normal/abnormal . MPV (test code = 9.0 fL 9.5-12.9 L 81771-1) NRBC/100 WBC (test See_Comment [Automat ed code = 0708749193) message] The system which generated this result transmitted reference range : 0.0 - 10.0 /100 WBCs. The refer ence range was not u sed to interpret th is result as normal/abnormal . NRBC x10^3 (test code <0.01 See_Comment [Auto mated = 1451757412) message] The s ystem which generated this result transmitted reference range : 10*3/?L. The reference range was not used to interpret this result as normal/abnormal . GRAN MAT (NEUT) % 78.0 % (test code = 770-8) IMM GRAN % (test code 0.40 % = 5581560418) LYMPH % (test code = 13.6 % 736-9) MONO % (test code = 7.8 % 5905-5) EOS % (test code = 0.0 % 713-8) BASO % (test code = 0.2 % 706-2) GRAN MAT x10^3(ANC) 4.18 10*3/uL 1.88-7.09 (test code = 4130477199) IMM GRAN x10^3 (test <0.03 0-0.06 code = 8311460662) LYMPH x10^3 (test code 0.73 10*3/uL 1.32-3.29 L = 731-0) MONO x10^3 (test code 0.42 10*3/uL 0.33-0.92 = 742-7) EOS x10^3 (test code = <0.03 0.03-0.39 L 711-2) BASO x10^3 (test code <0.03 0.01-0.07 = 704-7) Lab Interpretation Abnormal (test code = 63442-6) [facility] CenterTHYROID STIMULATING [id number] 02:18:00 Test Item Value Reference Range Interpretation Comments TSH (test code = See_Comment Biotin has been 3168028504) reported to cau se a negative bias, interpret resul ts relative to pat ient's use of biotin. [Automated mess age] The system [employer] generated this result transmitted ref erence range: 0.45 - 4 .70 mIU/L. The refe rence range was not u sed to interpret this result as normal/abnor mal. Lab Interpretation (test Normal code = 93138-6) [facility] CenterXR CHEST 2 [id number] 18:47:57HISTORY: Preop. TECHNIQUE: PA and lateral views of the chest are obtained. Comparison madeto 09/02/2017 study. FINDINGS: No acute pneumonia detected. No pneumothorax or pleural effusionor pulmonary congestion. Cardiothoracic ratio of approximately 12.2/29.4 cmis consistent with normal cardiac size. Mid thoracic dextroscoliosis and diffuse pulmonary fibrosis is notedinvolving both lower lungs and right u pper lung. Minimal fibrosis is notedin the left upper lung. There is interval worsening with increasedpulmonary fibrosis since 2018 study. CONCLUSIONS: No signs of acute cardiopulmonary disease.[facility], Radiant Results Inft User - 01/07/2020 12:49 PM CSTHISTORY: Preop.TECHNIQUE: PA and lateral views of the chest are obtained. Comparison madeto 09/02/2017 study.FINDINGS: No acute pneumonia detected. No pneumothorax or pleural effusionor pulmonary congestion. Cardiothoracic ratio of approximately 12.2/29.4cmis consistent with normal cardiac size.Mid thoracic dextroscoliosis and diffuse pulmonary fibrosisis notedinvolving both lower lungs and right upper lung. Minimal fibrosis is notedin the left upper lung. There is interval worsening with increasedpulmonary fibrosis since 2018 study.CONCLUSIONS: No signs of acute cardiopulmonary disease.[facility] CenterFL TIME OR (NON-REPORTABLE)2019-09-14 23:24:00These images do not require a Radiology diagnostic report.[facility] CenterCOVID-19 (ID NOW RAPID TESTING)2019-09-14 20:44:00 Test Item Value Reference Range Interpretation Comments SARS-CoV-2 Rapid ID NOW Not Detected Not Detected (test code = 20792-9) OREN (test code = OREN) ID NOW COVID-19 Assay is an isothermal nucleic acid amplification test intended for the qualitative detection of nucleic acid from SARS-CoV-2 viral RNA in nasopharyngeal (MANAGER LIFE) specimens. It is used under Emergency Use Authorization (EUA) by FDA. The limit of detection (LOD) of the assay is 125 Genome Equivalents/mL. A positive result is indicative of the presence of SARS-CoV-2 RNA. ?Clinical correlation with patient history and other diagnostic [...] for repeat patient testing if clinically indicated. Lab Interpretation Normal (test code = 39838-8) [facility]. METABOLIC PANEL (78053)2019-09-14 19:24:00 Test Item Value Reference Range Interpretation Comments NA (test code = 127 mmol/L 135-145 L 6445946767) K (test code = 4.2 mmol/L 3.5-5 3187158931) CL (test code = 93 mmol/L 98-108 L 2871082920) CO2 TOTAL (test code = 21 mmol/L 23-31 L 8817522185) AGAP (test code = 2-16 9961464536) BUN (test code = 7 mg/dL 7-23 6155157356) GLUCOSE (test code = 94 mg/dL 70-110 1651962734) CREATININE (test code = 0.65 mg/dL 0.5-1.04 2593687404) TOTAL BILI (test code = 0.4 mg/dL 0.1-1.6 5198041213) CALCIUM (test code = 10.3 mg/dL 8.6-10.6 9472082180) T PROTEIN (test code = 8.0 g/dL 6.3-8.2 6669490589) ALBUMIN (test code = 4.8 g/dL 3.5-5 8149198094) ALK PHOS (test code = 96 U/L 34-122 6347071150) ALTv (test code = 14 U/L 5-35 1742-6) AST(SGOT) (test code = 31 U/L 13-40 9174340968) eGFR Calculation mL/min/1.73m2 (Non-) (test code = 6508045266) eGFR Calculation mL/min/1.73m2 () (test code = 9210221253) OREN (test code = OREN) Association of Glomerular Filtration Rate (GFR) and Staging of Kidney Disease* + --+ --+ ------+| GFR (mL/min/1.73 m2) ?| With Kidney Damage ?| ?Without Kidney Damage+ --------+ --------+ +| ?>90 ?| ?Stage one ?| ? Normal ?+ ---+ ---+ -------+| ?60-89 ?| ?Stage two ?| ? Decreased GFR ? + --+ --+ ------+| ?30-59 ?| ?Stage three ?| ? Stage three ? + --+ --+ ------+| ?15-29 ?| ?Stage four ? | ? Stage four ?+ ---+ ---+ -------+| ?<15 (or dialysis) ? ?| ?Stage five ? | ? Stage five ?+ ---+ ---+ -------+ *Each stage assumes the associated GFR level has been in effect for at least three months. ?Stages 1 to 5, with or without kidney disease, indicate chronic kidney disease. Notes: Determination of stages one and two (with eGFR >59mL/min/1.73 m2) requires estimation of kidney damage for at least three months as defined by structural or functional abnormalities of the kidney, manifested by either:Pathological abnormalities or Markers of kidney damage (including abnormalities in the composition of the blood or urine or abnormalities in imaging tests). Lab Interpretation Abnormal (test code = 08377-5) [facility] WITH [id number] 19:15:00 Test Item Value Reference Range Interpretation Comments WBC (test code = See_Comment [Automated 6690-2) message] The sy stem which generated this result transmitted reference range : 4.30 - 11.10 10*3/?L. The reference range was not used to interpret this result as normal/abnormal . RBC (test code = See_Comment L [Automated 789-8) message] The sy stem which generated this result transmitted reference range : 3.93 - 5.25 10*6/?L. The reference range was not used to interpret this result as normal/abnormal . HGB (test code = 11.2 g/dL 11.6-15 L 718-7) HCT (test code = 32.7 % 35.7-45.2 L 4544-3) MCV (test code = 96.2 fL 80.6-95.5 H 787-2) MCH (test code = 32.9 pg 25.9-32.8 H 785-6) MCHC (test code = 34.3 g/dL 31.6-35.1 786-4) RDW-SD (test code = 47.2 fL 39-49.9 22889-7) RDW-CV (test code = 13.2 % 12-15.5 788-0) PLT (test code = See_Comment H [Automated 777-3) message] The sy stem which generated this result transmitted reference range : 166 - 358 10*3/ ?L. The reference r lester was not used to interpret this result as normal/abnormal . MPV (test code = 9.2 fL 9.5-12.9 L 59130-8) NRBC/100 WBC (test See_Comment [Automat ed code = 3416756206) message] The system which generated this result transmitted reference range : 0.0 - 10.0 /100 WBCs. The refer ence range was not u sed to interpret th is result as normal/abnormal . NRBC x10^3 (test code <0.01 See_Comment [Auto mated = 8814701189) message] The s ystem which generated this result transmitted reference range : 10*3/?L. The reference range was not used to interpret this result as normal/abnormal . GRAN MAT (NEUT) % 78.2 % (test code = 770-8) IMM GRAN % (test code 0.50 % = 2597246480) LYMPH % (test code = 12.0 % 736-9) MONO % (test code = 8.3 % 5905-5) EOS % (test code = 0.5 % 713-8) BASO % (test code = 0.5 % 706-2) GRAN MAT x10^3(ANC) 7.50 10*3/uL 1.88-7.09 H (test code = 8941559861) IMM GRAN x10^3 (test 0.05 10*3/uL 0-0.06 code = 7568669154) LYMPH x10^3 (test code 1.15 10*3/uL 1.32-3.29 L = 731-0) MONO x10^3 (test code 0.80 10*3/uL 0.33-0.92 = 742-7) EOS x10^3 (test code = 0.05 10*3/uL 0.03-0.39 711-2) BASO x10^3 (test code 0.05 10*3/uL 0.01-0.07 = 704-7) Lab Interpretation Abnormal (test code = 53805-8) [facility] [id number] 18:41:54 Dislocation of the left hip arthroplasty. EXAM: XR HIPS 2 VW LEFT HISTORY: pain, deformity COMPARISON: 08/10/2019 FINDINGS: Dislocation of the left hip arthroplasty is seen with superolateraldisplacement of the femur. Soft tissue swelling is present about the hip. [facility], Radiant Results Inft User - 09/14/2019 1:43 PM CDTEXAM:XR HIPS 2 VW LEFTHISTORY:pain, deformity COMPARISON:08/10/2019FINDINGS: Dislocation of the left hip arthroplasty is seen with superolateraldisplacement of the femur. Soft tissue swelling is present about the hip.IMPRESSIONDislocation of the left hip arthroplasty.[facility]NON-SPUTUM)2019-09-08 08:30:00 Test Item [...] fast bacilli (test code = 994) seen FUNGUS CULTURE + [id number] 16:37:00 Test Item Value Reference Range Interpretation Comments CULTURE (BEAKER) (test No fungus isolated in code = 1095) 28 days FUNGUS SMEAR (BEAKER) No fungal elements seen (test code = 1406) FUNGUS CULTURE + [id number] 16:37:00 Test Item Value Reference Range Interpretation Comments CULTURE (BEAKER) (test No fungus isolated in code = 1095) 28 days FUNGUS SMEAR (BEAKER) No fungal elements seen (test code = 1406) FUNGUS CULTURE + [id number] 16:37:00 Test Item Value Reference Range Interpretation Comments CULTURE (BEAKER) (test No fungus isolated in code = 1095) 28 days FUNGUS SMEAR (BEAKER) No fungal elements seen (test code = 1406) ANAEROBIC [id number] 17:20:00 Test Item Value Reference Range Interpretation Comments CULTURE (BEAKER) (test No anaerobes isolated code = 1095) ANAEROBIC [id number] 17:20:00 Test Item Value Reference Range Interpretation Comments CULTURE (BEAKER) (test No anaerobes isolated code = 1095) ANAEROBIC [id number] 17:20:00 Test Item Value Reference Range Interpretation Comments CULTURE (BEAKER) (test No anaerobes isolated code = 1095) TISSUE [id number] 13:28:00Surgical Pathology Report Case: [id number] Authorizing Provider: Leida Gallardo MD Collected: 07/25/2019 10:39 AM Ordering Location: [facility] Received: 07/28/2019 08:26 AM SERVICES Pathologist: Adali Sahu MD Specimen: Explant A. HARDWARE, REMOVAL, GROSS EXAMINATION ONLY: - HARDWARE IDENTIFIED (SEE GROSS DESCRIPTION). Signing Pathologist Direct Phone Line: [phone] signed by Adali Sahu MD on 07/29/2019 at 1:28 [id number] hip, left, sequela [S73.005S]ExplantReceived fresh labeled with the patient's name, accession number and "explant" are 2 metallic boyd to boyd-white pieces of orthopedic hardware, which are consistent with a fyzc-okm-xovpbh, ranging from 3.2 to 4.8 cm in greatest dimension. The following inscription is identified:[id number] STD 40 mm 675990V gross photograph is taken. No sections are submitted. This case is for gross examination only.RICKY Roberts (ASCP)[facility], Department of Pathology, [address] [place] [address], [facility], [facility] of [facility]ology, [address] [place] [address], [facility], Department of Pathology, [address] [place] [address], HLYZKCCNIR OBTAINED CULTURE + GRAM [id number] 13:35:00 Test Item Value Reference Range Interpretation Comments CULTURE (BEAKER) (test No growth code = 1095) GRAM STAIN RESULT <1+ White blood cells (BEAKER) (test code = seen 1123) GRAM STAIN RESULT No organisms seen (BEAKER) (test code = 92997) SURGICALLY OBTAINED CULTURE + GRAM [id number] 11:36:00 Test Item Value Reference Range Interpretation Comments CULTURE (BEAKER) (test code No growth = 1095) GRAM STAIN RESULT (BEAKER) 1+ WBCs (test code = 1123) GRAM STAIN RESULT (BEAKER) No organisms seen (test code = 40912) SURGICALLY OBTAINED CULTURE + GRAM [id number] 11:36:00 Test Item Value Reference Range Interpretation Comments CULTURE (BEAKER) (test code No growth = 1095) GRAM STAIN RESULT (BEAKER) 3+ WBCs (test code = 1123) GRAM STAIN RESULT (BEAKER) No organisms seen (test code = 57501) BASIC METABOLIC [id number] 07:22:00 Test Item Value Reference Range Interpretation [...] 1092) DATA TO CALCULA TE ESTIMATED GFR. Service Operations Manager ID - KODI [id number] 06:54:00 Test Item Value Reference Range Interpretation Comments MAGNESIUM (BEAKER) (test code = 1.6 mg/dL 1.6-2.6 627) Service Operations Manager ID - KODI MCBC (HEMOGRAM ONLY)2019-07-27 06:22:00 Test Item Value Reference [...] (BEAKER) (test code = 413) BASIC METABOLIC [id number] 05:47:00 Test Item Value Reference Range Interpretation [...] 1092) DATA TO CALCULA TE ESTIMATED GFR. Service Operations Manager ID - KODI [id number] 05:42:00 Test Item Value Reference Range Interpretation Comments MAGNESIUM (BEAKER) (test code = 1.7 mg/dL 1.6-2.6 627) Service Operations Manager ID - KODI MCBC (HEMOGRAM ONLY)2019-07-26 05:16:00 [...] = 413) RAD, PELVIS, 1 OR 2 [id number] 12:00:00Reason for exam:->hip fxFINAL REPORT Radiograph of the pelvis Reason for exam: hip fx Comparison: July 23, 2019 Discussion: Status post reduction of previously seen dislocated left hip prosthesis. No acute fracture is identified. Soft tissue gas at the lateral aspect of the left hip likely reflects postsurgical change. Signed: Franci Dickson Verified Date/Time: 07/25/2019 12:00:43 Reading Location: [place] [id number] Ortho Consult Reading Room [id number] 07:26:00 Test Item Value Reference Range Interpretation Comments FERRITIN (BEAKER) (test code = 92.77 ng/mL 5.00-275.00 361) Service Operations Manager ID - KODI MVITAMIN B12 AND [id number] 07:26:00 Test Item Value Reference Range Interpretation Comments VITAMIN B12 (BEAKER) (test code = 232 pg/mL 213-816 774) FOLATE (BEAKER) (test code = 362) 14.60 ng/mL >=7.00 Service Operations Manager ID - KODI MBASIC METABOLIC [id number] 07:08:00 Test Item Value Reference Range Interpretation [...] 1092) DATA TO CALCULA TE ESTIMATED GFR. Service Operations Manager ID - KODI [id number] 07:07:00 Test Item Value Reference Range Interpretation Comments MAGNESIUM (BEAKER) (test code = 1.5 mg/dL 1.6-2.6 L 627) Service Operations Manager ID - KODI ORTIZON, TIBC, % SAT. (WITHOUT FERRITIN)2019-07-25 06:50:00 Test Item Value Reference Range Interpretation Comments IRON (BEAKER) (test code = 547) 12.0 ug/dL 40.0-160.0 L TOTAL IRON BINDING CAPACITY 348 ug/dL 250-450 (BEAKER) (test code = 769) IRON % SATURATION (2) (BEAKER) 3 % 20-55 L (test code = 2590) Service Operations Manager ID - KODI MCBC (HEMOGRAM ONLY)2019-07-25 06:29:00 [...] WBC 0-0 (BEAKER) (test code = 413) POCT-GLUCOSE [id number] 21:36:00 Test Item Value Reference Range Interpretation Comments POC-GLUCOSE METER 90 mg/dL 70-110 : TESTED A T [facility] (BEAKER) (test code = [place], 1538) [address]: Service Operations Manager/Techni mona ID = [id number] for ALFREDO GAONA BASIC METABOLIC [id number] 04:09:00 Test Item Value Reference Range Interpretation [...] 1092) DATA TO CALCULA TE ESTIMATED GFR. Service Operations Manager ID - KODI [id number] 04:03:00 Test Item Value Reference Range Interpretation Comments MAGNESIUM (BEAKER) (test code = 1.7 mg/dL 1.6-2.6 627) Service Operations Manager ID - KODI MCBC (HEMOGRAM ONLY)2019-07-24 03:46:00 Test Item Value [...] = 413) RAD, PELVIS, 1 OR 2 [id number] 22:22:00Reason for exam:->Please repeat AP pelvis and [...] Kathryn Grace MDReport Verified Date/Time: 07/23/2019 22:22:26 C-REACTIVE [id number] 21:33:00 Test Item Value Reference Range Interpretation Comments C-REACTIVE PROTEIN (BEAKER) (test 3.78 mg/dL 0.00-0.50 H code = 676) Service Operations Manager ID - [id number] 21:28:00 Test Item Value Reference Range Interpretation Comments PARTIAL THROMBOPLASTIN TIME 31.6 seconds 22.5-36.0 (BEAKER) (test code = 760) BASIC METABOLIC [id number] 15:26:00 Test Item Value Reference Range Interpretation [...] 1092) DATA TO CALCULA TE ESTIMATED GFR. Service Operations Manager ID - NTPCBC (HEMOGRAM ONLY)2019-07-23 14:56:00 Test [...] code = 413) RAD, HIP, 2 VIEWS, [id number] 13:22:00Reason for exam:->fall, hip pain FINAL REPORT RAD, HIP, 2 VIEWS, LEFT INDICATION: fall, hip pain COMPARISON: None TECHNIQUE: Single AP view of the help FINDINGS/IMPRESSION:Status post total hip arthroplasty. Thefemoral component is dislocated from the acetabular component and is superiorly displaced. Signed: Nehal Phillips Verified Date/Time: 07/23/2019 13:22:40 Reading Location: [facility] Radiology Reading Room POCT-GLUCOSE [id number] 12:40:00 Test Item Value Reference Range Interpretation Comments POC-GLUCOSE METER 117 mg/dL 70-110 H : TESTED A T [facility] (BEAKER) (test code = [place], 1538) [address]: Service Operations Manager/Techni mona ID = [id number] for JUSTICE ROPER CT, BRAIN, WITHOUT [id number] 09:31:00FINAL REPORT CT Head without contrast CLINICAL [...] Munoz Verified Date/Time: 07/23/2019 09:31:21 Reading Location: [facility] B1 C013V Neuro Reading Room POCT- GLUCOSE [id number] 07:48:00 Test Item Value Reference Range Interpretation Comments POC-GLUCOSE METER 102 mg/dL 70-110 : TESTED A T [facility] (BEAKER) (test code = MINO Senior [place], 1538) 579[address]: Service Operations Manager/Techni mona ID = [id number] for MUKUL VAZQUEZ, JUSTICE T4, [id number] 07:43:00 Test Item Value Reference Range Interpretation Comments FREE T4 (BEAKER) (test code = 655) 0.91 ng/dL 0.70-1.48 Service Operations Manager ID - YANCYNORA [id number] 07:43:00 Test Item Value Reference Range Interpretation Comments THYROID STIMULATING HORMONE 4.520 uIU/mL 0.350-4.940 (BEAKER) (test code = 772) Service Operations Manager ID Rico HAINESNORA LPROTHROMBIN TIME/[id number] 07:06:00 Test Item Value Reference Range Interpretation [...]
[2021-05-16 14:59] LABS: Absolute Lymphocytes (CBC) 1.3 K/uL (0.7-4.9); Lymphocytes % 7.6 % (15.3-44.8); MPV 7.6 fL (7.6-11.3); RBC Red Blood Cell Count 3.67 M/uL (3.86-4.86)
[2021-05-16 15:20] LABS: ALT/SGPT 19 U/L (12-78); AST/SGOT 14 U/L (15-37); Albumin 2.8 g/dL (3.4-5.0); Alkaline Phosphatase 89 U/L (45-117); BUN Blood Urea Nitrogen 17 mg/dL (7-18); Bicarbonate 23 mmol/L (21-32); Bilirubin Total 0.3 mg/dL (0.2-1.0); Glucose Level 105 mg/dL (74-106); NT PRO-BNP 993 pg/mL (<450); Potassium 3.3 mmol/L (3.5-5.1); Protein, Total 7.9 g/dL (6.4-8.2); Sodium Level 132 mmol/L (136-145)
--- NOTE | 2021-05-16 15:24 | RAD REPORT ---
EXAM DESCRIPTION: RAD - Chest Single View - 05/16/2021 3:00 pm CLINICAL HISTORY: CHEST PAIN Chest pain. COMPARISON: Chest Single View dated 02/15/2017; CHEST SINGLE VIEW dated 02/18/2013; CHEST PA AND LAT 2 VIEW dated 11/22/2010; CHEST PA AND LAT 2 VIEW dated 06/19/2007 FINDINGS: Portable technique limits examination quality. Moderately severe bilateral pulmonary opacities are present. This may represent pulmonary edema or pn eumonia. The heart is normal in size. Mild dextroscoliosis of the thoracic spine.
[2021-05-16 15:29] LABS: Bilirubin Direct < 0.1 mg/dL (0-0.2)
--- NOTE | 2021-05-16 16:02 | ER ---
Nurse's Notes [facility] Name: Denia Leslie Age: 85 yrs Sex: Female : 1935 Arrival Date: 05/16/2021 Time: 13:48 Bed 25 Private MD: Asad Moulton E Diagnosis: Sepsis, unspecified organism;Pneumonia, unspecified organism;Acute systolic (congestive) heart failure Presentation: 05/16 13:52 Chief complaint: Patient states: "I haven't been feeling well for a couple of days, but ab2 today I have been really short of breath and I have been coughing." Pt denies any chest pain. Coronavirus screen: Vaccine status: Patient reports receiving the 2nd dose of the covid vaccine. Client denies travel out of the [place] in the last 14 days. At this time, the client does not indicate any symptoms associated with coronavirus-19. Ebola Screen: Patient negative for fever greater than or equal to 101.5 degrees Fahrenheit, and additional compatible Ebola Virus Disease symptoms Patient denies exposure to infectious person. Patient denies travel to an Ebola-affected area in the 21 days before illness onset. No symptoms or risks identified at this time. Initial Sepsis Screen: Does the patient meet any 2 criteria? No. Patient's initial sepsis screen is negative. Does the patient have a suspected source of infection? No. Patient's initial sepsis screen is negative. Risk Assessment: Do you want to hurt yourself or someone else? Patient reports no desire to harm self or others. Onset of symptoms is unknown. 13:52 Method Of Arrival: Ambulatory ab2 13:52 Acuity: EROS 3 ab2 Triage Assessment: 13:56 General: Appears in no apparent distress. uncomfortable, Behavior is calm, cooperative, ab2 appropriate for age. Pain: Denies pain. Cardiovascular: Reports shortness of breath, Denies chest pain. Respiratory: Airway is patent Respiratory effort is labored, Respiratory pattern is symmetrical, the patient has mild shortness of breath. Historical: - Allergies: 13:55 HYDROCODONE; ab2 - Home Meds: 14:11 diclofenac sodium 75 mg Oral TbEC 1 tab 2 times per day [Active]; levothyroxine 50 mcg lr4 tab 1 tab once daily [Active]; lisinopril 10 mg Oral tab 1 tab once daily [Active]; pantoprazole 40 mg Oral TbEC 1 tab once daily [Active]; tramadol 50 mg Oral tab 1 tab as needed [Active]; - PMHx: 13:55 breast cancer; Hypertension; ab2 14:11 Asthma; lr4 - Immunization history:: Adult Immunizations up to date. - Social history:: Smoking status: Patient denies any tobacco usage or history of. Screenin:11 Abuse screen: Denies threats or abuse. Nutritional screening: No deficits noted. Fall lr4 Risk None identified. 14:14 Tuberculosis screening: No symptoms or risk factors identified. lr4 Assessment: 14:08 Pain: Denies pain. Pain does not radiate. Pain began 2-3 days ago. lr4 14:10 General: Appears in no apparent distress. comfortable, Behavior is calm, cooperative. lr4 Neuro: No deficits noted. Cardiovascular: No deficits noted. Respiratory: Reports shortness of breath cough that is non-productive, Breath sounds are clear bilaterally. Onset: The symptoms/episode began/occurred 1 wk ago but progressively worsening. 17:31 Reassessment: attempted to call report, was told nurse would call me back. lr4 17:55 Reassessment: pt departed ed via stretcher per tech to room 228 with all personal lr4 effects, pt in nad,vss Patient states symptoms have improved. Vital Signs: 13:52 BP 133 / 54; Pulse 90; Resp 24; Temp 98.1(TE); Pulse Ox 96% on R/A; Weight 67.13 kg; ab2 Height 5 ft. 7 in. (170.18 cm); Pain 0/10; 17:34 BP 132 / 63; Pulse 83; Resp 20; Pulse Ox 100% on 2 lpm NC; lr4 13:52 Body Mass Index 23.18 (67.13 kg, 170.18 cm) ab2 ED Course: 13:48 Patient arrived in ED. mr 13:48 Asad Moulton MD is Private Physician. mr 13:55 Triage completed. ab2 13:56 Arm band placed on left wrist. ab2 13:58 Ulises Porter DO is Attending Physician. ms3 13:58 Pamela Grimes, SUPRIYA is Primary Nurse. lr4 14:08 No provider procedures requiring assistance completed. EKG done, by ED staff. Inserted lr4 saline lock: 20 gauge in left antecubital area, using aseptic technique. Patient maintains SpO2 saturation greater than 95% on room air. 14:11 Patient has correct armband on for positive identification. Bed in low position. Call lr4 light in reach. Side rails up X 1. Adult w/ patient. residential monitor on. Pulse ox on. NIBP on. Door closed. Noise minimized. Warm blanket given. 14:50 XRAY Chest (1 view) Sent. lr4 15:00 XRAY Chest (1 view) In Process Unspecified. EDMS 15:59 Prince Sigala MD is Hospitalizing Provider. ms3 16:20 Procalcitonin Sent. lr4 17:35 Patient admitted, IV remains in place. lr4 Administered Medications: 16:30 Drug: Rocephin (cefTRIAXone) 1 grams Route: IV; Rate: calculated rate; Site: left lr4 antecubital; 16:39 Follow up: IV Status: Completed infusion lr4 16:40 Drug: AZITHromycin 500 mg Route: IVPB; Infused Over: 1 hrs; Site: left antecubital; lr4 17:36 Follow up: IV Status: Completed infusion; IV Intake: 250ml lr4 Intake: 17:36 IV: 250ml; Total: 250ml. lr4 Outcome: 16:01 Decision to Hospitalize by Provider. ms3 16:20 Condition: stable lr4 17:34 Admitted to Med/surg accompanied by tech, via stretcher, with oxygen, with chart. lr4 17:34 Instructed on the need for admit. 17:55 Admitted to Med/surg Report called to Caroline barnes lr4 17:59 Patient left the ED. lr4 Signatures: Dispatcher [employer] EDOH Kassy oSto CharlotteUlises, DO DO ms3 Balwinder Marinelli abPamela Elaine, RN RN lr4
--- NOTE | 2021-05-16 16:02 | EDPHYS ---
Physician Documentation [facility] Name: Denia Leslie Age: 85 yrs Sex: Female : 1935 Arrival Date: 05/16/2021 Time: 13:48 Bed 25 Private MD: Asad Moulton E ED Physician Ulises Porter HPI: 05/16 15:08 This 85 yrs old Female presents to ER via Ambulatory with complaints of Chest ms3 Tightness, Breathing Difficulty. 15:08 85-year-old female presents for shortness of breath and temperature of 100. Patient ms3 denies pain. Patient states she has had shortness of breath for 2 days. Patient denies nausea or vomiting. Patient denies alleviating or inciting factors. Patient endorses generalized body aches.. Historical: - Allergies: 13:55 HYDROCODONE; ab2 - Home Meds: 14:11 diclofenac sodium 75 mg Oral TbEC 1 tab 2 times per day [Active]; levothyroxine 50 mcg lr4 tab 1 tab once daily [Active]; lisinopril 10 mg Oral tab 1 tab once daily [Active]; pantoprazole 40 mg Oral TbEC 1 tab once daily [Active]; tramadol 50 mg Oral tab 1 tab as needed [Active]; - PMHx: 13:55 breast cancer; Hypertension; ab2 14:11 Asthma; lr4 - Immunization history:: Adult Immunizations up to date. - Social history:: Smoking status: Patient denies any tobacco usage or history of. ROS: 15:08 Constitutional: Negative for fever, and chills. ENT: Negative for injury, pain, and ms3 discharge, Neck: Negative for injury, pain, and swelling, Cardiovascular: Negative for chest pain, and palpitations. Back: Negative for injury and pain, Skin: Negative for injury, rash, and discoloration, Allergy/Immunology: Negative for hives, rash, and allergies. 15:08 Respiratory: Positive for shortness of breath. Exam: 13:00 ECG was reviewed by the Attending Physician. ms3 15:08 Constitutional: This is a well developed, well nourished patient who is awake, alert, ms3 and in no acute distress. Head/Face: Normocephalic, atraumatic. Neck: Trachea midline, no cervical lymphadenopathy. Supple, full range of motion without nuchal rigidity, or vertebral point tenderness. No Meningismus. Chest/axilla: Normal chest wall appearance and motion. Nontender with no deformity. Cardiovascular: Regular rate and rhythm with a normal S1 and S2. No gallops, murmurs, or rubs. Normal PMI, no JVD. No pulse deficits. 15:08 Respiratory: the patient does not display signs of respiratory distress, Respirations: normal, Breath sounds: rales, that are moderate. Vital Signs: 13:52 BP 133 / 54; Pulse 90; Resp 24; Temp 98.1(TE); Pulse Ox 96% on R/A; Weight 67.13 kg; ab2 Height 5 ft. 7 in. (170.18 cm); Pain 0/10; 17:34 BP 132 / 63; Pulse 83; Resp 20; Pulse Ox 100% on 2 lpm NC; lr4 13:52 Body Mass Index 23.18 (67.13 kg, 170.18 cm) ab2 MDM: 14:43 Patient medically screened. ms3 16:01 Differential diagnosis: coronary artery disease congestive heart failure pneumonia. ms3 Data reviewed: vital signs, nurses notes, lab test result(s), radiologic studies. Data interpreted: Pulse oximetry: on room air is 96 %. Test interpretation: by ED physician or midlevel provider: ECG. ED course: Discussed case with Dr Sigala and he accepts patient as admission. Lactic acid currently pending. Discussed plan for admission with patient and her . They understand and agree with plan. 17:09 ED course: Patient LA < 2. No end organ dysfunction noted. Patient meets sepsis ms3 criteria without end organ dysfunction.. 05/16 14:42 Order name: Basic Metabolic Panel; Complete Time: :05/16 14:42 Order name: CBC with Diff; Complete Time: :05/16 14:42 Order name: LFT's; Complete Time: :05/16 14:42 Order name: Magnesium; Complete Time: :05/16 14:42 Order name: NT PRO-BNP; Complete Time: :05/16 14:42 Order name: Troponin HS; Complete Time: :05/16 14:42 Order name: XRAY Chest (1 view); Complete Time: 15: 05/16 14:42 Order name: COVID-19 SARS RT PCR (Document "Date of Onset" if Symptomatic); Complete 7 Time: 16:02 05/16 15:32 Order name: Blood Culture Adult (2) ms3 05/16 15:32 Order name: Lactate; Complete Time: 17:09 ms3 05/16 15:32 Order name: Protime (+inr); Complete Time: 17:09 ms3 05/16 15:32 Order name: Ptt, Activated; Complete Time: 17:09 ms3 05/16 16:16 Order name: Procalcitonin; Complete Time: 17:09 EDMS 05/16 14:42 Order name: EKG; Complete Time: 14:43 05/16 14:42 Order name: Cardiac monitoring; Complete Time: 14:45 jl7 05/16 14:42 Order name: EKG - Nurse/Tech; Complete Time: 14:45 jl7 05/16 14:42 Order name: IV Saline Lock; Complete Time: 14:45 jl05/16 14:42 Order name: Labs collected and sent; Complete Time: 14:45 05/16 14:42 Order name: O2 Per Protocol; Complete Time: 14:45 05/16 14:42 Order name: O2 Sat Monitoring; Complete Time: 14:45 05/16 15:32 Order name: Accucheck; Complete Time: 16:20 ms3 05/16 15:32 Order name: IV Saline Lock - Large Bore; Complete Time: 16:20 ms3 EC:00 Rate is 90 beats/min. Rhythm is regular, Sinus Rhythm with Unifocal PVCs. QRS Dorothy is ms3 Normal. Clinical impression: NSR w/ Non-specific ST/T Changes. Administered Medications: 16:30 Drug: Rocephin (cefTRIAXone) 1 grams Route: IV; Rate: calculated rate; Site: left lr4 antecubital; 16:39 Follow up: IV Status: Completed infusion lr4 16:40 Drug: AZITHromycin 500 mg Route: IVPB; Infused Over: 1 hrs; Site: left antecubital; lr4 17:36 Follow up: IV Status: Completed infusion; IV Intake: 250ml lr4 Disposition Summary: 05/16/21 16:01 Hospitalization Ordered Hospitalization Status: Inpatient Admission ms3 Provider: Prince Jovon ms3 Location: Telemetry/MedSurg (Inpatient) ms3 Condition: Stable ms3 Problem: new ms3 Symptoms: are unchanged ms3 Bed/Room Type: Standard ms3 Room Assignment: 228(05/16/21 17:06) bd Diagnosis - Sepsis, unspecified organism ms3 - Pneumonia, unspecified organism ms3 - Acute systolic (congestive) heart failure ms3 Forms: - Medication Reconciliation Form ms3 - SBAR form ms3 Signatures: Dispatcher [employer] EDMS Amy Cisneros Jahala, RN RN jl7 Ulises Porter, DO ms3 Balwinder Marinelli Lashaunda, RN RN lr4 Corrections: (The following items were deleted from the chart) 15:34 15:33 COMPREHENSIVE METABOLIC PANEL+C.LAB.BRZ ordered. EDMS EDMS 17:06 16:01 ms3 bd
[2021-05-16] MEDS ORDERED: NA CHLORIDE 0.9% 250 ML ONE (16:26)
[2021-05-16] MEDS ORDERED: CEFTRIAXONE 1000 MG/VIAL ONE (16:26)
[2021-05-16] MEDS ORDERED: AZITHROMYCIN 500 MG INJ IVPB ONE (16:26)
--- NOTE | 2021-05-16 16:33 | P.HP ---
Certification for Inpatient Patient admitted to: Inpatient With expected LOS: >2 Midnights Practitioner: I am a practitioner with admitting privileges, knowledge of patient current condition, hospital course, and medical plan of care. Services: Services provided to patient in accordance with Admission requirements found in Title 42 Section 412.3 of the Code of Federal Regulations Patient History Date of Service: 05/16/21 Reason for admission: Shortness of breath and cough History of Present Illness: Patient is a 84-year-old female with a past medical history of hy pertension, chronic alcohol and hypothyroidism. She presented to ER accompanied by her complaining of a 3-day history of cough and shortness of breath. During this time patient also noted progressively worsening lower extremity edema in both legs. states several days ago patient had a low-grade fever with a temperature 100 degrees. She had an echocardiogram in 2017 which revealed a preserved EF with mild MR and TR. She arrived in the ER hemodynamically stable, alert and oriented. Basic labs significant for leukocytosis with WBC of 17. Her lactic acid is still pending. She has evidence of pneumonia/pulmonary edema on chest x-ray. Her BNP is 999. Patient is satting well on room air. She is not dyspneic. Allergies hydrocodone Allergy (Mild, Verified 02/16/17 04:59) Itching No Known Allergies Allergy (Uncoded 02/16/17 05:26) Unknown Home Medications: Multivitamin [Daily Multivitamin] 1 each PO DAILY 02/18/13 Levothyroxine [Synthroid*] 50 mcg PO [id number] 09/06/16 lisinopriL [Prinivil*] 10 mg PO [id number] 09/06/16 Ascorbate Calcium [Vitamin C] 500 mg PO DAILY 02/16/17 Vitamin E 1 pill PO DAILY 02/16/17 Pantoprazole [Protonix Tab*] 40 mg PO DAILY 12/13/19 Aspirin [Aspirin EC 81 MG] 81 mg PO DAILY #90 tablet. 12/14/19 Thiamine HCl 100 mg PO DAILY #90 tablet 12/14/19 - Past Medical/Surgical History Diabetic: No -: COPD -: History of Tobacco abuse -: GERD -: Cristóbal's Esophagus -: Murmur -: History of Gallstones -: Post surgical Menopause -: Breast Cancer -: Hypertention -: tonsillectomy -: hysterectomy -: back sx -: Right Lumpectomy Psychosocial/ Personal History: Not obtained. - Family History Father -: Cancer Mother -: Lung disease - Social History Alcohol use: Yes CD- Drugs: No Caffeine use: Yes Physical Examination - Physical Exam General: Alert, In no apparent distress, Cooperative HEENT: Atraumatic, Normocephalic Neck: Supple Respiratory: Diminished, Crackles/rales Cardiovascular: Normal pulses, Regular rate/rhythm, Normal S1 S2 Musculoskeletal: No clubbing, No swelling, No contractures Neurological: Normal speech, Normal affect - Studies Laboratory Data (last 24 hrs) 05/16/21 15:32: Sodium Cancelled, Potassium Cancelled, BUN Cancelled, Creatinine Cancelled, Glucose Cancelled, Total Bilirubin Cancelled, AST Cancelled, ALT Cancelled, Alkaline Phosphatase Cancelled 05/16/21 14:45: WBC 17.30 H, Hgb 10.7 L, Hct 33.0 L, Plt Count 765 H 05/16/21 14:45: Sodium 132 L, Potassium 3.3 L, BUN 17, Creatinine 0.92, Glucose 105, Magnesium 2.0, Total Bilirubin 0.3, AST 14 L, ALT 19, Alkaline Phosphatase 89 Assessment and Plan - Problems (Diagnosis) (1) Pneumonia Current Visit: Yes Status: Acute (2) Acute exacerbation of CHF (congestive heart failure) Current Visit: Yes Status: Acute (3) Atrial fibrillation Current Visit: No Status: Chronic Qualifiers: (4) Breast cancer Onset Date: 02/18/17 Current Visit: No Status: Chronic Qualifiers: (5) COPD (chronic obstructive pulmonary disease) Onset Date: 02/18/17 Current Visit: No Status: Chronic (6) GERD (gastroesophageal reflux disease) Onset Date: 02/18/17 Current Visit: No Status: Chronic Qualifiers: (7) Hypertension Onset Date: 02/18/17 Current Visit: No Status: Chronic (8) Hypothyroidism Onset Date: 02/18/17 Current Visit: No Status: Chronic Qualifiers: - Advance Directives Does patient have a Living Will: No Does patient have a Durable POA for Healthcare: Yes Physician Review Additional Text: Assessment Patient is a 85-year-old female with a past medical history of hypothyroidism and hypertension. She is being admitted for community-acquired pneumonia and possibly acute CHF exacerbation after she presented with shortness of breath and cough. She is still doing well on room air. Her chest x-ray has evidence of infiltrates. She is received ceftriaxone and azithromycin in the ER. Community-acquired pneumonia Possible CHF exacerbation Hypothyroidism Hypokalemia Plan: Admit inpatient Continue ceftriaxone and azithromycin Follow-up with 2D echo Send for sputum cultures Replace potassium I will also start patient on IV Lasix 40 mg twice daily Repeat BMP tomorrow Lovenox for DVT prophylaxis
[2021-05-16] MEDS ORDERED: POTASSIUM CL SA 10 MEQ TAB PO ONE (16:36)
[2021-05-16 16:39] LABS: Protime INR 1.14
[2021-05-16] MEDS: ENOXAPARIN 40 MG/0.4 ML SQ SCH (19:51)
[2021-05-16] MEDS: FUROSEMIDE 40 MG/4 ML VIAL IV SCH (19:52)
[2021-05-16] MEDS: BENZONATATE 100 MG CAP PO PRN (21:49)
[2021-05-17 04:52] LABS: Absolute Lymphocytes (CBC) 1.1 K/uL (0.7-4.9); Hematocrit 29.9 % (36.0-45.0); Lymphocytes % 8.8 % (15.3-44.8); MPV 7.1 fL (7.6-11.3); RBC Red Blood Cell Count 3.31 M/uL (3.86-4.86)
[2021-05-17 05:10] LABS: Potassium 3.9 mmol/L (3.5-5.1)
--- NOTE | 2021-05-17 07:24 | EKG ---
Test Date: 2021-05-16 Test Time: 13:00:34 Floor Helper: DENNIS MEASUREMENT RESULTS: Intervals: Rate: 90 NH: 144 QRSD: 86 QT: 350 QTc: 428 Warren: P: 27 NH: 144 QRS: 48 T: 68 INTERPRETIVE STATEMENTS: Sinus rhythm with occasional premature ventricular complexes Possible Anterior infarct, age undetermined Abnormal ECG Compared to ECG 12/12/2019 23:25:12 Ventricular premature complex(es) now present Myocardial infarct finding still present Electronically Signed On 05-17-21 07:22:08 CDT by Steve Pritchett
[2021-05-17] MEDS: CEFTRIAXONE 1,000 MG in NA CHLORIDE 0.9% 50 ML IVPB SCH (08:05)
[2021-05-17] MEDS: AZITHROMYCIN IV 500 MG in NA CHLORIDE 0.9% 250 ML IVPB SCH (08:05)
[2021-05-17] MEDS: BENZONATATE 100 MG CAP PO PRN ×2 (08:06→16:16)
[2021-05-17] MEDS: FUROSEMIDE 40 MG/4 ML VIAL IV SCH ×2 (08:06→16:16)
--- NOTE | 2021-05-17 09:57 | P.PN ---
Subjective Date of Service: 05/17/21 Chief Complaint: Shortness of breath and cough Subjective: Improving (Still requiring 3L via NC. Continues to have cough) Physical Examination - Vital Signs Temperature: 99.1 F Blood Pressure: 141/66 Pulse: 88 Respirations: 16 Pulse Ox (%): 93 - Physical Exam General: Alert, In no apparent distress, Cooperative HEENT: Atraumatic, Normocephalic Neck: Supple Respiratory: Diminished Cardiovascular: Regular rate/rhythm, Normal S1 S2, Systolic murmur Musculoskeletal: No clubbing, No swelling, No contractures, No erythema Neurological: Normal speech, Normal affect - Studies Laboratory Data (last 24 hrs) 05/16/21 16:14: PT 12.6 H, INR 1.14, APTT 29.9 05/16/21 15:32: Sodium Cancelled, Potassium Cancelled, BUN Cancelled, Creatinine Cancelled, Glucose Cancelled, Total Bilirubin Cancelled, AST Cancelled, ALT Cancelled, Alkaline Phosphatase Cancelled 05/16/21 14:45: WBC 17.30 H, Hgb 10.7 L, Hct 33.0 L, Plt Count 765 H 05/16/21 14:45: Sodium 132 L, Potassium 3.3 L, BUN 17, Creatinine 0.92, Glucose 105, Magnesium 2.0, Total Bilirubin 0.3, AST 14 L, ALT 19, Alkaline Phosphatase 89 Assessment And Plan - Current Problems (Diagnosis) (1) Pneumonia Current Visit: Yes Status: Acute (2) Acute exacerbation of CHF (congestive heart failure) Current Visit: Yes Status: Acute (3) Atrial fibrillation Current Visit: No Status: Chronic Qualifiers: (4) Breast cancer Onset Date: 02/18/17 Current Visit: No Status: Chronic Qualifiers: (5) COPD (chronic obstructive pulmonary disease) Onset Date: 02/18/17 Current Visit: No Status: Chronic (6) GERD (gastroesophageal reflux disease) Onset Date: 02/18/17 Current Visit: No Status: Chronic Qualifiers: (7) Hypertension Onset Date: 02/18/17 Current Visit: No Status: Chronic (8) Hypothyroidism Onset Date: 02/18/17 Current Visit: No Status: Chronic Qualifiers: Physician Review Additional Text: Assessment Patient is a 85-year-old female with a past medical history of hypothyroidism and hypertension. She is being admitted for community-acquired pneumonia and possibly acute CHF exacerbation after she presented with shortness of breath and cough. She is still doing well on room air. Her chest x-ray has evidence of infiltrates. She is received ceftriaxone and azithromycin in the ER. Community-acquired pneumonia Possible CHF exacerbation Hypothyroidism Hypokalemia Plan: Improving Continue ceftriaxone and azithromycin Follow-up with 2D echo Follow up sputum cultures Replace potassium Continue IV Lasix 40 mg twice daily Lovenox for DVT prophylaxis
--- NOTE | 2021-05-17 13:19 | ECHO ---
HEIGHT: 5 ft 7 in WEIGHT: 147 lb 15.941 oz DATE OF STUDY: 05/17/[address]: Prince Gabe Sigala MD 2-DIMENSIONAL: YES M.MODE: YES DOPPLER: YES COLOR FLOW: YES TDS: NO PORTABLE: NO DEFINITY: NO BUBBLE STUDY: NO DIAGNOSIS: RULE OUT CONGESTIVE HEART FAILURE CARDIAC HISTORY: CATHERIZATION: NO SURGERY: NO PROSTHETIC VALVE: NO PACEMAKER: NO MEASUREMENTS (cm) DIASTOLIC (NORMALS) SYSTOLIC (NORMALS) IVSd 1.0 (0.6-1.2) LA Diam 2.5 (1.9-4.0) LVEF 68% LVIDd 4.8 (3.5-5.7) LVIDs 3.0 (2.0-3.5) %FS 38% LVPWd 1.1 (0.6-1.2) Ao Diam 2.8 (2.0-3.7) 2 DIMENSIONAL ASSESSMENT: RIGHT ATRIUM: NORMAL LEFT ATRIUM: NORMAL RIGHT VENTRICLE: NORMAL LEFT VENTRICLE: NORMAL TRICUSPID VALVE: NORMAL MITRAL VALVE: NORMAL PULMONIC VALVE: NORMAL AORTIC VALVE: NORMAL PERICARDIAL EFFUSION: NONE AORTIC ROOT: NORMAL LEFT VENTRICULAR WALL MOTION: DECREASED LEFT VENTRICULAR COMPLIANCE. DOPPLER/COLOR FLOW: NORMAL COMMENTS: DECREASED LEFT VENTRICULAR COMPLIANCE. GRADE II DIASTOLIC DYSFUNCTION. NORMAL LEFT VENTRICULAR EJECTION FRACTION. NO WALL MOTION ABNORMALITY. NO EFFUSION. TECHNOLOGIST: Stefan GRAY
[2021-05-17] MEDS: ENOXAPARIN 40 MG/0.4 ML SQ SCH (16:16)
[2021-05-17] MEDS: ALBUTEROL 2.5 MG/3 ML NEB SOL NEB PRN (21:25)
[2021-05-18 04:24] LABS: Absolute Lymphocytes (CBC) 1.2 K/uL (0.7-4.9); Hematocrit 30.7 % (36.0-45.0); Lymphocytes % 11.6 % (15.3-44.8); MPV 7.5 fL (7.6-11.3); RBC Red Blood Cell Count 3.42 M/uL (3.86-4.86)
[2021-05-18 04:47] LABS: BUN Blood Urea Nitrogen 14 mg/dL (7-18); Bicarbonate 25 mmol/L (21-32); Glucose Level 103 mg/dL (74-106); NT PRO-BNP 431 pg/mL (<450); Potassium 3.2 mmol/L (3.5-5.1); Sodium Level 131 mmol/L (136-145)
[2021-05-18] MEDS: LEVOTHYROXINE SOD 0.05 MG TABLET PO SCH (05:20)
[2021-05-18] MEDS: lisinopriL 10 MG TAB PO SCH (05:20)
[2021-05-18 06:12] LABS: Blood Morphology Comment NOT SEEN (NOT SEEN); Platelet Estimate INCR
[2021-05-18] MEDS ORDERED: POTASSIUM CL SA 10 MEQ TAB PO ONE ×2 (07:00→19:59)
[2021-05-18] MEDS: ASPIRIN EC 81 MG TAB PO SCH (08:17)
[2021-05-18] MEDS: PANTOPRAZOLE 40MG TABLET PO SCH (08:17)
[2021-05-18] MEDS: THIAMINE HCL 100 MG TABLET PO SCH (08:17)
[2021-05-18] MEDS: BENZONATATE 100 MG CAP PO PRN ×2 (08:17→17:37)
[2021-05-18] MEDS: FUROSEMIDE 40 MG/4 ML VIAL IV SCH ×2 (08:18→17:36)
[2021-05-18] MEDS: ASCORBIC ACID 500 MG TABLET PO SCH (08:18)
[2021-05-18] MEDS: CEFTRIAXONE 1,000 MG in NA CHLORIDE 0.9% 50 ML IVPB SCH (08:18)
[2021-05-18] MEDS: AZITHROMYCIN IV 500 MG in NA CHLORIDE 0.9% 250 ML IVPB SCH (08:19)
[2021-05-18] MEDS ORDERED: HOME MED 1 EA UNK (Ascorbate Calcium [Vitamin C] 500 MG Tablet) PO SCH (09:00)
[2021-05-18] MEDS: ALBUTEROL 2.5 MG/3 ML NEB SOL NEB PRN ×2 (09:05→22:23)
--- NOTE | 2021-05-18 10:18 | P.PN ---
Subjective Date of Service: 05/18/21 Chief Complaint: Shortness of breath and cough Subjective: Improving (Patient is doing better. Less dyspneic) Physical Examination - Vital Signs Temperature: 99.1 F Blood Pressure: 141/66 Pulse: 88 Respirations: 16 Pulse Ox (%): 93 - Physical Exam General: In no apparent distress, Cooperative HEENT: Atraumatic, Normocephalic Neck: Supple Respiratory: Diminished Cardiovascular: Regular rate/rhythm, Normal S1 S2, Systolic murmur Musculoskeletal: No clubbing, No swelling, No contractures Neurological: Normal speech, Normal affect Assessment And Plan - Current Problems (Diagnosis) (1) Pneumonia Current Visit: Yes Status: Acute (2) Acute exacerbation of CHF (congestive heart failure) Current Visit: Yes Status: Acute (3) Atrial fibrillation Current Visit: No Status: Chronic Qualifiers: (4) Breast cancer Onset Date: 02/18/17 Current Visit: No Status: Chronic Qualifiers: (5) COPD (chronic obstructive pulmonary disease) Onset Date: 02/18/17 Current Visit: No Status: Chronic (6) GERD (gastroesophageal reflux disease) Onset Date: 02/18/17 Current Visit: No Status: Chronic Qualifiers: (7) Hypertension Onset Date: 02/18/17 Current Visit: No Status: Chronic (8) Hypothyroidism Onset Date: 02/18/17 Current Visit: No Status: Chronic Qualifiers: Physician Review Additional Text: Assessment Patient is a 85-year-old female with a past medical history of hypothyroidism and hypertension. She is being admitted for community-acquired pneumonia and possibly acute CHF exacerbation after she presented with shortness of breath and cough. She is still doing well on room air. Her chest x-ray has evidence of infiltrates. She is received ceftriaxone and azithromycin in the ER. Community-acquired pneumonia Possible CHF exacerbation Hypothyroidism Hypokalemia Plan: Improving Will need an additional ceftriaxone and azithromycin, and IV diuresis Replace K+ as needed TTE with diastolic dysfunction Will consider beta blockers or ACEi before discharge Follow up sputum cultures Lovenox for DVT prophylaxis
[2021-05-18] MEDS: ENOXAPARIN 40 MG/0.4 ML SQ SCH (17:36)
[2021-05-19] MEDS: BENZONATATE 100 MG CAP PO PRN ×4 (04:04→23:58)
[2021-05-19] MEDS: LEVOTHYROXINE SOD 0.05 MG TABLET PO SCH (05:29)
[2021-05-19] MEDS: lisinopriL 10 MG TAB PO SCH (05:29)
[2021-05-19 06:15] LABS: Lymphocytes % 8.4 % (15.3-44.8); RBC Red Blood Cell Count 3.35 M/uL (3.86-4.86)
[2021-05-19 06:34] LABS: Potassium 3.3 mmol/L (3.5-5.1)
[2021-05-19] MEDS ORDERED: POTASSIUM 25 MEQ EFFERV TAB PO ONE ×2 (09:00→21:00)
[2021-05-19 09:06] LABS: Absolute Lymphocytes (CBC) 1.2 K/uL (0.7-4.9); Hematocrit 32.9 % (36.0-45.0); Lymphocytes % 8.5 % (15.3-44.8)
[2021-05-19] MEDS ORDERED: CEFTRIAXONE 1000 MG/VIAL ONE (09:25)
[2021-05-19] MEDS: FUROSEMIDE 40 MG/4 ML VIAL IV SCH ×2 (09:35→15:57)
[2021-05-19] MEDS: THIAMINE HCL 100 MG TABLET PO SCH (09:36)
[2021-05-19] MEDS: PANTOPRAZOLE 40MG TABLET PO SCH (09:36)
[2021-05-19] MEDS: ASPIRIN EC 81 MG TAB PO SCH (09:36)
[2021-05-19] MEDS: CEFTRIAXONE 1,000 MG in NA CHLORIDE 0.9% 50 ML IVPB SCH (09:36)
[2021-05-19] MEDS: ASCORBIC ACID 500 MG TABLET PO SCH (09:36)
[2021-05-19] MEDS: AZITHROMYCIN IV 500 MG in NA CHLORIDE 0.9% 250 ML IVPB SCH (09:37)
--- NOTE | 2021-05-19 10:41 | P.PN ---
Subjective Date of Service: 05/19/21 Chief Complaint: Shortness of breath and cough Subjective: Worsening (Bright red blood per rectum) Physical Examination - Vital Signs Temperature: 99.5 F Blood Pressure: 128/58 Pulse: 89 Respirations: 19 Pulse Ox (%): 98 - Physical Exam General: In no apparent distress, Cooperative HEENT: Atraumatic, Normocephalic Respiratory: Normal air movement Cardiovascular: Regular rate/rhythm, Normal S1 S2, Systolic murmur Musculoskeletal: No clubbing, No swelling, No contractures Neurological: Normal speech, Normal affect Assessment And Plan - Current Problems (Diagnosis) (1) Pneumonia Current Visit: Yes Status: Acute (2) Acute exacerbation of CHF (congestive heart failure) Current Visit: Yes Status: Acute (3) Atrial fibrillation Current Visit: No Status: Chronic Qualifiers: (4) Breast cancer Onset Date: 02/18/17 Current Visit: No Status: Chronic Qualifiers: (5) COPD (chronic obstructive pulmonary disease) Onset Date: 02/18/17 Current Visit: No Status: Chronic (6) GERD (gastroesophageal reflux disease) Onset Date: 02/18/17 Current Visit: No Status: Chronic Qualifiers: (7) Hypertension Onset Date: 02/18/17 Current Visit: No Status: Chronic (8) Hypothyroidism Onset Date: 02/18/17 Current Visit: No Status: Chronic Qualifiers: Physician Review Additional Text: Assessment Patient is a 85-year-old female with a past medical history of hypothyroidism and hypertension. She is being admitted for community-acquired pneumonia and possibly acute CHF exacerbation after she presented with shortness of breath and cough. She is still doing well on room air. Her chest x-ray has evidence of infiltrates. She has done well on azithromycin and ceftriaxone. She unfortunately bright red blood per rectum on 05/19. Lower GI bleeding Community-acquired pneumonia Acute diastolic CHF - TTE with diastolic dysfunction Hypothyroidism Hypokalemia Plan: GI consulted for lower GI bleeding. Hemorrhoids on exam Repeat H/H stable DC lovenox and ASA due to GI bleeding Continue ceftriaxone and azithromycin Hold diuresis due to ongoing acute blood loss anemia Will consider beta blockers or ACEi if hemodynamically stable SCD for DVT ppx 05/19/21 12:50
--- NOTE | 2021-05-19 14:13 | P.CNS ---
Date of Consult: 05/19/21 PC: I was asked see this patient in regards to bleeding hemorrhoids. HPC: Patient has been in the hospital. She is being treated for pneumonias. She had a large bloody bowel movement. PSHx: NAD PMHx: COPD Social Hx: Allergic to hydrocodone Sys R: Patient states he has had these hemorrhoids for years. Has been able to take care of herself at home. They have never had a bleed before. Usually manages them with [id number] medication and preparations. O/E: Awake alert stable HEENT: Negative Chest: Air entry equal bilaterally Abd: Intact Rectal exam: Has some small external hemorrhoids. No active bleeding. [place]: Intact Data: Vital signs are stable Impression: Patient has internal and external hemorrhoids. Not actively bleeding at the moment. Plan: Recommend conservative management for now. Should this problem persist, can be taken care of as an outpatient. Patient is more concerned about being discharged at the moment. She is anxious to go home.
[2021-05-19] MEDS: guaiFENesin 100 MG/5 ML UCUP PO PRN ×2 (15:57→20:11)
[2021-05-19 18:39] VITALS: BMI 20.7
--- NOTE | 2021-05-19 20:55 | CON ---
Date of Consultation: 05/19/2021 Reason For Consultation: Hematochezia. History Of Present Illness: Patient is an -vmmb-drp white female with history of COPD, new diagnosis of pneumonia, hypertension, alcohol abuse, and hypothyroidism. Patient admitted to the [facility] due to shortness of breath and cough, found to have pneumonia for which she has been treated a nd acute exacerbation of congestive heart failure. The patient had a large stool this morning with b right red blood. Hemoglobin has been stable and does not recall. Patient appears to have dementia, she cannot recall many things when you ask her questions and is hypertensive, chronic hyperlipidemia, COPD. The patient had no other symptoms. It is unclear when her last colonoscopy was. Past Medical History: Significant for COPD; congestive heart failure; atrial fibrillation; probable dementia, not so sure; breast cancer; reflux disease; hypothyroidism; and alcohol abuse. Medications: Include multivitamin, Synthroid, lisinopril, vitamin C, vitamin E, Protonix, aspirin, t hiamine. Allergies: TO HYDROCODONE. Social History: She is , 2 sons. No tobacco. Occasional beer she reports. Family History: Father of old age at 93 supposedly, on chart review he had cancer of unknown ty pe. Mother of myocardial infarction she stated, but also the chart says she had a history of clinton ng disease as well. Review of Systems: Patient has shortness of breath, cough which has been chronic and recurrent. She had a large hematoc hezia. She has pneumonia on this admission. She also has hematochezia, but no melena, hematemesis, coffee-ground emesis, hemoptysis, hematuria, dysuria, polyuria, polydipsia, chest pain, seizure, sync ope. She does have shortness of breath with cough as stated above. Physical Examination: Vital Signs: The patient is 5 feet 7 inches, 147 pounds. BMI of 23.1 kg/sq m. Temperature 99.5 deg kamlesh Fahrenheit, pulse 89, respirations 19, blood pressure 120/50, O2 saturation 98%. HEENT: Normocephalic, atraumatic. Anicteric. Pupils are equal, round, and reactive to light. Extr aocular movements are intact. Nares clear. Neck: Supple, no masses. Respirations: Labored cough, frequent coughing, some rales. Cardiac: Regular rate and rhythm. No gallops or rubs. Gastrointestinal: Positive bowel sounds. Soft, nontender, nondistended. No hepatosplenomegaly. Extremities: No clubbing, cyanosis, or edema. 2+ pulses. Neuro: Alert and oriented x1-2. Patient's memory is poor. Able to move all extremities well. Laboratory Data: The patient has a white count of 14.6 up from 12.4 yesterday with pneumonia, hemogl obin of 10.8 in the range of 10-11 over the past 3 days. MCV of 89, platelet count of 855, polys of 75%, lymphocytes 9%, monocytes 8%, eosinophils 8%. PT of 12.6, INR of 1.14, PTT of 29.9. The patien t has a sodium 131, potassium 3.3, chloride 97, bicarb 26, BUN of 15, creatinine of 0.88, glucose 114 , calcium of 9.0. B-type natriuretic peptide initially has been as high as 1078 on the , now robin n to 172, normal. Procalcitonin is 6.79, which is high. COVID-19 testing was negative. Imaging: Chest x-ray shows [id number] bilateral pulmonary opacities present. This may repre sent pulmonary edema or pneumonia, mild dextroscoliosis of the thoracic spine. Impression: 1.Hematochezia. The patient evaluated by Surgery earlier today, thought possibly due to hemorrhoids . The patient is hemodynamically stable. The hemoglobin has been stable in the 10-11 range over the past 3 days. No change. 2.Bilateral pneumonia, plus-minus congestive heart failure. 3.History of chronic obstructive pulmonary disease, atrial fibrillation, congestive heart failure, d ementia, breast cancers, gastroesophageal reflux disease, hypothyroidism, and alcohol abuse. Recommendations: 1.Colonoscopy, probably as an outpatient since the patient is now stable and recovering from pneumon ia and an elevated white count. 2.Serial H and H, and transfuse p.r.n. 3.Hemorrhoid therapy such as Anusol suppositories or other. WS/MODL Voice ID: [id number] Report ID: [id number]
[2021-05-20] MEDS: lisinopriL 10 MG TAB PO SCH (05:43)
[2021-05-20] MEDS: LEVOTHYROXINE SOD 0.05 MG TABLET PO SCH (05:43)
[2021-05-20 06:19] LABS: Potassium 4.2 mmol/L (3.5-5.1)
[2021-05-20 07:48] LABS: Absolute Lymphocytes (CBC) 0.6 K/uL (0.7-4.9); Hematocrit 30.5 % (36.0-45.0); Lymphocytes % 5.6 % (15.3-44.8); MPV 7.6 fL (7.6-11.3)
[2021-05-20] MEDS: BENZONATATE 100 MG CAP PO PRN (08:29)
[2021-05-20] MEDS: THIAMINE HCL 100 MG TABLET PO SCH (08:29)
[2021-05-20] MEDS: ASCORBIC ACID 500 MG TABLET PO SCH (08:29)
[2021-05-20] MEDS: FUROSEMIDE 40 MG/4 ML VIAL IV SCH (08:29)
[2021-05-20] MEDS: PANTOPRAZOLE 40MG TABLET PO SCH (08:29)
[2021-05-20] MEDS: CEFTRIAXONE 1,000 MG in NA CHLORIDE 0.9% 50 ML IVPB SCH (08:30)
[2021-05-20 08:31] VITALS: BP 132/57
[2021-05-20] MEDS: AZITHROMYCIN IV 500 MG in NA CHLORIDE 0.9% 250 ML IVPB SCH (08:31)
--- NOTE | 2021-05-20 08:59 | P.DS ---
Admission Date: 05/16/21 Discharge Date: 05/20/21 Disposition: ROUTINE DISCHARGE Discharge Condition: GOOD Reason for Admission: Shortness of breath and cough - Problems (1) Pneumonia Current Visit: Yes Status: Acute (2) Acute exacerbation of CHF (congestive heart failure) Current Visit: Yes Status: Acute (3) Atrial fibrillation Current Visit: No Status: Chronic Qualifiers: (4) Breast cancer Onset Date: 02/18/17 Current Visit: No Status: Chronic Qualifiers: (5) COPD (chronic obstructive pulmonary disease) Onset Date: 02/18/17 Current Visit: No Status: Chronic (6) GERD (gastroesophageal reflux disease) Onset Date: 02/18/17 Current Visit: No Status: Chronic Qualifiers: (7) Hypertension Onset Date: 02/18/17 Current Visit: No Status: Chronic (8) Hypothyroidism Onset Date: 02/18/17 Current Visit: No Status: Chronic Qualifiers: Brief History of Present Illness: Patient is a 84-year-old female with a past medical history of hypertension, chronic alcohol and hypothyroidism. She presented to ER accompanied by her complaining of a 3-day history of cough and shortness of breath. During this time patient also noted progressively worsening lower extremity edema in both legs. states several days ago patient had a low-grade fever with a temperature 100 degrees. She had an echocardiogram in 2017 which revealed a preserved EF with mild MR and TR. She arrived in the ER hemodynamically stable, alert and oriented. Basic labs significant for leukocy tosis with WBC of 17. Her lactic acid is still pending. She has evidence of pneumonia/pulmonary edema on chest x-ray. Her BNP is 999. Patient is satting well on room air. She is not dyspneic. Hospital Course: Patient is a 85-year-old female with a past medical history of hypothyroidism and hypertension. She is being admitted for community-acquired pneumonia and possibly acute CHF exacerbation after she presented with shortness of breath and cough. She is still doing well on room air. Her chest x-ray has evidence of infiltrates. She has done well on azithromycin and ceftriaxone. She unfortunately bright red blood per rectum on 05/19. She was seen by GI and Surgery. She was monitored for 24 hours. She will be discharged today to follow up with GI. Vital Signs/Physical Exam: Temp Pulse Resp BP Pulse Ox 98.9 F 94 H 16 132/57 L 92 03/19/22 04:00 05/20/21 08:29 05/20/21 04:00 05/20/21 08:29 05/20/21 04:00 Laboratory Data at Discharge: WBC 11.30 K/uL (4.3-10.9) H D 05/20/21 05:42 Hgb 10.3 g/dL (12.0-15.0) L 05/20/21 05:42 Hct 30.5 % (36.0-45.0) L 05/20/21 05:42 Plt Count 780 K/uL (152-406) H 05/20/21 05:42 PT 12.6 SECONDS (9.5-12.5) H 05/16/21 16:14 INR 1.14 05/16/21 16:14 APTT 29.9 SECONDS (24.3-36.9) 05/16/21 16:14 Sodium 132 mmol/L (136-145) L 05/20/21 05:42 Potassium 4.2 mmol/L (3.5-5.1) 05/20/21 05:42 BUN 12 mg/dL (7-18) 05/20/21 05:42 Creatinine 0.93 mg/dL (0.55-1.3) 05/20/21 05:42 Glucose 105 mg/dL (74-106) 05/20/21 05:42 Magnesium 2.0 mg/dL (1.8-2.4) 05/16/21 14:45 Total Bilirubin Cancelled 05/16/21 15:32 AST Cancelled 05/16/21 15:32 ALT Cancelled 05/16/21 15:32 Alkaline Phosphatase Cancelled 05/16/21 15:32 Home Medications: Multivitamin [Daily Multivitamin] 1 each PO DAILY 02/18/13 Levothyroxine [Synthroid*] 50 mcg PO [id number] 09/06/16 lisinopriL [Prinivil*] 10 mg PO [id number] 09/06/16 Ascorbate Calcium [Vitamin C] 500 mg PO DAILY 02/16/17 Vitamin E 1 pill PO DAILY 02/16/17 Pantoprazole [Protonix Tab*] 40 mg PO DAILY 12/13/19 Thiamine HCl 100 mg PO DAILY #90 tablet 12/14/19 Metoprolol Succinate 25 mg PO DAILY #30 tab.er.24h 05/20/21 New Medications: Metoprolol Succinate 25 mg PO DAILY #30 tab.er.24h Physician Discharge Instructions: Please follow up with Dr. Mcintosh for outpatient colonoscopy. Followup: Asad Moulton MD [Primary Care Provider] - 1 Week Asad Mcintosh MD [ASSOCIATE-ACTIVE - CAN ADMIT] - 1 Week
[2021-05-20 09:18] VITALS: TEMP 99.6
[2021-05-20 10:49] VITALS: O2SAT 90
== END 2021-05-20 10:40 | disposition home or self-care (01) | DRG 193 ==
LOC: ER 13:46 → ERHOLD 16:16 → 2ND 17:28
PROVIDERS: ADMIT Internal Medicine; ATTEND Internal Medicine
DX: J18.9 Pneumonia, unspecified organism (principal); I50.31 Acute diastolic (congestive) heart failure; J44.0 Chronic obstructive pulmonary disease with (acute) lower respiratory infection; I48.20 Chronic atrial fibrillation, unspecified; K92.1 Melena; D62 Acute posthemorrhagic anemia; E03.9 Hypothyroidism, unspecified; K21.9 Gastro-esophageal reflux disease without esophagitis; K64.4 Residual hemorrhoidal skin tags; K64.8 Other hemorrhoids; I11.0 Hypertensive heart disease with heart failure; E87.6 Hypokalemia; R01.1 Cardiac murmur, unspecified; Z72.89 Other problems related to lifestyle; Z85.3 Personal history of malignant neoplasm of breast; Z20.822 Contact with and (suspected) exposure to COVID-19
CPT/HCPCS: 36415; 71045; 80048; 80076; 83605; 83735; 83880; 84132; 84145; 84484; 85025; 85610; 85730; 87040; 87205; 93005; 93306; 94640; 96365; 96375; 99285; J0456; J1650; J1940; J7050; U0003